=== PATIENT | male | born 1945 | race Caucasian/White ===

== ENCOUNTER 2017-08-27 01:12 | Inpatient (IN) | payer OTHER ==
[~2017-08-27] VITALS: Ht 175.3 cm; Wt 99.6 kg
[2017-08-27] VITALS (20 sets, daily range): BP systolic 115–151; BP diastolic 77–100; PULSE 64–81; TEMP 36.4–36.6; O2SAT 92–98; Ht 175.3 cm; Wt 99.6 kg
[~2017-08-27 01:12] MED LIST: ASPI325T45 PO; AZIT-57 PO; CALC500T72 PO; CHOL1CAP57 PO; COEN1CAP17 PO; DOCU-94 PO; FAMOCHW27 PO; MULTTAB58 PO; PHN/100 PO; PROB1TAB16 PO
[2017-08-27] MEDS ORDERED: NITROGLYCERIN 0.4 MG SL PER TAB CHARGE SL STA (01:27)
[2017-08-27] MEDS ORDERED: NITROGLYCERIN 0.4 MG SL PER TAB CHARGE ONE (01:27)
[2017-08-27 01:38] LABS: BASO % 0.3 %; BASO ABS # 0.02 K/uL (0-0.2); COMPLETE YES; EOS % 2.2 %; HEMATOCRIT 44.8 % (42-52); IG% 0.3 %; LYMPH % 17.4 %; LYMPH ABS # 1.03 K/uL (1.2-3.4); MEAN CELL VOLUME 96.6 fL (80-100); MEAN CORPUSCULAR HEMOGLOBIN 32.5 pg (25-34); MEAN CORPUSCULAR HGB CONC 33.7 g/dl (32-36); MEAN PLATELET VOLUME 8.9 fL (7.4-10.4); MONO % 11.3 %; NEUT % 68.5 %; PLATELET COUNT 234 K/uL (130-400); RED BLOOD COUNT 4.64 M/uL (4.7-6.1); WHITE BLOOD COUNT 5.92 K/uL (4.8-10.8)
[2017-08-27 01:48] LABS: PARTIAL THROMBOPLASTIN RATIO 0.9; PROTHROMBIN TIME (PATIENT) 10.4 SECONDS (9.0-12.0)
[2017-08-27] MEDS ORDERED: NITROGLYCERIN/D5W 100MCG/ML 20ML SYR ONE (01:54)
[2017-08-27] MEDS ORDERED: MIDAZOLAM HCL 1 MG/ML 2ML VIAL ONE (01:54)
[2017-08-27] MEDS ORDERED: HEPARIN SOD (PORCINE) 1000 UNIT/ML 10 ML VIAL ONE ×2 (01:54→02:42)
[2017-08-27] MEDS ORDERED: NiCARDipine HCL INJ 2.5 MG/ML 10 ML AMP ONE (01:54)
[2017-08-27] MEDS ORDERED: FENTANYL CITRATE INJ 50 MCG/1 ML 2 ML VIAL ONE (01:54)
[2017-08-27 01:56] LABS: ALT/SGPT 26 U/L (12-78); AST/SGOT 41 U/L (15-37); BLOOD UREA NITROGEN 21 mg/dl (7-18); BUN/CREATININE RATIO 22.9 (10-20); CALCIUM 8.1 mg/dl (8.5-10.1); CARBON DIOXIDE 25 mmol/L (21-32); CHLORIDE 105 mmol/L (98-107); CREATININE 0.92 mg/dl (0.60-1.40); GLUCOSE 181 mg/dl (70-99); POTASSIUM 3.5 mmol/L (3.5-5.1); SODIUM 135 mmol/L (136-145)
--- NOTE | 2017-08-27 02:04 | Procedure Note ---
Pre-Mod Sedation Assessment General Date of Moderate Sedation: Aug 27, 2017. Vital Signs: Vital Signs Past 12 Hours Date Time Temp Pulse Resp B/P (MAP) Pulse Ox O2 Delivery O2 Flow Rate FiO2 08/27/17 01:59 59 18 137/99 96 08/27/17 01:36 83 19 155/102 93 Room Air 08/27/17 01:31 81 19 170/108 94 Room Air 08/27/17 01:26 82 18 210/135 92 Room Air 08/27/17 01:23 73 08/27/17 01:22 36.4 78 20 197/129 97 Room Air Review Cardiovascular: regular rate, rhythm, no edema Abdomen: normal bowel sounds, non tender Lungs: chest non-tender, lungs clear Pre-Sedation Airway Assessment Oral Cavity: WNL Able to Visualize Vocal Cords: No Short Thick Neck: No Hx of Sleep Apnea: No Smoking Status: Never Smoker Mallampati Classification: Class III ASA Classification: Class IV Procedure Planning Contraindications-for Mod Sed: None Yes Notes The planned sedation has been discussed with the patient and consent obtained. I have identified the patient, determined the appropriateness of sedation and have assessed the patient immediately prior to the procedure. All medicine(s) and interventions are by my order.
[2017-08-27 02:07] LABS: ALKALINE PHOSPHATASE 179 U/L (45-117); CKMB/CK RATIO 6.1 (0-3.0)
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
[2017-08-27] MEDS ORDERED: TICAGRELOR 90 MG TAB PO ONE (03:09)
--- NOTE | 2017-08-27 03:16 | CARDIOLOGY CONSULTATION ---
DATE OF CONSULTATION: 08/27/2017 CONSULTATION REQUESTED: Emergency department/heart alert. REASON FOR CONSULTATION: Inferior ST segment elevation myocardial infarction. HISTORY OF PRESENT ILLNESS: Mr. Bach is a pleasant 71-year-old man with a history of prior CVA in the 80s, thoracic aortic aneurysm at 4.5 cm, GERD who presented this evening with acute onset of chest pain and was found to have inferior ST elevations. The patient states he has been in usual state of health up until about 10:00 p.m. on 08/26/2017, at that time developed acute onset chest pain max 5/10. Symptoms persisted until approximately 1:00 a.m. today when he presented to the [facility] Emergency Department. At that time, was hypertensive with systolic blood pressures in the 190s. He was given sublingual nitroglycerin with improvement in chest pain and at time of interview chest pain was 1/10 and blood pressure down to systolics in the 140s. His initial EKG showed inferior ST elevations and a point of care troponin was positive at 2.6. PAST MEDICAL HISTORY: 1. Prior CVA in the 1980s with minimal residual left-sided upper extremity numbness. 2. 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 3. Thoracic aortic aneurysm, last reported measurement 4.5 cm in 2014 followed by [facility], [place] thoracic surgery. 4. GERD/chronic cough. FAMILY HISTORY: No family history of premature coronary disease or sudden cardiac . SOCIAL HISTORY: Denies tobacco use or heavy alcohol use. Lives with his who he has been to for over 50 years. 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 MEDICATIONS: Aspirin 325, vitamin C, vitamin D3, Coenzyme Q10, docusate, Pepcid, multivitamins, Dilantin, and probiotic. ALLERGIES: ALLERGIC TO CARBAMAZEPINE, CEPHALEXIN, CEPHALOSPORINS AND PENICILLINS. REVIEW OF SYSTEMS: Not completed in an emergent setting. PHYSICAL EXAMINATION: VITAL SIGNS: Temperature 36.2, pulse was in the 80s, blood pressure in the 130s/80s. He was satting 92% on room air. GENERAL: The patient appeared comfortable in no acute distress. HEENT: His sclerae are anicteric. His oropharynx is clear. NECK: Supple, no lymphadenopathy. LUNGS: Clear to auscultation bilaterally. HEART: Irregular rate and rhythm with no appreciable murmurs, rubs or gallops. ABDOMEN: Soft, nontender, nondistended with positive bowel sounds. EXTREMITIES: Warm. He has trace lower extremity edema. SKIN: Shows no rashes or lesions, 2+ distal pulses including 2+ radial pulses bilaterally. NEUROLOGIC: Nonfocal. PSYCHIATRIC: Alert and appropriate. LABORATORY DATA: Point of care troponin was 2.66, hemoglobin was 15.1, platelets of 234. INR 1.0. His initial chest x-ray showed no acute cardiopulmonary process. IMPRESSION AND PLAN: 1. Inferior ST segment elevation myocardial infarction. 2. History of prior cerebrovascular accident. 3. Stable thoracic aortic aneurysm. Mr. Bach is here with approximately 3 hours of acute onset of chest pain and found to have inferior ST elevations on EKG with elevated cardiac biomarkers. We will plan to treat as a STEMI and proceed with emergent cardiac catheterization. Discussed risks, benefits, alternatives to procedure with the patient and his and he is willing to proceed. We will plan on procedure via right radial artery. Further recommendations pending findings of cardiac catheterization. Thank you for allowing us to participate in the care of this patient. Please contact with questions.
[2017-08-27] MEDS ORDERED: NITROGLYCERIN 0.4 MG SL PER TAB CHARGE SL PRN ×2 (03:30→04:00)
[2017-08-27] MEDS ORDERED: ACETAMINOPHEN 325 MG TAB PO PRN ×2 (03:30→04:00)
[2017-08-27] MEDS ORDERED: ONDANSETRON INJ 2 MG/ML 2 ML VIAL IV PRN (03:30)
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
--- NOTE | 2017-08-27 03:43 | Cardiac Catheterization ---
Procedure Note Procedure Date Aug 27, 2017. Pre-Procedure Diagnosis STEMI AUC Score 9 Post-Procedure Diagnosis Severe CAD Procedure(s) Performed Coronary Angiography, Drug Eluting Stent [employer] Service Helper Bryson Global Technical Writer(s) Jairo Estimated Blood Loss Medication(s) Fentanyl, Heparin, Nicardipine, Nitroglycerin, Versed, Lidocaine 1% Summary of Findings Indication: STEMI/Heart Alert Access: 6Fr slender right radial artery Catheters: [place], JL3.5; JR4 guide, AR1 guide Findings: LM - Luminal irregularities LAD - Moderate caliber vessel, diffuse mild proximal disease; diffuse 50-60% mid segment disease; distal luminal irregularities as wraps around apex - Small to moderate 1st diagonal with 60% mid segment stenosis Circumflex - Diffuse 40% angulated mid segment stenosis followed by ectatic disease prior to take off of OM2. distal circumflex 60-70% focal stenosis at bifurcation of OM2; OM2 with 60% ostial stenosis. RCA - Dominant, 30% proximal stenosis; Acute 100% occlusion at beginning of mid segment. -- post intervention diffuse 50% distal RCA stenosis prior to R-PDA; diffuse distal PDA disease; 50% proximal distal PLB. -- PCI -- Antithrombotic therapy: Heparin, Ticagrelor Procedure: RCA cannulated with JR4 guide Prowater wire passed across lesion into distal vessel Early-mid RCA lesion predilated with 2.5 compliant balloon Dilated lesion stented with 3.5 x 26 [place] MERCEDES Stent post-dilated with stent balloon IC vasodilators administered for spasm Post procedure INA 3 flow, stent well expanded with minimal residual stenosis and no apparent cardiac complications. Arterial Closure: TR Ban Summary: 1. Inferior STEMI/Occluded early-mid RCA 2. Moderate to severe multi vessel coronary artery disease - 50-60% mid LAD - OM2/distal circumflex bifurcation with 60-70% ostial lesions - 50% distal RCA 3. Successful PCI of early-mid RCA with 3.5 x 26 Ezequiel MERCEDES Recommendations: Admit to ICU for continued monitoring Loaded with Ticagrelor 180mg in label press operator Continue dual-antiplatelet therapy with ASA/Ticagrelor for 1 year Trend troponins until peak, Check Echo Uptitrate beta-prabhu/MALATHI as BP allows High-dose statin Consult cardiac Rehab Likely medical management of residual CAD with possible outpatient stress test Hemodynamics Rest Ao: 152/93/120 Final Ao: 118/75/95 LV: -- Recommendations PCI without planned CABG Specimens None Radiation Exposure (mGy) 2830 Contrast (mls) 185 Visi Fluids (cc crystalloids) 110 Drains None Anesthesia Moderate Procedural Complication(s) None Disposition ICU ACC Data Cardiac Status Clinical evaluation leading to the procedure CAD Presntation: STEMI STEMI or Non-STEMI: Symptom Onset Date/Time: 08/26 22:00 Anginal Classification: CCS IV Heart Failure: No, NYHA Class: CCS I Cardiogenic Shock w/in 24Hrs: No Cardiac Arrest w/in 24Hrs: No Imaging studies past 6 months: No Stress studies past 6 months: No Closure Device Percutaneous Entry Location: Radial Closure Device: Radial Band Recommendations: PCI without planned CABG PCI Indication: Immediate PCI for STEMI First Noted: First EKG Reason For Delay in PCI: Subclavian tortuosity; difficulty engaging RCA Lesion Segment Name: Mid RCA Culprit Artery: Yes Stenosis Prior to Rx (%): 100 Chronic Total Occlusion: No IVUS: No FFR: No Pre-Procedure INA Flow: 0 Previously Treated Lesion: No Lesion Complexity: Non-High/Non-C Lesion Length (mm): 24 Thrombus Present: Yes Bifurcation Lesion: No Guidewire Across Lesion: Yes Guidewire: Stenosis Post-Procedure (%): 0 Post-Procedure INA Flow: 3 Device(s) Deployed: Yes Intraprocedure Events Significant Dissection: No Perforation: No
[2017-08-27] MEDS ORDERED: DOCUSATE SODIUM 100 MG CAP PO PRN (04:00)
[2017-08-27] MEDS ORDERED: MoRPHine SULFATE 2 MG/ML CARP IV PRN (04:00)
[2017-08-27] MEDS ORDERED: LORAZEPAM 0.5 MG TAB PO PRN (04:00)
--- NOTE | 2017-08-27 04:08 | History and Physical ---
History & Physical Date & Time of Service: Aug 27, 2017 at 03:58 Chief Complaint: STEMI Primary Care Physician: Jay Mayo M.D. History of Present Illness Source: patient, family Mr Bach is a 71 yo M with hx of stroke, GERD, and aortic aneurysm who presented to the ED with chest pain that had begun about 3 hours prior to arrival. He was found to have a STEMI in the inferior leads and a heart alert was called. He underwent cardiac catheterization and had a stent placed to the mid-RCA via a R radial approach. He was found to also have disease in the LAD and circumflex but these were not stented. He was started on Brillinta in the golf course laborer. Currently, he is awake, alert and chest pain free. He denies any shortness of breath, abdominal pain, leg swelling, or other new symptoms. Past Medical/Surgical History PMHx Hx of stroke - a scar developed around this area so he was put on phenytoin for seizure precautions. he has never had a seizure, however. Aortic aneurysm - followed by [facility] Jeana ROONEY PSHx Tonsillectomy Family History Patient reports no known family medical history. No pertinent FHx Social History Is a [employer] and also used to be a high school assistant football coach. Lives in [facility]/his family. Never smoker. Occasional alcohol use. Smoking Status: Never Smoker Drug Use: none Marital Status: Occupational Status: employed Multi-Drug Resistant Organisms History of MDRO: No Allergies Coded Allergies: Cephalexin (Verified Allergy, Intermediate, Rash, 07/11/17) Cephalosporins (Verified Allergy, Intermediate, Rash, 07/11/17) Carbamazepine (Verified Allergy, Unknown, Elevated liver enzymes, 07/11/17 ) Penicillins (Verified Allergy, Unknown, 05/28/14) Home Medications Scheduled Aspirin (Aspirin), 325 MG PO DAILY Azithromycin (Azithromycin), 1 TAB PO DAILY Calcium Ascorbate (Vitamin C), 500 MG PO DAILY Cholecalciferol (Vitamin D3), 1,000 INTER.UNIT PO DAILY Coenzyme Q10 (Ubidecarenone) (Co Q 10), 100 MG PO DAILY Multiple Vitamin (Multivitamin), 1 TAB PO DAILY Phenytoin Sodium (Dilantin), 200 MG PO BID Probiotic Product (Probiotic), 1 TAB PO DAILY Scheduled PRN Docusate Sodium (Colace), 100 MG PO DAILY PRN for Constipation Famotidine-Calcium Carbonate-M (Pepcid Complete), 1 TAB PO UD PRN for Indigestion Review of Systems See HPI for pertinent positives & negatives. A total of 10 systems reviewed and were otherwise negative. Physical Exam Vital Signs Date Time Temp Pulse Resp B/P (MAP) Pulse Ox O2 Delivery O2 Flow Rate FiO2 08/27/17 03:30 36.4 66 20 135/90 (105) 95 Room Air 08/27/17 03:15 73 16 128/73 (91) 95 Room Air 08/27/17 03:05 73 16 130/73 (92) 95 Room Air 08/27/17 02:11 95 Room Air 08/27/17 01:59 59 18 137/99 96 08/27/17 01:36 83 19 155/102 93 Room Air 08/27/17 01:31 81 19 170/108 94 Room Air 08/27/17 01:26 82 18 210/135 92 Room Air 08/27/17 01:23 73 08/27/17 01:22 36.4 78 20 197/129 97 Room Air General Appearance: WD/WN, no apparent distress Head: normocephalic, atraumatic ENT: hearing grossly normal Neck: supple, no JVD Respiratory/Chest: lungs clear, normal breath sounds, no respiratory distress, no accessory muscle use Cardiovascular: regular rate, rhythm, no murmur, normal peripheral pulses Abdomen/GI: normal bowel sounds, non tender, soft Back: no CVA tenderness, no muscle spasm Extremities/Musculoskelatal: normal inspection, no pedal edema Neurologic/Psych: no motor/sensory deficits, alert, normal mood/affect, oriented x 3 Skin: no rash Diagnostics Laboratory Results Results Past 24 Hours Test 08/27/17 01:29 08/27/17 01:30 08/27/17 02:40 08/27/17 02:56 Range/Units Bedside Troponin I 2.660 0-0.045 ng/ml White Blood Count 5.92 4.8-10.8 K/uL Red Blood Count 4.64 4.7-6.1 M/uL Hemoglobin 15.1 14.0-18.0 g/dL Hematocrit 44.8 42-52 % Mean Corpuscular Volume 96.6 80-100 fL Mean Corpuscular Hemoglobin 32.5 25-34 pg Mean Corpuscular Hemoglobin Concent 33.7 32-36 g/dl Platelet Count 234 130-400 K/uL Mean Platelet Volume 8.9 7.4-10.4 fL Neutrophils (%) (Auto) 68.5 % Lymphocytes (%) (Auto) 17.4 % Monocytes (%) (Auto) 11.3 % Eosinophils (%) (Auto) 2.2 % Basophils (%) (Auto) 0.3 % Neutrophils # (Auto) 4.05 1.4-6.5 K/uL Lymphocytes # (Auto) 1.03 1.2-3.4 K/uL Monocytes # (Auto) 0.67 0.11-0.59 K/uL Eosinophils # (Auto) 0.13 0-0.5 K/uL Basophils # (Auto) 0.02 0-0.2 K/uL RDW Standard Deviation 49.6 36.4-46.3 fL RDW Coefficient of Variation 14.0 11.5-14.5 % Immature Granulocyte % (Auto) 0.3 % Immature Granulocyte # (Auto) 0.02 0.00-0.02 K/uL Prothrombin Time 10.4 9.0-12.0 SECONDS Prothromb Time International Ratio 1.0 0.9-1.1 Activated Partial Thromboplast Time 24.3 21.0-31.0 SECONDS Partial Thromboplastin Ratio 0.9 Sodium Level 135 136-145 mmol/L Potassium Level 3.5 3.5-5.1 mmol/L Chloride Level 105 98-107 mmol/L Carbon Dioxide Level 25 21-32 mmol/L Anion Gap 5.0 3-11 mmol/L Blood Urea Nitrogen 21 7-18 mg/dl Creatinine 0.92 0.60-1.40 mg/dl Est Creatinine Clear Calc Drug Dose 83.7 ml/min Estimated GFR () 95.3 Estimated GFR (Non- 82.2 BUN/Creatinine Ratio 22.9 10-20 Random Glucose 181 70-99 mg/dl Calcium Level 8.1 8.5-10.1 mg/dl Total Bilirubin 0.2 0.2-1 mg/dl Direct Bilirubin < 0.1 0-0.2 mg/dl Aspartate Amino Transf (AST/SGOT) 41 15-37 U/L Alanine Aminotransferase (ALT/SGPT) 26 12-78 U/L Alkaline Phosphatase 179 45-117 U/L Total Creatine Kinase 360 39-308 U/L Creatine Kinase MB 21.8 0.5-3.6 ng/ml Creatine Kinase MB Ratio 6.1 0-3.0 Troponin I 3.000 0-0.045 ng/ml Total Protein 8.0 6.4-8.2 gm/dl Albumin 3.5 3.4-5.0 gm/dl Kaolin Activated Coagulation Time 197 235 94-140 SECONDS CXR normal EKG Pre-cath EKG: ST elevation in inferior leads 3:30 AM EKG: Normal sinus rhythm Left axis deviation Minimal voltage criteria for LVH, may be normal variant Possible Lateral infarct , age undetermined Cannot rule out Inferior infarct , age undetermined Abnormal ECG When compared with ECG of 27-AUG-2017 01:18, (unconfirmed) Significant changes have occurred Impression Assessment and Plan 71 yo M, day 0 s/p cardiac catheterization with stent placement in the mid-RCA for inferior wall STEMI Coronary artery disease, s/p cardiac cath - Cardiology consult, Dr Massey - Per his recommendations: continue aspirin/Ticagrelor x 1 year - Continue trending troponins until peaked - Echo in AM - Started on beta prabhu, MALATHI-I, high dose statin - Cardiac rehab GERD - Continue Fomotidine PO Seizure prophylaxis - Continue phenytoin (home dosing) Dispo: Admitted to ICU Code status: Full Resident Physician Supervision Note: Pt evaluated independently upon exiting the golf course laborer. I discussed the case with the resident and agree with the findings and plan as documented in the note. Any exceptions or clarifications are listed here: 71 y/o M Hx CVA - poresented to the ER with CP and diagnosed with an an inferior ST-elevation TN. He is currently post cath - received a single MERCEDES to his RCA. AAO x 3 S1,2 R CTAB NT, ND No CCE P: Pt is post cath - cont Heparin, Bblocker - placed on Brilinta, Lipitor per cardio Above discussed with pt, resident, interactive project manager Documented By: Reji Frankel Level of Care Critical Care Advanced Directives Existing Living Will: Yes Existing Power of Cell Maker: Yes VTE Prophylaxis VTE Risk Assessment Done? Y/N: Yes Risk Level: Moderate Given or contraindicated: Other Anticoagulation Additional Copies To Jay Mayo M.D. Resident Tracking Resident Involvement: Resident Care Provided Care Provided: Adult [facility] Medicine
[2017-08-27] MEDS ORDERED: SODIUM CHLORIDE 0.9% 1000ML 1,000 ML IV SCH (06:30)
--- NOTE | 2017-08-27 06:33 | DIAGNOSTIC IMAGING REPORT ---
CHEST ONE VIEW PORTABLE CLINICAL HISTORY: eval mediastinum dyspnea COMPARISON STUDY: 07/11/2017 FINDINGS: Mild stable cardiomegaly. Lungs are clear. Superior mediastinum is unremarkable. Minimal tortuosity thoracic aorta. IMPRESSION: No acute process. The above report was generated using voice recognition software. It may contain grammatical, syntax or spelling errors. Electronically signed by: Maninder Ni M.D. 08/27/2017 6:31 AM Dictated Date/Time: 08/27/2017 6:30 AM
[2017-08-27 06:55] LABS: ESTIMATED AVERAGE GLUCOSE 154 mg/dl; HA1C FLAG Normal (Normal)
[2017-08-27 07:03] LABS: CHOLESTEROL/HDL RATIO 2.9
[2017-08-27 08:26] LABS: BASO % 0.4 %; BASO ABS # 0.03 K/uL (0-0.2); COMPLETE YES; EOS % 1.1 %; HEMATOCRIT 40.6 % (42-52); IG% 0.3 %; LYMPH % 13.4 %; LYMPH ABS # 0.96 K/uL (1.2-3.4); MEAN CELL VOLUME 95.1 fL (80-100); MEAN CORPUSCULAR HEMOGLOBIN 32.3 pg (25-34); MONO % 10.8 %; PLATELET COUNT 217 K/uL (130-400); RED BLOOD COUNT 4.27 M/uL (4.7-6.1); WHITE BLOOD COUNT 7.15 K/uL (4.8-10.8)
[2017-08-27] MEDS: LISINOPRIL 5 MG TAB PO SCH (08:40)
[2017-08-27] MEDS: ASPIRIN 81 MG ECTAB PO SCH (08:40)
[2017-08-27] MEDS: PHENYTOIN SODIUM ER 100 MG CAP PO SCH ×2 (08:40→19:28)
[2017-08-27] MEDS: METOPROLOL TARTRATE 25 MG TAB PO SCH ×2 (08:40→19:33)
[2017-08-27] MEDS: MULTIVITAMIN TAB PO SCH (08:40)
[2017-08-27] MEDS: ATORVASTATIN 40 MG TAB PO SCH (08:40)
[2017-08-27 08:43] LABS: BUN/CREATININE RATIO 23.5 (10-20); CALCIUM 8.1 mg/dl (8.5-10.1); CREATININE 0.71 mg/dl (0.60-1.40); MAGNESIUM 2.2 mg/dl (1.8-2.4); POTASSIUM 3.9 mmol/L (3.5-5.1)
[2017-08-27 08:44] LABS: PHOSPHORUS 2.3 mg/dl (2.5-4.9)
[2017-08-27] MEDS ORDERED: POTASSIUM PHOS 3 MMOL/1 ML INFUSION IV STA (08:55)
[2017-08-27] MEDS ORDERED: TICAGRELOR 90 MG TAB PO SCH (09:00)
[2017-08-27] MEDS ORDERED: POTASSIUM PHOSPHATE INJ 15 MMOL in SODIUM CHLORIDE 0.9% 250ML 250 ML IV ONE (09:00)
--- NOTE | 2017-08-27 09:32 | ECHOCARDIOGRAM REPORT ---
*NOTICE TO RECEIVING LIBERTARIAN AGENCY This information is strictly Confidential and protected under [place] law. [place] law prohibits you from making any further disclosure of this information unless further disclosure is expressly permitted by the written consent of the person to whom it pertains or is authorized by law. A general authorization for the release of medical or other information is not sufficient for this purpose. Hospital accepts no responsibility if the information is made available to any other person, INCLUDING THE PATIENT. Interpretation Summary * Name: BEBE FLORES Study Date: 08/27/2017 07:14 AM BP: 151/93 mmHg * Patient Location: .MSICU\S\E106\S\1 HR: 68 * : 1945 (M/d/yyyy) Gender: Male Height: 69 in * Age: 71 yrs Ethnicity: [place] Weight: 219 lb * Ordering Physician: Josr Massey * Referring Physician: Self, Referred * Performed By: Trace Don RCS * * Reason For Study: AMI * BSA: 2.1 m2 * -- Conclusions -- * 1. Normal LV size, mild concentric LVH. * 2. LVEF 55-60%. Inferior/inferolateral wall motion abnormality (see below for details). Grade I diastolic dysfunction. * 3. Normal RV size with borderline RV function. * 4. Aortic sclerosis. Mild aortic regurgitation. * 5. Mildly dilated ascending aorta (4.3 cm). * 6. Normal estimated PA and RA pressures. * 7. No prior studies for comparison. Procedure Details * A complete two-dimensional transthoracic echocardiogram was performed (2D, M-mode, Doppler and color flow Doppler). Left Ventricle * The left ventricle is grossly normal size. * There is mild concentric left ventricular hypertrophy. * Ejection Fraction = 55-60%. * Severe hypokinesis involving the inferolateral and inferior warner at the base. Mild mid segment inferior/inferolateral hypokinesis. Right Ventricle * The right ventricle is grossly normal size. * The right ventricular systolic function is borderline reduced. Atria * The left atrial size is normal. * The right atrium is mildly dilated. * No ASD detected; PFO is not assessed. Mitral Valve * The mitral valve is grossly normal. * There is no mitral valve stenosis. * There is trace mitral regurgitation. Tricuspid Valve * The tricuspid valve is not well visualized, but is grossly normal. * Tricuspid stenosis is absent. * There is trace tricuspid regurgitation. Aortic Valve * Aortic valve sclerosis mild, without significant aortic valvular stenosis. * No hemodynamically significant valvular aortic stenosis. * Mild aortic regurgitation. Pulmonic Valve * The pulmonary valve is inadequately visualized, but the Doppler data is adequate for interpretation. * There is no pulmonic valvular stenosis. * Trace pulmonic valvular regurgitation. Great Vessels * The aortic root is normal size. * Mildly dilated ascending aorta. Pericardium/Pleural * There is no pericardial effusion. Great Vessels * Normal inferior vena cava size and collapsability with sniff indicates a normal right atrial pressure of 3 mmHg Left Ventricular Diastolic Function * Grade I diastolic dysfunction, (abnormal relaxation pattern). MMode 2D Measurements and Calculations IVSd 1.1 cm IVSs 1.4 cm LVIDd 5.2 cm LVIDs 3.3 cm LVPWd 1.1 cm LVPWs 1.4 cm IVS/LVPW 0.99 FS 36.1 % EDV(Teich) 130.2 ml ESV(Teich) 45.1 ml EF(Teich) 65.3 % EDV(cubed) 141.6 ml ESV(cubed) 36.9 ml EF(cubed) 73.9 % % IVS thick 25.5 % % LVPW thick 25.7 % LV mass(C)d 216.5 grams LV mass(C)dI 100.9 grams/m\S\2 LV mass(C)s 153.9 grams LV mass(C)sI 71.7 grams/m\S\2 SV(Teich) 85.1 ml SI(Teich) 39.6 ml/m\S\2 SV(cubed) 104.6 ml SI(cubed) 48.7 ml/m\S\2 asc Aorta Diam 3.6 cm EDV(MOD-sp4) 128.0 ml ESV(MOD-sp4) 49.7 ml EF(MOD-sp4) 61.2 % EDV(MOD-sp2) 87.4 ml ESV(MOD-sp2) 36.9 ml EF(MOD-sp2) 57.8 % SV(MOD-sp4) 78.3 ml SI(MOD-sp4) 36.5 ml/m\S\2 SV(MOD-sp2) 50.5 ml SI(MOD-sp2) 23.5 ml/m\S\2 Doppler Measurements and Calculations MV E max oksana 50.5 cm/sec MV A max oksana 106.6 cm/sec MV E/A 0.47 MV P1/2t max oksana 55.1 cm/sec MV P1/2t 103.4 msec MVA(P1/2t) 2.1 cm\S\2 MV dec slope 156.2 cm/sec\S\2 MV dec time 0.37 sec Ao V2 max 174.6 cm/sec Ao max PG 12.2 mmHg Ao max PG (full) 9.3 mmHg AI max oksana 427.1 cm/sec AI max PG 73.0 mmHg AI dec slope 90.8 cm/sec\S\2 AI P1/2t 1378.3 msec LV V1 max PG 2.9 mmHg LV V1 max 84.6 cm/sec PA V2 max 88.7 cm/sec PA max PG 3.1 mmHg PI max oksana 123.0 cm/sec PI max PG 6.0 mmHg PI dec slope 105.8 cm/sec\S\2 PI P1/2t 340.5 msec TR max oksana 212.1 cm/sec
[2017-08-27] MEDS ORDERED: PEPCID COMPLETE PO PRN (13:45)
[2017-08-27] MEDS ORDERED: CLOPIDOGREL BISULFATE 300 MG TAB PO STA (16:12)
--- NOTE | 2017-08-27 16:13 | Cardiology Follow-Up ---
Subjective Subjective Date of Service: Aug 27, 2017. Pt evaluation today including: conversation w/ patient, physical exam, review of studies, review of inpatient medication list Additional Details: Feeling well. No chest pain. No other new complaints. tele reviewed -- no events. Problem List Medical Problems: (1) Acute bronchitis Status: Acute (2) STEMI (ST elevation myocardial infarction) Status: Acute Review of Systems Constitutional: No fever, No chills Cardiac: No chest pain Abdomen: No pain, No nausea Psychiatric: No depression symptoms Heme: No abnormal bleeding/bruising Endo: No fatigue Skin: No rash Objective Vital Signs Last Vital Signs Documentation Date Time Temp Pulse Resp B/P (MAP) Pulse Ox O2 Delivery O2 Flow Rate FiO2 08/27/17 12:00 Room Air 08/27/17 12:00 36.5 64 20 115/86 (96 92 Physical Exam: General Appearance: no apparent distress ENT: hearing grossly normal Neck: no JVD Respiratory/Chest: lungs clear, normal breath sounds Cardiovascular: regular rate, rhythm, no edema, no murmur Abdomen: non tender, soft Extremities: no pedal edema, no calf tenderness, + pertinent finding (right radial artery - no hematoma/ecchymosis. intact distal pulse) Neurologic/Psychiatric: alert, normal mood/affect Skin: warm/dry Assessment and Plan 1. Inferior STEMI s/p PPCI with MERCEDES to early-mid RCA 2. Dilated ascending aorta with mild aortic regurgitation. 3. Prior CVA/? prior seizure disorder Chest pain free. Hemodynamically and electrically stable. Troponin peaked this AM. LV function preserved on Echo. No access site complications -- will plan to transition ticagrelor to clopidogrel --> load 300mg this afternoon, start 75mg clopidogrel tomorrow AM. Continue ASA -- Continue MALATHI/beta-prabhu -- continue high-intensity statin. -- Ok from cardiac standpoint to transfer to telemetry. Medications: Current Inpatient Medications Medications (Trade) Dose Ordered Sig/Néstor Route Start Time Stop Time Status Last Admin Dose Admin Nitroglycerin (Nitrostat Tab) 0.4 mg UD PRN SL 08/27/17 03:30 09/26/17 03:29 Ondansetron HCl (Zofran Inj) 4 mg Q6H PRN IV 08/27/17 03:30 09/26/17 03:29 Aspirin (Ecotrin Tab) 81 mg QAM PO 08/27/17 09:00 09/26/17 08:59 08/27/17 08:40 81 MG Atorvastatin Calcium (Lipitor Tab) 80 mg QAM PO 08/27/17 09:00 09/26/17 08:59 08/27/17 08:40 80 MG Metoprolol Tartrate (Lopressor Tab) 25 mg Q12 PO 08/27/17 09:00 09/26/17 08:59 08/27/17 08:40 25 MG Lisinopril (Zestril Tab) 5 mg QAM PO 08/27/17 09:00 09/26/17 08:59 08/27/17 08:40 5 MG Ticagrelor (Brilinta Tab) 90 mg BID PO 08/27/17 09:00 09/26/17 08:59 08/27/17 08:44 90 MG Acetaminophen (Tylenol Tab) 650 mg Q4H PRN PO 08/27/17 04:00 09/26/17 03:59 Lorazepam (Ativan Tab) 0.5 mg Q4H PRN PO 08/27/17 04:00 09/26/17 03:59 Morphine Sulfate (MoRPHine SULFATE INJ) 2 mg Q2H PRN IV 08/27/17 04:00 09/10/17 03:59 Docusate Sodium (coLACE CAP) 100 mg DAILY PRN PO 08/27/17 04:00 09/26/17 03:59 Multivitamins (Multivitamin Tab) 1 tab DAILY PO 08/27/17 09:00 09/26/17 08:59 08/27/17 08:40 1 TAB Phenytoin Sodium (Dilantin Er Cap) 200 mg BID PO 08/27/17 09:00 09/26/17 08:59 08/27/17 08:40 200 MG Non-Formulary Medication (Non-Formulary Patient'S Own Med) 1 ea DAILY PRN PO 08/27/17 13:45 09/26/17 13:44 Lab Results: 08/27/17 08:12 Red Blood Count 4.27, Mean Corpuscular Volume 95.1, Mean Corpuscular Hemoglobin 32.3, Mean Corpuscular Hemoglobin Concent 34.0, Mean Platelet Volume 9.0, Neutrophils (%) (Auto) 74.0, Lymphocytes (%) (Auto) 13.4, Monocytes (%) (Auto) 10.8, Eosinophils (%) (Auto) 1.1, Basophils (%) (Auto) 0.4, Neutrophils # (Auto ) 5.29, Lymphocytes # (Auto) 0.96, Monocytes # (Auto) 0.77, Eosinophils # (Auto ) 0.08, Basophils # (Auto) 0.03 08/27/17 08:12 Test 08/27/17 01:29 08/27/17 01:30 08/27/17 02:56 08/27/17 05:59 Bedside Troponin I 2.660 ng/ml (0-0.045) Prothrombin Time 10.4 SECONDS (9.0-12.0) Prothromb Time International Ratio 1.0 (0.9-1.1) Activated Partial Thromboplast Time 24.3 SECONDS (21.0-31.0) Partial Thromboplastin Ratio 0.9 Total Bilirubin 0.2 mg/dl (0.2-1) Direct Bilirubin < 0.1 mg/dl (0-0.2) Aspartate Amino Transf (AST/SGOT) 41 U/L (15-37) Alanine Aminotransferase (ALT/SGPT) 26 U/L (12-78) Alkaline Phosphatase 179 U/L (45-117) Total Creatine Kinase 360 U/L (39-308) Creatine Kinase MB 21.8 ng/ml (0.5-3.6) Creatine Kinase MB Ratio 6.1 (0-3.0) Total Protein 8.0 gm/dl (6.4-8.2) Albumin 3.5 gm/dl (3.4-5.0) Kaolin Activated Coagulation Time 235 SECONDS (94-140) Estimated Average Glucose 154 mg/dl Hemoglobin A1c 7.0 % (4.5-5.6) Triglycerides Level 55 mg/dl (0-150) Cholesterol Level 211 mg/dl (0-200) HDL Cholesterol 73 mg/dl LDL Cholesterol, Calculated 127 mg/dl VLDL Cholesterol, Calculated 11 mg/dl Cholesterol/HDL Ratio 2.9 Test 08/27/17 08:12 08/27/17 11:21 08/27/17 13:55 White Blood Count 7.15 K/uL (4.8-10.8) Red Blood Count 4.27 M/uL (4.7-6.1) Hemoglobin 13.8 g/dL (14.0-18.0) Hematocrit 40.6 % (42-52) Mean Corpuscular Volume 95.1 fL (80-100) Mean Corpuscular Hemoglobin 32.3 pg (25-34) Mean Corpuscular Hemoglobin Concent 34.0 g/dl (32-36) Platelet Count 217 K/uL (130-400) Mean Platelet Volume 9.0 fL (7.4-10.4) Neutrophils (%) (Auto) 74.0 % Lymphocytes (%) (Auto) 13.4 % Monocytes (%) (Auto) 10.8 % Eosinophils (%) (Auto) 1.1 % Basophils (%) (Auto) 0.4 % Neutrophils # (Auto) 5.29 K/uL (1.4-6.5) Lymphocytes # (Auto) 0.96 K/uL (1.2-3.4) Monocytes # (Auto) 0.77 K/uL (0.11-0.59) Eosinophils # (Auto) 0.08 K/uL (0-0.5) Basophils # (Auto) 0.03 K/uL (0-0.2) RDW Standard Deviation 48.2 fL (36.4-46.3) RDW Coefficient of Variation 14.1 % (11.5-14.5) Immature Granulocyte % (Auto) 0.3 % Immature Granulocyte # (Auto) 0.02 K/uL (0.00-0.02) Anion Gap 7.0 mmol/L (3-11) Est Creatinine Clear Calc Drug Dose 107.7 ml/min Estimated GFR () 107.9 Estimated GFR (Non- 93.1 BUN/Creatinine Ratio 23.5 (10-20) Calcium Level 8.1 mg/dl (8.5-10.1) Phosphorus Level 2.3 mg/dl (2.5-4.9) Magnesium Level 2.2 mg/dl (1.8-2.4) Bedside Glucose 106 mg/dl (70-99) Troponin I 63.000 ng/ml (0-0.045) Date/Time Source Procedure Growth Status 08/27/17 00:00 Nasal MRSA DNA Surveillance Screen - Final Specimen Negative for MRSA by DNA Probe Complete
[2017-08-27] MEDS ORDERED: CLOPIDOGREL BISULFATE 300 MG TAB PO ONE (19:18)
[2017-08-28] VITALS (10 sets, daily range): BP systolic 101–119; BP diastolic 69–79; PULSE 73–92; TEMP 36.4–37.2; O2SAT 90–94
[2017-08-28 06:46] LABS: BASO % 0.3 %; BASO ABS # 0.02 K/uL (0-0.2); COMPLETE YES; EOS % 1.9 %; IG% 0.3 %; LYMPH ABS # 0.83 K/uL (1.2-3.4); MEAN CELL VOLUME 97.6 fL (80-100); MEAN CORPUSCULAR HEMOGLOBIN 31.7 pg (25-34); MEAN CORPUSCULAR HGB CONC 32.4 g/dl (32-36); MEAN PLATELET VOLUME 9.3 fL (7.4-10.4); MONO % 15.7 %; NEUT % 67.8 %; PLATELET COUNT 198 K/uL (130-400); RED BLOOD COUNT 3.79 M/uL (4.7-6.1); WHITE BLOOD COUNT 5.93 K/uL (4.8-10.8)
[2017-08-28 07:16] LABS: BUN/CREATININE RATIO 20.7 (10-20); CALCIUM 7.5 mg/dl (8.5-10.1); CREATININE 0.61 mg/dl (0.60-1.40); MAGNESIUM 2.1 mg/dl (1.8-2.4); POTASSIUM 3.6 mmol/L (3.5-5.1)
[2017-08-28 07:17] LABS: PHOSPHORUS 2.4 mg/dl (2.5-4.9)
[2017-08-28] MEDS: CLOPIDOGREL BISULFATE 75 MG TAB PO SCH (08:00)
[2017-08-28] MEDS: METOPROLOL TARTRATE 25 MG TAB PO SCH ×2 (08:01→21:05)
[2017-08-28] MEDS: ATORVASTATIN 40 MG TAB PO SCH (08:01)
[2017-08-28] MEDS: MULTIVITAMIN TAB PO SCH (08:01)
[2017-08-28] MEDS: ASPIRIN 81 MG ECTAB PO SCH (08:01)
[2017-08-28] MEDS: LISINOPRIL 5 MG TAB PO SCH (08:01)
[2017-08-28] MEDS: PHENYTOIN SODIUM ER 100 MG CAP PO SCH ×2 (08:02→21:04)
--- NOTE | 2017-08-28 08:44 | Family Medicine Progress Note ---
Progress Note Date of Service Aug 28, 2017. Subjective Pt evaluation today including: conversation w/ patient, physical exam, chart review, lab review, review of studies, conversation w/ reimbursement consultant (cardiology) Found patient sitting up in the bed, appears very comfortable, conversing easily. Says he remains chest pain-free. Denies any SOB, wrist pain, or any other acute concerns. Asks when he will be discharged home. Constitutional: No fever, No chills Respiratory: No cough, No shortness of breath Cardiovascular: No chest pain, No edema Abdomen: No pain, No nausea, No vomiting Medications Current Inpatient Medications Medications (Trade) Dose Ordered Sig/Néstor Route Start Time Stop Time Status Last Admin Dose Admin Nitroglycerin (Nitrostat Tab) 0.4 mg UD PRN SL 08/27/17 03:30 09/26/17 03:29 Ondansetron HCl (Zofran Inj) 4 mg Q6H PRN IV 08/27/17 03:30 09/26/17 03:29 Aspirin (Ecotrin Tab) 81 mg QAM PO 08/27/17 09:00 09/26/17 08:59 08/28/17 08:01 81 MG Atorvastatin Calcium (Lipitor Tab) 80 mg QAM PO 08/27/17 09:00 09/26/17 08:59 08/28/17 08:01 80 MG Metoprolol Tartrate (Lopressor Tab) 25 mg Q12 PO 08/27/17 09:00 09/26/17 08:59 08/28/17 08:01 25 MG Lisinopril (Zestril Tab) 5 mg QAM PO 08/27/17 09:00 09/26/17 08:59 08/28/17 08:01 5 MG Acetaminophen (Tylenol Tab) 650 mg Q4H PRN PO 08/27/17 04:00 09/26/17 03:59 Lorazepam (Ativan Tab) 0.5 mg Q4H PRN PO 08/27/17 04:00 09/26/17 03:59 08/27/17 22:21 0.5 MG Morphine Sulfate (MoRPHine SULFATE INJ) 2 mg Q2H PRN IV 08/27/17 04:00 09/10/17 03:59 Docusate Sodium (coLACE CAP) 100 mg DAILY PRN PO 08/27/17 04:00 09/26/17 03:59 Multivitamins (Multivitamin Tab) 1 tab DAILY PO 08/27/17 09:00 09/26/17 08:59 08/28/17 08:01 1 TAB Phenytoin Sodium (Dilantin Er Cap) 200 mg BID PO 08/27/17 09:00 09/26/17 08:59 08/28/17 08:02 200 MG Non-Formulary Medication (Non-Formulary Patient'S Own Med) 1 ea DAILY PRN PO 08/27/17 13:45 09/26/17 13:44 Clopidogrel Bisulfate (plAVix TAB) 75 mg QAM PO 08/28/17 09:00 09/27/17 08:59 08/28/17 08:00 75 MG Objective Vital Signs Date Time Temp Pulse Resp B/P (MAP) Pulse Ox O2 Delivery O2 Flow Rate FiO2 08/28/17 07:30 37.2 79 20 116/79 (91) 92 Room Air 08/28/17 07:30 Room Air 08/28/17 04:23 36.4 73 24 118/79 (92) 91 Room Air 08/28/17 04:10 94 Room Air 08/28/17 00:23 94 Room Air 08/28/17 00:22 36.4 73 17 119/74 (89) 92 Room Air 08/27/17 20:12 94 Room Air 08/27/17 20:00 36.6 69 16 127/77 (94) 94 Room Air 08/27/17 16:00 Room Air 08/27/17 16:00 36.6 70 19 125/84 (98) 96 Room Air 08/27/17 12:00 Room Air 08/27/17 12:00 36.5 64 20 115/86 (96) 92 Room Air 08/27/17 11:00 64 20 115/86 (96) 92 08/27/17 10:00 68 25 131/86 (101) 96 08/27/17 09:00 81 24 138/89 (105) 93 Room Air Physical Exam General Appearance: WD/WN, no apparent distress Respiratory/Chest: lungs clear, normal breath sounds, no respiratory distress Cardiovascular: regular rate, rhythm, no murmur, + pertinent finding (right 2+ radial pulse) Abdomen: normal bowel sounds, non tender, soft Extremities: non-tender, no pedal edema, + pertinent finding (no difficulty ambulating about the room) Skin: + pertinent finding (noted right wrist ecchymosis at site of cath entry) Laboratory Results 08/28/17 05:53 Red Blood Count 3.79, Mean Corpuscular Volume 97.6, Mean Corpuscular Hemoglobin 31.7, Mean Corpuscular Hemoglobin Concent 32.4, Mean Platelet Volume 9.3, Neutrophils (%) (Auto) 67.8, Lymphocytes (%) (Auto) 14.0, Monocytes (%) (Auto) 15.7, Eosinophils (%) (Auto) 1.9, Basophils (%) (Auto) 0.3, Neutrophils # (Auto ) 4.02, Lymphocytes # (Auto) 0.83, Monocytes # (Auto) 0.93, Eosinophils # (Auto ) 0.11, Basophils # (Auto) 0.02 08/28/17 05:53 Test 08/27/17 21:08 08/27/17 22:06 08/28/17 05:53 Bedside Glucose 117 mg/dl (70-99) Troponin I 33.500 ng/ml (0-0.045) White Blood Count 5.93 K/uL (4.8-10.8) Red Blood Count 3.79 M/uL (4.7-6.1) Hemoglobin 12.0 g/dL (14.0-18.0) Hematocrit 37.0 % (42-52) Mean Corpuscular Volume 97.6 fL (80-100) Mean Corpuscular Hemoglobin 31.7 pg (25-34) Mean Corpuscular Hemoglobin Concent 32.4 g/dl (32-36) Platelet Count 198 K/uL (130-400) Mean Platelet Volume 9.3 fL (7.4-10.4) Neutrophils (%) (Auto) 67.8 % Lymphocytes (%) (Auto) 14.0 % Monocytes (%) (Auto) 15.7 % Eosinophils (%) (Auto) 1.9 % Basophils (%) (Auto) 0.3 % Neutrophils # (Auto) 4.02 K/uL (1.4-6.5) Lymphocytes # (Auto) 0.83 K/uL (1.2-3.4) Monocytes # (Auto) 0.93 K/uL (0.11-0.59) Eosinophils # (Auto) 0.11 K/uL (0-0.5) Basophils # (Auto) 0.02 K/uL (0-0.2) RDW Standard Deviation 51.7 fL (36.4-46.3) RDW Coefficient of Variation 14.5 % (11.5-14.5) Immature Granulocyte % (Auto) 0.3 % Immature Granulocyte # (Auto) 0.02 K/uL (0.00-0.02) Anion Gap 6.0 mmol/L (3-11) Est Creatinine Clear Calc Drug Dose 125.6 ml/min Estimated GFR () 114.8 Estimated GFR (Non- 99.1 BUN/Creatinine Ratio 20.7 (10-20) Calcium Level 7.5 mg/dl (8.5-10.1) Phosphorus Level 2.4 mg/dl (2.5-4.9) Magnesium Level 2.1 mg/dl (1.8-2.4) Phenytoin (Dilantin) Level 17.4 mcg/mL (10-20) Assessment and Plan Mr. Bach is a 71 yo male who was admitted on 27Aug2017 for an inferior wall STEMI. STEMI - Now s/p cardiac cath (08Dec early AM, PPD #1) with MERCEDES to RCA. - TnI trending downwards. - 08Dec pCXR (pre-cath): No acute findings. - [id number] TTE (see full report): LVEF 55-60%. Inferior/inferolateral wall motion abnormality. Mildly dilated ascending aorta (4.3 cm). - Current inpatient medication regimen: Metoprolol 25 q12h, Lipitor 80 q day, Lisinopril 5 q day, Plavix 75 mg q day, ASA 81 q day. - See related cardiology notes / recommendations. 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 - On home phenytoin (200 BID) for seizure prophy (though no PMH of any seizures) . DM - *NEW* diagnosis - 08[facility] HbA1C was 7.0. Discussed same with patient. Will start on metformin ER 500 q PM. PMH issues: - GERD: Was on home pepcid prn. Holding for now unless becomes symptomatic. - Aortic aneurysm: Followed by [facility] - Anxiety: Ativan prn Code status: Full DVT prophy: Plavix, ASA, and ambulation Disposition: Discussed with cardiology, rec'd continued observation for today. Ultimately planned for home and outpt cardiac rehab. Resident Physician Supervision Note: I interviewed and examined the patient. Discussed with Dr. Nieto and agree with findings and plan as documented in the note. 71-year-old male with ST elevation myocardial infarction status post coronary catheterization with drug- eluting stent to the right coronary artery. He is out of bed today, denies recurrence of chest pain or shortness of breath. He continues on beta prabhu, high-dose statin, Plavix, and low-dose aspirin. In light of elevated hemoglobin A1c, recommended addition of metformin extended release 500 mg qPM, and we'll have him titrate to 2 tabs after 1 week. The patient is already on low dose MALATHI inhibitor. Likely related for discharge tomorrow; will need follow -up with both cardiology and his primary care physician Dr. Mayo. Documented By: Huy Carr Resident Tracking Resident Involvement: Resident Care Provided Care Provided: Adult Hospital Medicine (inpt rounds)
--- NOTE | 2017-08-28 13:37 | CARDIOLOGY PROGRESS NOTE ---
DATE: 08/28/2017 SUBJECTIVE: Mr. Bach is resting comfortably in bedside chair without complaints of chest pain or dyspnea. He has been ambulatory this morning without exertional angina. OBJECTIVE: VITAL SIGNS: Blood pressure is 101/69 with a regular pulse of 85. Respiratory rate is 20. The patient is afebrile at 36.2 degree Celsius. Saturations 93% on room air. NECK: Supple with full carotid upstrokes. There are no carotid bruits. Jugular venous pressure is flat at 90 degrees. There is no thyromegaly. CARDIOVASCULAR: Reveals a regular rhythm with normal S1 and S2. No S3, S4, or murmurs are noted. LUNGS: Clear without rales, rhonchi, or wheezes. ABDOMEN: Soft, nontender without bruits. EXTREMITIES: Reveal intact radial artery pulses bilaterally. Trace pretibial edema is noted. DATA: CBC notes hemoglobin of 12.0, hematocrit 37.0, white count 5.9, and a platelet count of 198,000. Electrolytes note a sodium of 139, potassium 3.6, chloride 111, bicarbonate 22, BUN 13, creatinine 0.61, glucose 115. Troponin I level down to 33.5. photographer portrait is benign. EKG notes sinus rhythm with a left axis deviation and an evolving inferior wall infarction. IMPRESSION AND PLAN: 1. Status post inferior ST elevation myocardial infarction -- patient now stable following drug-eluting stent to the early to mid right coronary artery. We will continue optimal medical management. 2. Dilated ascending thoracic aorta. 3. Mild aortic insufficiency. 4. History of cerebrovascular accident. 5. History of seizure disorder. 6. Disposition -- he would continue on telemetry for an additional 24 hours for hospital discharge.
[2017-08-28] MEDS ORDERED: METFORMIN HCL 500 MG TABCR PO SCH (16:30)
--- NOTE | 2017-08-28 20:01 | Progress Note ---
Post ICU Progress Note Date & Time Aug 28, 2017 at 19:42 Vital Signs Vital Signs Past 12 Hours Date Time Temp Pulse Resp B/P (MAP) Pulse Ox O2 Delivery O2 Flow Rate FiO2 08/28/17 19:19 36.9 82 20 111/73 (86) 92 Room Air 08/28/17 16:00 90 Room Air 08/28/17 15:30 36.7 85 16 118/70 (86) 90 Room Air 08/28/17 11:20 Room Air 08/28/17 11:10 37.2 92 20 101/69 (80) 93 Room Air Notes Mental Status: alert / awake, participated in evaluation Nausea / Vomiting: adequately controlled Pain: adequately controlled Airway Patency, RR, SpO2: stable & adequate BP & HR: stable & adequate Nicola Bach is 71yo male who presented to [facility] on 08/26/17 for chest pain and was found to be suffering from a STEMI. He underwent cardiac catheterization without complication by Dr. Massey. 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 Pt transferred from the ICU on 08/27/17. He did not undergo intubation or invasive monitoring this admission. Upon examination today, pt is pleasant and very happy with his care at [facility]. He is without chest pain, unilateral stroke like symptoms, shortness of breath, abd pain/nausea, change in bowel or bladder habits. He is still suffering from his URI but states it is improving. He continues with a mild cough and phlegm production. Pt has significant ecchymosis of the right forearm without tenderness, hematoma, inflammation or rubor. Other parnell patient is hemodynamically stable. Pt believes that he is to be discharged tomorrow per a conversation with the hospital team today. Consider outpatient follow up in 1 to 2 weeks with: Dr.Jeff Mayo Repeat imaging needed: NA Follow up cultures: NA Reviewed progress notes, labs, and inpatient medication list Continue current management Additional recommendations: Begin to ambulate in hallway at discretion of nursing staff. Please replace Right Radial dressing as it is beginning to peel. Pt is stable and CCM will sign off at this time. Thank you for including us in the care of this pt; please feel free to reconsult as needed. Consults & Procedures Consultants: Cardiology: Dr. Massey/Dr. Castelan Procedures: R. Radial Approach to 1 MERCEDES RCA
[2017-08-29] VITALS (8 sets, daily range): BP systolic 114–131; BP diastolic 70–77; PULSE 69–85; TEMP 36.6–37.1; O2SAT 90–94
[2017-08-29 05:51] LABS: BASO % 0.5 %; BASO ABS # 0.03 K/uL (0-0.2); COMPLETE YES; EOS % 3.1 %; HEMATOCRIT 38.3 % (42-52); IG% 0.2 %; LYMPH ABS # 1.08 K/uL (1.2-3.4); MEAN CELL VOLUME 97.2 fL (80-100); MEAN CORPUSCULAR HEMOGLOBIN 32.2 pg (25-34); MEAN CORPUSCULAR HGB CONC 33.2 g/dl (32-36); MEAN PLATELET VOLUME 8.7 fL (7.4-10.4); MONO % 15.9 %; NEUT % 63.3 %; PLATELET COUNT 196 K/uL (130-400); RED BLOOD COUNT 3.94 M/uL (4.7-6.1); WHITE BLOOD COUNT 6.37 K/uL (4.8-10.8)
[2017-08-29 06:18] LABS: BUN/CREATININE RATIO 22.2 (10-20); CALCIUM 8.1 mg/dl (8.5-10.1); CREATININE 0.74 mg/dl (0.60-1.40); MAGNESIUM 2.1 mg/dl (1.8-2.4); PHOSPHORUS 2.9 mg/dl (2.5-4.9); POTASSIUM 3.8 mmol/L (3.5-5.1)
--- NOTE | 2017-08-29 06:45 | Discharge Instructions ---
Discharge Instructions Date of Service Aug 29, 2017. Admission Reason for Admission: STEMI Discharge Discharge Diagnosis / Problem: Heart attack (aka ST elevation myocardial infarction, STEMI), Diabetes Discharge Goals Goal(s): Learn about illness Activity Recommendations Activity Limitations: per Instructions/Follow-up section . Instructions / Follow-Up Instructions / Follow-Up You were diagnosed with a type of heart attack called a STEMI, or ST elevation myocardial infarction. The cardiologists evaluated you and performed a cardiac catheterization (aka cath), placing a single stent for treatment. They recommend you begin multiple medications for further treatment of your heart attack as well, medications that were started in the hospital. You were also diagnosed with diabetes mellitus, based on your elevated blood sugars from a test called a Hemoglobin A1c (aka HbA1c). The initial treatment for this is a medication called metformin, which was also started in the hospital. Please follow up with the following two services: 1) Cardiology: Please follow up in their clinic per their instructions, approximately in the next 1-2 weeks. You have received a heart packet containing information for patients that have had a heart attack such as yourself. Please reference this packet, as well as instructions from your senior mobile developer, for activity limitations. In general, you should avoid walking longer than 10 minutes at a time or more than two times per day, in this initial period. Do not lift anything more than 25 pounds (or if it causes you any discomfort). 2) Family medicine: Please follow up with Dr. Gael wallace, preferably within the next week, for continuity of care purposes as well as further management of your new diabetes diagnosis. Please call 911 if you develop any new chest pain, difficulty breathing, dizziness, unexpected sweating, or with any other emergency worrisome symptoms. Home Care: * Take your medications exactly as directed. Don't skip doses. * Remember that recovery after a heart attack takes time. Plan to rest for at lease 4-8 weeks while you recover. Then return to normal activity when your doctor says it's okay. * Ask your doctor about joining a heart rehabilitation program. * Tell your doctor if you are feeling depressed. Feelings of sadness are common after a heart attack, but it is important that you speak to someone if you are feeling overwhelmed by these feelings. * If you are having chest pain, call 911 for an ambulance. Do NOT drive yourself to the hospital. * Ask your family members to learn CPR. * Learn to take your own blood pressure and pulse. Keep a record of your results. Ask your doctor when you should seek emergency medical attention. He or she will tell you which blood pressure reading is dangerous. Lifestyle Changes: * Maintain a healthy weight. Get help to lose any extra pounds. * Cut back on salt. * Limit canned, dried, packaged, and fast foods. * Don't add salt to your food. * Season foods with herbs instead of salt when you cook. * Break the smoking habit. Enroll in a stop-smoking program to improve your chances of success. * Limit fatty foods. * Ask your doctor about having your lipid levels checked regularly. * Build up your activity according to your doctor's recommendation. * Ask your doctor when it's okay to resume sexual activity. * Tell your doctor about any erectile dysfunction (ED) medication you are taking. Some ED medications are not safe if you take certain heart medications. * Try to manage stress. Follow Up: It is important for you to keep your follow up appointments with your medical provider. Current Hospital Diet Patient's current hospital diet: AHA Diet (Heart Healthy) Discharge Diet Recommended Diet: AHA Diet (Heart Healthy) Procedures Procedures Performed: Cardiac cath Pending Studies Studies pending at discharge: no Laboratory Results Hemoglobin A1c Test 08/27/17 05:59 Range/Units Estimated Average Glucose 154 mg/dl Hemoglobin A1c 7.0 H 4.5-5.6 % Lipid Panel Test 08/27/17 05:59 Range/Units Triglycerides Level 55 0-150 mg/dl Cholesterol Level 211 H 0-200 mg/dl HDL Cholesterol 73 mg/dl Cholesterol/HDL Ratio 2.9 LDL Cholesterol, Calculated 127 mg/dl Medical Emergencies . Who to Call and When: Medical Emergencies: If at any time you feel your situation is an emergency, please call 911 immediately. . Non-Emergent Contact Non-Emergency issues call your: Primary Care Provider, [employer] Post Weigher . . "Provider Documentation" section prepared by Lior Flowers. . VTE Core Measure Inpt VTE Proph given/why not?: Other Anticoagulation
--- NOTE | 2017-08-29 06:54 | Discharge Summary ---
Discharge Summary Date of Service Aug 29, 2017. 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 distal circumflex 60-70% focal stenosis at bifurcation of OM2; OM2 with 60% ostial stenosis. RCA - Dominant, 30% proximal stenosis; Acute 100% occlusion at beginning of mid segment. -- post intervention diffuse 50% distal RCA stenosis prior to R-PDA; diffuse distal PDA disease; 50% proximal distal PLB. -- PCI -- Antithrombotic therapy: Heparin, Ticagrelor Procedure: RCA cannulated with JR4 guide Prowater wire passed across lesion into distal vessel Early-mid RCA lesion predilated with 2.5 compliant balloon Dilated lesion stented with 3.5 x 26 [place] MERCEDES Stent post-dilated with stent balloon IC vasodilators administered for spasm Post procedure INA 3 flow, stent well expanded with minimal residual stenosis and no apparent cardiac complications. Arterial Closure: TR Ban Summary: 1. Inferior STEMI/Occluded early-mid RCA 2. Moderate to severe multi vessel coronary artery disease - 50-60% mid LAD - OM2/distal circumflex bifurcation with 60-70% ostial lesions - 50% distal RCA 3. Successful PCI of early-mid RCA with 3.5 x 26 [place] MERCEDES Consultations: Cardiology, Critical Care Medication Reconciliation New Medications: Aspirin (Aspirin EC Low Dose) 81 Mg Ectab 81 MG PO QAM for 30 Days, #30 TAB 0 Refills Atorvastatin (Lipitor) 80 Mg Tab 1 TAB PO DAILY for 30 Days, #30 TAB 0 Refills Clopidogrel Bisulfate (Clopidogrel) 75 Mg Tab 75 MG PO QAM for 30 Days, #30 TAB 0 Refills Lisinopril (Lisinopril) 5 Mg Tab 5 MG PO QAM for 30 Days, #30 TAB 0 Refills Metformin HCl (Metformin HCl ER) 500 Mg Tabcr 500 MG PO QDD for 30 Days, #60 TAB 1 Refill One tablet daily with dinner for first week, then two tablets daily with dinner. Metoprolol Tartrate (Lopressor) 25 Mg Tab 25 MG PO Q12 for 30 Days, #60 TAB Nitroglycerin (Nitrostat) 0.4 Mg/1 Tab Subl 0.4 MG SL UD PRN for Chest Pain for 30 Days, #25 TAB 0 Refills For chest pain x1. If any use, call 911. Continued Medications: Calcium Ascorbate (Vitamin C) 500 Mg Tab 500 MG PO DAILY Cholecalciferol (Vitamin D3) 1,000 Unit Cap 1000 INTER.UNIT PO DAILY Coenzyme Q10 (Ubidecarenone) (Co Q 10) 100 Mg Cap 100 MG PO DAILY Docusate Sodium (Colace) 100 Mg Cap 100 MG PO DAILY PRN for Constipation, CAP Famotidine-Calcium Carbonate-M (Pepcid Complete) 1 Chw Chw 1 TAB PO UD PRN for Indigestion Multiple Vitamin (Multivitamin) 1 Tab Tab 1 TAB PO DAILY, TAB Phenytoin Sodium (Dilantin) 100 Mg Cap 200 MG PO BID, CAP Probiotic Product (Probiotic) 1 Tab Tab 1 TAB PO DAILY Discontinued Medications: Aspirin (Aspirin) 325 Mg Tab 325 MG PO DAILY Azithromycin (Azithromycin) 250 Mg Tab 1 TAB PO DAILY for 4 Days, #4 TABS Discharge Exam Review of Systems: Constitutional: No fever, No chills Respiratory: + cough (occasional dry cough), No shortness of breath Cardiovascular: No chest pain (denies this am), No edema Abdomen: No nausea, No vomiting, No diarrhea Neurologic: No weakness Physical Exam: General Appearance: WD/WN, no apparent distress (found patient sitting for breakfast, pleasantly conversational, denies any discomfort or acute concerns.) Respiratory/Chest: lungs clear, normal breath sounds, no respiratory distress Cardiovascular: regular rate, rhythm, no murmur, + pertinent finding (2+ right radial pulse) Abdomen / GI: normal bowel sounds, non tender, soft Extremities: normal range of motion (no difficulty with ambulation) Skin: + pertinent finding (noted right wrist ecchymosis at site of cath entry, non-ttp) Hospital Course HPI from H&P on admission on [id number] Date & Time of Service: Aug 27, 2017 at 03:58 Chief Complaint: STEMI Primary Care Physician: Jay Mayo M.D. History of Present Illness Source: patient, family Mr Bach is a 71 yo M with hx of stroke, GERD, and aortic aneurysm who presented to the ED with chest pain that had begun about 3 hours prior to arrival. He was found to have a STEMI in the inferior leads and a heart alert was called. He underwent cardiac catheterization and had a stent placed to the mid-RCA via a R radial approach. He was found to also have disease in the LAD and circumflex but these were not stented. 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 Currently, he is awake, alert and chest pain free. He denies any shortness of breath, abdominal pain, leg swelling, or other new symptoms. Discharge summary on [id number] Mr. Bach is a 71 yo male who was admitted on [id number] for an inferior wall STEMI. STEMI - Now s/p cardiac cath (Dec early AM, PPD #2) with MERCEDES to RCA. - TnI trended downwards. - pCXR (pre-cath): No acute findings. - TTE (see full report): LVEF 55-60%. Inferior/inferolateral wall motion abnormality. Mildly dilated ascending aorta (4.3 cm). - Current inpatient medication regimen: Metoprolol 25 q12h, Lipitor 80 q day, Lisinopril 5 q day, Plavix 75 mg q day, ASA 81 q day. - See related cardiology notes / recommendations. Last set of recommendations in note on : --- will plan to transition ticagrelor to clopidogrel --> load 300mg this afternoon, start 75mg clopidogrel tomorrow AM. Continue ASA --- Continue MALATHI/beta-prabhu --- continue high-intensity statin. 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 - On home phenytoin (200 BID) for seizure prophy (though no PMH of any seizures) . DM - *NEW* diagnosis - HbA1C was 7.0. Discussed same with patient. Started on metformin ER 500 q PM. Consider increasing to two tabs daily after one week. PMH issues: - GERD: Was on home pepcid prn. Holding for now unless becomes symptomatic. - Aortic aneurysm: Followed by [facility] - Anxiety: Ativan prn Resident Physician Supervision Note: I interviewed and examined the patient. Discussed with Dr. Flowers and agree with findings and plan as documented in the note. Documented By: Huy Carr Total Time Spent: Less than 30 minutes This includes examination of the patient, discharge planning, medication reconciliation, and communication with other providers. Discharge Instructions Please refer to the electronic Patient Visit Report (Discharge Instructions) for additional information. Follow-Up - Cardiology - Family Medicine Additional Copies To Jay Mayo M.D.
[2017-08-29] MEDS: MULTIVITAMIN TAB PO SCH (08:55)
[2017-08-29] MEDS: METOPROLOL TARTRATE 25 MG TAB PO SCH (08:56)
[2017-08-29] MEDS: CLOPIDOGREL BISULFATE 75 MG TAB PO SCH (08:56)
[2017-08-29] MEDS: LISINOPRIL 5 MG TAB PO SCH (08:56)
[2017-08-29] MEDS: ATORVASTATIN 40 MG TAB PO SCH (08:56)
[2017-08-29] MEDS: PHENYTOIN SODIUM ER 100 MG CAP PO SCH (08:56)
[2017-08-29] MEDS: ASPIRIN 81 MG ECTAB PO SCH (08:56)
[2017-08-29] MEDS ORDERED: ATOR-26 PO (09:53)
[2017-08-29] MEDS ORDERED: NTRSLP4 SL (09:53)
[2017-08-29] MEDS ORDERED: GLCSR500 PO (09:53)
[2017-08-29] MEDS ORDERED: ASPEC81 PO (09:53)
[2017-08-29] MEDS ORDERED: LPR25 PO (09:53)
[2017-08-29] MEDS ORDERED: PLV75 PO (09:53)
[2017-08-29] MEDS ORDERED: LSN5 PO (09:53)
--- NOTE | 2017-08-29 13:07 | CARDIOLOGY PROGRESS NOTE ---
DATE: 08/29/2017 SUBJECTIVE: Mr. Bach is resting comfortably in bedside chair without complaints of chest pain, dyspnea, or palpitations. He is anxious for hospital discharge. OBJECTIVE: VITAL SIGNS: Blood pressure 114/75 with a regular pulse of 70. Respiratory rate is 16. The patient is afebrile at 36.6 degrees Celsius. Saturations 92% on room air. NECK: Supple with full carotid upstrokes. No carotid bruits. Jugular venous pressure is flat at 90 degrees. There is no thyromegaly. CARDIOVASCULAR: Reveals a regular rhythm with normal S1 and S2. No S3, S4, or murmurs are noted. LUNGS: Clear without rales, rhonchi, or wheezes. ABDOMEN: Soft, nontender without bruits. EXTREMITIES: Reveal intact radial artery pulses bilaterally. Trace pretibial edema is noted. Right upper extremity notes an ecchymosis. Dressing on the right radial artery is dry. DATA: CBC notes hemoglobin of 12.7, hematocrit 38.3, white count 6.3, and platelet count 196,000. Electrolytes note a sodium of 142, potassium 3.8, chloride 111, bicarbonate 22, BUN 16, creatinine 0.7, glucose 111. Troponin I peaked at 127. radiation monitor is benign. EKG this morning notes sinus rhythm with a left axis deviation and an age indeterminate, but likely subacute inferior wall myocardial infarction. An incomplete right bundle branch block is noted. IMPRESSION AND PLAN: 1. Status post inferior ST-elevation myocardial infarction - patient is stable since drug-eluting stent placed to the early to mid right coronary artery. Will continue optimal medical management. We will make arrangements for outpatient cardiac rehabilitation. 2. Dilated ascending thoracic aorta - patient will likely transfers care from [place] to Dr. Massey. 3. Mild aortic insufficiency. 4. History of cerebrovascular accident. 5. History of seizure disorder. 6. Disposition - stable for hospital discharge.
== END 2017-08-29 14:01 | disposition home or self-care (01) | DRG 247 ==
LOC: C.EDB 01:13 → C.MSICU 03:30 → C.2E 08-28 14:02
PROVIDERS: ADMIT Internal Medicine Interventional Cardiology; ATTEND Family Medicine
PROC: B211YZZ Fluoroscopy of Multiple Coronary Arteries using Other Contrast (ICD-10-PCS; principal; 2017-08-27 01:58)
PROC: 027034Z Dilation of Coronary Artery, One Artery with Drug-eluting Intraluminal Device, Percutaneous Approach (ICD-10-PCS; principal; 2017-08-27 01:58)
DX: I21.19 ST elevation (STEMI) myocardial infarction involving other coronary artery of inferior wall (principal); I25.10 Atherosclerotic heart disease of native coronary artery without angina pectoris; I71.2 Thoracic aortic aneurysm, without rupture; E11.65 Type 2 diabetes mellitus with hyperglycemia; I69.398 Other sequelae of cerebral infarction; R20.9 Unspecified disturbances of skin sensation; J06.9 Acute upper respiratory infection, unspecified; K21.9 Gastro-esophageal reflux disease without esophagitis; F41.9 Anxiety disorder, unspecified; R91.1 Solitary pulmonary nodule; Z86.711 Personal history of pulmonary embolism; Z79.82 Long term (current) use of aspirin; Z79.899 Other long term (current) drug therapy

== ENCOUNTER 2020-08-21 18:37 | Inpatient (IN) ==
[2020-08-21] MEDS ORDERED: levoFLOXacin/D5W 750 MG/150 ML BAG IV STA (19:20)
[2020-08-21] MEDS ORDERED: DEXAMETHASONE SOD INJ 10 MG/ML VIAL IV ONE (19:22)
--- NOTE | 2020-08-21 19:22 | Emergency Department Note ---
Impression & Plan COVID-19, Pneumonia due to 2019 novel coronavirus, Hypoxia ED Provider Note NAME: BEBE FLORES AGE: 74 SEX: M : 1945 ARRIVES VIA: Walk-In INFORMANT: Patient ED PROVIDER(S): Wellington Morse DO CHIEF COMPLAINT: Cough shortness of breath HPI: Patient is a 74-year-old male who presents to the ER for cough and congestion as well as a runny nose. Symptoms started on Thanksgi. They got better and they worsened yesterday. He admits to some mild shortness of breath. No chest pain. No belly pain, nausea, vomiting or diarrhea. No dysuria, urgency or frequency. He was Covid positive on the . ROS: See above HPI for pertinent positives & negatives. A total of 10 systems reviewed and were otherwise negative. PAST MEDICAL HISTORY:See Below PAST SURGICAL HISTORY:See Below FAMILY HISTORY:See Below SOCIAL HISTORY:See Below HOME MEDICATIONS:See Below ALLERGIES:See Below VITALS:See Below PHYSICAL EXAMINATION: GENERAL: Sitting up in bed, alert, talking in full sentences, nontoxic, on nasal cannula EYE EXAM: normal conjunctiva. OROPHARYNX: no exudate, no erythema, lips, buccal mucosa, and tongue normal and mucous membranes are moist NECK: supple, no nuchal rigidity, no adenopathy, non-tender LUNGS: Clear to auscultation. Normal chest wall mechanics HEART: Mild rhonchi bilaterally, S1 normal and S2 normal ABDOMEN: abdomen soft, non-tender, normo-active bowel sounds, no masses, no rebound or guarding. BACK: Back is symmetrical on inspection and there is no deformity, no midline tenderness, no CVA tenderness. SKIN: no rashes and no bruising UPPER EXTREMITIES: upper extremities are grossly normal. LOWER EXTREMITIES: No pitting edema. Calves are equal bilateral NEURO EXAM: Normal sensorium, cranial nerves II-XII grossly intact, normal speech, no gross weakness of arms, no gross weakness of legs. MEDICAL DECISION MAKING: Patient is a 74-year-old male who presents the ER for shortness of breath ass ociated with cough and congestion. IV was established blood work was obtained. He had a leukopenia 2.9 thousand. No significant anemia. INR unremarkable. D- dimer was elevated at 530. BMP with an elevated chloride. LFTs bilirubin was unremarkable. Troponin was negative. Lipase unremarkable. Covid was positive. Patient was typed and screened for possible plasma as an inpatient. CT abdomen pelvis showed multifocal pneumonia. He was given IV fluids, and IV Levaquin secondary to allergies. He remained on 2 to 3 L nasal cannula throughout his stay in the ER and was admitted for Covid pneumonia with hypoxia. Triage Nursing notes reviewed. Prior medical records reviewed Vital Signs: reviewed and remarkable for toxic and febrile Differential diagnosis: Differential diagnoses includes but is not limited to pneumonia, bronchitis, CO PD/Asthma exacerbation, pneumothorax, pulmonary embolism, congestive heart failure, acute coronary syndrome ER treatment provided: See below Diagnostics interpreted by me: ECG: Sinus rhythm rate 75 Left axis Poor baseline Nonspecific ST wave changes in the inferior leads T wave inversions in the inferior leads Incomplete right bundle Cardiac Monitoring: An order was placed for continuous cardiac monitoring. The monitor shows a rate of 79 with sinus rhythm. Laboratory studies: As stated above and show below. Imaging studies: Chest x-ray shows multifocal pneumonia CT angio of the chest shows multifocal pneumonia Consultation(s): Discussed with the hospitalist for further evaluation ED COURSE: Procedures: none PDMP:reviewed and no issues Critical Care: I have personally spent 45 minutes of critical care time in the direct manage ment of this patient. This includes bedside care, interpretation of diagnostic studies, and testing, discussion with consultants, patient, and family members, and other required patient management activities. This 45 minutes is in excess of all separately billable procedures. Past Med/Surg History Medical History (Updated 08/21/20 @ 23:57 by Wellington Morse DO) GERD (gastroesophageal reflux disease) ST elevation [place] (STEMI) Thoracic aortic aneurysm Surgical History (Updated 07/29/20 @ 13:33 by Carey May MA) History of tonsillectomy and adenoidectomy As a child Family History (Updated 07/29/20 @ 13:34 by Carey May MA) Mother Hearing loss Hypertension Heart disease Father Heart disease Other No family history of adverse response to anesthesia No family history of bleeding disorder Social History (Updated 07/29/20 @ 13:34 by Carey May MA) Smoking Status: Never smoker Hx Alcohol Use: No Hx Substance Use: No Preferred Language: Cymro Feels Safe at Home: Yes Allergies Allergies Allergy/AdvReac Type Severity Reaction Status Date / Time cephalexin Allergy Intermediate Rash Verified 07/29/20 13:29 Cephalosporins Allergy Intermediate Rash Verified 07/29/20 13:29 carbamazepine Allergy Unknown Elevated Verified 07/29/20 13:29 liver enzymes Penicillins Allergy Unknown Unknown Verified 08/21/20 20:25 Home Meds Home Medications Medication Instructions Recorded Confirmed atorvastatin 80 mg tablet 80 mg PO DAILY #30 tab 06/21/19 08/21/20 cholecalciferol (vitamin D3) 25 1,000 units PO DAILY tab 06/21/19 08/21/20 mcg (1,000 unit) tablet clopidogrel 75 mg tablet 75 mg PO DAILY tab 06/21/19 08/21/20 coenzyme Q10 100 mg capsule 100 mg PO DAILY cap 06/21/19 08/21/20 lactobacillus combination no.8 3 3,000 mmu cells PO DAILY 06/21/19 08/21/20 billion cell capsule metoprolol tartrate 25 mg tablet 25 mg PO BID #180 tab 06/21/19 08/21/20 nitroglycerin 0.4 mg sublingual 0.4 mg SL Q5M PRN tab 06/21/19 08/21/20 tablet ascorbate calcium (vitamin C) 500 500 mg PO DAILY 08/22/19 08/21/20 mg tablet flaxseed oil 1,000 mg capsule 1,000 mg PO DAILY 08/22/19 08/21/20 mecobalamin (vitamin B12) 1,000 1,000 mcg SL DAILY 08/22/19 08/21/20 mcg disintegrating tablet,sublingual phenytoin sodium extended 100 mg 200 mg PO BID cap 08/22/19 08/21/20 capsule aspirin [Aspirin Low Dose] 81 mg PO DAILY 09/06/19 08/21/20 betamethasone dipropionate 1 applic TOPICAL DAILY PRN 09/06/19 08/21/20 diphenhydramine HCl 25 mg PO HS PRN 09/06/19 08/21/20 meloxicam 15 mg PO DAILY PRN 08/21/20 08/21/20 Previous Rx's Medication Instructions Recorded alfuzosin 10 mg tablet,extended 10 mg PO DAILY #90 tab 08/21/19 release 24 hr Results & Data (ED) Vital Signs Vital Signs - 24 hr 08/21/20 18:43 08/21/20 19:07 08/21/20 19:08 Temperature 37.8 C H Temperature Source Oral Pulse Rate 82 Pulse Rate [Left Finger] 77 Pulse Rate from SpO2 Sensor Respiratory Rate 16 24 Blood Pressure 157/92 H Blood Pressure [Right Arm] 144/87 H Blood Pressure Mean 113 Blood Pressure Mean [Right Arm] 106 Blood Pressure Position [Right Arm] Sitting Pulse Oximetry 89 L 86 L 93 Oxygen Delivery Method Room Air Room Air Nasal Cannula Oxygen Flow Rate 2 Sepsis New/Unexplained Change in Mental Status N/A Sepsis Action Taken by Nursing No Action Required Oxygen Flow Rate - Titration 08/21/20 20:05 08/21/20 21:00 08/21/20 21:24 Temperature Temperature Source Pulse Rate 71 71 70 Pulse Rate [Left Finger] Pulse Rate from SpO2 Sensor 71 71 69 Respiratory Rate 24 24 28 H Blood Pressure 126/91 134/76 128/88 Blood Pressure [Right Arm] Blood Pressure Mean 103 95 100 Blood Pressure Mean [Right Arm] Blood Pressure Position [Right Arm] Pulse Oximetry 90 90 92 Oxygen Delivery Method Oxygen Flow Rate Sepsis New/Unexplained Change in Mental Status Sepsis Action Taken by Nursing Oxygen Flow Rate - Titration 08/21/20 21:30 08/21/20 22:22 08/21/20 22:30 Temperature Temperature Source Pulse Rate 67 69 67 Pulse Rate [Left Finger] Pulse Rate from SpO2 Sensor 68 69 67 Respiratory Rate 32 H 21 25 H Blood Pressure 120/79 142/92 H 134/86 Blood Pressure [Right Arm] Blood Pressure Mean 92 105 108 Blood Pressure Mean [Right Arm] Blood Pressure Position [Right Arm] Pulse Oximetry 91 93 95 Oxygen Delivery Method Nasal Cannula Nasal Cannula Oxygen Flow Rate 3 3 Sepsis New/Unexplained Change in Mental Status Sepsis Action Taken by Nursing Oxygen Flow Rate - Titration 08/21/20 22:50 08/21/20 23:18 Temperature Temperature Source Pulse Rate Pulse Rate [Left Finger] 72 Pulse Rate from SpO2 Sensor Respiratory Rate 18 Blood Pressure Blood Pressure [Right Arm] 143/97 H Blood Pressure Mean Blood Pressure Mean [Right Arm] 112 Blood Pressure Position [Right Arm] Pulse Oximetry 94 93 Oxygen Delivery Method Nasal Cannula Nasal Cannula Oxygen Flow Rate 3 4 Sepsis New/Unexplained Change in Mental Status Sepsis Action Taken by Nursing Oxygen Flow Rate - Titration 3 Laboratory Data Result diagrams: 08/21/20 19:30 08/21/20 19:30 Lab Results 08/21/20 08/21/20 08/21/20 Range/Units 19:30 19:30 19:30 WBC 2.97 L (4.8-10.8) K/uL RBC 3.80 L (4.7-6.1) M/uL Hgb 12.3 L (14.0-18.0) g/dL Hct 38.0 L (42-52) % MCV 100.0 (80-100) fL MCH 32.4 (25-34) pg MCHC 32.4 (32-36) g/dL RDW Std Deviation 51.0 H (36.4-46.3) fL RDW Coeff of Luis 14.1 (11.5-14.5) % Plt Count 127 L (130-400) K/uL MPV 9.3 (7.4-10.4) fL Immature Gran % (Auto) 0.0 % Neut % (Auto) 69.4 % Lymph % (Auto) 14.1 % [place] % (Auto) 15.5 % Eos % (Auto) 0.7 % Baso % (Auto) 0.3 % Neut # (Auto) 2.06 (1.4-6.5) K/uL Lymph # (Auto) 0.42 L (1.2-3.4) K/uL [place] # (Auto) 0.46 (0.11-0.59) K/uL Eos # (Auto) 0.02 (0-0.5) K/uL Baso # (Auto) 0.01 (0-0.2) K/uL Immature Gran # (Auto) 0.00 (0.00-0.02) K/uL Echinocytes 1+ PT 10.7 (9.0-12.0) Seconds INR 1.0 (0.9-1.1) APTT 32.2 H (21.0-31.0) Seconds PTT Ratio 1.2 D-Dimer (0-500) ug/L FEU Sodium 141 (136-145) mmol/L Potassium 3.8 (3.5-5.1) mmol/L Chloride 109 H (98-107) mmol/L Carbon Dioxide 21 (21-32) mmol/L Anion Gap 12.0 H (3-11) BUN 27 H (7-18) mg/dl Creatinine 0.96 (0.6-1.4) mg/dl Est Cr Clr Drug Dosing 79.1 ml/min Est GFR ( Amer) 88.6 Est GFR (Non-Af Amer) 76.5 BUN/Creatinine Ratio 28.0 H (10-20) Glucose 267 H (70-99) mg/dl Calcium 7.9 L (8.5-10.1) mg/dl Total Bilirubin 0.3 (0.2-1) mg/dl AST 47 H (15-37) U/L ALT 38 (12-78) U/L Alkaline Phosphatase 148 H (45-117) U/L Troponin I < 0.015 (0-0.045) ng/ml Total Protein 6.8 (6.4-8.2) gm/dl Albumin 2.7 L (3.4-5.0) gm/dl Globulin 4.1 H (2.5-4.0) gm/dl Albumin/Globulin Ratio 0.7 L (0.9-2) Lipase 111 (73-393) U/L COVID-19 Eval Order SARS-CoV-2, RNA, NAAT (NEGATIVE) Blood Type Antibody Screen 08/21/20 08/21/20 08/21/20 Range/Units 19:30 20:58 21:20 WBC (4.8-10.8) K/uL RBC (4.7-6.1) M/uL Hgb (14.0-18.0) g/dL Hct (42-52) % MCV (80-100) fL MCH (25-34) pg MCHC (32-36) g/dL RDW Std Deviation (36.4-46.3) fL RDW Coeff of Luis (11.5-14.5) % Plt Count (130-400) K/uL MPV (7.4-10.4) fL Immature Gran % (Auto) % Neut % (Auto) % Lymph % (Auto) % [place] % (Auto) % Eos % (Auto) % Baso % (Auto) % Neut # (Auto) (1.4-6.5) K/uL Lymph # (Auto) (1.2-3.4) K/uL [place] # (Auto) (0.11-0.59) K/uL Eos # (Auto) (0-0.5) K/uL Baso # (Auto) (0-0.2) K/uL Immature Gran # (Auto) (0.00-0.02) K/uL Echinocytes PT (9.0-12.0) Seconds INR (0.9-1.1) APTT (21.0-31.0) Seconds PTT Ratio D-Dimer 530 H* (0-500) ug/L FEU Sodium (136-145) mmol/L Potassium (3.5-5.1) mmol/L Chloride (98-107) mmol/L Carbon Dioxide (21-32) mmol/L Anion Gap (3-11) BUN (7-18) mg/dl Creatinine (0.6-1.4) mg/dl Est Cr Clr Drug Dosing ml/min Est GFR ( Amer) Est GFR (Non-Af Amer) BUN/Creatinine Ratio (10-20) Glucose (70-99) mg/dl Calcium (8.5-10.1) mg/dl Total Bilirubin (0.2-1) mg/dl AST (15-37) U/L ALT (12-78) U/L Alkaline Phosphatase (45-117) U/L Troponin I (0-0.045) ng/ml Total Protein (6.4-8.2) gm/dl Albumin (3.4-5.0) gm/dl Globulin (2.5-4.0) gm/dl Albumin/Globulin Ratio (0.9-2) Lipase (73-393) U/L COVID-19 Eval Order Covid19 [facility] SARS-CoV-2, RNA, NAAT (NEGATIVE) Blood Type AB Positive Antibody Screen NEGATIVE 08/21/20 Range/Units 21:20 WBC (4.8-10.8) K/uL RBC (4.7-6.1) M/uL Hgb (14.0-18.0) g/dL Hct (42-52) % MCV (80-100) fL MCH (25-34) pg MCHC (32-36) g/dL RDW Std Deviation (36.4-46.3) fL RDW Coeff of Luis (11.5-14.5) % Plt Count (130-400) K/uL MPV (7.4-10.4) fL Immature Gran % (Auto) % Neut % (Auto) % Lymph % (Auto) % [place] % (Auto) % Eos % (Auto) % Baso % (Auto) % Neut # (Auto) (1.4-6.5) K/uL Lymph # (Auto) (1.2-3.4) K/uL [place] # (Auto) (0.11-0.59) K/uL Eos # (Auto) (0-0.5) K/uL Baso # (Auto) (0-0.2) K/uL Immature Gran # (Auto) (0.00-0.02) K/uL Echinocytes PT (9.0-12.0) Seconds INR (0.9-1.1) APTT (21.0-31.0) Seconds PTT Ratio D-Dimer (0-500) ug/L FEU Sodium (136-145) mmol/L Potassium (3.5-5.1) mmol/L Chloride (98-107) mmol/L Carbon Dioxide (21-32) mmol/L Anion Gap (3-11) BUN (7-18) mg/dl Creatinine (0.6-1.4) mg/dl Est Cr Clr Drug Dosing ml/min Est GFR ( Amer) Est GFR (Non-Af Amer) BUN/Creatinine Ratio (10-20) Glucose (70-99) mg/dl Calcium (8.5-10.1) mg/dl Total Bilirubin (0.2-1) mg/dl AST (15-37) U/L ALT (12-78) U/L Alkaline Phosphatase (45-117) U/L Troponin I (0-0.045) ng/ml Total Protein (6.4-8.2) gm/dl Albumin (3.4-5.0) gm/dl Globulin (2.5-4.0) gm/dl Albumin/Globulin Ratio (0.9-2) Lipase (73-393) U/L COVID-19 Eval Order SARS-CoV-2, RNA, NAAT POSITIVE A* (NEGATIVE) Blood Type Antibody Screen Administered Medications Discontinued Medications Dexamethasone (Dexamethasone Sod Inj 10 Mg/Ml Vial) 6 mg IV NOW ONE Stop: 08/21/20 19:23 Last Admin: 08/21/20 19:36 Dose: 6 mg Documented by: [id number] Sodium Chloride (Nss) 500 mls @ 999 mls/hr IV .Q31M KALE Stop: 08/21/20 20:00 Last Infusion: 08/21/20 20:32 Dose: 0 mls/hr Documented by: [id number] Admin: 08/21/20 19:36 Dose: 999 mls/hr Documented by: [id number] Levofloxacin/Dextrose (Levaquin/D5w) 750 mg in 150 mls @ 100 mls/hr IV NOW STA; Protocol Stop: 08/21/20 20:49 Last Infusion: 08/21/20 21:01 Dose: 0 mls/hr Documented by: [id number] Admin: 08/21/20 19:36 Dose: 100 mls/hr Documented by: [id number] Ioversol (Optiray 320 125ml) 118 ml IV ONCE ONE Stop: 08/21/20 21:15 Last Admin: 08/21/20 21:14 Dose: 1 ml Documented by: [id number] Discharge Plan Visit Data Chief Complaint: Flu Like Symptoms Stated Complaint: COV + 08/16, SOB, COUGH ED Provider: Wellington Morse Discharge Problem: COVID-19, Pneumonia due to 2019 novel coronavirus, Hypoxia Forms Stand Alone Forms: My [facility] [employer] Prescriptions Prescriptions: No Action coenzyme Q10 100 mg capsule 100 mg PO DAILY RF: 0 Adult Probiotic 3 billion cell capsule 3,000 mmu cells PO DAILY RF: 0 cholecalciferol (vitamin D3) 1,000 unit (25 mcg) tablet 1,000 units PO DAILY RF: 0 clopidogrel 75 mg tablet 75 mg PO DAILY RF: 0 atorvastatin 80 mg tablet 80 mg PO DAILY Qty: 30 RF: 0 metoprolol tartrate 25 mg tablet 25 mg PO BID Qty: 180 RF: 0 nitroglycerin 0.4 mg tablet, sublingual 0.4 mg SL Q5M PRN (Reason: chest pain) RF: 0 phenytoin sodium extended 100 mg capsule 200 mg PO BID RF: 0 flaxseed oil 1,000 mg capsule 1,000 mg PO DAILY RF: 0 mecobalamin (vitamin B12) 1,000 mcg tablet,disintegrating 1,000 mcg SL DAILY RF: 0 ascorbate calcium (vitamin C) 500 mg tablet 500 mg PO DAILY RF: 0 alfuzosin [Uroxatral] 10 mg tablet extended release 24 hr 10 mg PO DAILY Qty: 90 RF: 3 aspirin [Aspirin Low Dose] 81 mg Tablet,Delayed Release (Dr/Ec) 81 mg PO DAILY RF: 0 diphenhydramine HCl 25 mg Capsule 25 mg PO HS PRN (Reason: Itching) RF: 0 betamethasone dipropionate 0.05 % cream 1 applic TOPICAL DAILY PRN (Reason: Itching) RF: 0 meloxicam 15 mg tablet 15 mg PO DAILY PRN (Reason: Pain) RF: 0
[2020-08-21] MEDS ORDERED: SODIUM CHLORIDE 0.9% 500 ML IV SCH (19:30)
[2020-08-21 19:53] LABS: Basophils # (auto) 0.01 K/uL (0-0.2); Basophils % (auto) 0.3 %; Eosinophils # (auto) 0.02 K/uL (0-0.5); Eosinophils % (auto) 0.7 %; Hemoglobin 12.3 g/dL (14.0-18.0); Lymphocytes # (auto) 0.42 K/uL (1.2-3.4); Lymphocytes % (auto) 14.1 %; Mean Corpuscular Hemoglobin 32.4 pg (25-34); Mean Corpuscular Hgb Conc 32.4 g/dL (32-36); Mean Platelet Volume 9.3 fL (7.4-10.4); Monocytes # (auto) 0.46 K/uL (0.11-0.59); Monocytes % (auto) 15.5 %; Neutrophils # (auto) 2.06 K/uL (1.4-6.5); Neutrophils % (auto) 69.4 %; Platelet Count 127 K/uL (130-400); RDW Coefficient of Variation 14.1 % (11.5-14.5); White Blood Count 2.97 K/uL (4.8-10.8)
--- NOTE | 2020-08-21 20:02 | XRay Report ---
SINGLE VIEW CHEST CLINICAL HISTORY: Atypical chest pain. FINDINGS: An AP, portable, upright chest radiograph is compared to study dated 04/13/2019 and correlat ed with chest CT dated 08/17/2018. The examination is degraded by portable technique and patient rota tion. There is a large hiatal hernia. The heart is enlarged noting atherosclerotic calcification of t he thoracic aorta. There is pulmonary vascular congestion. Hazy airspace opacities are seen throughou t both lungs. Small pleural effusions are suspected. No pneumothorax is seen. The skeletal structures are osteopenic. The bony thorax is grossly intact. Advanced arthritic change is seen in the shoulder s. IMPRESSION: 1. Cardiomegaly with evidence of congestive failure. 2. Hazy bilateral airspace opacities could represent pulmonary edema and/or an infectious/inflammator y pneumonitis. Clinical correlation will be required. 3. Small pleural effusions. 4. Hiatal hernia. ACT 112: Negative or not required by law. Electronically signed by: Remy Gongora M.D. 08/21/2020 8:00 PM
[2020-08-21 20:06] LABS: Partial Thromboplastin Ratio 1.2; Partial Thromboplastin Time 32.2 Seconds (21.0-31.0); Prothrombin Time 10.7 Seconds (9.0-12.0)
[2020-08-21 20:27] LABS: Alanine Aminotransferase 38 U/L (12-78); Albumin Globulin Ratio 0.7 (0.9-2); Albumin Level 2.7 gm/dl (3.4-5.0); Alkaline Phosphatase 148 U/L (45-117); Aspartate Aminotransferase 47 U/L (15-37); Bilirubin,Total 0.3 mg/dl (0.2-1); Blood Urea Nitrogen 27 mg/dl (7-18); Calcium 7.9 mg/dl (8.5-10.1); Carbon Dioxide 21 mmol/L (21-32); Chloride 109 mmol/L (98-107); Creatinine Clr Calc Pharmacy 79.1 ml/min; Est GFR (African American) 88.6; Est GFR (Non-African American) 76.5; Globulin 4.1 gm/dl (2.5-4.0); Glucose 267 mg/dl (70-99); Lipase 111 U/L (73-393); Potassium 3.8 mmol/L (3.5-5.1); Sodium 141 mmol/L (136-145); Total Protein 6.8 gm/dl (6.4-8.2); Troponin I < 0.015 ng/ml (0-0.045)
[2020-08-21 20:37] LABS: D Dimer 530 ug/L FEU (0-500)
[2020-08-21 20:45] LABS: Echinocytes 1+
[2020-08-21] MEDS ORDERED: OPTIRAY 320 125ml IV ONE (21:14)
--- NOTE | 2020-08-22 | History & Physical Report ---
Date of Service August 22, 2020 Assessment & Plan (1) Pneumonia due to 2019 novel coronavirus: Pneumonia due to COVID-19 virus with hypoxia- There is concern regarding development possible secondary bacterial superinfection, as patient had been getting better and then suddenly became worse. Decadron 6 mg IV daily Convalescent plasma, consent obtained Remdesivir IV per protocol Ventolin HFA 2 puffs 4 times daily, every 2 hours as needed ceftriaxone 1 g IV daily Patient is allergic to cephalosporins and penicillins. Continue levofloxacin begun in the ED, at 500 mg IV daily. Present on Admission?: Yes (2) Hypoxia: (3) Seizure disorder: Continue phenytoin Present on Admission?: Yes (4) CAD (coronary artery disease): CAD/hypertension- Continue aspirin 81 mg daily, clopidogrel 75 mg daily and metoprolol tartrate 25 mg p.o. twice daily Present on Admission?: Yes History of Present Illness Chief Complaint: Patient presents to the emergency department with cough, shortness of breath and runny nose that initially began on Thanksgiving, had been getting better, and then became worse yesterday Primary Care Provider: Jay Mayo MD The patient is a 74-year-old male with a past medical history including seizure, GERD, thoracic aortic aneurysm, STEMI, arthritis, CAD, stroke and DJD. He reports that he began having symptoms on Thanksgiving, 6 days ago as a runny nose, but then progressed to chest congestion, cough and shortness of breath. He came into the emergency department at the insistence of his ammon. Work-up in the emergency department included a chest x-ray with bilateral opacities suggestive of pulmonary edema and or infectious/inflammatory pneumonitis. Laboratory testing included a positive COVID-[address] angiography PE protocol was negative for PE, but did show patchy groundglass opacities in the lungs which could be seen with pneumonia or pulmonary edema. The patient did receive Decadron 6 mg IV and levofloxacin 750 mg IV from the ED Allergies Allergy/AdvReac Type Severity Reaction Status Date / Time cephalexin Allergy Intermediate Rash Verified 07/29/20 13:29 Cephalosporins Allergy Intermediate Rash Verified 07/29/20 13:29 carbamazepine Allergy Unknown Elevated Verified 07/29/20 13:29 liver enzymes Penicillins Allergy Unknown Unknown Verified 08/21/20 20:25 Home Medications Medication Instructions Recorded Confirmed Type atorvastatin 80 mg tablet 80 mg PO DAILY #30 tab 06/21/19 08/21/20 History cholecalciferol (vitamin D3) 25 1,000 units PO DAILY tab 06/21/19 08/21/20 History mcg (1,000 unit) tablet clopidogrel 75 mg tablet 75 mg PO DAILY tab 06/21/19 08/21/20 History coenzyme Q10 100 mg capsule 100 mg PO DAILY cap 06/21/19 08/21/20 History lactobacillus combination no.8 3 3,000 mmu cells PO DAILY 06/21/19 08/21/20 History billion cell capsule metoprolol tartrate 25 mg tablet 25 mg PO BID #180 tab 06/21/19 08/21/20 History nitroglycerin 0.4 mg sublingual 0.4 mg SL Q5M PRN tab 06/21/19 08/21/20 History tablet alfuzosin 10 mg tablet,extended 10 mg PO DAILY #90 tab 08/21/19 08/21/20 Rx release 24 hr ascorbate calcium (vitamin C) 500 500 mg PO DAILY 08/22/19 08/21/20 History mg tablet flaxseed oil 1,000 mg capsule 1,000 mg PO DAILY 08/22/19 08/21/20 History mecobalamin (vitamin B12) 1,000 1,000 mcg SL DAILY 08/22/19 08/21/20 History mcg disintegrating tablet,sublingual phenytoin sodium extended 100 mg 200 mg PO BID cap 08/22/19 08/21/20 History capsule aspirin [Aspirin Low Dose] 81 mg PO DAILY 09/06/19 08/21/20 History betamethasone dipropionate 1 applic TOPICAL DAILY PRN 09/06/19 08/21/20 History diphenhydramine HCl 25 mg PO HS PRN 09/06/19 08/21/20 History meloxicam 15 mg PO DAILY PRN 08/21/20 08/21/20 History Past Med/Surg History Medical History (Updated 08/22/20 @ 01:41 by Ángel Florian MD) GERD (gastroesophageal reflux disease) Seizure disorder ST elevation [place] (STEMI) Thoracic aortic aneurysm Surgical History (Updated 07/29/20 @ 13:33 by Carey May MA) History of tonsillectomy and adenoidectomy As a child Family History (Updated 07/29/20 @ 13:34 by Carey May MA) Mother Hearing loss Hypertension Heart disease Father Heart disease Other No family history of adverse response to anesthesia No family history of bleeding disorder Social History (Updated 07/29/20 @ 13:34 by Carey May MA) Smoking Status: Never smoker Hx Alcohol Use: No Hx Substance Use: No Preferred Language: Canadian Feels Safe at Home: Yes Review of Systems Review of Systems: The patient denies chest pain, palpitations, lower extremity swelling, sore throat, fevers, chills, sweats, nausea, vomiting, diarrhea , constipation, abdominal pain, pelvic pain, blood in urine or stool, dysuria, urinary frequency or urgency, lightheadedness, dizziness, headache, memory loss, loss of consciousness, rash, abnormal bruising or bleeding, imbalance, focal or generalized weakness, numbness or tingling in arms or legs, generalized arthralgias or myalgias, back or neck pain, or night sweats. The review of systems is otherwise negative other than for that already noted above, and at least 10 systems have been reviewed. Physical Exam Physical Exam: The patient is awake, alert and oriented 3, well developed and well nourished, normocephalic and atraumatic, lying in bed and in no acute distress. HEENT--PERRL, EOMI, mucous membranes and oropharynx normal. Neck--supple. No JVD. No bruits. Thyroid normal, trachea midline, no adenopathy. Heart--normal S1 and S2. No murmurs, rubs or gallops. Lungs--coarse breath sounds bilaterally. no respiratory distress, no accessory muscle use. Abdomen--normal bowel sounds and soft. Nontender. Nondistended. Extremities--no cyanosis or clubbing. No edema. Dermatologic--normal skin turgor, normal color, no abnormal lymph nodes, no rash. Neurologic--cranial nerves II through XII grossly intact. Rheumatologic--normal range of motion. Psychiatric--normal affect. Results & Data Results & Data ([facility]) Vital Signs (Past 12 Hours) Vital Signs Temp Pulse Pulse Resp BP BP Pulse Ox 08/21/20 23:18 72 18 143/97 H 93 08/21/20 22:50 94 08/21/20 22:30 67 25 H 134/86 95 08/21/20 22:22 69 21 142/92 H 93 08/21/20 21:30 67 32 H 120/79 91 08/21/20 21:24 70 28 H 128/88 92 08/21/20 21:00 71 24 134/76 90 08/21/20 20:05 71 24 126/91 90 08/21/20 19:08 93 08/21/20 19:07 77 24 144/87 H 86 L 08/21/20 18:43 100.0 F H 82 16 157/92 H 89 L Laboratory Results Laboratory Results WBC 2.97 K/uL (4.8-10.8) L 08/21/20 19:30 RBC 3.80 M/uL (4.7-6.1) L 08/21/20 19:30 Hgb 12.3 g/dL (14.0-18.0) L 08/21/20 19:30 Hct 38.0 % (42-52) L 08/21/20 19:30 MCV 100.0 fL (80-100) 08/21/20 19:30 MCH 32.4 pg (25-34) 08/21/20 19:30 MCHC 32.4 g/dL (32-36) 08/21/20 19:30 RDW Std Deviation 51.0 fL (36.4-46.3) H 08/21/20 19:30 RDW Coeff of Luis 14.1 % (11.5-14.5) 08/21/20 19:30 Plt Count 127 K/uL (130-400) L 08/21/20 19:30 MPV 9.3 fL (7.4-10.4) 08/21/20 19:30 Immature Gran % (Auto) 0.0 % 08/21/20 19:30 Neut % (Auto) 69.4 % 08/21/20 19:30 Lymph % (Auto) 14.1 % 08/21/20 19:30 [place] % (Auto) 15.5 % 08/21/20 19:30 Eos % (Auto) 0.7 % 08/21/20 19:30 Baso % (Auto) 0.3 % 08/21/20 19:30 Neut # (Auto) 2.06 K/uL (1.4-6.5) 08/21/20 19:30 Lymph # (Auto) 0.42 K/uL (1.2-3.4) L 08/21/20 19:30 [place] # (Auto) 0.46 K/uL (0.11-0.59) 08/21/20 19:30 Eos # (Auto) 0.02 K/uL (0-0.5) 08/21/20 19:30 Baso # (Auto) 0.01 K/uL (0-0.2) 08/21/20 19:30 Immature Gran # (Auto) 0.00 K/uL (0.00-0.02) 08/21/20 19:30 Echinocytes 1+ 08/21/20 19:30 PT 10.7 Seconds (9.0-12.0) 08/21/20 19:30 INR 1.0 (0.9-1.1) 08/21/20 19:30 APTT 32.2 Seconds (21.0-31.0) H 08/21/20 19:30 PTT Ratio 1.2 08/21/20 19:30 D-Dimer 530 ug/L FEU (0-500) H* 08/21/20 19:30 Sodium 141 mmol/L (136-145) 08/21/20 19:30 Potassium 3.8 mmol/L (3.5-5.1) 08/21/20 19:30 Chloride 109 mmol/L (98-107) H 08/21/20 19:30 Carbon Dioxide 21 mmol/L (21-32) 08/21/20 19:30 Anion Gap 12.0 (3-11) H 08/21/20 19:30 BUN 27 mg/dl (7-18) H 08/21/20 19:30 Creatinine 0.96 mg/dl (0.6-1.4) 08/21/20 19:30 Est Cr Clr Drug Dosing 79.1 ml/min 08/21/20 19:30 Est GFR ( Amer) 88.6 08/21/20 19:30 Est GFR (Non-Af Amer) 76.5 08/21/20 19:30 BUN/Creatinine Ratio 28.0 (10-20) H 08/21/20 19:30 Glucose 267 mg/dl (70-99) H 08/21/20 19:30 Calcium 7.9 mg/dl (8.5-10.1) L 08/21/20 19:30 Total Bilirubin 0.3 mg/dl (0.2-1) 08/21/20 19:30 AST 47 U/L (15-37) H 08/21/20 19:30 ALT 38 U/L (12-78) 08/21/20 19:30 Alkaline Phosphatase 148 U/L (45-117) H 08/21/20 19:30 Troponin I < 0.015 ng/ml (0-0.045) 08/21/20 19:30 Total Protein 6.8 gm/dl (6.4-8.2) 08/21/20 19:30 Albumin 2.7 gm/dl (3.4-5.0) L 08/21/20 19:30 Globulin 4.1 gm/dl (2.5-4.0) H 08/21/20 19:30 Albumin/Globulin Ratio 0.7 (0.9-2) L 08/21/20 19:30 Lipase 111 U/L (73-393) 08/21/20 19:30 COVID-19 Eval Order Covid19 IDNow Replaced by [facility] 08/21/20 21:20 SARS-CoV-2, RNA, NAAT POSITIVE (NEGATIVE) A* 08/21/20 21:20 Blood Type AB Positive 08/21/20 20:58 Antibody Screen NEGATIVE 08/21/20 20:58 Diagnostic Findings [facility] Patient: BEBE FLORES (Male) : 41 Status: ER Date: 08/21/20 22:01 Room #: History: pos covid sob Slices: 621 Priors: Tech: Geremias Patel @ [phone] Exams: CTA CHEST Contrast: IV Amt: 118 ml optiray Accession Numbers: [id number] Preliminary Findings Only See Final Report For Complete Findings CTA CHEST: Impression: No pulmonary embolism. Patchy groundglass opacities in the lungs which could be seen with pneumonia in the appropriate clinical scenario. Pulmonary edema could potentially have a similar appearance. Cardiomegaly. Coronary artery atherosclerotic calcifications. Dilated main pulmonary arteries which could be seen with pulmonary artery hyp ertension. Moderate hiatal hernia. Incompletely visualized right renal cyst. Colonic diverticulosis. Radiologist: Evaristo Chi MD Study ready at 22:10 and initial results transmitted at 22:20 *This report constitutes a preliminary interpretation only. Non-acute findings felt to be unrelated to the clinical presentation may not be discussed in this report. The study will be interpreted and a final report will be generated by the local Radiologist the following shift. To reach the hospital radiology department call [phone]. If a discrepancy is found between the preliminary and final interpretations of this study, please notify us via our Client Portal at [email or web address] under QA Exams.You can also fax this report with a description of the discrepancy, or include the final report, to our daytime fax number [phone].If faxing, please indicate the severity of discrepancy using one of the following categories: [ ] 1 - Agree/Informational [ ] 2 - Unlikely to Affect Management [ ] 3 - Possible Eventual Change of Management [ ] 4 - Probable Immediate Change of Management For all other patient related information, please fax us at [phone]. [id number] Code Status & VTE Plan Code Status Full code VTE Prophylaxis Plan VTE Prophylaxis will be ordered: Yes PG Care Time/CCT Total # of Minutes Spent Total Time Spent with Patient: Total time spent is greater than 50% in coordination of care (as documented) at patient's floor/unit and/or counseling patient: Coding Level of Care Code 99789 Initial Inpt Care Lvl 3 Diagnoses Pneumonia due to 2019 novel coronavirus U07.1; J12.89 Hypoxia R09.02 Seizure disorder G40.909 CAD (coronary artery disease) I25.10
[2020-08-22] MEDS ORDERED: DEXTROSE 50% 50 ML SYRINGE IV PRN (02:02)
[2020-08-22] MEDS ORDERED: NITROGLYCERIN SL 0.4 MG/TAB TAB SL PRN (02:02)
[2020-08-22] MEDS ORDERED: GLUCAGON FOR INJ 1 MG VIAL SQ PRN (02:02)
[2020-08-22] MEDS ORDERED: ONDANSETRON INJ 2 MG/ML 2 ML VIAL IV PRN (02:02)
[2020-08-22] MEDS ORDERED: GLUCOSE 40% GEL 15 GM TUBE PO PRN (02:02)
[2020-08-22] MEDS ORDERED: GLUCOSE 10 TABS/TUBE PO PRN (02:02)
[2020-08-22] MEDS ORDERED: ALUMINUM/MAGNESIUM SUSP 30 ML UDC PO PRN (02:02)
[2020-08-22] MEDS ORDERED: MAGNESIUM HYDROXIDE SUSP 30 ML UDC PO PRN (02:02)
[2020-08-22] MEDS ORDERED: REMDESIVIR 200 MG in SODIUM CHLORIDE 0.9% 210 ML IV STA (02:02)
[2020-08-22] MEDS ORDERED: CARBOHYDRATES FOR HYPOGLYCEMIA PO PRN (02:02)
[2020-08-22] MEDS ORDERED: diphenhydrAMINE Capsule 25 MG CAP PO PRN (02:02)
[2020-08-22] MEDS: METOPROLOL TARTRATE 25 MG TAB PO SCH ×3 (02:49→20:14)
[2020-08-22] MEDS: PHENYTOIN SODIUM ER 100 MG CAP PO SCH ×3 (02:49→20:14)
[2020-08-22] MEDS: INSULIN ASPART 100 UNITS/ML 3 ML PEN SC SCH ×5 (03:04→21:24)
[2020-08-22] MEDS: SODIUM CHLORIDE 0.9% 10ML FLUSH IV SCH ×2 (04:15→20:14)
[2020-08-22] MEDS ORDERED: BETAMETHASONE DIP AUG (DIPROLENE) 0.05% CR 15 GM TUBE EXT PRN (04:34)
[2020-08-22 07:18] LABS: Estimated Average Glucose 177 mg/dl; Hemoglobin A1C 7.8 % (4.5-5.6)
--- NOTE | 2020-08-22 07:25 | CT Scan Report ---
CHEST CTA for PULMONARY ARTERIES CT DOSE: 549.20 mGycm HISTORY: Positive d-dimer. Covid. Shortness of breath. TECHNIQUE: Multiaxial CT images of the chest were performed following the intravenous administration of contrast to evaluate the pulmonary arteries. Maximal intensity projection images were also obtaine d. A dose lowering technique was utilized adhering to the principles of ALARA. COMPARISON STUDY: Chest CTA 08/17/2018. FINDINGS: The visualized liver, spleen, and adrenal glands are within normal limits. Partially visual ized 4.4 cm cyst within the right kidney. There is a moderate hiatus hernia, unchanged. The heart is mildly enlarged. No pleural or pericardial effusions. A few mildly enlarged mediastinal lymph nodes w hich have increased in size. These may be reactive. No filling defects within the pulmonary arteries to suggest pulmonary embolus. No evidence for an aortic dissection. There is a tortuous thoracic aort a. No suspicious lytic or blastic osseous lesions. No pneumothorax. The central airways are patent. S cattered patchy groundglass densities seen within the periphery of the lungs consistent with the robinson ent's known diagnosis of a viral pneumonia. IMPRESSION: 1. No evidence for pulmonary embolus. 2. Scattered patchy groundglass densities within the lungs consistent with the patient's history of a viral pneumonia. 3. Mild cardiomegaly. 4. Moderate hiatus hernia. ACT 112: Negative or not required by law. Electronically signed by: Rommel White M.D. 08/22/2020 7:24 AM
[2020-08-22] MEDS: ADVANCED PROBIOTIC 1250 MG CAPSULE PO SCH (08:23)
[2020-08-22] MEDS: ATORVASTATIN 40 MG TAB PO SCH (08:23)
[2020-08-22] MEDS: dexAMETHasone 6 MG in SYRINGE 0 ML IV SCH (08:23)
[2020-08-22] MEDS: ALFUZOSIN HCL 10 MG TAB PO SCH (08:23)
[2020-08-22] MEDS: CLOPIDOGREL BISULFATE 75 MG TAB PO SCH (08:24)
[2020-08-22] MEDS: CYANOCOBALAMIN (VITAMIN B-12) 2,500 MCG TAB.SUBL SL SCH (08:24)
[2020-08-22] MEDS: ASCORBIC ACID 500 MG TAB PO SCH (08:24)
[2020-08-22] MEDS: ASPIRIN 81 MG ECTAB PO SCH (08:24)
[2020-08-22] MEDS: CHOLECALCIFEROL 1,000 UNITS 25 MCG TAB PO SCH (08:24)
[2020-08-22] MEDS: OMEGA-3 (PURIFIED FISH OIL) 1 GM CAP PO SCH (08:24)
[2020-08-22] MEDS ORDERED: NON-FORMULARY MEDICATION (Coenzyme Q10 100 mg capsule) PO SCH (09:00)
--- NOTE | 2020-08-22 12:55 | History & Physical Bridge Note ---
Date of Service August 22, 2020 History & Physical Bridge Note I have examined the patient, reviewed the History & Physical and in the interval since the performance of the History & Physical I have noted the following changes of clinical significance: Feels better, not OSB, mild cough. No chest pain, no nausea but has low appetite. No abd pain or diarrhea Vitals reviewed, on 2LNC NAD, pleasant, AAOx3 RRR no mgr mild basilar crackles ABd +BS soft NT ND Ext mild edema RLE chronic Skin no rashes 74 yo male with COVID PNA< possible superimposed bacterial PNA continue current treatment
--- NOTE | 2020-08-22 12:58 | Electrocardiogram Report ---
Test Reason : Blood Pressure : / mmHG Vent. Rate : 075 BPM Atrial Rate : 075 BPM P-R Int : 196 ms QRS Dur : 106 ms QT Int : 372 ms P-R-T Axes : 027 -33 -17 degrees QTc Int : 415 ms Normal sinus rhythm Left axis deviation Incomplete right bundle branch block Minimal voltage criteria for LVH, may be normal variant Nonspecific T wave abnormality Abnormal ECG When compared with ECG of 29-AUG-2017 07:18, Incomplete right bundle branch block is now Present Nonspecific T wave abnormality now evident in Anterior leads Confirmed by Josr Colindres ([id number]) on 08/22/2020 12:58:01 PM Referred By: REFERRED SELF Confirmed By:Ko Colindres
[2020-08-22] MEDS ORDERED: levoFLOXacin/D5W 500 MG/100 ML BAG IV SCH (18:00)
[2020-08-22] MEDS: REMDESIVIR 100 MG in SODIUM CHLORIDE 0.9% 230 ML IV SCH (20:13)
[2020-08-23 08:00] LABS: Eosinophils # (auto) 0.01 K/uL (0-0.5); Eosinophils % (auto) 0.3 %; Hematocrit (blood only) 36.7 % (42-52); Lymphocytes # (auto) 0.64 K/uL (1.2-3.4); Lymphocytes % (auto) 20.4 %; Mean Corpuscular Hemoglobin 32.3 pg (25-34); Mean Corpuscular Hgb Conc 32.7 g/dL (32-36); Mean Corpuscular Volume 98.7 fL (80-100); Mean Platelet Volume 8.9 fL (7.4-10.4); Monocytes # (auto) 0.53 K/uL (0.11-0.59); Monocytes % (auto) 16.9 %; Neutrophils # (auto) 1.95 K/uL (1.4-6.5); Neutrophils % (auto) 62.4 %; Platelet Count 137 K/uL (130-400); RDW Standard Deviation 50.4 fL (36.4-46.3); Red Blood Count 3.72 M/uL (4.7-6.1); White Blood Count 3.13 K/uL (4.8-10.8)
[2020-08-23] MEDS: INSULIN ASPART 100 UNITS/ML 3 ML PEN SC SCH ×5 (08:05→21:05)
[2020-08-23] MEDS: METOPROLOL TARTRATE 25 MG TAB PO SCH ×2 (08:20→20:46)
[2020-08-23] MEDS: dexAMETHasone 6 MG in SYRINGE 0 ML IV SCH (08:20)
[2020-08-23] MEDS: ATORVASTATIN 40 MG TAB PO SCH (08:21)
[2020-08-23] MEDS: CYANOCOBALAMIN (VITAMIN B-12) 2,500 MCG TAB.SUBL SL SCH (08:21)
[2020-08-23] MEDS: PHENYTOIN SODIUM ER 100 MG CAP PO SCH ×2 (08:21→20:46)
[2020-08-23] MEDS: ADVANCED PROBIOTIC 1250 MG CAPSULE PO SCH (08:21)
[2020-08-23] MEDS: ASPIRIN 81 MG ECTAB PO SCH (08:22)
[2020-08-23] MEDS: OMEGA-3 (PURIFIED FISH OIL) 1 GM CAP PO SCH (08:22)
[2020-08-23] MEDS: CLOPIDOGREL BISULFATE 75 MG TAB PO SCH (08:22)
[2020-08-23] MEDS: CHOLECALCIFEROL 1,000 UNITS 25 MCG TAB PO SCH (08:22)
[2020-08-23] MEDS: ALFUZOSIN HCL 10 MG TAB PO SCH (08:22)
[2020-08-23] MEDS: ASCORBIC ACID 500 MG TAB PO SCH (08:22)
[2020-08-23 08:23] LABS: D Dimer 750 ug/L FEU (0-500)
[2020-08-23 08:27] LABS: Albumin Level 2.6 gm/dl (3.4-5.0); BUN Creatinine Ratio 28.4 (10-20); C Reactive Protein 3.73 mg/dl (0-0.29); Calcium 7.9 mg/dl (8.5-10.1); Creatinine Clr Calc Pharmacy 111.1 ml/min; Est GFR (African American) 107.5; Est GFR (Non-African American) 92.8; Magnesium 1.9 mg/dl (1.8-2.4); Potassium 3.8 mmol/L (3.5-5.1)
[2020-08-23 08:32] LABS: Albumin Globulin Ratio 0.6 (0.9-2); Bilirubin,Total 0.4 mg/dl (0.2-1); Ferritin 449.3 ng/ml (8-388); Total Protein 6.6 gm/dl (6.4-8.2)
--- NOTE | 2020-08-23 10:40 | XRay Report ---
XR chest 1V portable HISTORY: 74 years-old Male f/u COVID PNA<hypoxia acute shortness of breath with pneumonia. COVID Pos itive. COMPARISON: Chest radiograph and CTA chest 08/22/2020 TECHNIQUE: Portable AP view of the chest FINDINGS: Cardiac silhouette is enlarged, unchanged. Pulmonary vascular congestion. No pneumothorax, or large p leural effusion. Mildly progressed patchy left lung base and lateral left midlung opacities. There ar e persistent ill-defined right lung opacities which appears stable. Degenerative changes of the shoul ders and spine with numerous right shoulder loose bodies. Hiatal hernia. IMPRESSION: 1. Bilateral pulmonary opacities suggestive of viral pneumonia redemonstrated, slightly progressed on the left. 2. Cardiomegaly with pulmonary vascular congestion. 3. Hiatal hernia. ACT 112: Negative or not required by law. The above report was generated using voice recognition software. It may contain grammatical, syntax o r spelling errors. Electronically signed by: Lior Preciado M.D. 08/23/2020 10:39 AM
--- NOTE | 2020-08-23 13:45 | Hospitalist Progress Note ---
Date of Service August 23, 2020 Assessment & Plan (1) Pneumonia due to 2019 novel coronavirus: Pneumonia due to COVID-19 virus with hypoxia- There is concern regarding development possible secondary bacterial superinfection, as patient had been getting better and then suddenly became worse. Continue Decadron 6 mg IV daily-last dose will be 08/31 Convalescent plasma, consent obtained-still awaiting its arrival -continue Remdesivir IV x 5 day course-last dose will be on 08/26 -continue Ventolin HFA 2 puffs 4 times daily, every 2 hours as needed -Continue levofloxacin 750 mg daily x 7 day course-convert to po (2) Hypoxia: Now requiring 5LNC, 2/2 COVID PNA -continue supplemental O2 to keep POx>92% Pt is doing well with prone positioning (3) Seizure disorder: Continue phenytoin no seizures (4) CAD (coronary artery disease): CAD/hypertension-with a h/o STEMI 2016 No acute issues. Trop neg on admission Continue aspirin 81 mg daily, clopidogrel 75 mg daily and metoprolol tartrate 25 mg p.o. twice daily, statin (5) Thoracic aortic aneurysm: followed as outpt (6) History of CVA (cerebrovascular accident): continue ASA, Plavix (7) DJD (degenerative joint disease): takes meloxicam prn as outpt-hold NSAIDs with COVID (8) Diabetes mellitus: HgbA1C here 7.8%, not on meds at home CDE talked to him and plans for glucometer and testing supplies on discharge: - needs a Rx for the following at time of discharge: 1. OneTouch Verio test strips to check 1x/day. 2. OneTouch Delica lancets to check 1x/day. COuld possibly start on metformin upon discharge (9) BPH w urinary obs/LUTS: continue alfuzosin no acute issues but has h/o elevated PVR, follows with Urology (10) DVT prophylaxis: add on Lovenox SQ Dispo-continued stay on tele Admission and Anticipated Discharge Date Admission Date: August 22, 2020 Subjective Pt feeling fine today. O2 levels dropped and he is now requiring some O2. He is lying prone when I came to see him and POx 95% on O2, but then dropped to 89% when he sat up and started talking to me. He denies cough or SOB, no CP. Appetite is improving. Denies N/V/D. Tele with NSR rates in 70s Review of Systems Review of Systems: All systems reviewed & are unremarkable except as noted in HPI & below Physical Exam 2 Constitutional: WD/WN, vitals as above Eyes: + anicteric sclerae ENMT: external ear and nose normal, oropharynx normal (scant blood lower right lip) Neck: trachea midline, no thyromegaly Respiratory: normal respiratory effort Auscultation: + crackles (lower and middle lung lopez bilat) Cardiovascular: RRR, no murmur, no edema Chest (Breasts): Chest: normal inspection of chest Gastrointestinal (Abdomen): normal bowel sounds, soft, nontender, no hepatosplenomegaly Musculoskeletal: Extremities: extremities normal to inspection; no cyanosis and no clubbing Skin: no rashes, warm and dry Neurologic: moves all extremities and awake; no focal motor deficits Psychiatric: A+Ox3, euthymic affect Lymphatic: no lymphedema Results & Data Results & Data ([facility]) Vital Signs (Past 12 Hours) Vital Signs Temp Pulse Pulse Resp BP Pulse Ox Pulse Ox 08/23/20 11:52 36.7 C 67 19 121/76 91 08/23/20 09:38 72 08/23/20 07:43 36.8 C 75 22 135/82 90 08/23/20 03:00 37.0 C 77 30 H 132/79 89 L 08/23/20 02:02 89 L Laboratory Results 08/23/20 08/23/20 08/23/20 Range/Units 11:50 07:41 07:25 WBC (4.8-10.8) K/uL RBC (4.7-6.1) M/uL Hgb (14.0-18.0) g/dL Hct (42-52) % MCV (80-100) fL MCH (25-34) pg MCHC (32-36) g/dL RDW Std Deviation (36.4-46.3) fL RDW Coeff of Luis (11.5-14.5) % Plt Count (130-400) K/uL MPV (7.4-10.4) fL Immature Gran % (Auto) % Neut % (Auto) % Lymph % (Auto) % [place] % (Auto) % Eos % (Auto) % Baso % (Auto) % Neut # (Auto) (1.4-6.5) K/uL Lymph # (Auto) (1.2-3.4) K/uL [place] # (Auto) (0.11-0.59) K/uL Eos # (Auto) (0-0.5) K/uL Baso # (Auto) (0-0.2) K/uL Immature Gran # (Auto) (0.00-0.02) K/uL ESR (0-14) mm/hr D-Dimer (0-500) ug/L FEU Sodium (136-145) mmol/L Potassium (3.5-5.1) mmol/L Chloride (98-107) mmol/L Carbon Dioxide (21-32) mmol/L Anion Gap (3-11) BUN (7-18) mg/dl Creatinine (0.6-1.4) mg/dl Est Cr Clr Drug Dosing ml/min Est GFR ( Amer) Est GFR (Non-Af Amer) BUN/Creatinine Ratio (10-20) Glucose (70-99) mg/dl POC Glucose 168 H 124 H (70-99) mg/dl Calcium (8.5-10.1) mg/dl Magnesium (1.8-2.4) mg/dl Ferritin (8-388) ng/ml Total Bilirubin (0.2-1) mg/dl AST (15-37) U/L ALT (12-78) U/L Alkaline Phosphatase (45-117) U/L C-Reactive Protein (0-0.29) mg/dl Total Protein (6.4-8.2) gm/dl Albumin (3.4-5.0) gm/dl Globulin (2.5-4.0) gm/dl Albumin/Globulin Ratio (0.9-2) Procalcitonin < 0.05 (0-0.5) ng/ml 08/23/20 08/23/20 08/23/20 Range/Units 07:25 07:25 07:25 WBC (4.8-10.8) K/uL RBC (4.7-6.1) M/uL Hgb (14.0-18.0) g/dL Hct (42-52) % MCV (80-100) fL MCH (25-34) pg MCHC (32-36) g/dL RDW Std Deviation (36.4-46.3) fL RDW Coeff of Luis (11.5-14.5) % Plt Count (130-400) K/uL MPV (7.4-10.4) fL Immature Gran % (Auto) % Neut % (Auto) % Lymph % (Auto) % [place] % (Auto) % Eos % (Auto) % Baso % (Auto) % Neut # (Auto) (1.4-6.5) K/uL Lymph # (Auto) (1.2-3.4) K/uL [place] # (Auto) (0.11-0.59) K/uL Eos # (Auto) (0-0.5) K/uL Baso # (Auto) (0-0.2) K/uL Immature Gran # (Auto) (0.00-0.02) K/uL ESR 38 H (0-14) mm/hr D-Dimer 750 H* (0-500) ug/L FEU Sodium 138 (136-145) mmol/L Potassium 3.8 (3.5-5.1) mmol/L Chloride 107 (98-107) mmol/L Carbon Dioxide 21 (21-32) mmol/L Anion Gap 10.0 (3-11) BUN 19 H (7-18) mg/dl Creatinine 0.68 (0.6-1.4) mg/dl Est Cr Clr Drug Dosing 111.1 ml/min Est GFR ( Amer) 107.5 Est GFR (Non-Af Amer) 92.8 BUN/Creatinine Ratio 28.4 H (10-20) Glucose 118 H (70-99) mg/dl POC Glucose (70-99) mg/dl Calcium 7.9 L (8.5-10.1) mg/dl Magnesium 1.9 (1.8-2.4) mg/dl Ferritin 449.3 H (8-388) ng/ml Total Bilirubin 0.4 (0.2-1) mg/dl AST 51 H (15-37) U/L ALT 33 (12-78) U/L Alkaline Phosphatase 145 H (45-117) U/L C-Reactive Protein 3.73 H (0-0.29) mg/dl Total Protein 6.6 (6.4-8.2) gm/dl Albumin 2.6 L (3.4-5.0) gm/dl Globulin 4.0 (2.5-4.0) gm/dl Albumin/Globulin Ratio 0.6 L (0.9-2) Procalcitonin (0-0.5) ng/ml 08/23/20 08/22/20 08/22/20 Range/Units 07:25 20:04 16:53 WBC 3.13 L (4.8-10.8) K/uL RBC 3.72 L (4.7-6.1) M/uL Hgb 12.0 L (14.0-18.0) g/dL Hct 36.7 L (42-52) % MCV 98.7 (80-100) fL MCH 32.3 (25-34) pg MCHC 32.7 (32-36) g/dL RDW Std Deviation 50.4 H (36.4-46.3) fL RDW Coeff of Luis 14.0 (11.5-14.5) % Plt Count 137 (130-400) K/uL MPV 8.9 (7.4-10.4) fL Immature Gran % (Auto) 0.0 % Neut % (Auto) 62.4 % Lymph % (Auto) 20.4 % [place] % (Auto) 16.9 % Eos % (Auto) 0.3 % Baso % (Auto) 0.0 % Neut # (Auto) 1.95 (1.4-6.5) K/uL Lymph # (Auto) 0.64 L (1.2-3.4) K/uL [place] # (Auto) 0.53 (0.11-0.59) K/uL Eos # (Auto) 0.01 (0-0.5) K/uL Baso # (Auto) 0.00 (0-0.2) K/uL Immature Gran # (Auto) 0.00 (0.00-0.02) K/uL ESR (0-14) mm/hr D-Dimer (0-500) ug/L FEU Sodium (136-145) mmol/L Potassium (3.5-5.1) mmol/L Chloride (98-107) mmol/L Carbon Dioxide (21-32) mmol/L Anion Gap (3-11) BUN (7-18) mg/dl Creatinine (0.6-1.4) mg/dl Est Cr Clr Drug Dosing ml/min Est GFR ( Amer) Est GFR (Non-Af Amer) BUN/Creatinine Ratio (10-20) Glucose (70-99) mg/dl POC Glucose 115 H 118 H (70-99) mg/dl Calcium (8.5-10.1) mg/dl Magnesium (1.8-2.4) mg/dl Ferritin (8-388) ng/ml Total Bilirubin (0.2-1) mg/dl AST (15-37) U/L ALT (12-78) U/L Alkaline Phosphatase (45-117) U/L C-Reactive Protein (0-0.29) mg/dl Total Protein (6.4-8.2) gm/dl Albumin (3.4-5.0) gm/dl Globulin (2.5-4.0) gm/dl Albumin/Globulin Ratio (0.9-2) Procalcitonin (0-0.5) ng/ml Diagnostic Findings CXR reviewed personally by me and agree with the following report: XR chest 1V portable HISTORY: 74 years-old Male f/u COVID PNA<hypoxia acute shortness of breath with pneumonia. COVID Positive. COMPARISON: Chest radiograph and CTA chest 08/22/2020 TECHNIQUE: Portable AP view of the chest FINDINGS: Cardiac silhouette is enlarged, unchanged. Pulmonary vascular congestion. No pneumothorax, or large pleural effusion. Mildly progressed patchy left lung base and lateral left midlung opacities. There are persistent ill-defined right lung opacities which appears stable. Degenerative changes of the shoulders and spine with numerous right shoulder loose bodies. Hiatal hernia. IMPRESSION: 1. Bilateral pulmonary opacities suggestive of viral pneumonia redemonstrated, slightly progressed on the left. 2. Cardiomegaly with pulmonary vascular congestion. 3. Hiatal hernia. PG Care Time/CCT Total # of Minutes Spent Total Time Spent with Patient: Total time spent is greater than 50% in coordination of care (as documented) at patient's floor/unit and/or counseling patient: Coding Level of Care Code 51117 Subseq Hosp Care Lvl 3 Diagnoses Pneumonia due to 2019 novel coronavirus U07.1; J12.89 Hypoxia R09.02 Seizure disorder G40.909 CAD (coronary artery disease) I25.10 Thoracic aortic aneurysm I71.2 History of CVA (cerebrovascular accident) Z86.73 DJD (degenerative joint disease) M19.90 Diabetes mellitus E11.9 BPH w urinary obs/LUTS N40.1; N13.8 DVT prophylaxis Z29.9
[2020-08-23] MEDS: levoFLOXacin 750 MG TAB PO SCH (16:56)
[2020-08-23] MEDS: REMDESIVIR 100 MG in SODIUM CHLORIDE 0.9% 230 ML IV SCH (20:29)
[2020-08-23] MEDS: HEPARIN SOD 5,000 UNIT/0.5 ML VIAL SQ SCH (21:06)
[2020-08-23] MEDS: SODIUM CHLORIDE 0.9% 10ML FLUSH IV SCH (21:35)
[2020-08-24] MEDS: HEPARIN SOD 5,000 UNIT/0.5 ML VIAL SQ SCH ×3 (04:49→20:27)
[2020-08-24] MEDS: INSULIN ASPART 100 UNITS/ML 3 ML PEN SC SCH ×4 (08:00→20:34)
[2020-08-24] MEDS: ASPIRIN 81 MG ECTAB PO SCH (09:00)
[2020-08-24] MEDS: OMEGA-3 (PURIFIED FISH OIL) 1 GM CAP PO SCH (09:00)
[2020-08-24] MEDS: ASCORBIC ACID 500 MG TAB PO SCH (09:00)
[2020-08-24] MEDS: dexAMETHasone 6 MG in SYRINGE 0 ML IV SCH (09:00)
[2020-08-24] MEDS: ATORVASTATIN 40 MG TAB PO SCH (09:00)
[2020-08-24] MEDS: ADVANCED PROBIOTIC 1250 MG CAPSULE PO SCH (09:00)
[2020-08-24] MEDS: CHOLECALCIFEROL 1,000 UNITS 25 MCG TAB PO SCH (09:00)
[2020-08-24] MEDS: METOPROLOL TARTRATE 25 MG TAB PO SCH ×2 (09:00→19:16)
[2020-08-24] MEDS: CLOPIDOGREL BISULFATE 75 MG TAB PO SCH (09:00)
[2020-08-24] MEDS: ALFUZOSIN HCL 10 MG TAB PO SCH (09:00)
[2020-08-24] MEDS: CYANOCOBALAMIN (VITAMIN B-12) 2,500 MCG TAB.SUBL SL SCH (09:00)
[2020-08-24] MEDS: PHENYTOIN SODIUM ER 100 MG CAP PO SCH ×2 (09:00→19:15)
[2020-08-24] MEDS ORDERED: SODIUM CHLORIDE 0.65% NA SOLN 45 ML (OCEAN) ONE (14:01)
[2020-08-24] MEDS ORDERED: FUROSEMIDE 40 MG/4 ML VIAL IV ONE (16:53)
[2020-08-24] MEDS ORDERED: FUROSEMIDE 20 MG in SYRINGE 0 ML IV ONE (17:15)
[2020-08-24 17:27] LABS: Albumin Globulin Ratio 0.6 (0.9-2); Albumin Level 2.5 gm/dl (3.4-5.0); BUN Creatinine Ratio 22.6 (10-20); Bilirubin,Total 0.3 mg/dl (0.2-1); Calcium 7.6 mg/dl (8.5-10.1); Creatinine Clr Calc Pharmacy 121.8 ml/min; Est GFR (African American) 111.7; Est GFR (Non-African American) 96.4; Potassium 3.5 mmol/L (3.5-5.1); Total Protein 6.5 gm/dl (6.4-8.2)
--- NOTE | 2020-08-24 17:52 | Hospitalist Progress Note ---
Date of Service August 24, 2020 Assessment & Plan (1) Pneumonia due to 2019 novel coronavirus: Pneumonia due to COVID-19 virus with hypoxia- There is concern regarding development possible secondary bacterial superinfection, as patient had been getting better and then suddenly became worse. Continue Decadron 6 mg IV daily-last dose will be 08/31 Convalescent plasma, consent obtained-still awaiting its arrival-there was a delay due to his AB blood type as it is in short supply -continue Remdesivir IV x 5 day course-last dose will be on 08/26 -Add on Ventolin HFA 1 puffs 4 times daily as well as ipratropium 1 puff 4 times daily -Continue levofloxacin 750 mg p.o. daily x 7 day course-last dose 08/28 Repeat chest x-ray on 08/23 with continued bilateral pneumonia slightly progressed on the left (2) Hypoxia: Significantly worse today, placed on high flow nasal cannula at 40 L 100% FiO2 with pulse ox 84-87% on the evening of 08/24 2/2 COVID PNA Pt is doing well with prone positioning-we will continue this is much as possible as it keeps his pulse ox higher -BiPAP 03/03 ordered as needed in case he worsens overnight Discussed the case with the overnight staffing specialist in case of need for intubation We will give Lasix 20 mg IV x1 now (3) Seizure disorder: Continue phenytoin no seizures here (4) CAD (coronary artery disease): CAD/hypertension-with a h/o STEMI 2016 No acute issues. Trop neg on admission Continue aspirin 81 mg daily, clopidogrel 75 mg daily and metoprolol tartrate 25 mg p.o. twice daily, statin (5) Thoracic aortic aneurysm: followed as outpt (6) History of CVA (cerebrovascular accident): continue ASA, Plavix (7) DJD (degenerative joint disease): takes meloxicam prn as outpt-hold NSAIDs with COVID (8) Diabetes mellitus: HgbA1C here 7.8%, not on meds at home CDE talked to him and plans for glucometer and testing supplies on discharge: - needs a Rx for the following at time of discharge: 1. OneTouch Verio test strips to check 1x/day. 2. OneTouch Delica lancets to check 1x/day. COuld possibly start on metformin upon discharge Continue NovoLog sliding scale here-blood sugars are very well controlled (9) BPH w urinary obs/LUTS: continue alfuzosin no acute issues but has h/o elevated PVR, follows with Urology (10) DVT prophylaxis: High-dose heparin SQ Dispo-continued stay on tele, condition is guarded Full code Condition discussed with patient's on the evening of 08/24 Admission and Anticipated Discharge Date Admission Date: August 22, 2020 Subjective Patient was seen twice today. First early in the morning he was on 5 L nasal cannula and when talking me sats are dropped to 88 to 89% from come back up to 90% with deep breaths. He continues to have nasal congestion. Feels a little short of breath, occasional cough. No nausea or vomiting, no abdominal pain. No chest pain. Telemetry with normal sinus rhythm with rates in the 50s to 70s. I was contacted by the nurse again around 1744 stating that patient was 81% on 14 L oxygen mask and was having respiratory distress. He was placed on high flow nasal cannula and bronchodilators were ordered. Oxygenation did then did improve. He was given Lasix 20 mg IV x1 I discussed his care with the nighttime staffing specialist YAIR in case of worsening respiratory status. I also contacted the patient's and updated her on his status. Review of Systems Review of Systems: All systems reviewed & are unremarkable except as noted in HPI & below Physical Exam Constitutional: WD/WN, vitals as above Eyes: + anicteric sclerae Neck: trachea midline, no thyromegaly Respiratory: + tachypneic Auscultation: + crackles (lower and middle lung lopez bilat); no wheezes Cardiovascular: Rate/Rhythm: regular rate and regular rhythm Extremities: + edema (1+ pitting edema in the right leg and trace pitting edema left leg worse) Chest (Breasts): Chest: normal inspection of chest Gastrointestinal (Abdomen): normal bowel sounds, soft, nontender, no hepatosplenomegaly Musculoskeletal: Extremities: extremities normal to inspection; no cyanosis and no clubbing Skin: no rashes, warm and dry Neurologic: moves all extremities and awake; no focal motor deficits Psychiatric: A+Ox3, euthymic affect Lymphatic: no lymphedema Results & Data Results & Data ([facility]) Laboratory Results 08/24/20 08/24/20 08/24/20 Range/Units 16:26 05:00 05:00 WBC Pending RBC Pending Hgb Pending Hct Pending MCV Pending MCH Pending MCHC Pending Plt Count Pending Sodium 140 (136-145) mmol/L Potassium 3.5 (3.5-5.1) mmol/L Chloride 107 (98-107) mmol/L Carbon Dioxide 24 (21-32) mmol/L Anion Gap 9.0 (3-11) BUN 14 (7-18) mg/dl Creatinine 0.62 (0.6-1.4) mg/dl Est Cr Clr Drug Dosing 121.8 ml/min Est GFR ( Amer) 111.7 Est GFR (Non-Af Amer) 96.4 BUN/Creatinine Ratio 22.6 H (10-20) Glucose 142 H (70-99) mg/dl POC Glucose 125 H (70-99) mg/dl Calcium 7.6 L (8.5-10.1) mg/dl Magnesium 2.0 (1.8-2.4) mg/dl Total Bilirubin 0.3 (0.2-1) mg/dl AST 55 H (15-37) U/L ALT 37 (12-78) U/L Alkaline Phosphatase 171 H (45-117) U/L Total Protein 6.5 (6.4-8.2) gm/dl Albumin 2.5 L (3.4-5.0) gm/dl Globulin 4.0 (2.5-4.0) gm/dl Albumin/Globulin Ratio 0.6 L (0.9-2) 08/23/20 Range/Units 20:40 WBC RBC Hgb Hct MCV MCH MCHC Plt Count Sodium (136-145) mmol/L Potassium (3.5-5.1) mmol/L Chloride (98-107) mmol/L Carbon Dioxide (21-32) mmol/L Anion Gap (3-11) BUN (7-18) mg/dl Creatinine (0.6-1.4) mg/dl Est Cr Clr Drug Dosing ml/min Est GFR ( Amer) Est GFR (Non-Af Amer) BUN/Creatinine Ratio (10-20) Glucose (70-99) mg/dl POC Glucose 104 H (70-99) mg/dl Calcium (8.5-10.1) mg/dl Magnesium (1.8-2.4) mg/dl Total Bilirubin (0.2-1) mg/dl AST (15-37) U/L ALT (12-78) U/L Alkaline Phosphatase (45-117) U/L Total Protein (6.4-8.2) gm/dl Albumin (3.4-5.0) gm/dl Globulin (2.5-4.0) gm/dl Albumin/Globulin Ratio (0.9-2) CBC with WBC 3, hemoglobin 12.5, platelets 148 PG Care Time/CCT Total # of Minutes Spent Total Time Spent with Patient: Total time spent is greater than 50% in co ordination of care (as documented) at patient's floor/unit and/or counseling patient: Coding Level of Care Code 05206 Subseq Hosp Care Lvl 3 Diagnoses Pneumonia due to 2019 novel coronavirus U07.1; J12.89 Hypoxia R09.02 Seizure disorder G40.909 CAD (coronary artery disease) I25.10 Thoracic aortic aneurysm I71.2 History of CVA (cerebrovascular accident) Z86.73 DJD (degenerative joint disease) M19.90 Diabetes mellitus E11.9 BPH w urinary obs/LUTS N40.1; N13.8 DVT prophylaxis Z29.9
[2020-08-24] MEDS: levoFLOXacin 750 MG TAB PO SCH (17:54)
[2020-08-24 18:09] LABS: Eosinophils # (auto) 0.03 K/uL (0-0.5); Eosinophils % (auto) 0.8 %; Hematocrit (blood only) 37.5 % (42-52); Hemoglobin 12.5 g/dL (14.0-18.0); Immature Granulocytes # (auto) 0.01 K/uL (0.00-0.02); Immature Granulocytes % (auto) 0.3 %; Lymphocytes # (auto) 0.54 K/uL (1.2-3.4); Lymphocytes % (auto) 13.6 %; Mean Corpuscular Hemoglobin 32.4 pg (25-34); Mean Corpuscular Hgb Conc 33.3 g/dL (32-36); Mean Corpuscular Volume 97.2 fL (80-100); Monocytes # (auto) 0.62 K/uL (0.11-0.59); Monocytes % (auto) 15.7 %; Neutrophils # (auto) 2.76 K/uL (1.4-6.5); Neutrophils % (auto) 69.6 %; Platelet Count 148 K/uL (130-400); RDW Coefficient of Variation 13.7 % (11.5-14.5); Red Blood Count 3.86 M/uL (4.7-6.1); White Blood Count 3.96 K/uL (4.8-10.8)
[2020-08-24] MEDS: REMDESIVIR 100 MG in SODIUM CHLORIDE 0.9% 230 ML IV SCH (19:14)
[2020-08-24] MEDS: OXYMETAZOLINE 0.05% 30 ML BTL NAE SCH (19:15)
[2020-08-24] MEDS: SODIUM CHLORIDE 0.9% 10ML FLUSH IV SCH (19:16)
[2020-08-24] MEDS: ALBUTEROL HFA 8 GM INHALER INH SCH (19:37)
[2020-08-24] MEDS: IPRATROPIUM BROMIDE HFA INHALER INH SCH (19:37)
[2020-08-24] MEDS ORDERED: IPRATROPIUM BROMIDE/ALBUTEROL respimat INH INH SCH (21:00)
[2020-08-25 06:27] LABS: Eosinophils # (auto) 0.05 K/uL (0-0.5); Hemoglobin 12.4 g/dL (14.0-18.0); Immature Granulocytes # (auto) 0.02 K/uL (0.00-0.02); Immature Granulocytes % (auto) 0.4 %; Lymphocytes # (auto) 0.74 K/uL (1.2-3.4); Lymphocytes % (auto) 14.9 %; Mean Corpuscular Hemoglobin 33.2 pg (25-34); Mean Corpuscular Hgb Conc 34.4 g/dL (32-36); Mean Corpuscular Volume 96.5 fL (80-100); Mean Platelet Volume 9.2 fL (7.4-10.4); Monocytes # (auto) 0.75 K/uL (0.11-0.59); Monocytes % (auto) 15.1 %; Neutrophils % (auto) 68.6 %; Platelet Count 168 K/uL (130-400); RDW Coefficient of Variation 13.6 % (11.5-14.5); RDW Standard Deviation 48.6 fL (36.4-46.3); Red Blood Count 3.73 M/uL (4.7-6.1); White Blood Count 4.96 K/uL (4.8-10.8)
[2020-08-25] MEDS: HEPARIN SOD 5,000 UNIT/0.5 ML VIAL SQ SCH ×3 (06:40→20:50)
[2020-08-25 06:59] LABS: Albumin Level 2.5 gm/dl (3.4-5.0); BUN Creatinine Ratio 22.8 (10-20); Calcium 7.6 mg/dl (8.5-10.1); Creatinine Clr Calc Pharmacy 109.5 ml/min; Est GFR (African American) 106.9; Est GFR (Non-African American) 92.2; Potassium 3.4 mmol/L (3.5-5.1)
[2020-08-25 07:02] LABS: Albumin Globulin Ratio 0.7 (0.9-2); Bilirubin,Total 0.3 mg/dl (0.2-1); C Reactive Protein 5.06 mg/dl (0-0.29); Globulin 3.8 gm/dl (2.5-4.0); Phosphorus 3.8 mg/dl (2.5-4.9); Total Protein 6.3 gm/dl (6.4-8.2)
[2020-08-25] MEDS: ALBUTEROL HFA 8 GM INHALER INH SCH ×4 (07:37→19:15)
[2020-08-25] MEDS: IPRATROPIUM BROMIDE HFA INHALER INH SCH ×4 (07:38→19:14)
[2020-08-25] MEDS: OXYMETAZOLINE 0.05% 30 ML BTL NAE SCH ×2 (08:07→20:49)
[2020-08-25] MEDS: ATORVASTATIN 40 MG TAB PO SCH (08:07)
[2020-08-25] MEDS: METOPROLOL TARTRATE 25 MG TAB PO SCH ×2 (08:08→20:50)
[2020-08-25] MEDS: ADVANCED PROBIOTIC 1250 MG CAPSULE PO SCH (08:08)
[2020-08-25] MEDS: CHOLECALCIFEROL 1,000 UNITS 25 MCG TAB PO SCH (08:08)
[2020-08-25] MEDS: ASPIRIN 81 MG ECTAB PO SCH (08:08)
[2020-08-25] MEDS: ASCORBIC ACID 500 MG TAB PO SCH (08:08)
[2020-08-25] MEDS: CLOPIDOGREL BISULFATE 75 MG TAB PO SCH (08:08)
[2020-08-25] MEDS: OMEGA-3 (PURIFIED FISH OIL) 1 GM CAP PO SCH (08:08)
[2020-08-25] MEDS: PHENYTOIN SODIUM ER 100 MG CAP PO SCH ×2 (08:08→20:50)
[2020-08-25] MEDS: CYANOCOBALAMIN (VITAMIN B-12) 2,500 MCG TAB.SUBL SL SCH (08:09)
[2020-08-25] MEDS: ALFUZOSIN HCL 10 MG TAB PO SCH (08:09)
[2020-08-25] MEDS: INSULIN ASPART 100 UNITS/ML 3 ML PEN SC SCH ×4 (08:18→21:47)
[2020-08-25] MEDS ORDERED: POTASSIUM CHLORIDE CRTAB 20 MEQ TABCR PO ONE (09:00)
[2020-08-25] MEDS ORDERED: FUROSEMIDE 20 MG in SYRINGE 0 ML IV ONE (09:00)
[2020-08-25] MEDS: dexAMETHasone 6 MG in SYRINGE 0 ML IV SCH (09:46)
[2020-08-25] MEDS: levoFLOXacin 750 MG TAB PO SCH (17:00)
--- NOTE | 2020-08-25 21:24 | Hospitalist Progress Note ---
Date of Service August 25, 2020 Assessment & Plan (1) Pneumonia due to 2019 novel coronavirus: Pneumonia due to COVID-19 virus with hypoxia- There is concern regarding development possible secondary bacterial superinfection, as patient had been getting better and then suddenly became worse. Remains afebrile, but biggest issue is hypoxia as below Markers of inflammation have stayed about the same Continue Decadron 6 mg IV daily-last dose will be 08/31 Convalescent plasma, consent obtained-still awaiting its arrival-there was a delay due to his AB blood type as it is in short supply -continue Remdesivir IV x 5 day course-last dose will be on 08/26 -Continue Ventolin HFA 1 puffs 4 times daily as well as ipratropium 1 puff 4 times daily -Continue levofloxacin 750 mg p.o. daily x 7 day course-last dose 08/28 Repeat chest x-ray on 08/23 with continued bilateral pneumonia slightly progre ssed on the left -Continue high flow nasal cannula and wean off as tolerated (2) Hypoxia: Significantly worsened on 08/24, placed on high flow nasal cannula at 40 L 100% FiO2 with pulse ox 84-87% on the evening of 08/24 Was able to be weaned to FiO2 of 90% on 08/25 but remains tachypneic 2/2 COVID PNA -BiPAP 03/03 ordered as needed in case he worsens overnight Will give another dose of IV Lasix today (3) Seizure disorder: Continue phenytoin no seizures here (4) CAD (coronary artery disease): CAD/hypertension-with a h/o STEMI 2016 No acute issues. Trop neg on admission Continue aspirin 81 mg daily, clopidogrel 75 mg daily and metoprolol tartrate 25 mg p.o. twice daily, statin (5) Thoracic aortic aneurysm: followed as outpt Not even mentioned on CT chest performed here (6) History of CVA (cerebrovascular accident): continue ASA, Plavix (7) DJD (degenerative joint disease): takes meloxicam prn as outpt-hold NSAIDs with COVID (8) Diabetes mellitus: HgbA1C here 7.8%, not on meds at home CDE talked to him and plans for glucometer and testing supplies on discharge: - needs a Rx for the following at time of discharge: 1. [employer] Verio test strips to check 1x/day. 2. OneTouch Delica lancets to check 1x/day. COuld possibly start on metformin upon discharge Continue NovoLog sliding scale here-blood sugars are very well controlled (9) BPH w urinary obs/LUTS: continue alfuzosin no acute issues but has h/o elevated PVR, follows with Urology (10) Hypokalemia: Replace with oral potassium chloride Follow BMP in the morning (11) DVT prophylaxis: High-dose heparin SQ Dispo-continued stay on tele, condition is guarded Full code Admission and Anticipated Discharge Date Admission Date: August 22, 2020 Subjective Patient reports some shortness of breath. He remains on high flow nasal cannula but his FiO2 was able to be titrated down to 90% this morning. He denies chest pain. No nausea or vomiting but does report his appetite is low. Telemetry with normal sinus rhythm with rates in the 60s to 70s Review of Systems Review of Systems: All systems reviewed & are unremarkable except as noted in HPI & below Physical Exam Constitutional: WD/WN, vitals as above Eyes: + anicteric sclerae ENMT: external ear and nose normal, oropharynx normal (scant blood lower right lip) Neck: trachea midline, no thyromegaly Respiratory: + tachypneic Auscultation: + crackles (lower and middle lung lopez bilat); no wheezes Cardiovascular: Rate/Rhythm: regular rate and regular rhythm Extremities: + edema (1+ pitting edema in the right leg and trace pitting edema left leg worse) Chest (Breasts): Chest: normal inspection of chest Gastrointestinal (Abdomen): normal bowel sounds, soft, nontender, no hepatosplenomegaly Musculoskeletal: Extremities: extremities normal to inspection; no cyanosis and no clubbing Skin: no rashes, warm and dry Neurologic: moves all extremities and awake; no focal motor deficits Psychiatric: A+Ox3, euthymic affect Lymphatic: no lymphedema Results & Data Results & Data ([facility]) Vital Signs (Past 12 Hours) Vital Signs Temp Pulse Pulse Resp BP Pulse Ox 08/25/20 20:11 37.0 C 79 26 H 152/93 H 88 L 08/25/20 19:15 81 20 90 08/25/20 15:57 84 22 90 08/25/20 15:50 84 22 90 08/25/20 15:27 77 08/25/20 14:57 37 C 83 24 137/98 94 08/25/20 11:55 36.5 C 72 22 120/83 100 08/25/20 11:42 71 20 92 Laboratory Results 08/25/20 08/25/20 08/25/20 Range/Units 20:14 16:24 11:27 WBC (4.8-10.8) K/uL RBC (4.7-6.1) M/uL Hgb (14.0-18.0) g/dL Hct (42-52) % MCV (80-100) fL MCH (25-34) pg MCHC (32-36) g/dL RDW Std Deviation (36.4-46.3) fL RDW Coeff of Luis (11.5-14.5) % Plt Count (130-400) K/uL MPV (7.4-10.4) fL Immature Gran % (Auto) % Neut % (Auto) % Lymph % (Auto) % [place] % (Auto) % Eos % (Auto) % Baso % (Auto) % Neut # (Auto) (1.4-6.5) K/uL Lymph # (Auto) (1.2-3.4) K/uL [place] # (Auto) (0.11-0.59) K/uL Eos # (Auto) (0-0.5) K/uL Baso # (Auto) (0-0.2) K/uL Immature Gran # (Auto) (0.00-0.02) K/uL ESR (0-14) mm/hr Sodium (136-145) mmol/L Potassium (3.5-5.1) mmol/L Chloride (98-107) mmol/L Carbon Dioxide (21-32) mmol/L Anion Gap (3-11) BUN (7-18) mg/dl Creatinine (0.6-1.4) mg/dl Est Cr Clr Drug Dosing ml/min Est GFR ( Amer) Est GFR (Non-Af Amer) BUN/Creatinine Ratio (10-20) Glucose (70-99) mg/dl POC Glucose 111 H 161 H 158 H (70-99) mg/dl Calcium (8.5-10.1) mg/dl Phosphorus (2.5-4.9) mg/dl Magnesium (1.8-2.4) mg/dl Total Bilirubin (0.2-1) mg/dl AST (15-37) U/L ALT (12-78) U/L Alkaline Phosphatase (45-117) U/L C-Reactive Protein (0-0.29) mg/dl Total Protein (6.4-8.2) gm/dl Albumin (3.4-5.0) gm/dl Globulin (2.5-4.0) gm/dl Albumin/Globulin Ratio (0.9-2) 08/25/20 08/25/20 08/25/20 Range/Units 07:38 05:54 05:54 WBC (4.8-10.8) K/uL RBC (4.7-6.1) M/uL Hgb (14.0-18.0) g/dL Hct (42-52) % MCV (80-100) fL MCH (25-34) pg MCHC (32-36) g/dL RDW Std Deviation (36.4-46.3) fL RDW Coeff of Luis (11.5-14.5) % Plt Count (130-400) K/uL MPV (7.4-10.4) fL Immature Gran % (Auto) % Neut % (Auto) % Lymph % (Auto) % [place] % (Auto) % Eos % (Auto) % Baso % (Auto) % Neut # (Auto) (1.4-6.5) K/uL Lymph # (Auto) (1.2-3.4) K/uL [place] # (Auto) (0.11-0.59) K/uL Eos # (Auto) (0-0.5) K/uL Baso # (Auto) (0-0.2) K/uL Immature Gran # (Auto) (0.00-0.02) K/uL ESR 31 H (0-14) mm/hr Sodium 140 (136-145) mmol/L Potassium 3.4 L (3.5-5.1) mmol/L Chloride 107 (98-107) mmol/L Carbon Dioxide 27 (21-32) mmol/L Anion Gap 6.0 (3-11) BUN 16 (7-18) mg/dl Creatinine 0.69 (0.6-1.4) mg/dl Est Cr Clr Drug Dosing 109.5 ml/min Est GFR ( Amer) 106.9 Est GFR (Non-Af Amer) 92.2 BUN/Creatinine Ratio 22.8 H (10-20) Glucose 129 H (70-99) mg/dl POC Glucose 150 H (70-99) mg/dl Calcium 7.6 L (8.5-10.1) mg/dl Phosphorus 3.8 (2.5-4.9) mg/dl Magnesium 2.0 (1.8-2.4) mg/dl Total Bilirubin 0.3 (0.2-1) mg/dl AST 59 H (15-37) U/L ALT 37 (12-78) U/L Alkaline Phosphatase 170 H (45-117) U/L C-Reactive Protein 5.06 H (0-0.29) mg/dl Total Protein 6.3 L (6.4-8.2) gm/dl Albumin 2.5 L (3.4-5.0) gm/dl Globulin 3.8 (2.5-4.0) gm/dl Albumin/Globulin Ratio 0.7 L (0.9-2) 08/25/20 Range/Units 05:54 WBC 4.96 (4.8-10.8) K/uL RBC 3.73 L (4.7-6.1) M/uL Hgb 12.4 L (14.0-18.0) g/dL Hct 36.0 L (42-52) % MCV 96.5 (80-100) fL MCH 33.2 (25-34) pg MCHC 34.4 (32-36) g/dL RDW Std Deviation 48.6 H (36.4-46.3) fL RDW Coeff of Luis 13.6 (11.5-14.5) % Plt Count 168 (130-400) K/uL MPV 9.2 (7.4-10.4) fL Immature Gran % (Auto) 0.4 % Neut % (Auto) 68.6 % Lymph % (Auto) 14.9 % [place] % (Auto) 15.1 % Eos % (Auto) 1.0 % Baso % (Auto) 0.0 % Neut # (Auto) 3.40 (1.4-6.5) K/uL Lymph # (Auto) 0.74 L (1.2-3.4) K/uL [place] # (Auto) 0.75 H (0.11-0.59) K/uL Eos # (Auto) 0.05 (0-0.5) K/uL Baso # (Auto) 0.00 (0-0.2) K/uL Immature Gran # (Auto) 0.02 (0.00-0.02) K/uL ESR (0-14) mm/hr Sodium (136-145) mmol/L Potassium (3.5-5.1) mmol/L Chloride (98-107) mmol/L Carbon Dioxide (21-32) mmol/L Anion Gap (3-11) BUN (7-18) mg/dl Creatinine (0.6-1.4) mg/dl Est Cr Clr Drug Dosing ml/min Est GFR ( Amer) Est GFR (Non-Af Amer) BUN/Creatinine Ratio (10-20) Glucose (70-99) mg/dl POC Glucose (70-99) mg/dl Calcium (8.5-10.1) mg/dl Phosphorus (2.5-4.9) mg/dl Magnesium (1.8-2.4) mg/dl Total Bilirubin (0.2-1) mg/dl AST (15-37) U/L ALT (12-78) U/L Alkaline Phosphatase (45-117) U/L C-Reactive Protein (0-0.29) mg/dl Total Protein (6.4-8.2) gm/dl Albumin (3.4-5.0) gm/dl Globulin (2.5-4.0) gm/dl Albumin/Globulin Ratio (0.9-2) PG Care Time/CCT Total # of Minutes Spent Total Time Spent with Patient: Total time spent is greater than 50% in coordination of care (as documented) at patient's floor/unit and/or counseling patient: Coding Level of Care Code 78818 Subseq Hosp Care Lvl 3 Diagnoses Pneumonia due to 2019 novel coronavirus U07.1; J12.89 Hypoxia R09.02 Seizure disorder G40.909 CAD (coronary artery disease) I25.10 Thoracic aortic aneurysm I71.2 History of CVA (cerebrovascular accident) Z86.73 DJD (degenerative joint disease) M19.90 Diabetes mellitus E11.9 BPH w urinary obs/LUTS N40.1; N13.8 Hypokalemia E87.6 DVT prophylaxis Z29.9
[2020-08-25] MEDS: REMDESIVIR 100 MG in SODIUM CHLORIDE 0.9% 230 ML IV SCH (21:54)
[2020-08-25] MEDS: SODIUM CHLORIDE 0.9% 10ML FLUSH IV SCH (23:43)
[2020-08-26] MEDS: HEPARIN SOD 5,000 UNIT/0.5 ML VIAL SQ SCH ×3 (06:29→21:40)
[2020-08-26] MEDS: IPRATROPIUM BROMIDE HFA INHALER INH SCH (07:32)
[2020-08-26] MEDS: ALBUTEROL HFA 8 GM INHALER INH SCH (07:33)
[2020-08-26 07:38] LABS: Albumin Level 2.6 gm/dl (3.4-5.0); BUN Creatinine Ratio 32.1 (10-20); Calcium 7.7 mg/dl (8.5-10.1); Creatinine Clr Calc Pharmacy 109.3 ml/min; Est GFR (African American) 108.2; Est GFR (Non-African American) 93.3; Magnesium 2.2 mg/dl (1.8-2.4); Potassium 3.6 mmol/L (3.5-5.1)
[2020-08-26 07:41] LABS: Albumin Globulin Ratio 0.6 (0.9-2); Bilirubin,Total 0.4 mg/dl (0.2-1); Globulin 4.2 gm/dl (2.5-4.0); Total Protein 6.8 gm/dl (6.4-8.2)
[2020-08-26] MEDS ORDERED: ALBUTEROL HFA 8 GM INHALER INH PRN (08:59)
[2020-08-26] MEDS ORDERED: IPRATROPIUM BROMIDE HFA INHALER INH PRN (08:59)
[2020-08-26] MEDS: dexAMETHasone 6 MG in SYRINGE 0 ML IV SCH (09:16)
[2020-08-26] MEDS: PHENYTOIN SODIUM ER 100 MG CAP PO SCH ×2 (09:17→21:40)
[2020-08-26] MEDS: ADVANCED PROBIOTIC 1250 MG CAPSULE PO SCH (09:17)
[2020-08-26] MEDS: ATORVASTATIN 40 MG TAB PO SCH (09:17)
[2020-08-26] MEDS: ALFUZOSIN HCL 10 MG TAB PO SCH (09:17)
[2020-08-26] MEDS: CHOLECALCIFEROL 1,000 UNITS 25 MCG TAB PO SCH (09:17)
[2020-08-26] MEDS: CLOPIDOGREL BISULFATE 75 MG TAB PO SCH (09:19)
[2020-08-26] MEDS: OMEGA-3 (PURIFIED FISH OIL) 1 GM CAP PO SCH (09:19)
[2020-08-26] MEDS: ASCORBIC ACID 500 MG TAB PO SCH (09:19)
[2020-08-26] MEDS: ASPIRIN 81 MG ECTAB PO SCH (09:19)
[2020-08-26] MEDS: CYANOCOBALAMIN (VITAMIN B-12) 2,500 MCG TAB.SUBL SL SCH (09:19)
[2020-08-26] MEDS: OXYMETAZOLINE 0.05% 30 ML BTL NAE SCH ×2 (09:19→21:41)
[2020-08-26] MEDS: METOPROLOL TARTRATE 25 MG TAB PO SCH ×2 (09:20→21:40)
[2020-08-26] MEDS: INSULIN ASPART 100 UNITS/ML 3 ML PEN SC SCH ×4 (09:44→22:11)
--- NOTE | 2020-08-26 15:48 | Hospitalist Progress Note ---
Date of Service August 26, 2020 Assessment & Plan (1) Pneumonia due to 2019 novel coronavirus: Pneumonia due to COVID-19 virus with hypoxia- There is concern regarding development possible secondary bacterial superinfection, as patient had been getting better and then suddenly became worse. Remains afebrile, but biggest issue is hypoxia as below Markers of inflammation have stayed about the same Continue Decadron 6 mg IV daily-last dose will be 08/31 might continue longer taper if still on HFNC Convalescent plasma, consent obtained-still awaiting its arrival-there was a delay due to his AB blood type as it is in short supply still not here today, unlikely to help at this point -continue Remdesivir IV x 5 day course-last dose is today -Continue Ventolin HFA 1 puffs 4 times daily as well as ipratropium 1 puff 4 times daily -Continue levofloxacin 750 mg p.o. daily x 7 day course-last dose 08/28 Repeat chest x-ray on 08/23 with continued bilateral pneumonia slightly progressed on the left -Continue high flow nasal cannula and wean off as tolerated down to 35L and 80% today which is an improvement making small steps in the right direction, offered encouragement today (2) Hypoxia: Significantly worsened on 08/24, placed on high flow nasal cannula at 40 L 100% FiO2 with pulse ox 84-87% on the evening of 08/24 Was able to wean down to 35L and 80% today 2/2 COVID PNA no role for Lasix today, will monitor closely (3) Seizure disorder: Continue phenytoin no seizures here (4) CAD (coronary artery disease): CAD/hypertension-with a h/o STEMI 2016 No acute issues. Trop neg on admission Continue aspirin 81 mg daily, clopidogrel 75 mg daily and metoprolol tartrate 25 mg p.o. twice daily, statin (5) Thoracic aortic aneurysm: followed as outpt Not even mentioned on CT chest performed here (6) History of CVA (cerebrovascular accident): continue ASA, Plavix (7) DJD (degenerative joint disease): takes meloxicam prn as outpt-hold NSAIDs with COVID (8) Diabetes mellitus: HgbA1C here 7.8%, not on meds at home CDE talked to him and plans for glucometer and testing supplies on discharge: - needs a Rx for the following at time of discharge: 1. OneTouch Verio test strips to check 1x/day. 2. OneTouch Delica lancets to check 1x/day. COuld possibly start on metformin upon discharge Continue NovoLog sliding scale here-blood sugars are very well controlled (9) BPH w urinary obs/LUTS: continue alfuzosin no acute issues but has h/o elevated PVR, follows with Urology (10) Hypokalemia: Replace with oral potassium chloride K is 3.[address] on bid regimen (11) DVT prophylaxis: High-dose heparin SQ Dispo-continued stay on tele, condition is guarded Full code Admission and Anticipated Discharge Date Admission Date: August 22, 2020 Subjective patient is stable on HFNC, titrating him down slowly from 100% to 80% encouraged him to lay in his side or on his abdomen, he will try he is still not eating great, no appetite, no taste no fever/chills today discussed that it will take days for him to recover, expect to be here another week at least he was a little discouraged by this news Review of Systems Review of Systems: All systems reviewed & are unremarkable except as noted in Subjective Constitutional: + fatigue and + weakness; no fever, no chills and no sweats Respiratory: + cough, + dyspnea and + dyspnea on exertion; no sputum produ ction Cardiovascular: no chest pain and no edema Gastrointestinal: + early satiety; no abdominal pain, no nausea, no vomiting, no constipation and no diarrhea/loose stools Physical Exam Constitutional: WD/WN, vitals as above + ill appearing; no acute distress Neck: trachea midline, no thyromegaly Respiratory: normal respiratory effort, lungs clear to auscultation Cardiovascular: RRR, no murmur, no edema Gastrointestinal (Abdomen): normal bowel sounds, soft, nontender, no hepatosplenomegaly Musculoskeletal: no cyanosis or clubbing, extremities motor strength 5/5 Skin: no rashes, warm and dry Neurologic: patellar DTR's 2+ bilat, sensation intact and PERRL, EOMI, accommodation nl, no face palsy, no dysarthria Psychiatric: A+Ox3, euthymic affect Lymphatic: no cervical or axillary lymphadenopathy Results & Data Results & Data ([facility]) Vital Signs (Past 12 Hours) Vital Signs Temp Pulse Pulse Resp BP Pulse Ox 08/26/20 15:38 70 08/26/20 15:25 73 20 94 12/07/20 11:19 65 20 93 08/26/20 10:41 36.4 C L 68 24 139/88 93 08/26/20 08:34 36.4 C L 78 24 159/96 H 89 L 08/26/20 08:00 77 08/26/20 07:34 77 21 90 08/26/20 04:15 71 20 92 Laboratory Results Laboratory Results - last 24 hr 08/24/20 08/25/20 08/25/20 07:28 16:24 20:14 Sodium Potassium Chloride Carbon Dioxide Anion Gap BUN Creatinine Est Cr Clr Drug Dosing Est GFR ( Amer) Est GFR (Non-Af Amer) BUN/Creatinine Ratio Glucose POC Glucose 133 H 161 H 111 H Calcium Magnesium Total Bilirubin AST ALT Alkaline Phosphatase Total Protein Albumin Globulin Albumin/Globulin Ratio 08/26/20 08/26/20 08/26/20 06:19 07:30 11:12 Sodium 138 Potassium 3.6 Chloride 106 Carbon Dioxide 26 Anion Gap 6.0 BUN 22 H Creatinine 0.67 Est Cr Clr Drug Dosing 109.3 Est GFR ( Amer) 108.2 Est GFR (Non-Af Amer) 93.3 BUN/Creatinine Ratio 32.1 H Glucose 130 H POC Glucose 129 H 155 H Calcium 7.7 L Magnesium 2.2 Total Bilirubin 0.4 AST 70 H ALT 44 Alkaline Phosphatase 198 H Total Protein 6.8 Albumin 2.6 L Globulin 4.2 H Albumin/Globulin Ratio 0.6 L Medications Administered Current Inpatient Medications Acetaminophen (Acetaminophen 325 Mg Tab) 650 mg PO Q4H PRN PRN Reason: Pain or Fever Stop: 09/21/20 02:01 Al Hydrox/Mg Hydrox/Simethicone (Aluminum/Magnesium Susp 30 Ml Udc) 15 ml PO Q4H PRN PRN Reason: Dyspepsia Stop: 09/21/20 02:01 Albuterol (Albuterol Hfa 8 Gm Inhaler) 1 puffs INH Q4 PRN PRN Reason: Shortness Of Breath Or Wheezin Stop: 09/25/20 08:57 Alfuzosin HCl (Alfuzosin Hcl 10 Mg Tab) 10 mg PO DAILY [facility] Stop: 09/21/20 08:59 Last Admin: 08/26/20 09:17 Dose: 10 mg Documented by: Ascorbic Acid (Ascorbic Acid 500 Mg Tab) 500 mg PO DAILY [facility] Stop: 09/21/20 08:59 Last Admin: 08/26/20 09:19 Dose: 500 mg Documented by: Aspirin (Aspirin 81 Mg Ectab) 81 mg PO DAILY [facility] Stop: 09/21/20 08:59 Last Admin: 08/26/20 09:19 Dose: 81 mg Documented by: Atorvastatin Calcium (Atorvastatin 40 Mg Tab) 80 mg PO DAILY [facility] Stop: 09/21/20 08:59 Last Admin: 08/26/20 09:17 Dose: 80 mg Documented by: Betamethasone Dipropion Augmented (Betamethasone Dip Aug (Diprolene) 0.05% Cr 15 Gm Tube) 1 appln EXT DAILY PRN PRN Reason: Itching Stop: 09/21/20 04:33 Clopidogrel Bisulfate (Clopidogrel Bisulfate 75 Mg Tab) 75 mg PO DAILY [facility] Stop: 09/21/20 08:59 Last Admin: 08/26/20 09:19 Dose: 75 mg Documented by: Cyanocobalamin (Cyanocobalamin (Vitamin B-12) 2,500 Mcg Tab.Subl) 1,250 mcg SL DAILY [facility] Stop: 09/21/20 08:59 Last Admin: 08/26/20 09:19 Dose: 1,250 mcg Documented by: Dextrose (Dextrose 50% 50 Ml Syringe) 25 - 50 ml IV UD PRN; Protocol PRN Reason: Hypoglycemia Protocol Stop: 09/21/20 02:01 Diphenhydramine HCl (Diphenhydramine Capsule 25 Mg Cap) 25 mg PO HS PRN PRN Reason: Itching Stop: 09/21/20 02:01 Fish Oil ([place]asm[place]-3 (Purified Fish Oil) 1 Gm Cap) 1 gm PO DAILY [facility] Stop: 09/21/20 08:59 Last Admin: 08/26/20 09:19 Dose: 1 gm Documented by: Glucagon (Glucagon For Inj 1 Mg Vial) 1 mg SQ UD PRN; Protocol PRN Reason: Hypoglycemia Protocol Stop: 09/21/20 02:01 Glucose (Glucose 10 Tabs/Tube) 4 - 8 tabs PO UD PRN; Protocol PRN Reason: Hypoglycemia Protocol Stop: 09/21/20 02:01 Glucose (Glucose 40% Gel 15 Gm Tube) 15 - 30 gm PO UD PRN; Protocol PRN Reason: Hypoglycemia Protocol Stop: 09/21/20 02:01 Heparin Sodium (Porcine) (Heparin Sod 5,000 Unit/0.5 Ml Vial) 7,500 units SQ Q8 [facility] Stop: 09/22/20 21:59 Last Admin: 08/26/20 14:30 Dose: 7,500 units Documented by: Dexamethasone 6 mg/ Syringe 1.5 mls @ 1 mls/min IV QAM [facility] Stop: 09/21/20 08:59 Last Admin: 08/26/20 09:16 Dose: 1 mls/min Documented by: Insulin Aspart (Insulin Aspart 100 Units/Ml 3 Ml Pen) 0 units SC ACHS [facility] Stop: 09/21/20 02:29 Last Admin: 08/26/20 11:55 Dose: 1 units Documented by: Ipratropium [place] (Ipratropium [place] Hfa Inhaler) 1 puffs INH Q4 PRN PRN Reason: Shortness Of Breath Or Wheezin Stop: 09/25/20 08:58 Lactobacillus Acidoph/Casei/Rhamnos (Advanced Probiotic 1250 Mg Capsule) 2 cap PO DAILY [facility] Stop: 09/21/20 08:59 Last Admin: 08/26/20 09:17 Dose: 2 cap Documented by: Levofloxacin (Levofloxacin 750 Mg Tab) 750 mg PO DAILY@1700 [facility] Stop: 08/28/20 17:01 Last Admin: 08/25/20 17:00 Dose: 750 mg Documented by: Magnesium Hydroxide (Magnesium Hydroxide Susp 30 Ml Udc) 30 ml PO Q12H PRN PRN Reason: Constipation Stop: 09/21/20 02:01 Metoprolol Tartrate (Metoprolol Tartrate 25 Mg Tab) 25 mg PO BID [facility] Stop: 09/21/20 02:01 Last Admin: 08/26/20 09:20 Dose: 25 mg Documented by: Miscellaneous (Carbohydrates For Hypoglycemia ) 15 - 30 gm PO UD PRN PRN Reason: Hypoglycemia Protocol Stop: 09/21/20 02:01 Nitroglycerin (Nitroglycerin Sl 0.4 Mg/Tab Tab) 0.4 mg SL Q5M PRN PRN Reason: chest pain Stop: 09/21/20 02:01 Ondansetron HCl (Ondansetron Inj 2 Mg/Ml 2 Ml Vial) 4 mg IV Q6H PRN PRN Reason: Nausea Stop: 09/21/20 02:01 Oxymetazoline HCl (Oxymetazoline 0.05% 30 Ml Btl) 1 sprays OTIS BID [facility] Stop: 09/23/20 17:59 Last Admin: 08/26/20 09:19 Dose: 1 sprays Documented by: Phenytoin Sodium (Phenytoin Sodium Er 100 Mg Cap) 200 mg PO BID [facility] Stop: 09/21/20 02:01 Last Admin: 08/26/20 09:17 Dose: 200 mg Documented by: Vitamin D (Cholecalciferol 1,000 Units 25 Mcg Tab) 1,000 units PO DAILY [facility] Stop: 09/21/20 08:59 Last Admin: 08/26/20 09:17 Dose: 1,000 units Documented by: PG Care Time/CCT Total # of Minutes Spent Total Time Spent with Patient: Total time spent is greater than 50% in coordination of care (as documented) at patient's floor/unit and/or counseling patient: Coding Level of Care Code 76652 Subseq Hosp Care Lvl 3 Diagnoses Pneumonia due to 2019 novel coronavirus U07.1; J12.89 Hypoxia R09.02 Seizure disorder G40.909 CAD (coronary artery disease) I25.10 Thoracic aortic aneurysm I71.2 History of CVA (cerebrovascular accident) Z86.73 DJD (degenerative joint disease) M19.90 Diabetes mellitus E11.9 BPH w urinary obs/LUTS N40.1; N13.8 Hypokalemia E87.6 DVT prophylaxis Z29.9
[2020-08-26] MEDS: levoFLOXacin 750 MG TAB PO SCH (17:19)
[2020-08-26] MEDS: POTASSIUM CHLORIDE CRTAB 20 MEQ TABCR PO SCH (21:41)
[2020-08-27] MEDS: HEPARIN SOD 5,000 UNIT/0.5 ML VIAL SQ SCH ×3 (03:44→21:44)
[2020-08-27] MEDS: ATORVASTATIN 40 MG TAB PO SCH (07:20)
[2020-08-27] MEDS: dexAMETHasone 6 MG in SYRINGE 0 ML IV SCH (07:21)
[2020-08-27] MEDS: CYANOCOBALAMIN (VITAMIN B-12) 2,500 MCG TAB.SUBL SL SCH (07:21)
[2020-08-27] MEDS: ASPIRIN 81 MG ECTAB PO SCH (07:21)
[2020-08-27] MEDS: ASCORBIC ACID 500 MG TAB PO SCH (07:22)
[2020-08-27] MEDS: OMEGA-3 (PURIFIED FISH OIL) 1 GM CAP PO SCH (07:22)
[2020-08-27] MEDS: ADVANCED PROBIOTIC 1250 MG CAPSULE PO SCH (07:22)
[2020-08-27] MEDS: ALFUZOSIN HCL 10 MG TAB PO SCH (07:22)
[2020-08-27] MEDS: PHENYTOIN SODIUM ER 100 MG CAP PO SCH ×2 (07:22→21:44)
[2020-08-27] MEDS: METOPROLOL TARTRATE 25 MG TAB PO SCH ×2 (07:22→21:44)
[2020-08-27] MEDS: CLOPIDOGREL BISULFATE 75 MG TAB PO SCH (07:22)
[2020-08-27] MEDS: CHOLECALCIFEROL 1,000 UNITS 25 MCG TAB PO SCH (07:23)
[2020-08-27] MEDS: OXYMETAZOLINE 0.05% 30 ML BTL NAE SCH ×2 (07:23→21:45)
[2020-08-27] MEDS: POTASSIUM CHLORIDE CRTAB 20 MEQ TABCR PO SCH ×3 (07:23→21:43)
[2020-08-27 07:58] LABS: BUN Creatinine Ratio 31.7 (10-20); Calcium 8.3 mg/dl (8.5-10.1); Creatinine Clr Calc Pharmacy 114.4 ml/min; Est GFR (African American) 110.2; Est GFR (Non-African American) 95.1; Potassium 3.7 mmol/L (3.5-5.1)
[2020-08-27] MEDS: INSULIN ASPART 100 UNITS/ML 3 ML PEN SC SCH ×4 (08:58→22:14)
--- NOTE | 2020-08-27 11:43 | XRay Report ---
XR chest 1V portable HISTORY: 74 years-old Male hypoxia, covid acute hypoxia. COMPARISON: Chest radiograph 08/23/2020 TECHNIQUE: Portable AP view of the chest FINDINGS: Cardiac silhouette is enlarged. Pulmonary vascular congestion. Trace pleural effusions. No pneumothor ax. Bilateral reticular opacities with ill-defined left basilar predominant pulmonary opacities are r edemonstrated and appear generally stable from comparison. Degenerative changes of the shoulders and spine. Hiatal hernia. IMPRESSION: 1. Unchanged bilateral pulmonary opacities compatible with ongoing pneumonia. 2. Trace pleural effusions. ACT 112: Negative or not required by law. The above report was generated using voice recognition software. It may contain grammatical, syntax o r spelling errors. Electronically signed by: Lior Preciado M.D. 08/27/2020 11:42 AM
--- NOTE | 2020-08-27 11:54 | Hospitalist Progress Note ---
Date of Service August 27, 2020 Assessment & Plan (1) Pneumonia due to 2019 novel coronavirus: Pneumonia due to COVID-19 virus with hypoxia- There is concern regarding development possible secondary bacterial superinfection, as patient had been getting better and then suddenly became worse on 08/24 Remains afebrile, but biggest issue is hypoxia as below Markers of inflammation have stayed about the same Continue Decadron 6 mg IV daily-last dose will be 08/31 will continue longer taper if still on HFNC Convalescent plasma, consent obtained-still awaiting its arrival-there was a delay due to his AB blood type as it is in short supply unlikely to help at this point -completed 5 days of Remdesivir on 08/26 -Continue Ventolin HFA 1 puffs 4 times daily as well as ipratropium 1 puff 4 times daily -Continue levofloxacin 750 mg p.o. daily x 7 day course-last dose 08/28 Repeat chest x-ray on 08/27 with continued bilateral pneumonia slightly progressed on the left Lasix 20mg IV x 1 today to keep a negative fluid balance, keep lungs dry on HFNC today, 80% and 40L (2) Hypoxia: Significantly worsened on 08/24, placed on high flow nasal cannula at 40 L 100% FiO2 with pulse ox 84-87% on the evening of 08/24 Was able to wean down to 40L and 80% today 2/2 COVID PNA saturations stable when sitting up he is compliant with laying prone give Lasix 20mg IV today, keep negative fluid balance, keep lungs dry (3) Seizure disorder: Continue phenytoin no seizures while here (4) CAD (coronary artery disease): CAD/hypertension-with a h/o STEMI 2016 No acute issues. Trop neg on admission Continue aspirin 81 mg daily, clopidogrel 75 mg daily and metoprolol tartrate 25 mg p.o. twice daily, statin (5) Thoracic aortic aneurysm: followed as outpt Not even mentioned on CT chest performed here (6) History of CVA (cerebrovascular accident): continue ASA, Plavix (7) DJD (degenerative joint disease): takes meloxicam prn as outpt-hold NSAIDs with COVID (8) Diabetes mellitus: HgbA1C here 7.8%, not on meds at home CDE talked to him and plans for glucometer and testing supplies on discharge: - needs a Rx for the following at time of discharge: 1. OneTouch Verio test strips to check 1x/day. 2. OneTouch Delica lancets to check 1x/day. COuld possibly start on metformin upon discharge Continue NovoLog sliding scale here-blood sugars are very well controlled (9) BPH w urinary obs/LUTS: continue alfuzosin no acute issues but has h/o elevated PVR, follows with Urology (10) Hypokalemia: Replace with oral potassium chloride K is 3.7 today continue BID regimen especially with getting Lasix today repeat tomorrow (11) DVT prophylaxis: High-dose heparin SQ Dispo-continued stay on tele, condition is guarded Full code Admission and Anticipated Discharge Date Admission Date: August 22, 2020 Subjective patient sitting up today in a chair, breathing is the same over night they had to increase to 100% FiO2, respiratory got him back down to 80%, will try to lower rate he is eating okay at lunch time CXR with persistent infiltrates, had a good response to Lasix two days ago, will try 20mg IV today updated his over the phone offered patient encouragement, he will be here a while, needs to stay strong Review of Systems Review of Systems: All systems reviewed & are unremarkable except as noted in Subjective Physical Exam Constitutional: WD/WN, vitals as above + ill appearing; no acute distress Neck: trachea midline, no thyromegaly Respiratory: normal respiratory effort, lungs clear to auscultation Cardiovascular: RRR, no murmur, no edema Gastrointestinal (Abdomen): normal bowel sounds, soft, nontender, no hepa tosplenomegaly Musculoskeletal: no cyanosis or clubbing, extremities motor strength 5/5 Skin: no rashes, warm and dry Neurologic: patellar DTR's 2+ bilat, sensation intact and PERRL, EOMI, accommodation nl, no face palsy, no dysarthria Psychiatric: A+Ox3, euthymic affect Lymphatic: no cervical or axillary lymphadenopathy Results & Data Results & Data ([facility]) Vital Signs (Past 12 Hours) Vital Signs Temp Pulse Pulse Pulse Resp BP Pulse Ox 08/27/20 11:50 36.7 C 80 22 113/75 90 08/27/20 11:21 80 19 90 08/27/20 08:49 79 22 87 L 08/27/20 08:00 75 08/27/20 03:03 77 24 92 12/08/20 02:58 37.1 C 75 22 138/87 91 08/27/20 01:33 77 Laboratory Results Laboratory Results - last 24 hr 08/26/20 08/26/20 08/26/20 11:12 16:32 21:07 Sodium Potassium Chloride Carbon Dioxide Anion Gap BUN Creatinine Est Cr Clr Drug Dosing Est GFR ( Amer) Est GFR (Non-Af Amer) BUN/Creatinine Ratio Glucose POC Glucose 155 H 154 H 115 H Calcium 08/27/20 08/27/20 08/27/20 06:53 07:30 11:47 Sodium 139 Potassium 3.7 Chloride 107 Carbon Dioxide 23 Anion Gap 9.0 BUN 20 H Creatinine 0.64 Est Cr Clr Drug Dosing 114.4 Est GFR ( Amer) 110.2 Est GFR (Non-Af Amer) 95.1 BUN/Creatinine Ratio 31.7 H Glucose 133 H POC Glucose 144 H 166 H Calcium 8.3 L Diagnostic Findings XR chest 1V portable HISTORY: 74 years-old Male hypoxia, covid acute hypoxia. COMPARISON: Chest radiograph 08/23/2020 TECHNIQUE: Portable AP view of the chest FINDINGS: Cardiac silhouette is enlarged. Pulmonary vascular congestion. Trace pleural effusions. No pneumothorax. Bilateral reticular opacities with ill-defined left basilar predominant pulmonary opacities are redemonstrated and appear generally stable from comparison. Degenerative changes of the shoulders and spine. Hiatal hernia. IMPRESSION: 1. Unchanged bilateral pulmonary opacities compatible with ongoing pneumonia. 2. Trace pleural effusions. Medications Administered Current Inpatient Medications Acetaminophen (Acetaminophen 325 Mg Tab) 650 mg PO Q4H PRN PRN Reason: Pain or Fever Stop: 09/21/20 02:01 Al Hydrox/Mg Hydrox/Simethicone (Aluminum/Magnesium Susp 30 Ml Udc) 15 ml PO Q4H PRN PRN Reason: Dyspepsia Stop: 09/21/20 02:01 Albuterol (Albuterol Hfa 8 Gm Inhaler) 1 puffs INH Q4 PRN PRN Reason: Shortness Of Breath Or Wheezin Stop: 09/25/20 08:57 Alfuzosin HCl (Alfuzosin Hcl 10 Mg Tab) 10 mg PO DAILY [facility] Stop: 09/21/20 08:59 Last Admin: 08/27/20 07:22 Dose: 10 mg Documented by: Ascorbic Acid (Ascorbic Acid 500 Mg Tab) 500 mg PO DAILY [facility] Stop: 09/21/20 08:59 Last Admin: 08/27/20 07:22 Dose: 500 mg Documented by: Aspirin (Aspirin 81 Mg Ectab) 81 mg PO DAILY [facility] Stop: 09/21/20 08:59 Last Admin: 08/27/20 07:21 Dose: 81 mg Documented by: Atorvastatin Calcium (Atorvastatin 40 Mg Tab) 80 mg PO DAILY [facility] Stop: 09/21/20 08:59 Last Admin: 08/27/20 07:20 Dose: 80 mg Documented by: Betamethasone Dipropion Augmented (Betamethasone Dip Aug (Diprolene) 0.05% Cr 15 Gm Tube) 1 appln EXT DAILY PRN PRN Reason: Itching Stop: 09/21/20 04:33 Clopidogrel Bisulfate (Clopidogrel Bisulfate 75 Mg Tab) 75 mg PO DAILY [facility] Stop: 09/21/20 08:59 Last Admin: 08/27/20 07:22 Dose: 75 mg Documented by: Cyanocobalamin (Cyanocobalamin (Vitamin B-12) 2,500 Mcg Tab.Subl) 1,250 mcg SL DAILY [facility] Stop: 09/21/20 08:59 Last Admin: 08/27/20 07:21 Dose: 1,250 mcg Documented by: Dextrose (Dextrose 50% 50 Ml Syringe) 25 - 50 ml IV UD PRN; Protocol PRN Reason: Hypoglycemia Protocol Stop: 09/21/20 02:01 Diphenhydramine HCl (Diphenhydramine Capsule 25 Mg Cap) 25 mg PO HS PRN PRN Reason: Itching Stop: 09/21/20 02:01 Fish Oil ([place]-3 (Purified Fish Oil) 1 Gm Cap) 1 gm PO DAILY [facility] Stop: 09/21/20 08:59 Last Admin: 08/27/20 07:22 Dose: 1 gm Documented by: Glucagon (Glucagon For Inj 1 Mg Vial) 1 mg SQ UD PRN; Protocol PRN Reason: Hypoglycemia Protocol Stop: 09/21/20 02:01 Glucose (Glucose 10 Tabs/Tube) 4 - 8 tabs PO UD PRN; Protocol PRN Reason: Hypoglycemia Protocol Stop: 09/21/20 02:01 Glucose (Glucose 40% Gel 15 Gm Tube) 15 - 30 gm PO UD PRN; Protocol PRN Reason: Hypoglycemia Protocol Stop: 09/21/20 02:01 Heparin Sodium (Porcine) (Heparin Sod 5,000 Unit/0.5 Ml Vial) 7,500 units SQ Q8 [facility] Stop: 09/22/20 21:59 Last Admin: 08/27/20 03:44 Dose: 7,500 units Documented by: Dexamethasone 6 mg/ Syringe 1.5 mls @ 1 mls/min IV QAM KALE Stop: 09/21/20 08:59 Last Admin: 08/27/20 07:21 Dose: 1 mls/min Documented by: Furosemide 20 mg/ Syringe 2 mls @ 4 mls/min IV ONE ONE Stop: 08/27/20 11:52 Insulin Aspart (Insulin Aspart 100 Units/Ml 3 Ml Pen) 0 units SC ACHS [facility] Stop: 09/21/20 02:29 Last Admin: 08/27/20 08:58 Dose: Not Given Documented by: Ipratropium [place] (Ipratropium [place] Hfa Inhaler) 1 puffs INH Q4 PRN PRN Reason: Shortness Of Breath Or [place]ezin Stop: 09/25/20 08:58 Lactobacillus Acidoph/Casei/Rhamnos (Advanced Probiotic 1250 Mg Capsule) 2 cap PO DAILY [facility] Stop: 09/21/20 08:59 Last Admin: 08/27/20 07:22 Dose: 2 cap Documented by: Levofloxacin (Levofloxacin 750 Mg Tab) 750 mg PO DAILY@1700 [facility] Stop: 08/28/20 17:01 Last Admin: 08/26/20 17:19 Dose: 750 mg Documented by: Magnesium Hydroxide (Magnesium Hydroxide Susp 30 Ml Udc) 30 ml PO Q12H PRN PRN Reason: Constipation Stop: 09/21/20 02:01 Metoprolol Tartrate (Metoprolol Tartrate 25 Mg Tab) 25 mg PO BID [facility] Stop: 09/21/20 02:01 Last Admin: 08/27/20 07:22 Dose: 25 mg Documented by: Miscellaneous (Carbohydrates For Hypoglycemia ) 15 - 30 gm PO UD PRN PRN Reason: Hypoglycemia Protocol Stop: 09/21/20 02:01 Nitroglycerin (Nitroglycerin Sl 0.4 Mg/Tab Tab) 0.4 mg SL Q5M PRN PRN Reason: chest pain Stop: 09/21/20 02:01 Ondansetron HCl (Ondansetron Inj 2 Mg/Ml 2 Ml Vial) 4 mg IV Q6H PRN PRN Reason: Nausea Stop: 09/21/20 02:01 Oxymetazoline HCl (Oxymetazoline 0.05% 30 Ml Btl) 1 sprays OTIS BID [facility] Stop: 09/23/20 17:59 Last Admin: 08/27/20 07:23 Dose: 1 sprays Documented by: Phenytoin Sodium (Phenytoin Sodium Er 100 Mg Cap) 200 mg PO BID [facility] Stop: 09/21/20 02:01 Last Admin: 08/27/20 07:22 Dose: 200 mg Documented by: Potassium Chloride (Potassium Chloride Crtab 20 Meq Tabcr) 20 meq PO TID [facility] Stop: 09/26/20 13:59 Vitamin D (Cholecalciferol 1,000 Units 25 Mcg Tab) 1,000 units PO DAILY [facility] Stop: 09/21/20 08:59 Last Admin: 08/27/20 07:23 Dose: 1,000 units Documented by: PG Care Time/CCT Total # of Minutes Spent Total Time Spent with Patient: Total time spent is greater than 50% in coordination of care (as documented) at patient's floor/unit and/or counseling patient: Coding Level of Care Code 51253 Subseq Hosp Care Lvl 3 Diagnoses Pneumonia due to 2019 novel coronavirus U07.1; J12.89 Hypoxia R09.02 Seizure disorder G40.909 CAD (coronary artery disease) I25.10 Thoracic aortic aneurysm I71.2 History of CVA (cerebrovascular accident) Z86.73 DJD (degenerative joint disease) M19.90 Diabetes mellitus E11.9 BPH w urinary obs/LUTS N40.1; N13.8 Hypokalemia E87.6 DVT prophylaxis Z29.9
[2020-08-27] MEDS ORDERED: FUROSEMIDE 20 MG in SYRINGE 0 ML IV ONE (12:15)
[2020-08-27] MEDS: levoFLOXacin 750 MG TAB PO SCH (17:24)
[2020-08-28] MEDS: HEPARIN SOD 5,000 UNIT/0.5 ML VIAL SQ SCH ×3 (05:26→20:58)
[2020-08-28 07:48] LABS: BUN Creatinine Ratio 29.1 (10-20); Calcium 8.2 mg/dl (8.5-10.1); Creatinine Clr Calc Pharmacy 102.8 ml/min; Est GFR (African American) 105.6; Est GFR (Non-African American) 91.1; Potassium 3.9 mmol/L (3.5-5.1)
[2020-08-28] MEDS: OXYMETAZOLINE 0.05% 30 ML BTL NAE SCH ×2 (09:03→21:02)
[2020-08-28] MEDS: PHENYTOIN SODIUM ER 100 MG CAP PO SCH ×2 (09:03→21:01)
[2020-08-28] MEDS: dexAMETHasone 6 MG in SYRINGE 0 ML IV SCH (09:03)
[2020-08-28] MEDS: METOPROLOL TARTRATE 25 MG TAB PO SCH ×2 (09:04→21:01)
[2020-08-28] MEDS: CYANOCOBALAMIN (VITAMIN B-12) 2,500 MCG TAB.SUBL SL SCH (09:04)
[2020-08-28] MEDS: ASPIRIN 81 MG ECTAB PO SCH (09:04)
[2020-08-28] MEDS: CHOLECALCIFEROL 1,000 UNITS 25 MCG TAB PO SCH (09:04)
[2020-08-28] MEDS: ATORVASTATIN 40 MG TAB PO SCH (09:04)
[2020-08-28] MEDS: CLOPIDOGREL BISULFATE 75 MG TAB PO SCH (09:04)
[2020-08-28] MEDS: POTASSIUM CHLORIDE CRTAB 20 MEQ TABCR PO SCH ×3 (09:04→21:01)
[2020-08-28] MEDS: ALFUZOSIN HCL 10 MG TAB PO SCH (09:04)
[2020-08-28] MEDS: OMEGA-3 (PURIFIED FISH OIL) 1 GM CAP PO SCH (09:04)
[2020-08-28] MEDS: ADVANCED PROBIOTIC 1250 MG CAPSULE PO SCH (09:05)
[2020-08-28] MEDS: INSULIN ASPART 100 UNITS/ML 3 ML PEN SC SCH ×4 (09:22→23:11)
[2020-08-28] MEDS: ASCORBIC ACID 500 MG TAB PO SCH (09:23)
--- NOTE | 2020-08-28 15:49 | Hospitalist Progress Note ---
Date of Service August 28, 2020 Assessment & Plan (1) Pneumonia due to 2019 novel coronavirus: Pneumonia due to COVID-19 virus with hypoxia- There is concern regarding development possible secondary bacterial superinfection, as patient had been getting better and then suddenly became worse on 08/24 Remains afebrile, but biggest issue is hypoxia as below Markers of inflammation have stayed about the same Continue Decadron 6 mg IV daily-last dose will be 08/31 will continue longer taper if still on HFNC which is likely at this point -completed 5 days of Remdesivir on 08/26 -Continue Ventolin HFA 1 puffs 4 times daily as well as ipratropium 1 puff 4 times daily -Continue levofloxacin 750 mg p.o. daily x 7 day course-last dose 08/28, today Repeat chest x-ray on 08/27 with continued bilateral pneumonia slightly progressed on the left Lasix 20mg IV x 1 on 08/27 to keep a negative fluid balance, keep lungs dry no need for Lasix today on HFNC today, 100% and 30L (2) Hypoxia: Significantly worsened on 08/24, placed on high flow nasal cannula at 40 L 100% FiO2 with pulse ox 84-87% on the evening of 08/24 today he is on 100% and 30L due to COVID PNA saturations stable when sitting up he is compliant with laying prone might be appropriate candidate for LTACH (3) Seizure disorder: Continue phenytoin no seizures while here (4) CAD (coronary artery disease): CAD/hypertension-with a h/o STEMI 2016 No acute issues. Trop neg on admission Continue aspirin 81 mg daily, clopidogrel 75 mg daily and metoprolol tartrate 25 mg p.o. twice daily, statin (5) Thoracic aortic aneurysm: followed as outpt Not even mentioned on CT chest performed here (6) History of CVA (cerebrovascular accident): continue ASA, Plavix (7) DJD (degenerative joint disease): takes meloxicam prn as outpt-hold NSAIDs with COVID (8) Diabetes mellitus: HgbA1C here 7.8%, not on meds at home CDE talked to him and plans for glucometer and testing supplies on discharge: - needs a Rx for the following at time of discharge: 1. OneTouch Verio test strips to check 1x/day. 2. OneTouch Delica lancets to check 1x/day. COuld possibly start on metformin upon discharge Continue NovoLog sliding scale here-blood sugars are very well controlled, no hypoglycemia (9) BPH w urinary obs/LUTS: continue alfuzosin no acute issues but has h/o elevated PVR, follows with Urology (10) Hypokalemia: Replace with oral potassium chloride K is 3.9 today continue BID regimen especially with getting Lasix today repeat tomorrow (11) DVT prophylaxis: High-dose heparin SQ Dispo-continued stay on tele, condition is guarded Full code Admission and Anticipated Discharge Date Admission Date: August 22, 2020 Subjective patient remains on HFNC OOB in a chair most of the day, did well encouraged him to lay on his stomach intermittently, it is difficult for him no fever, no cough, no chest pain appetite is decent BMP is stable today, normal electrolytes Review of Systems Review of Systems: All systems reviewed & are unremarkable except as noted in Subjective Physical Exam Constitutional: WD/WN, vitals as above + ill appearing; no acute distress Neck: trachea midline, no thyromegaly Respiratory: normal respiratory effort, lungs clear to auscultation Cardiovascular: RRR, no murmur, no edema Gastrointestinal (Abdomen): normal bowel sounds, soft, nontender, no hepatosplenomegaly Musculoskeletal: no cyanosis or clubbing, extremities motor strength 5/5 Skin: no rashes, warm and dry Neurologic: patellar DTR's 2+ bilat, sensation intact and PERRL, EOMI, accommodation nl, no face palsy, no dysarthria Psychiatric: A+Ox3, euthymic affect Lymphatic: no cervical or axillary lymphadenopathy Results & Data Results & Data ([facility]) Vital Signs (Past 12 Hours) Vital Signs Temp Pulse Pulse Resp BP BP Pulse Ox 08/28/20 15:35 37.0 C 85 24 121/80 91 08/28/20 11:18 78 18 90 08/28/20 10:28 36.8 C 86 21 141/90 H 89 L 08/28/20 08:03 37.1 C 89 20 134/78 90 08/28/20 07:30 88 08/28/20 06:10 95 H 20 91 08/28/20 05:23 36.5 C 88 22 126/84 87 L Laboratory Results Laboratory Results - last 24 hr 08/27/20 08/27/20 08/28/20 16:04 21:42 06:48 Sodium 137 Potassium 3.9 Chloride 106 Carbon Dioxide 23 Anion Gap 8.0 BUN 21 H Creatinine 0.71 Est Cr Clr Drug Dosing 102.8 Est GFR ( Amer) 105.6 Est GFR (Non-Af Amer) 91.1 BUN/Creatinine Ratio 29.1 H Glucose 129 H POC Glucose 122 H 148 H Calcium 8.2 L 08/28/20 08/28/20 08:01 11:12 Sodium Potassium Chloride Carbon Dioxide Anion Gap BUN Creatinine Est Cr Clr Drug Dosing Est GFR ( Amer) Est GFR (Non-Af Amer) BUN/Creatinine Ratio Glucose POC Glucose 138 H 163 H Calcium Medications Administered Current Inpatient Medications Acetaminophen (Acetaminophen 325 Mg Tab) 650 mg PO Q4H PRN PRN Reason: Pain or Fever Stop: 09/21/20 02:01 Al Hydrox/Mg Hydrox/Simethicone (Aluminum/Magnesium Susp 30 Ml Udc) 15 ml PO Q4H PRN PRN Reason: Dyspepsia Stop: 09/21/20 02:01 Albuterol (Albuterol Hfa 8 Gm Inhaler) 1 puffs INH Q4 PRN PRN Reason: Shortness Of Breath Or Wheezin Stop: 09/25/20 08:57 Alfuzosin HCl (Alfuzosin Hcl 10 Mg Tab) 10 mg PO DAILY [facility] Stop: 09/21/20 08:59 Last Admin: 08/28/20 09:04 Dose: 10 mg Documented by: Ascorbic Acid (Ascorbic Acid 500 Mg Tab) 500 mg PO DAILY [facility] Stop: 09/21/20 08:59 Last Admin: 08/28/20 09:23 Dose: 500 mg Documented by: Aspirin (Aspirin 81 Mg Ectab) 81 mg PO DAILY [facility] Stop: 09/21/20 08:59 Last Admin: 08/28/20 09:04 Dose: 81 mg Documented by: Atorvastatin Calcium (Atorvastatin 40 Mg Tab) 80 mg PO DAILY [facility] Stop: 09/21/20 08:59 Last Admin: 08/28/20 09:04 Dose: 80 mg Documented by: Betamethasone Dipropion Augmented (Betamethasone Dip Aug (Diprolene) 0.05% Cr 15 Gm Tube) 1 appln EXT DAILY PRN PRN Reason: Itching Stop: 09/21/20 04:33 Clopidogrel Bisulfate (Clopidogrel Bisulfate 75 Mg Tab) 75 mg PO DAILY [facility] Stop: 09/21/20 08:59 Last Admin: 08/28/20 09:04 Dose: 75 mg Documented by: Cyanocobalamin (Cyanocobalamin (Vitamin B-12) 2,500 Mcg Tab.Subl) 1,250 mcg SL DAILY [facility] Stop: 09/21/20 08:59 Last Admin: 08/28/20 09:04 Dose: 1,250 mcg Documented by: Dextrose (Dextrose 50% 50 Ml Syringe) 25 - 50 ml IV UD PRN; Protocol PRN Reason: Hypoglycemia Protocol Stop: 09/21/20 02:01 Diphenhydramine HCl (Diphenhydramine Capsule 25 Mg Cap) 25 mg PO HS PRN PRN Reason: Itching Stop: 09/21/20 02:01 Fish Oil ([place]-3 (Purified Fish Oil) 1 Gm Cap) 1 gm PO DAILY [facility] Stop: 09/21/20 08:59 Last Admin: 08/28/20 09:04 Dose: 1 gm Documented by: Glucagon (Glucagon For Inj 1 Mg Vial) 1 mg SQ UD PRN; Protocol PRN Reason: Hypoglycemia Protocol Stop: 09/21/20 02:01 Glucose (Glucose 10 Tabs/Tube) 4 - 8 tabs PO UD PRN; Protocol PRN Reason: Hypoglycemia Protocol Stop: 09/21/20 02:01 Glucose (Glucose 40% Gel 15 Gm Tube) 15 - 30 gm PO UD PRN; Protocol PRN Reason: Hypoglycemia Protocol Stop: 09/21/20 02:01 Heparin Sodium (Porcine) (Heparin Sod 5,000 Unit/0.5 Ml Vial) 7,500 units SQ Q8 [facility] Stop: 09/22/20 21:59 Last Admin: 08/28/20 13:49 Dose: 7,500 units Documented by: Dexamethasone 6 mg/ Syringe 1.5 mls @ 1 mls/min IV QAM [facility] Stop: 09/21/20 08:59 Last Admin: 08/28/20 09:03 Dose: 1 mls/min Documented by: Insulin Aspart (Insulin Aspart 100 Units/Ml 3 Ml Pen) 0 units SC ACHS [facility] Stop: 09/21/20 02:29 Last Admin: 08/28/20 12:21 Dose: 1 units Documented by: Ipratropium [place] (Ipratropium [place] Hfa Inhaler) 1 puffs INH Q4 PRN PRN Reason: Shortness Of Breath Or Wheezin Stop: 09/25/20 08:58 Lactobacillus Acidoph/Casei/Rhamnos (Advanced Probiotic 1250 Mg Capsule) 2 cap PO DAILY [facility] Stop: 09/21/20 08:59 Last Admin: 08/28/20 09:05 Dose: 2 cap Documented by: Levofloxacin (Levofloxacin 750 Mg Tab) 750 mg PO DAILY@1700 [facility] Stop: 08/28/20 17:01 Last Admin: 08/27/20 17:24 Dose: 750 mg Documented by: Magnesium Hydroxide (Magnesium Hydroxide Susp 30 Ml Udc) 30 ml PO Q12H PRN PRN Reason: Constipation Stop: 09/21/20 02:01 Metoprolol Tartrate (Metoprolol Tartrate 25 Mg Tab) 25 mg PO BID [facility] Stop: 09/21/20 02:01 Last Admin: 08/28/20 09:04 Dose: 25 mg Documented by: Miscellaneous (Carbohydrates For Hypoglycemia ) 15 - 30 gm PO UD PRN PRN Reason: Hypoglycemia Protocol Stop: 09/21/20 02:01 Nitroglycerin (Nitroglycerin Sl 0.4 Mg/Tab Tab) 0.4 mg SL Q5M PRN PRN Reason: chest pain Stop: 09/21/20 02:01 Ondansetron HCl (Ondansetron Inj 2 Mg/Ml 2 Ml Vial) 4 mg IV Q6H PRN PRN Reason: Nausea Stop: 09/21/20 02:01 Oxymetazoline HCl (Oxymetazoline 0.05% 30 Ml Btl) 1 sprays OTIS BID [facility] Stop: 09/23/20 17:59 Last Admin: 08/28/20 09:03 Dose: 1 sprays Documented by: Phenytoin Sodium (Phenytoin Sodium Er 100 Mg Cap) 200 mg PO BID [facility] Stop: 09/21/20 02:01 Last Admin: 08/28/20 09:03 Dose: 200 mg Documented by: Potassium Chloride (Potassium Chloride Crtab 20 Meq Tabcr) 20 meq PO TID [facility] Stop: 09/26/20 13:59 Last Admin: 08/28/20 14:15 Dose: 20 meq Documented by: Vitamin D (Cholecalciferol 1,000 Units 25 Mcg Tab) 1,000 units PO DAILY [facility] Stop: 09/21/20 08:59 Last Admin: 08/28/20 09:04 Dose: 1,000 units Documented by: PG Care Time/CCT Total # of Minutes Spent Total Time Spent with Patient: Total time spent is greater than 50% in coordination of care (as documented) at patient's floor/unit and/or counseling patient: Coding Level of Care Code 60486 Subseq Hosp Care Lvl 3 Diagnoses Pneumonia due to 2019 novel coronavirus U07.1; J12.89 Hypoxia R09.02 Seizure disorder G40.909 CAD (coronary artery disease) I25.10 Thoracic aortic aneurysm I71.2 History of CVA (cerebrovascular accident) Z86.73 DJD (degenerative joint disease) M19.90 Diabetes mellitus E11.9 BPH w urinary obs/LUTS N40.1; N13.8 Hypokalemia E87.6 DVT prophylaxis Z29.9
[2020-08-28] MEDS: levoFLOXacin 750 MG TAB PO SCH (17:43)
[2020-08-29] MEDS: HEPARIN SOD 5,000 UNIT/0.5 ML VIAL SQ SCH ×3 (07:19→20:45)
[2020-08-29 07:52] LABS: BUN Creatinine Ratio 26.2 (10-20); Calcium 9.2 mg/dl (8.5-10.1); Creatinine Clr Calc Pharmacy 105.3 ml/min; Est GFR (African American) 106.9; Est GFR (Non-African American) 92.2
[2020-08-29] MEDS: ASPIRIN 81 MG ECTAB PO SCH (08:41)
[2020-08-29] MEDS: dexAMETHasone 6 MG in SYRINGE 0 ML IV SCH (08:41)
[2020-08-29] MEDS: METOPROLOL TARTRATE 25 MG TAB PO SCH ×2 (08:41→20:45)
[2020-08-29] MEDS: ADVANCED PROBIOTIC 1250 MG CAPSULE PO SCH (08:42)
[2020-08-29] MEDS: CLOPIDOGREL BISULFATE 75 MG TAB PO SCH (08:42)
[2020-08-29] MEDS: ASCORBIC ACID 500 MG TAB PO SCH (08:42)
[2020-08-29] MEDS: ATORVASTATIN 40 MG TAB PO SCH (08:42)
[2020-08-29] MEDS: CHOLECALCIFEROL 1,000 UNITS 25 MCG TAB PO SCH (08:42)
[2020-08-29] MEDS: PHENYTOIN SODIUM ER 100 MG CAP PO SCH ×2 (08:42→20:45)
[2020-08-29] MEDS: OMEGA-3 (PURIFIED FISH OIL) 1 GM CAP PO SCH (08:42)
[2020-08-29] MEDS: CYANOCOBALAMIN (VITAMIN B-12) 2,500 MCG TAB.SUBL SL SCH (08:42)
[2020-08-29] MEDS: ALFUZOSIN HCL 10 MG TAB PO SCH (08:42)
[2020-08-29] MEDS: OXYMETAZOLINE 0.05% 30 ML BTL NAE SCH ×2 (08:43→20:46)
[2020-08-29] MEDS: INSULIN ASPART 100 UNITS/ML 3 ML PEN SC SCH ×4 (08:53→20:57)
--- NOTE | 2020-08-29 12:20 | Hospitalist Progress Note ---
Date of Service August 29, 2020 Assessment & Plan (1) Pneumonia due to 2019 novel coronavirus: Pneumonia due to COVID-19 virus with hypoxia- There is concern regarding development possible secondary bacterial superinfection, as patient had been getting better and then suddenly became worse on 08/24 Remains afebrile, but biggest issue is hypoxia as below Markers of inflammation have stayed about the same Continue Decadron 6 mg IV daily-last dose will be 08/31 will continue longer taper if still on HFNC which is likely at this point -completed 5 days of Remdesivir on 08/26 -Continue Ventolin HFA 1 puffs 4 times daily as well as ipratropium 1 puff 4 times daily -Continue levofloxacin 750 mg p.o. daily x 7 day course-last dose 08/28 Repeat chest x-ray on 08/27 with continued bilateral pneumonia slightly progressed on the left Lasix 20mg IV x 1 on 08/27 to keep a negative fluid balance, keep lungs dry no need for Lasix today on HFNC today down to 75% and 30L which is an improvement he is laying prone at night (2) Hypoxia: Significantly worsened on 08/24, placed on high flow nasal cannula at 40 L 100% FiO2 with pulse ox 84-87% on the evening of 08/24 today he is on 75% and 30L due to COVID PNA saturations stable when sitting up he is compliant with laying prone at night, told him to lay prone during the day as well might be appropriate candidate for LTACH if still on HFNC next week (3) Seizure disorder: Continue phenytoin no seizures while here (4) CAD (coronary artery disease): CAD/hypertension-with a h/o STEMI 2016 No acute issues. Trop neg on admission Continue aspirin 81 mg daily, clopidogrel 75 mg daily and metoprolol tartrate 25 mg p.o. twice daily, statin (5) Thoracic aortic aneurysm: followed as outpt Not even mentioned on CT chest performed here (6) History of CVA (cerebrovascular accident): continue ASA, Plavix (7) DJD (degenerative joint disease): takes meloxicam prn as outpt-hold NSAIDs with COVID (8) Diabetes mellitus: HgbA1C here 7.8%, not on meds at home CDE talked to him and plans for glucometer and testing supplies on discharge: - needs a Rx for the following at time of discharge: 1. OneTouch Verio test strips to check 1x/day. 2. OneTouch Delica lancets to check 1x/day. COuld possibly start on metformin upon discharge Continue NovoLog sliding scale here-blood sugars are very well controlled, no hypoglycemia (9) BPH w urinary obs/LUTS: continue alfuzosin no acute issues but has h/o elevated PVR, follows with Urology (10) Hypokalemia: Replace with oral potassium chloride K is 4.0 today continue BID check BMP tomorrow (11) DVT prophylaxis: High-dose heparin SQ Dispo-continued stay on tele, condition is guarded Full code Admission and Anticipated Discharge Date Admission Date: August 22, 2020 Subjective patient is doing okay, he slept prone or on his side all night, said his saturations were 92% he is 92% today laying on his back he is not eating well, he agrees to drinking Boost QID if I get it for him reviewed labs, Cr and electrolytes stable, sugars stable he is getting mentally fatigued, has been here a while, just wants to know when he can go home and see his explained that he will be here until next week, try to stay strong will call his for update Review of Systems Review of Systems: All systems reviewed & are unremarkable except as noted in Subjective Physical Exam Constitutional: WD/WN, vitals as above + ill appearing; no acute distress Neck: trachea midline, no thyromegaly Respiratory: + labored breathing and + tachypneic; no cough Auscultation: lungs clear to auscultation bilaterally Cardiovascular: RRR, no murmur, no edema Gastrointestinal (Abdomen): normal bowel sounds, soft, nontender, no hepatosplenomegaly Musculoskeletal: no cyanosis or clubbing, extremities motor strength 5/5 Skin: no rashes, warm and dry Neurologic: patellar DTR's 2+ bilat, sensation intact and PERRL, EOMI, accommodation nl, no face palsy, no dysarthria Psychiatric: A+Ox3, euthymic affect Lymphatic: no cervical or axillary lymphadenopathy Results & Data Results & Data ([facility]) Vital Signs (Past 12 Hours) Vital Signs Temp Pulse Pulse Resp BP BP Pulse Ox 08/29/20 11:31 83 20 92 08/29/20 11:03 36.8 C 80 19 134/81 93 08/29/20 07:52 87 26 H 90 08/29/20 07:40 36.9 C 88 131/88 89 L 08/29/20 07:30 88 08/29/20 03:31 37.0 C 70 32 H 113/71 93 08/29/20 02:16 77 22 91 Laboratory Results Laboratory Results - last 24 hr 08/28/20 08/28/20 08/29/20 16:34 20:56 06:49 Sodium 139 Potassium 4.0 Chloride 107 Carbon Dioxide 20 L Anion Gap 11.0 BUN 18 Creatinine 0.69 Est Cr Clr Drug Dosing 105.3 Est GFR ( Amer) 106.9 Est GFR (Non-Af Amer) 92.2 BUN/Creatinine Ratio 26.2 H Glucose 123 H POC Glucose 124 H 119 H Calcium 9.2 08/29/20 08/29/20 06:59 07:38 Sodium Potassium Chloride Carbon Dioxide Anion Gap BUN Creatinine Est Cr Clr Drug Dosing Est GFR ( Amer) Est GFR (Non-Af Amer) BUN/Creatinine Ratio Glucose POC Glucose 123 H 117 H Calcium Medications Administered Current Inpatient Medications Acetaminophen (Acetaminophen 325 Mg Tab) 650 mg PO Q4H PRN PRN Reason: Pain or Fever Stop: 09/21/20 02:01 Al Hydrox/Mg Hydrox/Simethicone (Aluminum/Magnesium Susp 30 Ml Udc) 15 ml PO Q4H PRN PRN Reason: Dyspepsia Stop: 09/21/20 02:01 Albuterol (Albuterol Hfa 8 Gm Inhaler) 1 puffs INH Q4 PRN PRN Reason: Shortness Of Breath Or Wheezin Stop: 09/25/20 08:57 Alfuzosin HCl (Alfuzosin Hcl 10 Mg Tab) 10 mg PO DAILY [facility] Stop: 09/21/20 08:59 Last Admin: 08/29/20 08:42 Dose: 10 mg Documented by: Ascorbic Acid (Ascorbic Acid 500 Mg Tab) 500 mg PO DAILY [facility] Stop: 09/21/20 08:59 Last Admin: 08/29/20 08:42 Dose: 500 mg Documented by: Aspirin (Aspirin 81 Mg Ectab) 81 mg PO DAILY [facility] Stop: 09/21/20 08:59 Last Admin: 08/29/20 08:41 Dose: 81 mg Documented by: Atorvastatin Calcium (Atorvastatin 40 Mg Tab) 80 mg PO DAILY [facility] Stop: 09/21/20 08:59 Last Admin: 08/29/20 08:42 Dose: 80 mg Documented by: Betamethasone Dipropion Augmented (Betamethasone Dip Aug (Diprolene) 0.05% Cr 15 Gm Tube) 1 appln EXT DAILY PRN PRN Reason: Itching Stop: 09/21/20 04:33 Clopidogrel Bisulfate (Clopidogrel Bisulfate 75 Mg Tab) 75 mg PO DAILY [facility] Stop: 09/21/20 08:59 Last Admin: 08/29/20 08:42 Dose: 75 mg Documented by: Cyanocobalamin (Cyanocobalamin (Vitamin B-12) 2,500 Mcg Tab.Subl) 1,250 mcg SL DAILY [facility] Stop: 09/21/20 08:59 Last Admin: 08/29/20 08:42 Dose: 1,250 mcg Documented by: Dextrose (Dextrose 50% 50 Ml Syringe) 25 - 50 ml IV UD PRN; Protocol PRN Reason: Hypoglycemia Protocol Stop: 09/21/20 02:01 Diphenhydramine HCl (Diphenhydramine Capsule 25 Mg Cap) 25 mg PO HS PRN PRN Reason: Itching Stop: 09/21/20 02:01 Fish Oil ([place] [employer]-3 (Purified Fish Oil) 1 Gm Cap) 1 gm PO DAILY [facility] Stop: 09/21/20 08:59 Last Admin: 08/29/20 08:42 Dose: 1 gm Documented by: Glucagon (Glucagon For Inj 1 Mg Vial) 1 mg SQ UD PRN; Protocol PRN Reason: Hypoglycemia Protocol Stop: 09/21/20 02:01 Glucose (Glucose 10 Tabs/Tube) 4 - 8 tabs PO UD PRN; Protocol PRN Reason: Hypoglycemia Protocol Stop: 09/21/20 02:01 Glucose (Glucose 40% Gel 15 Gm Tube) 15 - 30 gm PO UD PRN; Protocol PRN Reason: Hypoglycemia Protocol Stop: 09/21/20 02:01 Heparin Sodium (Porcine) (Heparin Sod 5,000 Unit/0.5 Ml Vial) 7,500 units SQ Q8 [facility] Stop: 09/22/20 21:59 Last Admin: 08/29/20 07:19 Dose: Not Given Documented by: Dexamethasone 6 mg/ Syringe 1.5 mls @ 1 mls/min IV QAM [facility] Stop: 09/21/20 08:59 Last Admin: 08/29/20 08:41 Dose: 1 mls/min Documented by: Insulin Aspart (Insulin Aspart 100 Units/Ml 3 Ml Pen) 0 units SC ACHS [facility] Stop: 09/21/20 02:29 Last Admin: 08/29/20 08:53 Dose: Not Given Documented by: Ipratropium [place] (Ipratropium [place] Hfa Inhaler) 1 puffs INH Q4 PRN PRN Reason: Shortness Of Breath Or Wheezin Stop: 09/25/20 08:58 Lactobacillus Acidoph/Casei/Rhamnos (Advanced Probiotic 1250 Mg Capsule) 2 cap PO DAILY [facility] Stop: 09/21/20 08:59 Last Admin: 08/29/20 08:42 Dose: 2 cap Documented by: Magnesium Hydroxide (Magnesium Hydroxide Susp 30 Ml Udc) 30 ml PO Q12H PRN PRN Reason: Constipation Stop: 09/21/20 02:01 Metoprolol Tartrate (Metoprolol Tartrate 25 Mg Tab) 25 mg PO BID [facility] Stop: 09/21/20 02:01 Last Admin: 08/29/20 08:41 Dose: 25 mg Documented by: Miscellaneous (Carbohydrates For Hypoglycemia ) 15 - 30 gm PO UD PRN PRN Reason: Hypoglycemia Protocol Stop: 09/21/20 02:01 Nitroglycerin (Nitroglycerin Sl 0.4 Mg/Tab Tab) 0.4 mg SL Q5M PRN PRN Reason: chest pain Stop: 09/21/20 02:01 Ondansetron HCl (Ondansetron Inj 2 Mg/Ml 2 Ml Vial) 4 mg IV Q6H PRN PRN Reason: Nausea Stop: 09/21/20 02:01 Oxymetazoline HCl (Oxymetazoline 0.05% 30 Ml Btl) 1 sprays OTIS BID [facility] Stop: 09/23/20 17:59 Last Admin: 08/29/20 08:43 Dose: 1 sprays Documented by: Phenytoin Sodium (Phenytoin Sodium Er 100 Mg Cap) 200 mg PO BID [facility] Stop: 09/21/20 02:01 Last Admin: 08/29/20 08:42 Dose: 200 mg Documented by: Vitamin D (Cholecalciferol 1,000 Units 25 Mcg Tab) 1,000 units PO DAILY [facility] Stop: 09/21/20 08:59 Last Admin: 08/29/20 08:42 Dose: 1,000 units Documented by: PG Care Time/CCT Total # of Minutes Spent Total Time Spent with Patient: Total time spent is greater than 50% in coordination of care (as documented) at patient's floor/unit and/or counseling patient: Coding Level of Care Code 59353 Subseq Hosp Care Lvl 3 Diagnoses Pneumonia due to 2019 novel coronavirus U07.1; J12.89 Hypoxia R09.02 Seizure disorder G40.909 CAD (coronary artery disease) I25.10 Thoracic aortic aneurysm I71.2 History of CVA (cerebrovascular accident) Z86.73 DJD (degenerative joint disease) M19.90 Diabetes mellitus E11.9 BPH w urinary obs/LUTS N40.1; N13.8 Hypokalemia E87.6 DVT prophylaxis Z29.9
[2020-08-30 06:09] LABS: Hematocrit (blood only) 39.1 % (42-52); Hemoglobin 13.3 g/dL (14.0-18.0); Mean Corpuscular Hemoglobin 32.7 pg (25-34); Mean Corpuscular Volume 96.1 fL (80-100); Mean Platelet Volume 8.8 fL (7.4-10.4); Platelet Count 281 K/uL (130-400); RDW Coefficient of Variation 13.3 % (11.5-14.5); RDW Standard Deviation 46.7 fL (36.4-46.3); Red Blood Count 4.07 M/uL (4.7-6.1)
[2020-08-30] MEDS: HEPARIN SOD 5,000 UNIT/0.5 ML VIAL SQ SCH ×2 (06:09→15:18)
[2020-08-30 06:37] LABS: BUN Creatinine Ratio 24.6 (10-20); Calcium 8.2 mg/dl (8.5-10.1); Creatinine Clr Calc Pharmacy 104.6 ml/min; Est GFR (African American) 106.9; Est GFR (Non-African American) 92.2; Magnesium 2.2 mg/dl (1.8-2.4); Phosphorus 3.3 mg/dl (2.5-4.9); Potassium 3.6 mmol/L (3.5-5.1)
[2020-08-30] MEDS: dexAMETHasone 6 MG in SYRINGE 0 ML IV SCH (08:23)
[2020-08-30] MEDS: PHENYTOIN SODIUM ER 100 MG CAP PO SCH ×2 (08:23→20:19)
[2020-08-30] MEDS: ATORVASTATIN 40 MG TAB PO SCH (08:24)
[2020-08-30] MEDS: ASPIRIN 81 MG ECTAB PO SCH (08:24)
[2020-08-30] MEDS: METOPROLOL TARTRATE 25 MG TAB PO SCH ×2 (08:25→20:20)
[2020-08-30] MEDS: ADVANCED PROBIOTIC 1250 MG CAPSULE PO SCH (08:29)
[2020-08-30] MEDS: OMEGA-3 (PURIFIED FISH OIL) 1 GM CAP PO SCH (08:29)
[2020-08-30] MEDS: CLOPIDOGREL BISULFATE 75 MG TAB PO SCH (08:29)
[2020-08-30] MEDS: ALFUZOSIN HCL 10 MG TAB PO SCH (08:30)
[2020-08-30] MEDS: CYANOCOBALAMIN (VITAMIN B-12) 2,500 MCG TAB.SUBL SL SCH (08:31)
[2020-08-30] MEDS: ASCORBIC ACID 500 MG TAB PO SCH (08:31)
[2020-08-30] MEDS: CHOLECALCIFEROL 1,000 UNITS 25 MCG TAB PO SCH (08:32)
[2020-08-30] MEDS: OXYMETAZOLINE 0.05% 30 ML BTL NAE SCH ×2 (08:39→20:11)
[2020-08-30] MEDS: INSULIN ASPART 100 UNITS/ML 3 ML PEN SC SCH ×4 (09:22→20:16)
[2020-08-30] MEDS: PANTOprazole 40 MG TAB PO SCH (10:14)
--- NOTE | 2020-08-30 16:23 | Hospitalist Progress Note ---
Date of Service August 30, 2020 Assessment & Plan (1) Pneumonia due to 2019 novel coronavirus: Pneumonia due to COVID-19 virus with hypoxia- There is concern regarding development possible secondary bacterial superinfection, as patient had been getting better and then suddenly became worse on 08/24 Remains afebrile, but biggest issue is hypoxia as below Markers of inflammation have stayed about the same Continue Decadron 6 mg IV daily-last dose will be 08/31 will continue longer taper if still on HFNC -completed 5 days of Remdesivir on 08/26 -Continue Ventolin HFA 1 puffs 4 times daily as well as ipratropium 1 puff 4 times daily -Continue levofloxacin 750 mg p.o. daily x 7 day course-last dose 08/28 Repeat chest x-ray on 08/27 with continued bilateral pneumonia slightly progressed on the left Lasix 20mg IV x 1 on 08/27 to keep a negative fluid balance, keep lungs dry no need for Lasix past few days on HFNC today down to 60% and 30L which is a small improvement he is laying prone a lot to help with oxygenation (2) Hypoxia: Significantly worsened on 08/24, placed on high flow nasal cannula at 40 L 100% FiO2 with pulse ox 84-87% on the evening of 08/24 today he is on 60% and 30L due to COVID PNA saturations stable when sitting up he is compliant with laying prone at night, told him to lay prone during the day as well might be appropriate candidate for LTACH if still on HFNC next week (3) Seizure disorder: Continue phenytoin no seizures while here (4) CAD (coronary artery disease): CAD/hypertension-with a h/o STEMI 2016 No acute issues. Trop neg on admission Continue aspirin 81 mg daily, clopidogrel 75 mg daily and metoprolol tartrate 25 mg p.o. twice daily, statin (5) Thoracic aortic aneurysm: followed as outpt Not even mentioned on CT chest performed here (6) History of CVA (cerebrovascular accident): continue ASA, Plavix (7) DJD (degenerative joint disease): takes meloxicam prn as outpt-hold NSAIDs with COVID (8) Diabetes mellitus: HgbA1C here 7.8%, not on meds at home CDE talked to him and plans for glucometer and testing supplies on discharge: - needs a Rx for the following at time of discharge: 1. OneTouch Verio test strips to check 1x/day. 2. OneTouch Delica lancets to check 1x/day. COuld possibly start on metformin upon discharge Continue NovoLog sliding scale here-blood sugars are very well controlled, no hypoglycemia (9) BPH w urinary obs/LUTS: continue alfuzosin no acute issues but has h/o elevated PVR, follows with Urology (10) Hypokalemia: Replace with oral potassium chloride K is 3.6 continue BID check BMP tomorrow (11) Epistaxis: right nostril encourage saline spray q1H Mupirocin q12 (12) DVT prophylaxis: High-dose heparin SQ Dispo-continued stay on [facility], condition is guarded Full code Admission and Anticipated Discharge Date Admission Date: August 22, 2020 Subjective patient fatiged today, laying in bed a lot making an effort to lay on his side and lay prone, he has witnessed his saturations go up by doing this having epistaxis from right nostril encouraged him to use saline spray every hour, will order Mupirocin q12 no appetite today, says he cannot look at food discussed with his that he will be here a while, may even need LTACH hopeful that we can get him off high flow this weekend Review of Systems Review of Systems: All systems reviewed & are unremarkable except as noted in Subjective Physical Exam Constitutional: WD/WN, vitals as above + ill appearing; no acute distress Neck: trachea midline, no thyromegaly Respiratory: normal respiratory effort, lungs clear to auscultation + labored breathing and + tachypneic; no cough Auscultation: lungs clear to auscultation bilaterally Cardiovascular: RRR, no murmur, no edema Gastrointestinal (Abdomen): normal bowel sounds, soft, nontender, no hepatosplenomegaly Musculoskeletal: no cyanosis or clubbing, extremities motor strength 5/5 Skin: no rashes, warm and dry Neurologic: patellar DTR's 2+ bilat, sensation intact and PERRL, EOMI, accommodation nl, no face palsy, no dysarthria Psychiatric: A+Ox3, euthymic affect Lymphatic: no cervical or axillary lymphadenopathy Results & Data Results & Data ([facility]) Vital Signs (Past 12 Hours) Vital Signs Temp Pulse Pulse Resp BP BP Pulse Ox 08/30/20 16:15 86 18 91 08/30/20 12:13 78 24 89 L 08/30/20 10:25 36.8 C 83 24 123/80 90 08/30/20 07:57 78 24 90 08/30/20 07:42 36.9 C 91 H 24 131/93 91 08/30/20 07:32 90 08/30/20 04:54 36.7 C 83 21 126/80 93 Laboratory Results Laboratory Results - last 24 hr 08/29/20 08/29/20 08/30/20 16:57 20:48 05:38 WBC 7.30 RBC 4.07 L Hgb 13.3 L Hct 39.1 L MCV 96.1 MCH 32.7 MCHC 34.0 RDW Std Deviation 46.7 H RDW Coeff of Luis 13.3 Plt Count 281 MPV 8.8 Sodium Potassium Chloride Carbon Dioxide Anion Gap BUN Creatinine Est Cr Clr Drug Dosing Est GFR ( Amer) Est GFR (Non-Af Amer) BUN/Creatinine Ratio Glucose POC Glucose 138 H 150 H Calcium Phosphorus Magnesium 08/30/20 08/30/20 08/30/20 05:38 07:40 11:55 WBC RBC Hgb Hct MCV MCH MCHC RDW Std Deviation RDW Coeff of Luis Plt Count MPV Sodium 137 Potassium 3.6 Chloride 106 Carbon Dioxide 22 Anion Gap 9.0 BUN 17 Creatinine 0.69 Est Cr Clr Drug Dosing 104.6 Est GFR ( Amer) 106.9 Est GFR (Non-Af Amer) 92.2 BUN/Creatinine Ratio 24.6 H Glucose 127 H POC Glucose 127 H 150 H Calcium 8.2 L Phosphorus 3.3 Magnesium 2.2 08/30/20 16:21 WBC RBC Hgb Hct MCV MCH MCHC RDW Std Deviation RDW Coeff of Luis Plt Count MPV Sodium Potassium Chloride Carbon Dioxide Anion Gap BUN Creatinine Est Cr Clr Drug Dosing Est GFR ( Amer) Est GFR (Non-Af Amer) BUN/Creatinine Ratio Glucose POC Glucose Pending Calcium Phosphorus Magnesium Medications Administered Current Inpatient Medications Acetaminophen (Acetaminophen 325 Mg Tab) 650 mg PO Q4H PRN PRN Reason: Pain or Fever Stop: 09/21/20 02:01 Al Hydrox/Mg Hydrox/Simethicone (Aluminum/Magnesium Susp 30 Ml Udc) 15 ml PO Q4H PRN PRN Reason: Dyspepsia Stop: 09/21/20 02:01 Albuterol (Albuterol Hfa 8 Gm Inhaler) 1 puffs INH Q4 PRN PRN Reason: Shortness Of Breath Or Wheezin Stop: 09/25/20 08:57 Alfuzosin HCl (Alfuzosin Hcl 10 Mg Tab) 10 mg PO DAILY COUNTS INCLUDE 234 BEDS AT THE [facility] Stop: 09/21/20 08:59 Last Admin: 08/30/20 08:30 Dose: 10 mg Documented by: Ascorbic Acid (Ascorbic Acid 500 Mg Tab) 500 mg PO DAILY [facility] Stop: 09/21/20 08:59 Last Admin: 08/30/20 08:31 Dose: 500 mg Documented by: Aspirin (Aspirin 81 Mg Ectab) 81 mg PO DAILY [facility] Stop: 09/21/20 08:59 Last Admin: 08/30/20 08:24 Dose: 81 mg Documented by: Atorvastatin Calcium (Atorvastatin 40 Mg Tab) 80 mg PO DAILY [facility] Stop: 09/21/20 08:59 Last Admin: 08/30/20 08:24 Dose: 80 mg Documented by: Betamethasone Dipropion Augmented (Betamethasone Dip Aug (Diprolene) 0.05% Cr 15 Gm Tube) 1 appln EXT DAILY PRN PRN Reason: Itching Stop: 09/21/20 04:33 Clopidogrel Bisulfate (Clopidogrel Bisulfate 75 Mg Tab) 75 mg PO DAILY COUNTS INCLUDE 234 BEDS AT THE [facility] Stop: 09/21/20 08:59 Last Admin: 08/30/20 08:29 Dose: 75 mg Documented by: Cyanocobalamin (Cyanocobalamin (Vitamin B-12) 2,500 Mcg Tab.Subl) 1,250 mcg SL DAILY [facility] Stop: 09/21/20 08:59 Last Admin: 08/30/20 08:31 Dose: 1,250 mcg Documented by: Dextrose (Dextrose 50% 50 Ml Syringe) 25 - 50 ml IV UD PRN; Protocol PRN Reason: Hypoglycemia Protocol Stop: 09/21/20 02:01 Diphenhydramine HCl (Diphenhydramine Capsule 25 Mg Cap) 25 mg PO HS PRN PRN Reason: Itching Stop: 09/21/20 02:01 Fish Oil (Energy-3 (Purified Fish Oil) 1 Gm Cap) 1 gm PO DAILY [facility] Stop: 09/21/20 08:59 Last Admin: 08/30/20 08:29 Dose: 1 gm Documented by: Glucagon (Glucagon For Inj 1 Mg Vial) 1 mg SQ UD PRN; Protocol PRN Reason: Hypoglycemia Protocol Stop: 09/21/20 02:01 Glucose (Glucose 10 Tabs/Tube) 4 - 8 tabs PO UD PRN; Protocol PRN Reason: Hypoglycemia Protocol Stop: 09/21/20 02:01 Glucose (Glucose 40% Gel 15 Gm Tube) 15 - 30 gm PO UD PRN; Protocol PRN Reason: Hypoglycemia Protocol Stop: 09/21/20 02:01 Dexamethasone 6 mg/ Syringe 1.5 mls @ 1 mls/min IV QAM COUNTS INCLUDE 234 BEDS AT [facility] Stop: 09/21/20 08:59 Last Admin: 08/30/20 08:23 Dose: 1 mls/min Documented by: Insulin Aspart (Insulin Aspart 100 Units/Ml 3 Ml Pen) 0 units SC ACHS COUNTS INCLUDE 234 BEDS AT THE [facility] Stop: 09/21/20 02:29 Last Admin: 08/30/20 12:00 Dose: 1 units Documented by: Ipratropium [place] (Ipratropium [place] Hfa Inhaler) 1 puffs INH Q4 PRN PRN Reason: Shortness Of Breath Or Wheezin Stop: 09/25/20 08:58 Lactobacillus Acidoph/Casei/Rhamnos (Advanced Probiotic 1250 Mg Capsule) 2 cap PO DAILY COUNTS INCLUDE 234 BEDS AT [facility] Stop: 09/21/20 08:59 Last Admin: 08/30/20 08:29 Dose: 2 cap Documented by: Magnesium Hydroxide (Magnesium Hydroxide Susp 30 Ml Udc) 30 ml PO Q12H PRN PRN Reason: Constipation Stop: 09/21/20 02:01 Metoprolol Tartrate (Metoprolol Tartrate 25 Mg Tab) 25 mg PO BID COUNTS INCLUDE 234 BEDS AT THE [facility] Stop: 09/21/20 02:01 Last Admin: 08/30/20 08:25 Dose: 25 mg Documented by: Miscellaneous (Carbohydrates For Hypoglycemia ) 15 - 30 gm PO UD PRN PRN Reason: Hypoglycemia Protocol Stop: 09/21/20 02:01 Mupirocin (Mupirocin 2% Oint 22 Gm Tube) 1 appln EXT Q12 COUNTS INCLUDE 234 BEDS AT THE [facility] Stop: 09/29/20 20:59 Nitroglycerin (Nitroglycerin Sl 0.4 Mg/Tab Tab) 0.4 mg SL Q5M PRN PRN Reason: chest pain Stop: 09/21/20 02:01 Ondansetron HCl (Ondansetron Inj 2 Mg/Ml 2 Ml Vial) 4 mg IV Q6H PRN PRN Reason: Nausea Stop: 09/21/20 02:01 Oxymetazoline HCl (Oxymetazoline 0.05% 30 Ml Btl) 1 sprays OTIS BID COUNTS INCLUDE 234 BEDS AT THE [facility] Stop: 09/23/20 17:59 Last Admin: 08/30/20 08:39 Dose: 1 sprays Documented by: Pantoprazole Sodium (Pantoprazole 40 Mg Tab) 40 mg PO QAM COUNTS INCLUDE 234 BEDS AT THE [facility] Stop: 09/29/20 08:59 Last Admin: 08/30/20 10:14 Dose: 40 mg Documented by: Phenytoin Sodium (Phenytoin Sodium Er 100 Mg Cap) 200 mg PO BID COUNTS INCLUDE 234 BEDS AT THE [facility] Stop: 09/21/20 02:01 Last Admin: 08/30/20 08:23 Dose: 200 mg Documented by: Vitamin D (Cholecalciferol 1,000 Units 25 Mcg Tab) 1,000 units PO DAILY COUNTS INCLUDE 234 BEDS AT THE [facility] Stop: 09/21/20 08:59 Last Admin: 08/30/20 08:32 Dose: 1,000 units Documented by: PG Care Time/CCT Total # of Minutes Spent Total Time Spent with Patient: Total time spent is greater than 50% in coordination of care (as documented) at patient's floor/unit and/or counseling patient: Coding Level of Care Code 97734 Subseq Hosp Care Lvl 3 Diagnoses Pneumonia due to 2019 novel coronavirus U07.1; J12.89 Hypoxia R09.02 Seizure disorder G40.909 CAD (coronary artery disease) I25.10 Thoracic aortic aneurysm I71.2 History of CVA (cerebrovascular accident) Z86.73 DJD (degenerative joint disease) M19.90 Diabetes mellitus E11.9 BPH w urinary obs/LUTS N40.1; N13.8 Hypokalemia E87.6 Epistaxis R04.0 DVT prophylaxis Z29.9
[2020-08-30] MEDS: MUPIROCIN 2% OINT 22 GM TUBE EXT SCH (20:10)
[2020-08-30] MEDS: ACETAMINOPHEN 325 MG TAB PO PRN (20:13)
[2020-08-31] MEDS: ACETAMINOPHEN 325 MG TAB PO PRN (06:35)
[2020-08-31] MEDS: OXYMETAZOLINE 0.05% 30 ML BTL NAE SCH ×2 (08:52→20:37)
[2020-08-31] MEDS: dexAMETHasone 6 MG in SYRINGE 0 ML IV SCH (08:52)
[2020-08-31] MEDS: CYANOCOBALAMIN (VITAMIN B-12) 2,500 MCG TAB.SUBL SL SCH (08:53)
[2020-08-31] MEDS: ASCORBIC ACID 500 MG TAB PO SCH (08:53)
[2020-08-31] MEDS: PHENYTOIN SODIUM ER 100 MG CAP PO SCH ×2 (08:53→20:39)
[2020-08-31] MEDS: CHOLECALCIFEROL 1,000 UNITS 25 MCG TAB PO SCH (08:54)
[2020-08-31] MEDS: ATORVASTATIN 40 MG TAB PO SCH (08:55)
[2020-08-31] MEDS: ALFUZOSIN HCL 10 MG TAB PO SCH (08:55)
[2020-08-31] MEDS: ADVANCED PROBIOTIC 1250 MG CAPSULE PO SCH (08:55)
[2020-08-31] MEDS: METOPROLOL TARTRATE 25 MG TAB PO SCH ×2 (08:55→20:39)
[2020-08-31] MEDS: PANTOprazole 40 MG TAB PO SCH (08:55)
[2020-08-31] MEDS: OMEGA-3 (PURIFIED FISH OIL) 1 GM CAP PO SCH (08:56)
[2020-08-31] MEDS: MUPIROCIN 2% OINT 22 GM TUBE EXT SCH ×2 (08:56→20:38)
[2020-08-31] MEDS: CLOPIDOGREL BISULFATE 75 MG TAB PO SCH (08:56)
[2020-08-31] MEDS: ASPIRIN 81 MG ECTAB PO SCH (08:56)
[2020-08-31] MEDS: INSULIN ASPART 100 UNITS/ML 3 ML PEN SC SCH ×4 (09:00→20:40)
--- NOTE | 2020-08-31 16:43 | Hospitalist Progress Note ---
Date of Service August 31, 2020 Assessment & Plan (1) Pneumonia due to 2019 novel coronavirus: Pneumonia due to COVID-19 virus with hypoxia- There is concern regarding development possible secondary bacterial superinfection, as patient had been getting better and then suddenly became worse on 08/24 Remains afebrile, but biggest issue is hypoxia as below Markers of inflammation have stayed about the same Continue Decadron 6 mg IV daily since he is on HFNC -completed 5 days of Remdesivir on 08/26 -Continue Ventolin HFA 1 puffs 4 times daily as well as ipratropium 1 puff 4 times daily -Continue levofloxacin 750 mg p.o. daily x 7 day course-last dose 08/28 Repeat chest x-ray on 08/27 with continued bilateral pneumonia slightly progressed on the left Lasix 20mg IV x 1 on 08/27 to keep a negative fluid balance, keep lungs dry no need for Lasix past few days on HFNC today he is laying prone a lot to help with oxygenation (2) Hypoxia: Significantly worsened on 08/24, placed on high flow nasal cannula at 40 L 100% FiO2 with pulse ox 84-87% on the evening of 08/24 today he is on 80% and 30L due to COVID PNA saturations stable when sitting up he is compliant with laying prone at night, told him to lay prone during the day as well might be appropriate candidate for LTACH if still on HFNC next week (3) Seizure disorder: Continue phenytoin no seizures while here (4) CAD (coronary artery disease): CAD/hypertension-with a h/o STEMI 2016 No acute issues. Trop neg on admission Continue aspirin 81 mg daily, clopidogrel 75 mg daily and metoprolol tartrate 25 mg p.o. twice daily, statin (5) Thoracic aortic aneurysm: followed as outpt Not even mentioned on CT chest performed here (6) History of CVA (cerebrovascular accident): continue ASA, Plavix (7) DJD (degenerative joint disease): takes meloxicam prn as outpt-hold NSAIDs with COVID (8) Diabetes mellitus: HgbA1C here 7.8%, not on meds at home CDE talked to him and plans for glucometer and testing supplies on discharge: - needs a Rx for the following at time of discharge: 1. OneTouch Verio test strips to check 1x/day. 2. OneTouch Delica lancets to check 1x/day. COuld possibly start on metformin upon discharge Continue NovoLog sliding scale here-blood sugars are very well controlled, no hypoglycemia (9) BPH w urinary obs/LUTS: continue alfuzosin no acute issues but has h/o elevated PVR, follows with Urology (10) Hypokalemia: continue BID replacement K 3.6 yesterday (11) Epistaxis: right nostril encourage saline spray q1H Mupirocin q12 much better today (12) DVT prophylaxis: High-dose heparin SQ Dispo-continued stay on tele, condition is guarded Full code Admission and Anticipated Discharge Date Admission Date: August 22, 2020 Subjective patient in better spirits today, mouth is dry, seems to enjoy drinking most of his calories no epistaxis today, using saline spray and ointment we tried switching to 15L oxymask, saturations remained at 90% but had slight more work of breathing he requested to move back to HFNC, felt better no fever/chills, no nausea, no diarrhea, no chest pain asked again how much longer he will be here, told him at least a week since he is on HFNC he is having a hard time mentally now, been here for two weeks Review of Systems Review of Systems: All systems reviewed & are unremarkable except as noted in Subjective Physical Exam Constitutional: WD/WN, vitals as above no acute distress Neck: trachea midline, no thyromegaly Respiratory: normal respiratory effort, lungs clear to auscultation + labored breathing and + tachypneic; no cough Auscultation: lungs clear to auscultation bilaterally Cardiovascular: RRR, no murmur, no edema Gastrointestinal (Abdomen): normal bowel sounds, soft, nontender, no hepatosplenomegaly Musculoskeletal: no cyanosis or clubbing, extremities motor strength 5/5 Skin: no rashes, warm and dry Neurologic: patellar DTR's 2+ bilat, sensation intact and PERRL, EOMI, accommodation nl, no face palsy, no dysarthria Psychiatric: A+Ox3, euthymic affect Lymphatic: no cervical or axillary lymphadenopathy Results & Data Results & Data ([facility]) Vital Signs (Past 12 Hours) Vital Signs Temp Pulse Resp BP BP Pulse Ox 08/31/20 16:19 36.9 C 79 20 129/81 92 08/31/20 16:01 86 85 H 92 08/31/20 11:22 36.3 C L 85 22 117/79 90 08/31/20 11:06 88 18 90 08/31/20 07:27 92 H 19 91 08/31/20 07:23 36.6 C 92 H 23 114/76 91 Laboratory Results Laboratory Results - last 24 hr 08/21/20 08/30/20 08/31/20 20:58 20:07 07:23 POC Glucose 119 H 150 H Blood Type AB Positive Antibody Screen NEGATIVE 08/31/20 08/31/20 11:20 16:23 POC Glucose 164 H 132 H Blood Type Antibody Screen Medications Administered Current Inpatient Medications Acetaminophen (Acetaminophen 325 Mg Tab) 650 mg PO Q4H PRN PRN Reason: Pain or Fever Stop: 09/21/20 02:01 Last Admin: 08/31/20 06:35 Dose: 650 mg Documented by: Al Hydrox/Mg Hydrox/Simethicone (Aluminum/Magnesium Susp 30 Ml Udc) 15 ml PO Q4H PRN PRN Reason: Dyspepsia Stop: 09/21/20 02:01 Albuterol (Albuterol Hfa 8 Gm Inhaler) 1 puffs INH Q4 PRN PRN Reason: Shortness Of Breath Or Wheezin Stop: 09/25/20 08:57 Alfuzosin HCl (Alfuzosin Hcl 10 Mg Tab) 10 mg PO DAILY [facility] Stop: 09/21/20 08:59 Last Admin: 08/31/20 08:55 Dose: 10 mg Documented by: Ascorbic Acid (Ascorbic Acid 500 Mg Tab) 500 mg PO DAILY [facility] Stop: 09/21/20 08:59 Last Admin: 08/31/20 08:53 Dose: 500 mg Documented by: Aspirin (Aspirin 81 Mg Ectab) 81 mg PO DAILY [facility] Stop: 09/21/20 08:59 Last Admin: 08/31/20 08:56 Dose: 81 mg Documented by: Atorvastatin Calcium (Atorvastatin 40 Mg Tab) 80 mg PO DAILY [facility] Stop: 09/21/20 08:59 Last Admin: 08/31/20 08:55 Dose: 80 mg Documented by: Betamethasone Dipropion Augmented (Betamethasone Dip Aug (Diprolene) 0.05% Cr 15 Gm Tube) 1 appln EXT DAILY PRN PRN Reason: Itching Stop: 09/21/20 04:33 Clopidogrel Bisulfate (Clopidogrel Bisulfate 75 Mg Tab) 75 mg PO DAILY [facility] Stop: 09/21/20 08:59 Last Admin: 08/31/20 08:56 Dose: 75 mg Documented by: Cyanocobalamin (Cyanocobalamin (Vitamin B-12) 2,500 Mcg Tab.Subl) 1,250 mcg SL DAILY [facility] Stop: 09/21/20 08:59 Last Admin: 08/31/20 08:53 Dose: 2,500 mcg Documented by: Dextrose (Dextrose 50% 50 Ml Syringe) 25 - 50 ml IV UD PRN; Protocol PRN Reason: Hypoglycemia Protocol Stop: 09/21/20 02:01 Diphenhydramine HCl (Diphenhydramine Capsule 25 Mg Cap) 25 mg PO HS PRN PRN Reason: Itching Stop: 09/21/20 02:01 Fish Oil ([place]-3 (Purified Fish Oil) 1 Gm Cap) 1 gm PO DAILY [facility] Stop: 09/21/20 08:59 Last Admin: 08/31/20 08:56 Dose: 1 gm Documented by: Glucagon (Glucagon For Inj 1 Mg Vial) 1 mg SQ UD PRN; Protocol PRN Reason: Hypoglycemia Protocol Stop: 09/21/20 02:01 Glucose (Glucose 10 Tabs/Tube) 4 - 8 tabs PO UD PRN; Protocol PRN Reason: Hypoglycemia Protocol Stop: 09/21/20 02:01 Glucose (Glucose 40% Gel 15 Gm Tube) 15 - 30 gm PO UD PRN; Protocol PRN Reason: Hypoglycemia Protocol Stop: 09/21/20 02:01 Dexamethasone 6 mg/ Syringe 1.5 mls @ 1 mls/min IV QAM [facility] Stop: 09/21/20 08:59 Last Admin: 08/31/20 08:52 Dose: 1 mls/min Documented by: Insulin Aspart (Insulin Aspart 100 Units/Ml 3 Ml Pen) 0 units SC ACHS [facility] Stop: 09/21/20 02:29 Last Admin: 08/31/20 12:33 Dose: 6 units Documented by: Ipratropium [place] (Ipratropium [place] Hfa Inhaler) 1 puffs INH Q4 PRN PRN Reason: Shortness Of Breath Or Wheezin Stop: 09/25/20 08:58 Lactobacillus Acidoph/Casei/Rhamnos (Advanced Probiotic 1250 Mg Capsule) 2 cap PO DAILY [facility] Stop: 09/21/20 08:59 Last Admin: 08/31/20 08:55 Dose: 2 cap Documented by: Magnesium Hydroxide (Magnesium Hydroxide Susp 30 Ml Udc) 30 ml PO Q12H PRN PRN Reason: Constipation Stop: 09/21/20 02:01 Metoprolol Tartrate (Metoprolol Tartrate 25 Mg Tab) 25 mg PO BID [facility] Stop: 09/21/20 02:01 Last Admin: 08/31/20 08:55 Dose: 25 mg Documented by: Miscellaneous (Carbohydrates For Hypoglycemia ) 15 - 30 gm PO UD PRN PRN Reason: Hypoglycemia Protocol Stop: 09/21/20 02:01 Mupirocin (Mupirocin 2% Oint 22 Gm Tube) 1 appln EXT Q12 [facility] Stop: 09/29/20 20:59 Last Admin: 08/31/20 08:56 Dose: 1 appln Documented by: Nitroglycerin (Nitroglycerin Sl 0.4 Mg/Tab Tab) 0.4 mg SL Q5M PRN PRN Reason: chest pain Stop: 09/21/20 02:01 Ondansetron HCl (Ondansetron Inj 2 Mg/Ml 2 Ml Vial) 4 mg IV Q6H PRN PRN Reason: Nausea Stop: 09/21/20 02:01 Oxymetazoline HCl (Oxymetazoline 0.05% 30 Ml Btl) 1 sprays OTIS BID [facility] Stop: 09/23/20 17:59 Last Admin: 08/31/20 08:52 Dose: 1 sprays Documented by: Pantoprazole Sodium (Pantoprazole 40 Mg Tab) 40 mg PO QAM [facility] Stop: 09/29/20 08:59 Last Admin: 08/31/20 08:55 Dose: 40 mg Documented by: Phenytoin Sodium (Phenytoin Sodium Er 100 Mg Cap) 200 mg PO BID [facility] Stop: 09/21/20 02:01 Last Admin: 08/31/20 08:53 Dose: 200 mg Documented by: Vitamin D (Cholecalciferol 1,000 Units 25 Mcg Tab) 1,000 units PO DAILY [facility] Stop: 09/21/20 08:59 Last Admin: 08/31/20 08:54 Dose: 1,000 units Documented by: PG Care Time/CCT Total # of Minutes Spent Total Time Spent with Patient: Total time spent is greater than 50% in coordination of care (as documented) at patient's floor/unit and/or counseling patient: Coding Level of Care Code 32710 Subseq Hosp Care Lvl 2 Diagnoses Pneumonia due to 2019 novel coronavirus U07.1; J12.89 Hypoxia R09.02 Seizure disorder G40.909 CAD (coronary artery disease) I25.10 Thoracic aortic aneurysm I71.2 History of CVA (cerebrovascular accident) Z86.73 DJD (degenerative joint disease) M19.90 Diabetes mellitus E11.9 BPH w urinary obs/LUTS N40.1; N13.8 Hypokalemia E87.6 Epistaxis R04.0 DVT prophylaxis Z29.9
[2020-09-01] MEDS: ACETAMINOPHEN 325 MG TAB PO PRN (03:35)
[2020-09-01] MEDS: dexAMETHasone 6 MG in SYRINGE 0 ML IV SCH (08:27)
[2020-09-01] MEDS: OXYMETAZOLINE 0.05% 30 ML BTL NAE SCH ×2 (08:27→22:06)
[2020-09-01] MEDS: MUPIROCIN 2% OINT 22 GM TUBE EXT SCH ×2 (08:28→22:04)
[2020-09-01] MEDS: METOPROLOL TARTRATE 25 MG TAB PO SCH ×2 (08:29→22:03)
[2020-09-01] MEDS: ATORVASTATIN 40 MG TAB PO SCH (08:29)
[2020-09-01] MEDS: PHENYTOIN SODIUM ER 100 MG CAP PO SCH ×2 (08:29→22:02)
[2020-09-01] MEDS: CLOPIDOGREL BISULFATE 75 MG TAB PO SCH (08:29)
[2020-09-01] MEDS: ASPIRIN 81 MG ECTAB PO SCH (08:30)
[2020-09-01] MEDS: ALFUZOSIN HCL 10 MG TAB PO SCH (08:30)
[2020-09-01] MEDS: ASCORBIC ACID 500 MG TAB PO SCH (08:30)
[2020-09-01] MEDS: CHOLECALCIFEROL 1,000 UNITS 25 MCG TAB PO SCH (08:30)
[2020-09-01] MEDS: OMEGA-3 (PURIFIED FISH OIL) 1 GM CAP PO SCH (08:30)
[2020-09-01] MEDS: ADVANCED PROBIOTIC 1250 MG CAPSULE PO SCH (08:30)
[2020-09-01] MEDS: INSULIN ASPART 100 UNITS/ML 3 ML PEN SC SCH ×3 (08:30→18:06)
[2020-09-01] MEDS: PANTOprazole 40 MG TAB PO SCH (08:31)
[2020-09-01] MEDS: CYANOCOBALAMIN (VITAMIN B-12) 2,500 MCG TAB.SUBL SL SCH (08:31)
--- NOTE | 2020-09-01 14:51 | Hospitalist Progress Note ---
Date of Service September 01, 2020 Assessment & Plan (1) Pneumonia due to 2019 novel coronavirus: Pneumonia due to COVID-19 virus with hypoxia- There is concern regarding development possible secondary bacterial superinfection, as patient had been getting better and then suddenly became worse on 08/24 Remains afebrile, but biggest issue is hypoxia as below Markers of inflammation have stayed about the same Continue Decadron 6 mg IV daily, will stop after tomorrow (09/02) as he is weaned off of High Flow -completed 5 days of Remdesivir on 08/26 -Continue Ventolin HFA 1 puffs 4 times daily as well as ipratropium 1 puff 4 times daily -Continue levofloxacin 750 mg p.o. daily x 7 day course-last dose 08/28 Repeat chest x-ray on 08/27 with continued bilateral pneumonia slightly progressed on the left Lasix 20mg IV x 1 on 08/27 to keep a negative fluid balance, keep lungs dry no need for Lasix the rest of the week down to 10L oxymask today, huge jenifer for him to get off high flow he is laying prone a lot to help with oxygenation hopeful that we can continue to wean oxygen, discharge by end of the week (2) Hypoxia: Significantly worsened on 08/24, placed on high flow nasal cannula at 40 L 100% FiO2 with pulse ox 84-87% on the evening of 08/24 today he is off of high flow, weaned to 10L oxymask (he is a mouth breather) saturations stable when sitting up he is compliant with laying prone at night, told him to lay prone during the day as well continue to wean down oxygen as tolerated (3) Seizure disorder: Continue phenytoin no seizures while here (4) CAD (coronary artery disease): CAD/hypertension-with a h/o STEMI 2017 No acute issues. Trop neg on admission Continue aspirin 81 mg daily, clopidogrel 75 mg daily and metoprolol tartrate 25 mg p.o. twice daily, statin (5) Thoracic aortic aneurysm: followed as outpt Not even mentioned on CT chest performed here (6) History of CVA (cerebrovascular accident): continue ASA, Plavix (7) DJD (degenerative joint disease): takes meloxicam prn as outpt-hold NSAIDs with COVID (8) Diabetes mellitus: HgbA1C here 7.8%, not on meds at home CDE talked to him and plans for glucometer and testing supplies on discharge: - needs a Rx for the following at time of discharge: 1. OneTouch Verio test strips to check 1x/day. 2. OneTouch Delica lancets to check 1x/day. Could possibly start on metformin upon discharge Continue NovoLog sliding scale here-blood sugars are very well controlled, no hypoglycemia (9) BPH w urinary obs/LUTS: continue alfuzosin no acute issues but has h/o elevated PVR, follows with Urology (10) Hypokalemia: check BMP tomorrow (11) Epistaxis: right nostril encourage saline spray q1H Mupirocin q12 much better past two days, no bleeding (12) DVT prophylaxis: heparin on hold past 48 hours for epistaxis resume tomorrow as bleeding stopped, at high risk for DVT Dispo-continued stay on tele, condition is guarded Full code Admission and Anticipated Discharge Date Admission Date: August 22, 2020 Subjective patient doing great today, probably the best he has been all week respiratory therapy able to get him down to 10L oxymask this evening, huge jenifer since he has been on high flow all week he is smiling a lot, motivated to keep getting better and go home eating a lot better, no epistaxis, no fever, no cough, no chest pain no labs today updated his over the phone today discussed getting down to 10L oxymask, hoping he can get home by end of the week Review of Systems Review of Systems: All systems reviewed & are unremarkable except as noted in Subjective Physical Exam Constitutional: WD/WN, vitals as above no acute distress Neck: trachea midline, no thyromegaly Respiratory: + tachypneic; no cough Auscultation: lungs clear to auscultation bilaterally Cardiovascular: RRR, no murmur, no edema Gastrointestinal (Abdomen): normal bowel sounds, soft, nontender, no hepatosplenomegaly Musculoskeletal: no cyanosis or clubbing, extremities motor strength 5/5 Skin: no rashes, warm and dry Neurologic: patellar DTR's 2+ bilat, sensation intact and PERRL, EOMI, acc ommodation nl, no face palsy, no dysarthria Psychiatric: A+Ox3, euthymic affect Lymphatic: no cervical or axillary lymphadenopathy Results & Data Results & Data ([facility]) Vital Signs (Past 12 Hours) Vital Signs Temp Pulse Pulse Resp BP Pulse Ox 09/01/20 14:44 85 09/01/20 11:06 36.9 C 74 20 122/86 95 09/01/20 10:51 80 09/01/20 10:09 72 18 91 09/01/20 07:24 36.8 C 79 20 118/80 92 09/01/20 07:18 81 19 92 09/01/20 03:48 36.6 C 84 22 124/80 94 Laboratory Results Laboratory Results - last 24 hr 08/31/20 08/31/20 09/01/20 16:23 20:32 08:01 POC Glucose 132 H 100 H 123 H 09/01/20 11:04 POC Glucose 156 H Medications Administered Current Inpatient Medications Acetaminophen (Acetaminophen 325 Mg Tab) 650 mg PO Q4H PRN PRN Reason: Pain or Fever Stop: 09/21/20 02:01 Last Admin: 09/01/20 03:35 Dose: 650 mg Documented by: Al Hydrox/Mg Hydrox/Simethicone (Aluminum/Magnesium Susp 30 Ml Udc) 15 ml PO Q4H PRN PRN Reason: Dyspepsia Stop: 09/21/20 02:01 Albuterol (Albuterol Hfa 8 Gm Inhaler) 1 puffs INH Q4 PRN PRN Reason: Shortness Of Breath Or Wheezin Stop: 09/25/20 08:57 Alfuzosin HCl (Alfuzosin Hcl 10 Mg Tab) 10 mg PO DAILY [facility] Stop: 09/21/20 08:59 Last Admin: 09/01/20 08:30 Dose: 10 mg Documented by: Ascorbic Acid (Ascorbic Acid 500 Mg Tab) 500 mg PO DAILY [facility] Stop: 09/21/20 08:59 Last Admin: 09/01/20 08:30 Dose: 500 mg Documented by: Aspirin (Aspirin 81 Mg Ectab) 81 mg PO DAILY [facility] Stop: 09/21/20 08:59 Last Admin: 09/01/20 08:30 Dose: 81 mg Documented by: Atorvastatin Calcium (Atorvastatin 40 Mg Tab) 80 mg PO DAILY [facility] Stop: 09/21/20 08:59 Last Admin: 09/01/20 08:29 Dose: 80 mg Documented by: Betamethasone Dipropion Augmented (Betamethasone Dip Aug (Diprolene) 0.05% Cr 15 Gm Tube) 1 appln EXT DAILY PRN PRN Reason: Itching Stop: 09/21/20 04:33 Clopidogrel Bisulfate (Clopidogrel Bisulfate 75 Mg Tab) 75 mg PO DAILY [facility] Stop: 09/21/20 08:59 Last Admin: 09/01/20 08:29 Dose: 75 mg Documented by: Cyanocobalamin (Cyanocobalamin (Vitamin B-12) 2,500 Mcg Tab.Subl) 1,250 mcg SL DAILY [facility] Stop: 09/21/20 08:59 Last Admin: 09/01/20 08:31 Dose: 1,250 mcg Documented by: Dextrose (Dextrose 50% 50 Ml Syringe) 25 - 50 ml IV UD PRN; Protocol PRN Reason: Hypoglycemia Protocol Stop: 09/21/20 02:01 Diphenhydramine HCl (Diphenhydramine Capsule 25 Mg Cap) 25 mg PO HS PRN PRN Reason: Itching Stop: 09/21/20 02:01 Fish Oil ([place]-3 (Purified Fish Oil) 1 Gm Cap) 1 gm PO DAILY [facility] Stop: 09/21/20 08:59 Last Admin: 09/01/20 08:30 Dose: 1 gm Documented by: Glucagon (Glucagon For Inj 1 Mg Vial) 1 mg SQ UD PRN; Protocol PRN Reason: Hypoglycemia Protocol Stop: 09/21/20 02:01 Glucose (Glucose 10 Tabs/Tube) 4 - 8 tabs PO UD PRN; Protocol PRN Reason: Hypoglycemia Protocol Stop: 09/21/20 02:01 Glucose (Glucose 40% Gel 15 Gm Tube) 15 - 30 gm PO UD PRN; Protocol PRN Reason: Hypoglycemia Protocol Stop: 09/21/20 02:01 Dexamethasone 6 mg/ Syringe 1.5 mls @ 1 mls/min IV QAM [facility] Stop: 09/21/20 08:59 Last Admin: 09/01/20 08:27 Dose: 1 mls/min Documented by: Insulin Aspart (Insulin Aspart 100 Units/Ml 3 Ml Pen) 0 units SC ACHS [facility] Stop: 09/21/20 02:29 Last Admin: 09/01/20 12:15 Dose: 3 units Documented by: Ipratropium [place] (Ipratropium [place] Hfa Inhaler) 1 puffs INH Q4 PRN PRN Reason: Shortness Of Breath Or Wheezin Stop: 09/25/20 08:58 Lactobacillus Acidoph/Casei/Rhamnos (Advanced Probiotic 1250 Mg Capsule) 2 cap PO DAILY [facility] Stop: 09/21/20 08:59 Last Admin: 09/01/20 08:30 Dose: 2 cap Documented by: Magnesium Hydroxide (Magnesium Hydroxide Susp 30 Ml Udc) 30 ml PO Q12H PRN PRN Reason: Constipation Stop: 09/21/20 02:01 Metoprolol Tartrate (Metoprolol Tartrate 25 Mg Tab) 25 mg PO BID [facility] Stop: 09/21/20 02:01 Last Admin: 09/01/20 08:29 Dose: 25 mg Documented by: Miscellaneous (Carbohydrates For Hypoglycemia ) 15 - 30 gm PO UD PRN PRN Reason: Hypoglycemia Protocol Stop: 09/21/20 02:01 Mupirocin (Mupirocin 2% Oint 22 Gm Tube) 1 appln EXT Q12 [facility] Stop: 09/29/20 20:59 Last Admin: 09/01/20 08:28 Dose: 1 appln Documented by: Nitroglycerin (Nitroglycerin Sl 0.4 Mg/Tab Tab) 0.4 mg SL Q5M PRN PRN Reason: chest pain Stop: 09/21/20 02:01 Ondansetron HCl (Ondansetron Inj 2 Mg/Ml 2 Ml Vial) 4 mg IV Q6H PRN PRN Reason: Nausea Stop: 09/21/20 02:01 Oxymetazoline HCl (Oxymetazoline 0.05% 30 Ml Btl) 1 sprays OTIS BID [facility] Stop: 09/23/20 17:59 Last Admin: 09/01/20 08:27 Dose: 1 sprays Documented by: Pantoprazole Sodium (Pantoprazole 40 Mg Tab) 40 mg PO QAM [facility] Stop: 09/29/20 08:59 Last Admin: 09/01/20 08:31 Dose: 40 mg Documented by: Phenytoin Sodium (Phenytoin Sodium Er 100 Mg Cap) 200 mg PO BID [facility] Stop: 09/21/20 02:01 Last Admin: 09/01/20 08:29 Dose: 200 mg Documented by: Vitamin D (Cholecalciferol 1,000 Units 25 Mcg Tab) 1,000 units PO DAILY [facility] Stop: 09/21/20 08:59 Last Admin: 09/01/20 08:30 Dose: 1,000 units Documented by: PG Care Time/CCT Total # of Minutes Spent Total Time Spent with Patient: Total time spent is greater than 50% in coordination of care (as documented) at patient's floor/unit and/or counseling patient: Coding Level of Care Code 93083 Subseq Hosp Care Lvl 3 Diagnoses Pneumonia due to 2019 novel coronavirus U07.1; J12.89 Hypoxia R09.02 Seizure disorder G40.909 CAD (coronary artery disease) I25.10 Thoracic aortic aneurysm I71.2 History of CVA (cerebrovascular accident) Z86.73 DJD (degenerative joint disease) M19.90 Diabetes mellitus E11.9 BPH w urinary obs/LUTS N40.1; N13.8 Hypokalemia E87.6 Epistaxis R04.0 DVT prophylaxis Z29.9
[2020-09-02] MEDS: INSULIN ASPART 100 UNITS/ML 3 ML PEN SC SCH ×5 (02:30→20:54)
[2020-09-02] MEDS: HEPARIN SOD 5,000 UNIT/0.5 ML VIAL SQ SCH ×4 (02:31→22:07)
[2020-09-02 07:19] LABS: BUN Creatinine Ratio 25.3 (10-20); Calcium 8.4 mg/dl (8.5-10.1); Creatinine Clr Calc Pharmacy 106.1 ml/min; Est GFR (African American) 107.5; Est GFR (Non-African American) 92.8; Potassium 3.3 mmol/L (3.5-5.1)
[2020-09-02] MEDS: CYANOCOBALAMIN (VITAMIN B-12) 2,500 MCG TAB.SUBL SL SCH (08:05)
[2020-09-02] MEDS: dexAMETHasone 6 MG in SYRINGE 0 ML IV SCH (08:05)
[2020-09-02] MEDS: CLOPIDOGREL BISULFATE 75 MG TAB PO SCH (08:06)
[2020-09-02] MEDS: ADVANCED PROBIOTIC 1250 MG CAPSULE PO SCH (08:07)
[2020-09-02] MEDS: ASPIRIN 81 MG ECTAB PO SCH (08:07)
[2020-09-02] MEDS: ATORVASTATIN 40 MG TAB PO SCH (08:08)
[2020-09-02] MEDS: ALFUZOSIN HCL 10 MG TAB PO SCH (08:08)
[2020-09-02] MEDS: CHOLECALCIFEROL 1,000 UNITS 25 MCG TAB PO SCH (08:09)
[2020-09-02] MEDS: ASCORBIC ACID 500 MG TAB PO SCH (08:09)
[2020-09-02] MEDS: OMEGA-3 (PURIFIED FISH OIL) 1 GM CAP PO SCH (08:09)
[2020-09-02] MEDS: PHENYTOIN SODIUM ER 100 MG CAP PO SCH ×2 (08:10→19:48)
[2020-09-02] MEDS: PANTOprazole 40 MG TAB PO SCH (08:11)
[2020-09-02] MEDS: OXYMETAZOLINE 0.05% 30 ML BTL NAE SCH ×2 (08:12→19:47)
[2020-09-02] MEDS: MUPIROCIN 2% OINT 22 GM TUBE EXT SCH ×2 (08:12→19:47)
[2020-09-02] MEDS: METOPROLOL TARTRATE 25 MG TAB PO SCH ×2 (08:13→19:49)
--- NOTE | 2020-09-02 10:51 | Hospitalist Progress Note ---
Date of Service September 02, 2020 Assessment & Plan (1) Pneumonia due to 2019 novel coronavirus: Pneumonia due to COVID-19 virus with hypoxia- There is concern regarding development possible secondary bacterial superinfection, as patient had been getting better and then suddenly became worse on 08/24 Remains afebrile, but biggest issue is hypoxia Completed Decadron 6 mg IV, stop (09/02) -completed 5 days of Remdesivir on 08/26 -Continue Ventolin HFA 1 puffs 4 times daily as well as ipratropium 1 puff 4 times daily -Continue levofloxacin 750 mg p.o. daily x 7 day course-last dose 08/28 Repeat chest x-ray on 08/27 with bilateral pneumonia slightly progressed on the left down to 9L oxymask today, huge jenifer for him to get off high flow he is laying prone a lot to help with oxygenation (2) Hypoxia: , weaned to 10L oxymask/ NC (he is a mouth breather) saturations stable when sitting up he is compliant with laying prone at night, told him to lay prone during the day as well continue to wean down oxygen as tolerated (3) Seizure disorder: Continue phenytoin no seizures while here (4) CAD (coronary artery disease): CAD/hypertension-with a h/o STEMI 2016 No acute issues. Trop neg on admission Continue aspirin 81 mg daily, clopidogrel 75 mg daily and metoprolol tartrate 25 mg p.o. twice daily, statin (5) Thoracic aortic aneurysm: followed as outpt Not even mentioned on CT chest performed here (6) History of CVA (cerebrovascular accident): continue ASA, Plavix (7) DJD (degenerative joint disease): takes meloxicam prn as outpt-hold NSAIDs with COVID (8) Diabetes mellitus: HgbA1C here 7.8%, not on meds at home CDE talked to him and plans for glucometer and testing supplies on discharge: - needs a Rx for the following at time of discharge: 1. OneTouch Verio test strips to check 1x/day. 2. OneTouch Delica lancets to check 1x/day. Could possibly start on metformin upon discharge Continue NovoLog sliding scale here-blood sugars are very well controlled, no hypoglycemia (9) BPH w urinary obs/LUTS: continue alfuzosin no acute issues but has h/o elevated PVR, follows with Urology (10) Hypokalemia: still slightly low replete po (11) Epistaxis: right nostril encourage saline spray q1H Mupirocin q12 much better past two days, no bleeding (12) DVT prophylaxis: heparin resume, at high risk for DVT was held briefly for epistaxis Dispo-continued stay on tele, condition is guarded Full code Admission and Anticipated Discharge Date Admission Date: August 22, 2020 Subjective Pt is not feeling particularly poorly but he was hypoxic on my exam and I did bump up his oxygen, I updated his over the phone he has no complaints except for fatigue Review of Systems Review of Systems: moderate distress and fatigue no headache, blurry or double vision no speech or swallowing issues no chest pain, pressure or palpitations resting shortness of breath, non productive cough no abdominal pain, nausea or vomiting, diarrhea or constipation no dysuria, hematuria or frequency no focal joint pain or swelling no back pain, CVA tenderness or radicular pain no bruising, bleeding or rashes no focal signs of weakness or numbness or altered sensation, globally is weak no complaints of anxiety or depression.. Physical Exam Physical Exam: The patient appeared well nourished and normally developed. Vital signs as documented. Head exam is normocephalic atraumatic no scleral icterus Neck is without JVD, thyromegaly, or carotid bruits. Lungs are fairly clear to auscultation only with scant rales at the bases. Not consistent with the degree of hypoxia he is experiencing. Cardiac exam, Rhythm is regular.. No murmurs, rubs or gallops. Abdominal exam reveals normal bowel sounds, soft non tender, no masses Extremities are nonedematous and both pedal pulses are present Neurologic exam is alert and oriented, no focal loss of strength or sensation Skin is without bruises or rashes Psychologically is without concerns for anxiety or depression. Results & Data Results & Data ([facility]) Vital Signs (Past 12 Hours) Vital Signs Temp Pulse Pulse Resp BP BP Pulse Ox 09/02/20 07:49 97.7 F 80 22 118/77 89 L 09/02/20 03:36 97.9 F 74 22 117/80 91 09/02/20 02:27 67 18 92 09/02/20 02:00 78 09/02/20 00:04 97.7 F 74 20 123/79 93 Pulse Ox 09/02/20 07:49 09/02/20 03:36 09/02/20 02:27 09/02/20 02:00 94 09/02/20 00:04 PG Care Time/CCT Total # of Minutes Spent Total Time Spent with Patient: Total time spent is greater than 50% in coordination of care (as documented) at patient's floor/unit and/or counseling patient: Coding Level of Care Code 47104 Subseq Hosp Care Lvl 3 Diagnoses Pneumonia due to 2019 novel coronavirus U07.1; J12.89 Hypoxia R09.02 Seizure disorder G40.909 CAD (coronary artery disease) I25.10 Thoracic aortic aneurysm I71.2 History of CVA (cerebrovascular accident) Z86.73 DJD (degenerative joint disease) M19.90 Diabetes mellitus E11.9 BPH w urinary obs/LUTS N40.1; N13.8 Hypokalemia E87.6 Epistaxis R04.0 DVT prophylaxis Z29.9
[2020-09-02] MEDS: POTASSIUM CHLORIDE CRTAB 20 MEQ TABCR PO SCH (19:48)
[2020-09-03] MEDS: ACETAMINOPHEN 325 MG TAB PO PRN ×4 (00:18→20:20)
[2020-09-03] MEDS: HEPARIN SOD 5,000 UNIT/0.5 ML VIAL SQ SCH ×3 (05:15→22:14)
[2020-09-03] MEDS: ALFUZOSIN HCL 10 MG TAB PO SCH (08:11)
[2020-09-03] MEDS: ASCORBIC ACID 500 MG TAB PO SCH (08:11)
[2020-09-03] MEDS: PANTOprazole 40 MG TAB PO SCH (08:11)
[2020-09-03] MEDS: ATORVASTATIN 40 MG TAB PO SCH (08:11)
[2020-09-03] MEDS: ADVANCED PROBIOTIC 1250 MG CAPSULE PO SCH (08:11)
[2020-09-03] MEDS: OMEGA-3 (PURIFIED FISH OIL) 1 GM CAP PO SCH (08:12)
[2020-09-03] MEDS: CLOPIDOGREL BISULFATE 75 MG TAB PO SCH (08:12)
[2020-09-03] MEDS: METOPROLOL TARTRATE 25 MG TAB PO SCH ×2 (08:12→20:19)
[2020-09-03] MEDS: CYANOCOBALAMIN (VITAMIN B-12) 2,500 MCG TAB.SUBL SL SCH (08:12)
[2020-09-03] MEDS: PHENYTOIN SODIUM ER 100 MG CAP PO SCH ×2 (08:12→20:19)
[2020-09-03] MEDS: POTASSIUM CHLORIDE CRTAB 20 MEQ TABCR PO SCH ×2 (08:13→20:19)
[2020-09-03] MEDS: ASPIRIN 81 MG ECTAB PO SCH (08:13)
[2020-09-03] MEDS: CHOLECALCIFEROL 1,000 UNITS 25 MCG TAB PO SCH (08:13)
[2020-09-03] MEDS: MUPIROCIN 2% OINT 22 GM TUBE EXT SCH ×2 (08:16→20:17)
[2020-09-03] MEDS: OXYMETAZOLINE 0.05% 30 ML BTL NAE SCH ×2 (08:16→20:17)
[2020-09-03] MEDS: INSULIN ASPART 100 UNITS/ML 3 ML PEN SC SCH ×4 (09:03→20:48)
[2020-09-03] MEDS ORDERED: traMADol HCL 50 MG TABLET PO PRN (16:10)
[2020-09-03] MEDS ORDERED: DICLOFENAC SOD 1% GEL 100 GM TUBE EXT PRN (16:10)
--- NOTE | 2020-09-03 16:15 | Hospitalist Progress Note ---
Date of Service September 03, 2020 Assessment & Plan (1) Pneumonia due to 2019 novel coronavirus: Pneumonia due to COVID-19 virus with hypoxia- There is concern regarding development possible secondary bacterial superinfection, as patient had been getting better and then suddenly became worse on 08/24 Remains afebrile, but biggest issue is hypoxia Completed Decadron 6 mg IV, stop (09/02) -completed 5 days of Remdesivir on 08/26 -Continue Ventolin HFA 1 puffs 4 times daily as well as ipratropium 1 puff 4 times daily -Continue levofloxacin 750 mg p.o. daily x 7 day course-last dose 08/28 Repeat chest x-ray on 08/27 with bilateral pneumonia slightly progressed on the left pt still with significant oxygen demands, will continue to support, and hopefull that pt turns the corner will contine steroids but change to prednisone (2) Hypoxia: weaning oxygen as needed saturations stable when sitting up he is compliant with laying prone at night, told him to lay prone during the day as well continue to wean down oxygen as tolerated (3) Seizure disorder: Continue phenytoin no seizures while here (4) CAD (coronary artery disease): CAD/hypertension-with a h/o STEMI 2016 No acute issues. Trop neg on admission Continue aspirin 81 mg daily, clopidogrel 75 mg daily and metoprolol tartrate 25 mg p.o. twice daily, statin (5) Thoracic aortic aneurysm: followed as outpt Not even mentioned on CT chest performed here (6) History of CVA (cerebrovascular accident): continue ASA, Plavix (7) DJD (degenerative joint disease): takes meloxicam prn as outpt-hold NSAIDs with COVID (8) Diabetes mellitus: HgbA1C here 7.8%, not on meds at home CDE talked to him and plans for glucometer and testing supplies on discharge: - needs a Rx for the following at time of discharge: 1. OneTouch Verio test strips to check 1x/day. 2. OneTouch Delica lancets to check 1x/day. Could possibly start on metformin upon discharge Continue NovoLog sliding scale here-blood sugars are very well controlled, no hypoglycemia (9) BPH w urinary obs/LUTS: continue alfuzosin no acute issues but has h/o elevated PVR, follows with Urology (10) Hypokalemia: still slightly low replete po (11) Epistaxis: right nostril-> resolved encourage saline spray q1H Mupirocin q12 (12) DVT prophylaxis: heparin resume, at high risk for DVT was held briefly for epistaxis Dispo-continued stay on tele, condition is guarded Full code Admission and Anticipated Discharge Date Admission Date: August 22, 2020 Subjective Pt is now complining of his right shoulder hurting as he tried to lay prone, I updated his over the phone 09/03 he remains fatigued Review of Systems Review of Systems: moderate distress and fatigue no headache, blurry or double vision no speech or swallowing issues no chest pain, pressure or palpitations resting shortness of breath, non productive cough no abdominal pain, nausea or vomiting, diarrhea or constipation no dysuria, hematuria or frequency no focal joint pain or swelling no back pain, CVA tenderness or radicular pain no bruising, bleeding or rashes no focal signs of weakness or numbness or altered sensation, globally is weak no complaints of anxiety or depression.. Physical Exam Physical Exam: The patient appeared well nourished and normally developed. Vital signs as documented. Head exam is normocephalic atraumatic no scleral icterus Neck is without JVD, thyromegaly, or carotid bruits. Lungs are fairly clear to auscultation only with scant rales at the bases. Not consistent with the degree of hypoxia he is experiencing. Cardiac exam, Rhythm is regular.. No murmurs, rubs or gallops. Abdominal exam reveals normal bowel sounds, soft non tender, no masses Extremities are nonedematous and both pedal pulses are present Neurologic exam is alert and oriented, no focal loss of strength or sensation Skin is without bruises or rashes Psychologically is without concerns for anxiety or depression. Results & Data Results & Data ([facility]) Vital Signs (Past 12 Hours) Vital Signs Temp Pulse Pulse Resp BP Pulse Ox 09/03/20 16:06 98.6 F 85 21 130/80 97 09/03/20 12:06 97.9 F 79 18 111/82 95 09/03/20 08:30 84 09/03/20 08:08 97.9 F 78 20 122/84 94 PG Care Time/CCT Total # of Minutes Spent Total Time Spent with Patient: Total time spent is greater than 50% in coordination of care (as documented) at patient's floor/unit and/or counseling patient: Coding Level of Care Code 78165 Subseq Hosp Care Lvl 3 Diagnoses Pneumonia due to 2019 novel coronavirus U07.1; J12.89 Hypoxia R09.02 Seizure disorder G40.909 CAD (coronary artery disease) I25.10 Thoracic aortic aneurysm I71.2 History of CVA (cerebrovascular accident) Z86.73 DJD (degenerative joint disease) M19.90 Diabetes mellitus E11.9 BPH w urinary obs/LUTS N40.1; N13.8 Hypokalemia E87.6 Epistaxis R04.0 DVT prophylaxis Z29.9
[2020-09-03] MEDS ORDERED: predniSONE 20 MG TAB PO STA (16:16)
[2020-09-04] MEDS: HEPARIN SOD 5,000 UNIT/0.5 ML VIAL SQ SCH ×3 (05:43→20:58)
[2020-09-04] MEDS: INSULIN ASPART 100 UNITS/ML 3 ML PEN SC SCH ×4 (08:39→20:42)
[2020-09-04] MEDS: MUPIROCIN 2% OINT 22 GM TUBE EXT SCH ×2 (08:41→21:10)
[2020-09-04] MEDS: OXYMETAZOLINE 0.05% 30 ML BTL NAE SCH ×2 (08:42→21:10)
[2020-09-04] MEDS: ASPIRIN 81 MG ECTAB PO SCH (08:43)
[2020-09-04] MEDS: ALFUZOSIN HCL 10 MG TAB PO SCH (08:43)
[2020-09-04] MEDS: PANTOprazole 40 MG TAB PO SCH (08:44)
[2020-09-04] MEDS: OMEGA-3 (PURIFIED FISH OIL) 1 GM CAP PO SCH (08:44)
[2020-09-04] MEDS: ADVANCED PROBIOTIC 1250 MG CAPSULE PO SCH (08:44)
[2020-09-04] MEDS: predniSONE 20 MG TAB PO SCH (08:45)
[2020-09-04] MEDS: ATORVASTATIN 40 MG TAB PO SCH (08:45)
[2020-09-04] MEDS: CHOLECALCIFEROL 1,000 UNITS 25 MCG TAB PO SCH (08:46)
[2020-09-04] MEDS: CYANOCOBALAMIN (VITAMIN B-12) 2,500 MCG TAB.SUBL SL SCH (08:46)
[2020-09-04] MEDS: ASCORBIC ACID 500 MG TAB PO SCH (08:50)
[2020-09-04] MEDS: CLOPIDOGREL BISULFATE 75 MG TAB PO SCH (08:50)
[2020-09-04] MEDS: METOPROLOL TARTRATE 25 MG TAB PO SCH ×2 (09:57→21:12)
[2020-09-04] MEDS: PHENYTOIN SODIUM ER 100 MG CAP PO SCH ×2 (09:57→21:12)
--- NOTE | 2020-09-04 19:42 | Hospitalist Progress Note ---
Date of Service September 04, 2020 Assessment & Plan (1) Pneumonia due to 2019 novel coronavirus: Pneumonia due to COVID-19 virus with hypoxia- There is concern regarding development possible secondary bacterial superinfection, as patient had been getting better and then suddenly became worse on 08/24 Remains afebrile, but biggest issue is hypoxia Completed Decadron 6 mg IV, stop (09/02) -completed 5 days of Remdesivir on 08/26 -Continue Ventolin HFA 1 puffs 4 times daily as well as ipratropium 1 puff 4 times daily -Continue levofloxacin 750 mg p.o. daily x 7 day course-last dose 08/28 Repeat chest x-ray on 08/27 with bilateral pneumonia slightly progressed on the left pt still with significant oxygen demands, will continue to support, and hopefull that pt turns the corner will continue steroids but change to prednisone (2) Hypoxia: weaning oxygen as needed saturations stable when sitting up continue to wean down oxygen as tolerated, now on high flow nc (3) Seizure disorder: Continue phenytoin no seizures while here (4) CAD (coronary artery disease): CAD/hypertension-with a h/o STEMI 2017 No acute issues. Trop neg on admission Continue aspirin 81 mg daily, clopidogrel 75 mg daily and metoprolol tartrate 25 mg p.o. twice daily, statin (5) Thoracic aortic aneurysm: followed as outpt Not even mentioned on CT chest performed here (6) History of CVA (cerebrovascular accident): continue ASA, Plavix (7) DJD (degenerative joint disease): takes meloxicam prn as outpt-hold NSAIDs with COVID (8) Diabetes mellitus: HgbA1C here 7.8%, not on meds at home CDE talked to him and plans for glucometer and testing supplies on discharge: - needs a Rx for the following at time of discharge: 1. OneTouch Verio test strips to check 1x/day. 2. OneTouch Delica lancets to check 1x/day. Could possibly start on metformin upon discharge or before but with steroids will keep basal bolus Continue NovoLog sliding scale here-blood sugars are very well controlled, no hypoglycemia (9) BPH w urinary obs/LUTS: continue alfuzosin no acute issues but has h/o elevated PVR, follows with Urology (10) Hypokalemia: still slightly low replete po (11) Epistaxis: right nostril-> resolved encourage saline spray q1H Mupirocin q12 (12) DVT prophylaxis: heparin resume, at high risk for DVT was held briefly for epistaxis Dispo-continued stay on tele, condition is guarded Full code Admission and Anticipated Discharge Date Admission Date: August 22, 2020 Subjective Pt is right shoulder has improved , I updated his over the phone 09/04, slow steady progress he remains fatigued Review of Systems Review of Systems: moderate distress and fatigue no headache, blurry or double vision no speech or swallowing issues no chest pain, pressure or palpitations resting shortness of breath, non productive cough no abdominal pain, nausea or vomiting, diarrhea or constipation no dysuria, hematuria or frequency no focal joint pain or swelling no back pain, CVA tenderness or radicular pain no bruising, bleeding or rashes no focal signs of weakness or numbness or altered sensation, globally is weak no complaints of anxiety or depression.. Physical Exam Physical Exam: The patient appeared well nourished and normally developed. Vital signs as documented. Head exam is normocephalic atraumatic no scleral icterus Neck is without JVD, thyromegaly, or carotid bruits. Lungs are fairly clear to auscultation only with scant rales at the bases. Not consistent with the degree of hypoxia he is experiencing. Cardiac exam, Rhythm is regular.. No murmurs, rubs or gallops. Abdominal exam reveals normal bowel sounds, soft non tender, no masses Extremities are nonedematous and both pedal pulses are present Neurologic exam is alert and oriented, no focal loss of strength or sensation Skin is without bruises or rashes Psychologically is without concerns for anxiety or depression. Results & Data Results & Data ([facility]) Vital Signs (Past 12 Hours) Vital Signs Temp Pulse Pulse Resp BP BP Pulse Ox 09/04/20 15:44 84 09/04/20 15:04 98.4 F 81 18 128/83 91 09/04/20 11:15 98.4 F 91 H 18 105/76 94 09/04/20 10:39 73 09/04/20 10:00 97 H 22 90 09/04/20 09:59 97 H 24 82 L 09/04/20 07:54 98.1 F 80 20 125/89 90 PG Care Time/CCT Total # of Minutes Spent Total Time Spent with Patient: Total time spent is greater than 50% in coordination of care (as documented) at patient's floor/unit and/or counseling patient: Coding Level of Care Code 80996 Subseq Hosp Care Lvl 3 Diagnoses Pneumonia due to 2019 novel coronavirus U07.1; J12.89 Hypoxia R09.02 Seizure disorder G40.909 CAD (coronary artery disease) I25.10 Thoracic aortic aneurysm I71.2 History of CVA (cerebrovascular accident) Z86.73 DJD (degenerative joint disease) M19.90 Diabetes mellitus E11.9 BPH w urinary obs/LUTS N40.1; N13.8 Hypokalemia E87.6 Epistaxis R04.0 DVT prophylaxis Z29.9
[2020-09-05] MEDS: HEPARIN SOD 5,000 UNIT/0.5 ML VIAL SQ SCH ×3 (05:39→21:24)
[2020-09-05] MEDS: INSULIN ASPART 100 UNITS/ML 3 ML PEN SC SCH ×4 (08:09→21:49)
[2020-09-05] MEDS: ASPIRIN 81 MG ECTAB PO SCH (08:45)
[2020-09-05] MEDS: OXYMETAZOLINE 0.05% 30 ML BTL NAE SCH ×2 (08:45→21:23)
[2020-09-05] MEDS: MUPIROCIN 2% OINT 22 GM TUBE EXT SCH ×2 (08:45→21:23)
[2020-09-05] MEDS: CHOLECALCIFEROL 1,000 UNITS 25 MCG TAB PO SCH (08:45)
[2020-09-05] MEDS: OMEGA-3 (PURIFIED FISH OIL) 1 GM CAP PO SCH (08:46)
[2020-09-05] MEDS: ATORVASTATIN 40 MG TAB PO SCH (08:46)
[2020-09-05] MEDS: CYANOCOBALAMIN (VITAMIN B-12) 2,500 MCG TAB.SUBL SL SCH (08:47)
[2020-09-05] MEDS: ASCORBIC ACID 500 MG TAB PO SCH (08:47)
[2020-09-05] MEDS: ADVANCED PROBIOTIC 1250 MG CAPSULE PO SCH (08:47)
[2020-09-05] MEDS: PANTOprazole 40 MG TAB PO SCH (08:47)
[2020-09-05] MEDS: ALFUZOSIN HCL 10 MG TAB PO SCH (08:48)
[2020-09-05] MEDS: predniSONE 20 MG TAB PO SCH (08:48)
[2020-09-05] MEDS: PHENYTOIN SODIUM ER 100 MG CAP PO SCH ×2 (08:49→21:21)
[2020-09-05] MEDS: CLOPIDOGREL BISULFATE 75 MG TAB PO SCH (08:49)
[2020-09-05] MEDS: METOPROLOL TARTRATE 25 MG TAB PO SCH ×2 (08:49→21:21)
--- NOTE | 2020-09-05 09:01 | Hospitalist Progress Note ---
Date of Service September 05, 2020 Assessment & Plan (1) Pneumonia due to 2019 novel coronavirus: Pneumonia due to COVID-19 virus with hypoxia- There is concern regarding development possible secondary bacterial superinfection, as patient had been getting better and then suddenly became worse on 08/24 Remains afebrile, but biggest issue is hypoxia Completed Decadron 6 mg IV, stop (09/02) -completed 5 days of Remdesivir on 08/26 -Continue Ventolin HFA 1 puffs 4 times daily as well as ipratropium 1 puff 4 times daily -Continue levofloxacin 750 mg p.o. daily x 7 day course-last dose 08/28 Repeat chest x-ray on 08/27 with bilateral pneumonia slightly progressed on the left pt still with continued to support, and hopefull that pt turns the corner will continue steroids but changed to prednisone (2) Hypoxia: weaning oxygen as needed saturations stable when sitting up continue to wean down oxygen as tolerated, now on high flow nc (3) Seizure disorder: Continue phenytoin no seizures while here (4) CAD (coronary artery disease): CAD/hypertension-with a h/o STEMI 2016 No acute issues. Trop neg on admission Continue aspirin 81 mg daily, clopidogrel 75 mg daily and metoprolol tartrate 25 mg p.o. twice daily, statin (5) Thoracic aortic aneurysm: followed as outpt Not even mentioned on CT chest performed here (6) History of CVA (cerebrovascular accident): continue ASA, Plavix (7) DJD (degenerative joint disease): takes meloxicam prn as outpt-hold NSAIDs with COVID (8) Diabetes mellitus: HgbA1C here 7.8%, not on meds at home CDE talked to him and plans for glucometer and testing supplies on discharge: - needs a Rx for the following at time of discharge: 1. OneTouch Verio test strips to check 1x/day. 2. OneTouch Delica lancets to check 1x/day. Could possibly start on metformin upon discharge or before but with steroids will keep basal bolus Continue NovoLog sliding scale here-blood sugars are very well controlled, no hypoglycemia (9) BPH w urinary obs/LUTS: continue alfuzosin no acute issues but has h/o elevated PVR, follows with Urology (10) Hypokalemia: still slightly low replete po (11) Epistaxis: right nostril-> resolved encourage saline spray q1H Mupirocin q12 (12) DVT prophylaxis: heparin resume, at high risk for DVT was held briefly for epistaxis Dispo-continued stay on tele, condition is guarded Full code Admission and Anticipated Discharge Date Admission Date: August 22, 2020 Subjective Pt is right shoulder has improved , I updated his over the phone 09/05, slow steady progress he remains fatigued dry right eye, maybe from high flow, will try some naphcon Review of Systems Review of Systems: moderate distress and fatigue no headache, blurry or double vision no speech or swallowing issues no chest pain, pressure or palpitations resting shortness of breath, non productive cough no abdominal pain, nausea or vomiting, diarrhea or constipation no dysuria, hematuria or frequency no focal joint pain or swelling no back pain, CVA tenderness or radicular pain no bruising, bleeding or rashes no focal signs of weakness or numbness or altered sensation, globally is weak no complaints of anxiety or depression.. Physical Exam Physical Exam: The patient appeared well nourished and normally developed. Vital signs as documented. Head exam is normocephalic atraumatic no scleral icterus Neck is without JVD, thyromegaly, or carotid bruits. Lungs are fairly clear to auscultation only with scant rales at the bases. Not consistent with the degree of hypoxia he is experiencing. Cardiac exam, Rhythm is regular.. No murmurs, rubs or gallops. Abdominal exam reveals normal bowel sounds, soft non tender, no masses Extremities are nonedematous and both pedal pulses are present Neurologic exam is alert and oriented, no focal loss of strength or sensation Skin is without bruises or rashes Psychologically is without concerns for anxiety or depression. Results & Data Results & Data ([facility]) Vital Signs (Past 12 Hours) Vital Signs Temp Pulse Resp BP Pulse Ox 09/05/20 08:43 97.3 F L 96 H 18 119/77 93 PG Care Time/CCT Total # of Minutes Spent Total Time Spent with Patient: Total time spent is greater than 50% in coordination of care (as documented) at patient's floor/unit and/or counseling patient: Coding Level of Care Code 22761 Subseq Hosp Care Lvl 3 Diagnoses Pneumonia due to 2019 novel coronavirus U07.1; J12.89 Hypoxia R09.02 Seizure disorder G40.909 CAD (coronary artery disease) I25.10 Thoracic aortic aneurysm I71.2 History of CVA (cerebrovascular accident) Z86.73 DJD (degenerative joint disease) M19.90 Diabetes mellitus E11.9 BPH w urinary obs/LUTS N40.1; N13.8 Hypokalemia E87.6 Epistaxis R04.0 DVT prophylaxis Z29.9
[2020-09-05] MEDS: POLYETHYLENE (MIRALAX) 17 GM PACK PO SCH (09:57)
[2020-09-05] MEDS ORDERED: NAPHAZOLIN/PHENIRAMIN OPH SOLN 75 DROPS/5 ML BTL OP PRN (18:18)
[2020-09-06] MEDS: HEPARIN SOD 5,000 UNIT/0.5 ML VIAL SQ SCH ×3 (05:50→20:33)
[2020-09-06] MEDS: ASPIRIN 81 MG ECTAB PO SCH (08:27)
[2020-09-06] MEDS: CHOLECALCIFEROL 1,000 UNITS 25 MCG TAB PO SCH (08:27)
[2020-09-06] MEDS: ASCORBIC ACID 500 MG TAB PO SCH (08:27)
[2020-09-06] MEDS: CLOPIDOGREL BISULFATE 75 MG TAB PO SCH (08:27)
[2020-09-06] MEDS: ADVANCED PROBIOTIC 1250 MG CAPSULE PO SCH (08:28)
[2020-09-06] MEDS: ALFUZOSIN HCL 10 MG TAB PO SCH (08:28)
[2020-09-06] MEDS: PANTOprazole 40 MG TAB PO SCH (08:29)
[2020-09-06] MEDS: predniSONE 20 MG TAB PO SCH (08:29)
[2020-09-06] MEDS: CYANOCOBALAMIN (VITAMIN B-12) 2,500 MCG TAB.SUBL SL SCH (08:29)
[2020-09-06] MEDS: ATORVASTATIN 40 MG TAB PO SCH (08:29)
[2020-09-06] MEDS: OMEGA-3 (PURIFIED FISH OIL) 1 GM CAP PO SCH (08:30)
[2020-09-06] MEDS: PHENYTOIN SODIUM ER 100 MG CAP PO SCH ×2 (08:30→20:29)
[2020-09-06] MEDS: METOPROLOL TARTRATE 25 MG TAB PO SCH ×2 (08:31→20:29)
[2020-09-06] MEDS: POLYETHYLENE (MIRALAX) 17 GM PACK PO SCH (08:38)
[2020-09-06] MEDS: OXYMETAZOLINE 0.05% 30 ML BTL NAE SCH ×2 (08:39→20:26)
[2020-09-06] MEDS: MUPIROCIN 2% OINT 22 GM TUBE EXT SCH ×2 (08:39→20:29)
[2020-09-06] MEDS: INSULIN ASPART 100 UNITS/ML 3 ML PEN SC SCH ×4 (09:10→21:09)
--- NOTE | 2020-09-06 17:40 | Hospitalist Progress Note ---
Date of Service September 06, 2020 Assessment & Plan (1) Pneumonia due to 2019 novel coronavirus: Pneumonia due to COVID-19 virus with hypoxia- Completed Decadron 6 mg IV, stop (09/02) -completed 5 days of Remdesivir on 08/26 -Continue Ventolin HFA 1 puffs 4 times daily as well as ipratropium 1 puff 4 times daily - levofloxacin 750 mg p.o. daily x 7 day course-last dose 08/28 pt still with continued to support, and hopeful that pt turns the corner will continue steroids but changed to prednisone (2) Hypoxia: weaning oxygen as needed saturations stable when sitting up continue to wean down oxygen as tolerated, now on high flow nc (3) Seizure disorder: Continue phenytoin no seizures while here (4) CAD (coronary artery disease): CAD/hypertension-with a h/o STEMI 2017 No acute issues. Trop neg on admission Continue aspirin 81 mg daily, clopidogrel 75 mg daily and metoprolol tartrate 25 mg p.o. twice daily, statin (5) Thoracic aortic aneurysm: followed as outpt Not even mentioned on CT chest performed here (6) History of CVA (cerebrovascular accident): continue ASA, Plavix (7) DJD (degenerative joint disease): takes meloxicam prn as outpt-hold NSAIDs with COVID (8) Diabetes mellitus: HgbA1C here 7.8%, not on meds at home CDE talked to him and plans for glucometer and testing supplies on discharge: - needs a Rx for the following at time of discharge: 1. OneTouch Verio test strips to check 1x/day. 2. OneTouch Delica lancets to check 1x/day. Could possibly start on metformin upon discharge or before but with steroids will keep basal bolus Continue NovoLog sliding scale here-blood sugars are very well controlled, no hypoglycemia (9) BPH w urinary obs/LUTS: continue alfuzosin no acute issues but has h/o elevated PVR, follows with Urology (10) Hypokalemia: still slightly low replete po (11) Epistaxis: right nostril-> resolved encourage saline spray q1H Mupirocin q12 (12) DVT prophylaxis: heparin resume, at high risk for DVT was held briefly for epistaxis Dispo-continued stay on [facility], condition is guarded Full code Admission and Anticipated Discharge Date Admission Date: August 22, 2020 Subjective Pt is right shoulder has improved , I updated his over the phone 09/06, slow steady progress he remains fatigued dry right eye, improved with naphcon once oxygen is a bit lower may transfer to [facility] stepdown unit Review of Systems Review of Systems: moderate distress and fatigue no headache, blurry or double vision no speech or swallowing issues no chest pain, pressure or palpitations resting shortness of breath, non productive cough no abdominal pain, nausea or vomiting, diarrhea or constipation no dysuria, hematuria or frequency no focal joint pain or swelling no back pain, CVA tenderness or radicular pain no bruising, bleeding or rashes no focal signs of weakness or numbness or altered sensation, globally is weak no complaints of anxiety or depression.. Physical Exam Physical Exam: The patient appeared well nourished and normally developed. Vital signs as documented. Head exam is normocephalic atraumatic no scleral icterus Neck is without JVD, thyromegaly, or carotid bruits. Lungs are fairly clear to auscultation only with scant rales at the bases. Not consistent with the degree of hypoxia he is experiencing. Cardiac exam, Rhythm is regular.. No murmurs, rubs or gallops. Abdominal exam reveals normal bowel sounds, soft non tender, no masses Extremities are nonedematous and both pedal pulses are present Neurologic exam is alert and oriented, no focal loss of strength or sensation Skin is without bruises or rashes Psychologically is without concerns for anxiety or depression. Results & Data Results & Data ([facility]) Vital Signs (Past 12 Hours) Vital Signs Temp Pulse Pulse Resp BP BP Pulse Ox 09/06/20 16:47 98.2 F 80 20 123/84 91 09/06/20 11:27 98.2 F 73 20 107/72 90 09/06/20 08:00 72 09/06/20 07:32 97.5 F L 80 20 130/81 91 PG Care Time/CCT Total # of Minutes Spent Total Time Spent with Patient: Total time spent is greater than 50% in coordinat ion of care (as documented) at patient's floor/unit and/or counseling patient: Coding Level of Care Code 35513 Subseq Hosp Care Lvl 3 Diagnoses Pneumonia due to 2019 novel coronavirus U07.1; J12.89 Hypoxia R09.02 Seizure disorder G40.909 CAD (coronary artery disease) I25.10 Thoracic aortic aneurysm I71.2 History of CVA (cerebrovascular accident) Z86.73 DJD (degenerative joint disease) M19.90 Diabetes mellitus E11.9 BPH w urinary obs/LUTS N40.1; N13.8 Hypokalemia E87.6 Epistaxis R04.0 DVT prophylaxis Z29.9
[2020-09-07] MEDS: HEPARIN SOD 5,000 UNIT/0.5 ML VIAL SQ SCH ×3 (06:00→21:35)
[2020-09-07] MEDS: ASCORBIC ACID 500 MG TAB PO SCH (08:42)
[2020-09-07] MEDS: PANTOprazole 40 MG TAB PO SCH (08:42)
[2020-09-07] MEDS: OMEGA-3 (PURIFIED FISH OIL) 1 GM CAP PO SCH (08:42)
[2020-09-07] MEDS: PHENYTOIN SODIUM ER 100 MG CAP PO SCH ×2 (08:42→22:38)
[2020-09-07] MEDS: CHOLECALCIFEROL 1,000 UNITS 25 MCG TAB PO SCH (08:43)
[2020-09-07] MEDS: ATORVASTATIN 40 MG TAB PO SCH (08:43)
[2020-09-07] MEDS: ASPIRIN 81 MG ECTAB PO SCH (08:43)
[2020-09-07] MEDS: OXYMETAZOLINE 0.05% 30 ML BTL NAE SCH ×2 (08:43→21:34)
[2020-09-07] MEDS: MUPIROCIN 2% OINT 22 GM TUBE EXT SCH ×2 (08:44→21:34)
[2020-09-07] MEDS: CYANOCOBALAMIN (VITAMIN B-12) 2,500 MCG TAB.SUBL SL SCH (08:44)
[2020-09-07] MEDS: ALFUZOSIN HCL 10 MG TAB PO SCH (08:44)
[2020-09-07] MEDS: CLOPIDOGREL BISULFATE 75 MG TAB PO SCH (08:47)
[2020-09-07] MEDS: ADVANCED PROBIOTIC 1250 MG CAPSULE PO SCH (08:47)
[2020-09-07] MEDS: METOPROLOL TARTRATE 25 MG TAB PO SCH ×2 (08:48→22:15)
[2020-09-07] MEDS: predniSONE 20 MG TAB PO SCH (08:48)
[2020-09-07] MEDS: POLYETHYLENE (MIRALAX) 17 GM PACK PO SCH (08:49)
[2020-09-07] MEDS: INSULIN ASPART 100 UNITS/ML 3 ML PEN SC SCH ×4 (09:00→21:42)
--- NOTE | 2020-09-07 12:53 | Hospitalist Progress Note ---
Date of Service September 07, 2020 Assessment & Plan (1) Pneumonia due to 2019 novel coronavirus: Pneumonia due to COVID-19 virus with hypoxia- Completed Decadron 6 mg IV, stop (09/02) -completed 5 days of Remdesivir on 08/26 -Continue Ventolin HFA 1 puffs 4 times daily as well as ipratropium 1 puff 4 times daily - levofloxacin 750 mg p.o. daily x 7 day course-last dose 08/28 pt still with continued to support, and hopeful that pt turns the corner will continue steroids but changed to prednisone plan for long taper he is down to 5L NC today, will downgrade to medical floor, get him to the third floor try to walk in the hallway he continues to eat and drink quite well, no fever/chills, breathing is improved he is optimistic about going home later this week (2) Hypoxia: weaning oxygen as needed saturations stable when sitting up continue to wean down oxygen as tolerated, now on high flow nc at 5L he is stable to move to third floor COVID unit (3) Seizure disorder: Continue phenytoin no seizures while here (4) CAD (coronary artery disease): CAD/hypertension-with a h/o STEMI 2017 No acute issues. Trop neg on admission Continue aspirin 81 mg daily, clopidogrel 75 mg daily and metoprolol tartrate 25 mg p.o. twice daily, statin (5) Thoracic aortic aneurysm: followed as outpt Not even mentioned on CT chest performed here (6) History of CVA (cerebrovascular accident): continue ASA, Plavix (7) DJD (degenerative joint disease): takes meloxicam prn as outpt-hold NSAIDs with COVID (8) Diabetes mellitus: HgbA1C here 7.8%, not on meds at home CDE talked to him and plans for glucometer and testing supplies on discharge: - needs a Rx for the following at time of discharge: 1. OneTouch Verio test strips to check 1x/day. 2. OneTouch Delica lancets to check 1x/day. Could possibly start on metformin upon discharge or before but with steroids will keep basal bolus Continue NovoLog sliding scale here-blood sugars are very well controlled, no hypoglycemia (9) BPH w urinary obs/LUTS: continue alfuzosin having increased frequency and incomplete voiding the past few days add Flomax 0.4mg HS (10) Hypokalemia: no BMP today, check tomorrow (11) Epistaxis: right nostril-> resolved encourage saline spray q1H Mupirocin q12 (12) DVT prophylaxis: heparin resume, at high risk for DVT was held briefly for epistaxis Dispo- to medical floor, improving slowly each day get PT/OT evaluations since he is now on 3rd floor Full code Admission and Anticipated Discharge Date Admission Date: August 22, 2020 Subjective patient feels well, eating his breakfast and lunch, breathing stable on 5L, 88- 90%, no distress at all he says his strength is good no fever/chills, no cough, no nausea updated his at the bedside on his cell phone no labs today will move to 3rd floor if possible to do more therapy Review of Systems Review of Systems: All systems reviewed & are unremarkable except as noted in Subjective Constitutional: no fever, no chills, no sweats, no fatigue and no weakness Respiratory: + dyspnea on exertion; no cough and no dyspnea Cardiovascular: no chest pain and no edema Gastrointestinal: no abdominal pain, no nausea, no vomiting, no constipation and no diarrhea/loose stools Physical Exam Constitutional: WD/WN, vitals as above no acute distress Neck: trachea midline, no thyromegaly Respiratory: normal respiratory effort, lungs clear to auscultation no respiratory distress Cardiovascular: RRR, no murmur, no edema Gastrointestinal (Abdomen): normal bowel sounds, soft, nontender, no hepatosplenomegaly Musculoskeletal: no cyanosis or clubbing, extremities motor strength 5/5 Skin: no rashes, warm and dry Neurologic: patellar DTR's 2+ bilat, sensation intact and PERRL, EOMI, accommodation nl, no face palsy, no dysarthria Psychiatric: A+Ox3, euthymic affect Lymphatic: no cervical or axillary lymphadenopathy Results & Data Results & Data ([facility]) Vital Signs (Past 12 Hours) Vital Signs Temp Pulse Pulse Resp BP Pulse Ox 09/07/20 11:19 37 C 74 22 126/75 92 09/07/20 07:30 36.5 C 86 18 136/68 98 09/07/20 07:00 74 09/07/20 04:11 36.7 C 69 20 127/78 92 Laboratory Results Laboratory Results - last 24 hr 09/06/20 09/07/20 09/07/20 22:43 07:52 11:22 POC Glucose 132 H 141 H 159 H 09/07/20 09/07/20 16:19 20:55 POC Glucose 217 H 145 H Medications Administered Current Inpatient Medications Acetaminophen (Acetaminophen 325 Mg Tab) 650 mg PO Q4H PRN PRN Reason: Pain or Fever Stop: 09/21/20 02:01 Last Admin: 09/03/20 20:20 Dose: 650 mg Documented by: Al Hydrox/Mg Hydrox/Simethicone (Aluminum/Magnesium Susp 30 Ml Udc) 15 ml PO Q4H PRN PRN Reason: Dyspepsia Stop: 09/21/20 02:01 Albuterol (Albuterol Hfa 8 Gm Inhaler) 1 puffs INH Q4 PRN PRN Reason: Shortness Of Breath Or Wheezin Stop: 09/25/20 08:57 Alfuzosin HCl (Alfuzosin Hcl 10 Mg Tab) 10 mg PO DAILY [facility] Stop: 09/21/20 08:59 Last Admin: 09/07/20 08:44 Dose: 10 mg Documented by: Ascorbic Acid (Ascorbic Acid 500 Mg Tab) 500 mg PO DAILY [facility] Stop: 09/21/20 08:59 Last Admin: 09/07/20 08:42 Dose: 500 mg Documented by: Aspirin (Aspirin 81 Mg Ectab) 81 mg PO DAILY [facility] Stop: 09/21/20 08:59 Last Admin: 09/07/20 08:43 Dose: 81 mg Documented by: Atorvastatin Calcium (Atorvastatin 40 Mg Tab) 80 mg PO DAILY [facility] Stop: 09/21/20 08:59 Last Admin: 09/07/20 08:43 Dose: 80 mg Documented by: Betamethasone Dipropion Augmented (Betamethasone Dip Aug (Diprolene) 0.05% Cr 15 Gm Tube) 1 appln EXT DAILY PRN PRN Reason: Itching Stop: 09/21/20 04:33 Clopidogrel Bisulfate (Clopidogrel Bisulfate 75 Mg Tab) 75 mg PO DAILY [facility] Stop: 09/21/20 08:59 Last Admin: 09/07/20 08:47 Dose: 75 mg Documented by: Cyanocobalamin (Cyanocobalamin (Vitamin B-12) 2,500 Mcg Tab.Subl) 1,250 mcg SL DAILY [facility] Stop: 09/21/20 08:59 Last Admin: 09/07/20 08:44 Dose: 1,250 mcg Documented by: Dextrose (Dextrose 50% 50 Ml Syringe) 25 - 50 ml IV UD PRN; Protocol PRN Reason: Hypoglycemia Protocol Stop: 09/21/20 02:01 Diclofenac Sodium (Diclofenac Sod 1% Gel 100 Gm Tube) 2 gm EXT TID PRN PRN Reason: pain Stop: 10/03/20 20:59 Diphenhydramine HCl (Diphenhydramine Capsule 25 Mg Cap) 25 mg PO HS PRN PRN Reason: Itching Stop: 09/21/20 02:01 Fish Oil ([place]-3 (Purified Fish Oil) 1 Gm Cap) 1 gm PO DAILY [facility] Stop: 09/21/20 08:59 Last Admin: 09/07/20 08:42 Dose: 1 gm Documented by: Glucagon (Glucagon For Inj 1 Mg Vial) 1 mg SQ UD PRN; Protocol PRN Reason: Hypoglycemia Protocol Stop: 09/21/20 02:01 Glucose (Glucose 10 Tabs/Tube) 4 - 8 tabs PO UD PRN; Protocol PRN Reason: Hypoglycemia Protocol Stop: 09/21/20 02:01 Glucose (Glucose 40% Gel 15 Gm Tube) 15 - 30 gm PO UD PRN; Protocol PRN Reason: Hypoglycemia Protocol Stop: 09/21/20 02:01 Heparin Sodium (Porcine) (Heparin Sod 5,000 Unit/0.5 Ml Vial) 5,000 units SQ Q8 [facility] Stop: 10/01/20 21:59 Last Admin: 09/07/20 21:35 Dose: 5,000 units Documented by: Insulin Aspart (Insulin Aspart 100 Units/Ml 3 Ml Pen) 0 units SC ACHS [facility] Stop: 09/21/20 02:29 Last Admin: 09/07/20 21:42 Dose: Not Given Documented by: Ipratropium [place] (Ipratropium [place] Hfa Inhaler) 1 puffs INH Q4 PRN PRN Reason: Shortness Of Breath Or Wheezin Stop: 09/25/20 08:58 Lactobacillus Acidoph/Casei/Rhamnos (Advanced Probiotic 1250 Mg Capsule) 2 cap PO DAILY [facility] Stop: 09/21/20 08:59 Last Admin: 09/07/20 08:47 Dose: 2 cap Documented by: Magnesium Hydroxide (Magnesium Hydroxide Susp 30 Ml Udc) 30 ml PO Q12H PRN PRN Reason: Constipation Stop: 09/21/20 02:01 Metoprolol Tartrate (Metoprolol Tartrate 25 Mg Tab) 25 mg PO BID [facility] Stop: 09/21/20 02:01 Last Admin: 09/07/20 22:15 Dose: 25 mg Documented by: Miscellaneous (Carbohydrates For Hypoglycemia ) 15 - 30 gm PO UD PRN PRN Reason: Hypoglycemia Protocol Stop: 09/21/20 02:01 Mupirocin (Mupirocin 2% Oint 22 Gm Tube) 1 appln EXT Q12 [facility] Stop: 09/29/20 20:59 Last Admin: 09/07/20 21:34 Dose: Not Given Documented by: Naphazoline HCl/Pheniramine Maleate (Naphazolin/Pheniramin Oph Soln 75 Drops/5 Ml Btl) 2 drops OP Q4H PRN PRN Reason: eye discomfort Stop: 10/05/20 18:17 Last Admin: 09/05/20 21:21 Dose: 2 drops Documented by: Ondansetron HCl (Ondansetron Inj 2 Mg/Ml 2 Ml Vial) 4 mg IV Q6H PRN PRN Reason: Nausea Stop: 09/21/20 02:01 Oxymetazoline HCl (Oxymetazoline 0.05% 30 Ml Btl) 1 sprays OTIS BID [facility] Stop: 09/23/20 17:59 Last Admin: 09/07/20 21:34 Dose: Not Given Documented by: Pantoprazole Sodium (Pantoprazole 40 Mg Tab) 40 mg PO QAM [facility] Stop: 09/29/20 08:59 Last Admin: 09/07/20 08:42 Dose: 40 mg Documented by: Phenytoin Sodium (Phenytoin Sodium Er 100 Mg Cap) 200 mg PO BID [facility] Stop: 09/21/20 02:01 Last Admin: 09/07/20 08:42 Dose: 200 mg Documented by: Polyethylene Glycol (Polyethylene (Miralax) 17 Gm Pack) 17 gm PO DAILY [facility] Stop: 10/05/20 09:59 Last Admin: 09/07/20 08:49 Dose: Not Given Documented by: Prednisone (Prednisone 20 Mg Tab) 40 mg PO DAILY [facility] Stop: 10/04/20 08:59 Last Admin: 09/07/20 08:48 Dose: 40 mg Documented by: Tamsulosin HCl (Tamsulosin Hcl 0.4 Mg Cap) 0.4 mg PO HS [facility] Stop: 10/07/20 20:59 Last Admin: 09/07/20 22:15 Dose: 0.4 mg Documented by: Tramadol HCl (Tramadol Hcl 50 Mg Tablet) 50 mg PO Q4H PRN PRN Reason: Pain Stop: 10/03/20 16:09 Last Admin: 09/03/20 17:19 Dose: 50 mg Documented by: Vitamin D (Cholecalciferol 1,000 Units 25 Mcg Tab) 1,000 units PO DAILY [facility] Stop: 09/21/20 08:59 Last Admin: 09/07/20 08:43 Dose: 1,000 units Documented by: PG Care Time/CCT Total # of Minutes Spent Total Time Spent with Patient: Total time spent is greater than 50% in coordination of care (as documented) at patient's floor/unit and/or counseling patient: Coding Level of Care Code 93698 Subseq Hosp Care Lvl 3 Diagnoses Pneumonia due to 2019 novel coronavirus U07.1; J12.89 Hypoxia R09.02 Seizure disorder G40.909 CAD (coronary artery disease) I25.10 Thoracic aortic aneurysm I71.2 History of CVA (cerebrovascular accident) Z86.73 DJD (degenerative joint disease) M19.90 Diabetes mellitus E11.9 BPH w urinary obs/LUTS N40.1; N13.8 Hypokalemia E87.6 Epistaxis R04.0 DVT prophylaxis Z29.9
[2020-09-07] MEDS: TAMSULOSIN HCL 0.4 MG CAP PO SCH (22:15)
[2020-09-08] MEDS: HEPARIN SOD 5,000 UNIT/0.5 ML VIAL SQ SCH ×3 (05:00→21:18)
[2020-09-08 07:05] LABS: BUN Creatinine Ratio 22.2 (10-20); Calcium 8.6 mg/dl (8.5-10.1); Creatinine Clr Calc Pharmacy 96.3 ml/min; Est GFR (African American) 103.8; Est GFR (Non-African American) 89.6; Potassium 3.8 mmol/L (3.5-5.1)
[2020-09-08] MEDS: OXYMETAZOLINE 0.05% 30 ML BTL NAE SCH ×2 (08:23→21:18)
[2020-09-08] MEDS: ALFUZOSIN HCL 10 MG TAB PO SCH (08:24)
[2020-09-08] MEDS: MUPIROCIN 2% OINT 22 GM TUBE EXT SCH ×2 (08:24→21:18)
[2020-09-08] MEDS: METOPROLOL TARTRATE 25 MG TAB PO SCH ×2 (08:24→21:17)
[2020-09-08] MEDS: ASPIRIN 81 MG ECTAB PO SCH (08:25)
[2020-09-08] MEDS: ASCORBIC ACID 500 MG TAB PO SCH (08:25)
[2020-09-08] MEDS: ADVANCED PROBIOTIC 1250 MG CAPSULE PO SCH (08:25)
[2020-09-08] MEDS: CHOLECALCIFEROL 1,000 UNITS 25 MCG TAB PO SCH (08:25)
[2020-09-08] MEDS: ATORVASTATIN 40 MG TAB PO SCH (08:25)
[2020-09-08] MEDS: CYANOCOBALAMIN (VITAMIN B-12) 2,500 MCG TAB.SUBL SL SCH (08:26)
[2020-09-08] MEDS: predniSONE 20 MG TAB PO SCH (08:27)
[2020-09-08] MEDS: PANTOprazole 40 MG TAB PO SCH (08:27)
[2020-09-08] MEDS: CLOPIDOGREL BISULFATE 75 MG TAB PO SCH (08:27)
[2020-09-08] MEDS: OMEGA-3 (PURIFIED FISH OIL) 1 GM CAP PO SCH (08:27)
[2020-09-08] MEDS: PHENYTOIN SODIUM ER 100 MG CAP PO SCH ×2 (08:28→21:17)
[2020-09-08] MEDS: POLYETHYLENE (MIRALAX) 17 GM PACK PO SCH (08:30)
[2020-09-08] MEDS: INSULIN ASPART 100 UNITS/ML 3 ML PEN SC SCH ×4 (08:44→21:39)
--- NOTE | 2020-09-08 13:56 | Hospitalist Progress Note ---
Date of Service September 08, 2020 Assessment & Plan (1) Pneumonia due to 2019 novel coronavirus: Pneumonia due to COVID-19 virus with hypoxia- Completed Decadron 6 mg IV, stop (09/02) -completed 5 days of Remdesivir on 08/26 -Continue Ventolin HFA 1 puffs 4 times daily as well as ipratropium 1 puff 4 times daily - levofloxacin 750 mg p.o. daily x 7 day course-last dose 08/28 pt still with continued to support, and hopeful that pt turns the corner will continue steroids but changed to prednisone plan for long taper, cut to 30mg PO tomorrow he is down to 3-5L NC today try to walk in the hallway, he did really well he continues to eat and drink quite well, no fever/chills, breathing is improved he is optimistic about going home later this week and I think that is reasonable (2) Hypoxia: weaning oxygen as needed saturations stable when sitting up continue to wean down oxygen as tolerated, now on low flow, 3-5L plan for two step, likely on Wednesday (3) Seizure disorder: Continue phenytoin no seizures while here (4) CAD (coronary artery disease): CAD/hypertension-with a h/o STEMI 2017 No acute issues. Trop neg on admission Continue aspirin 81 mg daily, clopidogrel 75 mg daily and metoprolol tartrate 25 mg p.o. twice daily, statin (5) Thoracic aortic aneurysm: followed as outpt Not even mentioned on CT chest performed here (6) History of CVA (cerebrovascular accident): continue ASA, Plavix (7) DJD (degenerative joint disease): takes meloxicam prn as outpt-hold NSAIDs with COVID (8) Diabetes mellitus: HgbA1C here 7.8%, not on meds at home CDE talked to him and plans for glucometer and testing supplies on discharge: - needs a Rx for the following at time of discharge: 1. OneTouch Verio test strips to check 1x/day. 2. OneTouch Delica lancets to check 1x/day. Could possibly start on metformin upon discharge or before but with steroids will keep basal bolus Continue NovoLog sliding scale here-blood sugars are very well controlled, no hypoglycemia (9) BPH w urinary obs/LUTS: continue alfuzosin having increased frequency and incomplete voiding the past few days added Flomax 0.4mg HS on 09/07 urinately less today (10) Hypokalemia: resolved, 3.8 today (11) Epistaxis: right nostril-> resolved encourage saline spray q1H Mupirocin q12 (12) DVT prophylaxis: heparin resume, at high risk for DVT was held briefly for epistaxis Dispo- improving slowly each day get PT/OT evaluations since he is now on 3rd floor plan to go home, earliest would be Wednesday Full code Admission and Anticipated Discharge Date Admission Date: August 22, 2020 Subjective patient feeling great today, says he walked down the [place] and back with therapy, he said the therapist was impressed by how strong he was fluctuating between 3 and 5L today discussed with he and his that I would want him down a little further prior to discharge, like 2-3L will plan for two step at that time, hopeful to get home Wednesday/Wednesday, prior to [place] he continues to eat well BMP is normal today Review of Systems Review of Systems: All systems reviewed & are unremarkable except as noted in Subjective Physical Exam Constitutional: WD/WN, vitals as above no acute distress Neck: trachea midline, no thyromegaly Respiratory: normal respiratory effort, lungs clear to auscultation Cardiovascular: RRR, no murmur, no edema Gastrointestinal (Abdomen): normal bowel sounds, soft, nontender, no hepatosplenomegaly Musculoskeletal: no cyanosis or clubbing, extremities motor strength 5/5 Skin: no rashes, warm and dry Neurologic: patellar DTR's 2+ bilat, sensation intact and PERRL, EOMI, accommodation nl, no face palsy, no dysarthria Psychiatric: A+Ox3, euthymic affect Lymphatic: no cervical or axillary lymphadenopathy Results & Data Results & Data ([facility]) Vital Signs (Past 12 Hours) Vital Signs Temp Pulse Resp BP Pulse Ox 09/08/20 13:32 92 09/08/20 08:16 92 09/08/20 08:15 88 L 09/08/20 08:06 36.6 C 77 18 119/82 93 09/08/20 05:19 91 09/08/20 04:22 68 18 92 Laboratory Results Laboratory Results - last 24 hr 09/08/20 09/08/20 09/08/20 06:13 08:42 11:48 Sodium 139 Potassium 3.8 Chloride 104 Carbon Dioxide 29 Anion Gap 6.0 BUN 16 Creatinine 0.74 Est Cr Clr Drug Dosing 96.3 Est GFR ( Amer) 103.8 Est GFR (Non-Af Amer) 89.6 BUN/Creatinine Ratio 22.2 H Glucose 141 H POC Glucose 137 H 138 H Calcium 8.6 09/08/20 09/08/20 17:23 20:42 Sodium Potassium Chloride Carbon Dioxide Anion Gap BUN Creatinine Est Cr Clr Drug Dosing Est GFR ( Amer) Est GFR (Non-Af Amer) BUN/Creatinine Ratio Glucose POC Glucose 175 H 107 H Calcium Medications Administered Current Inpatient Medications Acetaminophen (Acetaminophen 325 Mg Tab) 650 mg PO Q4H PRN PRN Reason: Pain or Fever Stop: 09/21/20 02:01 Last Admin: 09/03/20 20:20 Dose: 650 mg Documented by: Al Hydrox/Mg Hydrox/Simethicone (Aluminum/Magnesium Susp 30 Ml Udc) 15 ml PO Q4H PRN PRN Reason: Dyspepsia Stop: 09/21/20 02:01 Albuterol (Albuterol Hfa 8 Gm Inhaler) 1 puffs INH Q4 PRN PRN Reason: Shortness Of Breath Or Wheezin Stop: 09/25/20 08:57 Alfuzosin HCl (Alfuzosin Hcl 10 Mg Tab) 10 mg PO DAILY [facility] Stop: 09/21/20 08:59 Last Admin: 09/08/20 08:24 Dose: 10 mg Documented by: Ascorbic Acid (Ascorbic Acid 500 Mg Tab) 500 mg PO DAILY [facility] Stop: 09/21/20 08:59 Last Admin: 09/08/20 08:25 Dose: 500 mg Documented by: Aspirin (Aspirin 81 Mg Ectab) 81 mg PO DAILY [facility] Stop: 09/21/20 08:59 Last Admin: 09/08/20 08:25 Dose: 81 mg Documented by: Atorvastatin Calcium (Atorvastatin 40 Mg Tab) 80 mg PO DAILY [facility] Stop: 09/21/20 08:59 Last Admin: 09/08/20 08:25 Dose: 80 mg Documented by: Betamethasone Dipropion Augmented (Betamethasone Dip Aug (Diprolene) 0.05% Cr 15 Gm Tube) 1 appln EXT DAILY PRN PRN Reason: Itching Stop: 01/02/21 04:33 Clopidogrel Bisulfate (Clopidogrel Bisulfate 75 Mg Tab) 75 mg PO DAILY [facility] Stop: 09/21/20 08:59 Last Admin: 09/08/20 08:27 Dose: 75 mg Documented by: Cyanocobalamin (Cyanocobalamin (Vitamin B-12) 2,500 Mcg Tab.Subl) 1,250 mcg SL DAILY [facility] Stop: 09/21/20 08:59 Last Admin: 09/08/20 08:26 Dose: 1,250 mcg Documented by: Dextrose (Dextrose 50% 50 Ml Syringe) 25 - 50 ml IV UD PRN; Protocol PRN Reason: Hypoglycemia Protocol Stop: 09/21/20 02:01 Diclofenac Sodium (Diclofenac Sod 1% Gel 100 Gm Tube) 2 gm EXT TID PRN PRN Reason: pain Stop: 10/03/20 20:59 Diphenhydramine HCl (Diphenhydramine Capsule 25 Mg Cap) 25 mg PO HS PRN PRN Reason: Itching Stop: 09/21/20 02:01 Fish Oil ([place]-3 (Purified Fish Oil) 1 Gm Cap) 1 gm PO DAILY [facility] Stop: 09/21/20 08:59 Last Admin: 09/08/20 08:27 Dose: 1 gm Documented by: Glucagon (Glucagon For Inj 1 Mg Vial) 1 mg SQ UD PRN; Protocol PRN Reason: Hypoglycemia Protocol Stop: 09/21/20 02:01 Glucose (Glucose 10 Tabs/Tube) 4 - 8 tabs PO UD PRN; Protocol PRN Reason: Hypoglycemia Protocol Stop: 09/21/20 02:01 Glucose (Glucose 40% Gel 15 Gm Tube) 15 - 30 gm PO UD PRN; Protocol PRN Reason: Hypoglycemia Protocol Stop: 09/21/20 02:01 Heparin Sodium (Porcine) (Heparin Sod 5,000 Unit/0.5 Ml Vial) 5,000 units SQ Q8 [facility] Stop: 10/01/20 21:59 Last Admin: 09/08/20 21:18 Dose: 5,000 units Documented by: Insulin Aspart (Insulin Aspart 100 Units/Ml 3 Ml Pen) 0 units SC ACHS [facility] Stop: 09/21/20 02:29 Last Admin: 09/08/20 21:39 Dose: Not Given Documented by: Ipratropium [place] (Ipratropium [place] Hfa Inhaler) 1 puffs INH Q4 PRN PRN Reason: Shortness Of Breath Or Wheezin Stop: 09/25/20 08:58 Lactobacillus Acidoph/Casei/Rhamnos (Advanced Probiotic 1250 Mg Capsule) 2 cap PO DAILY [facility] Stop: 09/21/20 08:59 Last Admin: 09/08/20 08:25 Dose: 2 cap Documented by: Magnesium Hydroxide (Magnesium Hydroxide Susp 30 Ml Udc) 30 ml PO Q12H PRN PRN Reason: Constipation Stop: 09/21/20 02:01 Metoprolol Tartrate (Metoprolol Tartrate 25 Mg Tab) 25 mg PO BID [facility] Stop: 09/21/20 02:01 Last Admin: 09/08/20 21:17 Dose: 25 mg Documented by: Miscellaneous (Carbohydrates For Hypoglycemia ) 15 - 30 gm PO UD PRN PRN Reason: Hypoglycemia Protocol Stop: 09/21/20 02:01 Mupirocin (Mupirocin 2% Oint 22 Gm Tube) 1 appln EXT Q12 [facility] Stop: 09/29/20 20:59 Last Admin: 09/08/20 21:18 Dose: Not Given Documented by: Naphazoline HCl/Pheniramine Maleate (Naphazolin/Pheniramin Oph Soln 75 Drops/5 Ml Btl) 2 drops OP Q4H PRN PRN Reason: eye discomfort Stop: 10/05/20 18:17 Last Admin: 09/05/20 21:21 Dose: 2 drops Documented by: Ondansetron HCl (Ondansetron Inj 2 Mg/Ml 2 Ml Vial) 4 mg IV Q6H PRN PRN Reason: Nausea Stop: 09/21/20 02:01 Oxymetazoline HCl (Oxymetazoline 0.05% 30 Ml Btl) 1 sprays OTIS BID [facility] Stop: 09/23/20 17:59 Last Admin: 09/08/20 21:18 Dose: Not Given Documented by: Pantoprazole Sodium (Pantoprazole 40 Mg Tab) 40 mg PO QAM [facility] Stop: 09/29/20 08:59 Last Admin: 09/08/20 08:27 Dose: 40 mg Documented by: Phenytoin Sodium (Phenytoin Sodium Er 100 Mg Cap) 200 mg PO BID [facility] Stop: 09/21/20 02:01 Last Admin: 09/08/20 21:17 Dose: 200 mg Documented by: Polyethylene Glycol (Polyethylene (Miralax) 17 Gm Pack) 17 gm PO DAILY [facility] Stop: 10/05/20 09:59 Last Admin: 09/08/20 08:30 Dose: Not Given Documented by: Prednisone (Prednisone 20 Mg Tab) 40 mg PO DAILY [facility] Stop: 10/04/20 08:59 Last Admin: 09/08/20 08:27 Dose: 40 mg Documented by: Tamsulosin HCl (Tamsulosin Hcl 0.4 Mg Cap) 0.4 mg PO HS [facility] Stop: 10/07/20 20:59 Last Admin: 09/08/20 21:17 Dose: 0.4 mg Documented by: Tramadol HCl (Tramadol Hcl 50 Mg Tablet) 50 mg PO Q4H PRN PRN Reason: Pain Stop: 10/03/20 16:09 Last Admin: 09/03/20 17:19 Dose: 50 mg Documented by: Vitamin D (Cholecalciferol 1,000 Units 25 Mcg Tab) 1,000 units PO DAILY [facility] Stop: 09/21/20 08:59 Last Admin: 09/08/20 08:25 Dose: 1,000 units Documented by: PG Care Time/CCT Total # of Minutes Spent Total Time Spent with Patient: Total time spent is greater than 50% in coordination of care (as documented) at patient's floor/unit and/or counseling patient: Coding Level of Care Code 38414 Subseq Hosp Care Lvl 3 Diagnoses Pneumonia due to 2019 novel coronavirus U07.1; J12.89 Hypoxia R09.02 Seizure disorder G40.909 CAD (coronary artery disease) I25.10 Thoracic aortic aneurysm I71.2 History of CVA (cerebrovascular accident) Z86.73 DJD (degenerative joint disease) M19.90 Diabetes mellitus E11.9 BPH w urinary obs/LUTS N40.1; N13.8 Hypokalemia E87.6 Epistaxis R04.0 DVT prophylaxis Z29.9
[2020-09-08] MEDS: TAMSULOSIN HCL 0.4 MG CAP PO SCH (21:17)
[2020-09-09] MEDS: HEPARIN SOD 5,000 UNIT/0.5 ML VIAL SQ SCH ×3 (06:09→21:18)
[2020-09-09] MEDS: OXYMETAZOLINE 0.05% 30 ML BTL NAE SCH ×2 (06:29→21:17)
[2020-09-09] MEDS: INSULIN ASPART 100 UNITS/ML 3 ML PEN SC SCH ×4 (08:52→22:06)
[2020-09-09] MEDS: POLYETHYLENE (MIRALAX) 17 GM PACK PO SCH (08:55)
[2020-09-09] MEDS: OMEGA-3 (PURIFIED FISH OIL) 1 GM CAP PO SCH (08:57)
[2020-09-09] MEDS: ASPIRIN 81 MG ECTAB PO SCH (08:57)
[2020-09-09] MEDS: ATORVASTATIN 40 MG TAB PO SCH (08:57)
[2020-09-09] MEDS: PANTOprazole 40 MG TAB PO SCH (08:57)
[2020-09-09] MEDS: METOPROLOL TARTRATE 25 MG TAB PO SCH ×2 (08:57→21:18)
[2020-09-09] MEDS: CLOPIDOGREL BISULFATE 75 MG TAB PO SCH (08:58)
[2020-09-09] MEDS: ASCORBIC ACID 500 MG TAB PO SCH (08:58)
[2020-09-09] MEDS: ADVANCED PROBIOTIC 1250 MG CAPSULE PO SCH (08:58)
[2020-09-09] MEDS: ALFUZOSIN HCL 10 MG TAB PO SCH (08:58)
[2020-09-09] MEDS: PHENYTOIN SODIUM ER 100 MG CAP PO SCH ×2 (08:58→21:18)
[2020-09-09] MEDS: CHOLECALCIFEROL 1,000 UNITS 25 MCG TAB PO SCH (08:58)
[2020-09-09] MEDS: CYANOCOBALAMIN (VITAMIN B-12) 2,500 MCG TAB.SUBL SL SCH (08:59)
[2020-09-09] MEDS: predniSONE 10 MG TABLET PO SCH (09:00)
[2020-09-09] MEDS: MUPIROCIN 2% OINT 22 GM TUBE EXT SCH ×2 (09:03→21:17)
--- NOTE | 2020-09-09 09:50 | XRay Report ---
XR chest 1V portable HISTORY: 74 years-old Male hypoxia acute hypoxia COMPARISON: Chest radiograph 08/27/2020, CTA chest 08/21/2020 TECHNIQUE: Portable AP view of the chest FINDINGS: Cardiac silhouette is mildly enlarged, unchanged. No pneumothorax. Probable trace pleural effusions. Mildly progressed reticular opacities with ill-defined left greater the right bibasilar opacities. De generative changes of the shoulders and spine. IMPRESSION: 1. Mildly progressed bilateral pulmonary opacities suggests multifocal pneumonia. 2. Cardiomegaly. ACT 112: Negative or not required by law. The above report was generated using voice recognition software. It may contain grammatical, syntax o r spelling errors. Electronically signed by: Lior Preciado M.D. 09/09/2020 9:48 AM
[2020-09-09 10:26] LABS: BUN Creatinine Ratio 17.7 (10-20); Calcium 8.8 mg/dl (8.5-10.1); Creatinine Clr Calc Pharmacy 84.8 ml/min; Est GFR (African American) 98.6; Est GFR (Non-African American) 85.1; Potassium 3.7 mmol/L (3.5-5.1)
[2020-09-09] MEDS ORDERED: OPTIRAY 320 125ml IV ONE (10:55)
--- NOTE | 2020-09-09 11:28 | CT Scan Report ---
CT angio chest PE protocol CT DOSE: 559.39 mGycm HISTORY: 74 years-old Male with PE. Acute cough with shortness of breath TECHNIQUE: Multiple CTA images of the chest were obtained after the intravenous administration of 119 ml Optiray 320. Coronal and sagittal MIPS were obtained from the axial data set and were submitted for review. All measurements were obtained according to NASCET criteria. A dose lowering technique w as utilized adhering to the principles of ALARA. COMPARISON: Chest radiograph of same day, CTA chest 08/21/2020 FINDINGS: CTA: Unchanged cardiomegaly. No pericardial effusion. Moderate mitral annular and coronary arterial calcif ications. Mild fusiform dilation of the ascending thoracic aorta, 4.4 x 4.4 cm. No dissection. Tortuo sity of the descending thoracic aorta. Respiratory motion artifact limits the study. This limits eval uation of the segmental and subsegmental branches of the pulmonary artery. No filling defects identif ied to suggest thromboembolic disease. CT CHEST: No large thyroid nodule. Mildly prominent mediastinal lymph nodes are likely reactive. No pneumothora x or pleural effusion. Left greater than right subpleural predominant groundglass and consolidative o pacities have progressively worsened from the 08/21/2020 exam, notably within the left lung base. The central airways appear patent. Moderate sized hiatal hernia. Colonic diverticulosis. Unremarkable soft tissues. Degenerative changes of the shoulders and spine. No acute fracture. IMPRESSION: 1. Cardiomegaly without evidence of pulmonary thromboembolic disease. 2. Progressively worsened subpleural predominant groundglass and consolidative opacities of the lungs , left greater than right is suggestive of viral pneumonia. 3. Moderate hiatal hernia. 4. Unchanged fusiform dilation of the ascending thoracic aorta, 4.4 x 4.4 cm. ACT 112: Negative or not required by law. The above report was generated using voice recognition software. It may contain grammatical, syntax o r spelling errors. Electronically signed by: Lior Preciado M.D. 09/09/2020 11:27 AM
[2020-09-09] MEDS: SODIUM CHLOR 7% 4 ML NEB NEB SCH ×2 (12:16→19:01)
--- NOTE | 2020-09-09 16:38 | Hospitalist Progress Note ---
Date of Service September 09, 2020 Assessment & Plan (1) Pneumonia due to 2019 novel coronavirus: Pneumonia due to COVID-19 virus with hypoxia- Completed Decadron 6 mg IV, stop (09/02) -completed 5 days of Remdesivir on 08/26 -Continue Ventolin HFA 1 puffs 4 times daily as well as ipratropium 1 puff 4 times daily - levofloxacin 750 mg p.o. daily x 7 day course-last dose 08/28 pt still with continued to support, and hopeful that pt turns the corner will continue steroids but changed to prednisone plan for long taper, cut to 30mg PO today, continue for 4 more days then down to 20mg x 5 and 10mg x 5 he is down to 4L NC today but was up to 7L this morning, unclear why CTA chest negative for PE, negative for pulmonary edema, BNP normal just shows persistent viral pneumonia he continues to eat and drink quite well, no fever/chills, breathing is improved he is optimistic about going home later this week and I think that is reasonable if we can continue to titrate his oxygen (2) Hypoxia: weaning oxygen as needed saturations stable when sitting up continue to wean down oxygen as tolerated, now on low flow, 4L this evening plan for two step, likely on Wednesday morning added hypertonic saline today, helping a lot (3) Seizure disorder: Continue phenytoin no seizures while here (4) CAD (coronary artery disease): CAD/hypertension-with a h/o STEMI 2016 No acute issues. Trop neg on admission Continue aspirin 81 mg daily, clopidogrel 75 mg daily and metoprolol tartrate 25 mg p.o. twice daily, statin (5) Thoracic aortic aneurysm: followed as outpt stable at 4cm today on CT (6) History of CVA (cerebrovascular accident): continue ASA, Plavix (7) DJD (degenerative joint disease): takes meloxicam prn as outpt-hold NSAIDs with COVID (8) Diabetes mellitus: HgbA1C here 7.8%, not on meds at home CDE talked to him and plans for glucometer and testing supplies on discharge: - needs a Rx for the following at time of discharge: 1. OneTouch Verio test strips to check 1x/day. 2. OneTouch Delica lancets to check 1x/day. Could possibly start on metformin upon discharge or before but with steroids will keep basal bolus Continue NovoLog sliding scale here-blood sugars are very well controlled, no hypoglycemia (9) BPH w urinary obs/LUTS: continue alfuzosin having increased frequency and incomplete voiding the past few days added Flomax 0.4mg HS on 09/07 urinating less (10) Hypokalemia: resolved, 3.7 today (11) Epistaxis: right nostril-> resolved encourage saline spray q1H Mupirocin q12 (12) DVT prophylaxis: heparin resume, at high risk for DVT was held briefly for epistaxis Dispo- improving slowly each day get PT/OT evaluations since he is now on 3rd floor plan to go home, earliest would be Wednesday but now more likely Wednesday Full code Admission and Anticipated Discharge Date Admission Date: August 22, 2020 Subjective patient feeling the same as yesterday, no increased dyspnea, no fever/chills his oxygen requirements were up to 7L this morning, unclear reason why BNP was normal, CT chest negative for PE or edema, just showed the pneumonia treated with flutter valve, hypertonic saline nebulizers, seemed to clear him up saturations stable on 4L by evening updated his over the phone checked BMP, normal values for electrolytes and Cr Review of Systems Review of Systems: All systems reviewed & are unremarkable except as noted in Subjective Ear, Nose, Mouth, Throat: + nasal congestion Respiratory: + dyspnea on exertion; no cough and no dyspnea Physical Exam Constitutional: WD/WN, vitals as above no acute distress ENMT: Nose: + nasal discharge; no sinus tenderness and no epistaxis Neck: trachea midline, no thyromegaly Respiratory: normal respiratory effort, lungs clear to auscultation no respiratory distress Cardiovascular: RRR, no murmur, no edema Gastrointestinal (Abdomen): normal bowel sounds, soft, nontender, no hepatosplenomegaly Musculoskeletal: no cyanosis or clubbing, extremities motor strength 5/5 Skin: no rashes, warm and dry Neurologic: patellar DTR's 2+ bilat, sensation intact and PERRL, EOMI, accommodation nl, no face palsy, no dysarthria Psychiatric: A+Ox3, euthymic affect Lymphatic: no cervical or axillary lymphadenopathy Results & Data Results & Data ([facility]) Vital Signs (Past 12 Hours) Vital Signs Temp Pulse Pulse Resp BP Pulse Ox 09/09/20 16:15 92 09/09/20 16:02 36.4 C L 73 16 111/74 87 L 09/09/20 14:39 91 09/09/20 13:23 93 09/09/20 13:22 108/68 09/09/20 12:18 68 16 92 09/09/20 08:35 91 09/09/20 08:10 36.4 C L 76 16 131/86 91 09/09/20 06:51 90 Laboratory Results Laboratory Results - last 24 hr 09/08/20 09/09/20 09/09/20 20:42 08:12 09:42 Sodium 138 Potassium 3.7 Chloride 105 Carbon Dioxide 26 Anion Gap 7.0 BUN 15 Creatinine 0.84 Est Cr Clr Drug Dosing 84.8 Est GFR ( Amer) 98.6 Est GFR (Non-Af Amer) 85.1 BUN/Creatinine Ratio 17.7 Glucose 233 H POC Glucose 107 H 158 H Calcium 8.8 NT-Pro-B Natriuret Pep 162 09/09/20 09/09/20 11:53 17:13 Sodium Potassium Chloride Carbon Dioxide Anion Gap BUN Creatinine Est Cr Clr Drug Dosing Est GFR ( Amer) Est GFR (Non-Af Amer) BUN/Creatinine Ratio Glucose POC Glucose 137 H 132 H Calcium NT-Pro-B Natriuret Pep Diagnostic Findings CTA chest, PE protocol IMPRESSION: 1. Cardiomegaly without evidence of pulmonary thromboembolic disease. 2. Progressively worsened subpleural predominant groundglass and consolidative opacities of the lungs, left greater than right is suggestive of viral pneumonia. 3. Moderate hiatal hernia. 4. Unchanged fusiform dilation of the ascending thoracic aorta, 4.4 x 4.4 cm. Medications Administered Current Inpatient Medications Acetaminophen (Acetaminophen 325 Mg Tab) 650 mg PO Q4H PRN PRN Reason: Pain or Fever Stop: 09/21/20 02:01 Last Admin: 09/03/20 20:20 Dose: 650 mg Documented by: Al Hydrox/Mg Hydrox/Simethicone (Aluminum/Magnesium Susp 30 Ml Udc) 15 ml PO Q4H PRN PRN Reason: Dyspepsia Stop: 09/21/20 02:01 Albuterol (Albuterol Hfa 8 Gm Inhaler) 1 puffs INH Q4 PRN PRN Reason: Shortness Of Breath Or Wheezin Stop: 09/25/20 08:57 Alfuzosin HCl (Alfuzosin Hcl 10 Mg Tab) 10 mg PO DAILY KALE Stop: 09/21/20 08:59 Last Admin: 09/09/20 08:58 Dose: 10 mg Documented by: Ascorbic Acid (Ascorbic Acid 500 Mg Tab) 500 mg PO DAILY KALE Stop: 09/21/20 08:59 Last Admin: 09/09/20 08:58 Dose: 500 mg Documented by: Aspirin (Aspirin 81 Mg Ectab) 81 mg PO DAILY KALE Stop: 09/21/20 08:59 Last Admin: 09/09/20 08:57 Dose: 81 mg Documented by: Atorvastatin Calcium (Atorvastatin 40 Mg Tab) 80 mg PO DAILY KALE Stop: 09/21/20 08:59 Last Admin: 09/09/20 08:57 Dose: 80 mg Documented by: Betamethasone Dipropion Augmented (Betamethasone Dip Aug (Diprolene) 0.05% Cr 15 Gm Tube) 1 appln EXT DAILY PRN PRN Reason: Itching Stop: 09/21/20 04:33 Clopidogrel Bisulfate (Clopidogrel Bisulfate 75 Mg Tab) 75 mg PO DAILY KALE Stop: 09/21/20 08:59 Last Admin: 09/09/20 08:58 Dose: 75 mg Documented by: Cyanocobalamin (Cyanocobalamin (Vitamin B-12) 2,500 Mcg Tab.Subl) 1,250 mcg SL DAILY KALE Stop: 09/21/20 08:59 Last Admin: 09/09/20 08:59 Dose: 1,250 mcg Documented by: Dextrose (Dextrose 50% 50 Ml Syringe) 25 - 50 ml IV UD PRN; Protocol PRN Reason: Hypoglycemia Protocol Stop: 09/21/20 02:01 Diclofenac Sodium (Diclofenac Sod 1% Gel 100 Gm Tube) 2 gm EXT TID PRN PRN Reason: pain Stop: 10/03/20 20:59 Diphenhydramine HCl (Diphenhydramine Capsule 25 Mg Cap) 25 mg PO HS PRN PRN Reason: Itching Stop: 09/21/20 02:01 Fish Oil (Owen-3 (Purified Fish Oil) 1 Gm Cap) 1 gm PO DAILY KALE Stop: 09/21/20 08:59 Last Admin: 09/09/20 08:57 Dose: 1 gm Documented by: Glucagon (Glucagon For Inj 1 Mg Vial) 1 mg SQ UD PRN; Protocol PRN Reason: Hypoglycemia Protocol Stop: 09/21/20 02:01 Glucose (Glucose 10 Tabs/Tube) 4 - 8 tabs PO UD PRN; Protocol PRN Reason: Hypoglycemia Protocol Stop: 09/21/20 02:01 Glucose (Glucose 40% Gel 15 Gm Tube) 15 - 30 gm PO UD PRN; Protocol PRN Reason: Hypoglycemia Protocol Stop: 09/21/20 02:01 Heparin Sodium (Porcine) (Heparin Sod 5,000 Unit/0.5 Ml Vial) 5,000 units SQ Q8 KALE Stop: 10/01/20 21:59 Last Admin: 09/09/20 13:02 Dose: 5,000 units Documented by: Insulin Aspart (Insulin Aspart 100 Units/Ml 3 Ml Pen) 0 units SC ACHS KALE Stop: 09/21/20 02:29 Last Admin: 09/09/20 18:44 Dose: 7 units Documented by: Ipratropium Brady (Ipratropium Brady Hfa Inhaler) 1 puffs INH Q4 PRN PRN Reason: Shortness Of Breath Or Wheezin Stop: 09/25/20 08:58 Lactobacillus Acidoph/Casei/Rhamnos (Advanced Probiotic 1250 Mg Capsule) 2 cap PO DAILY KALE Stop: 09/21/20 08:59 Last Admin: 09/09/20 08:58 Dose: 2 cap Documented by: Magnesium Hydroxide (Magnesium Hydroxide Susp 30 Ml Udc) 30 ml PO Q12H PRN PRN Reason: Constipation Stop: 09/21/20 02:01 Metoprolol Tartrate (Metoprolol Tartrate 25 Mg Tab) 25 mg PO BID [facility] Stop: 09/21/20 02:01 Last Admin: 09/09/20 08:57 Dose: 25 mg Documented by: Miscellaneous (Carbohydrates For Hypoglycemia ) 15 - 30 gm PO UD PRN PRN Reason: Hypoglycemia Protocol Stop: 09/21/20 02:01 Mupirocin (Mupirocin 2% Oint 22 Gm Tube) 1 appln EXT Q12 KALE Stop: 09/29/20 20:59 Last Admin: 09/09/20 09:03 Dose: 1 appln Documented by: Naphazoline HCl/Pheniramine Maleate (Naphazolin/Pheniramin Oph Soln 75 Drops/5 Ml Btl) 2 drops OP Q4H PRN PRN Reason: eye discomfort Stop: 10/05/20 18:17 Last Admin: 09/05/20 21:21 Dose: 2 drops Documented by: Ondansetron HCl (Ondansetron Inj 2 Mg/Ml 2 Ml Vial) 4 mg IV Q6H PRN PRN Reason: Nausea Stop: 09/21/20 02:01 Oxymetazoline HCl (Oxymetazoline 0.05% 30 Ml Btl) 1 sprays OTIS BID KALE Stop: 09/23/20 17:59 Last Admin: 09/09/20 06:29 Dose: 1 sprays Documented by: Pantoprazole Sodium (Pantoprazole 40 Mg Tab) 40 mg PO QAM [facility] Stop: 09/29/20 08:59 Last Admin: 09/09/20 08:57 Dose: 40 mg Documented by: Phenytoin Sodium (Phenytoin Sodium Er 100 Mg Cap) 200 mg PO BID [facility] Stop: 09/21/20 02:01 Last Admin: 09/09/20 08:58 Dose: 200 mg Documented by: Polyethylene Glycol (Polyethylene (Miralax) 17 Gm Pack) 17 gm PO DAILY [facility] Stop: 10/05/20 09:59 Last Admin: 09/09/20 08:55 Dose: Not Given Documented by: Prednisone (Prednisone 10 Mg Tablet) 30 mg PO DAILY [facility] Stop: 10/09/20 08:59 Last Admin: 09/09/20 09:00 Dose: 30 mg Documented by: Sodium Chloride (Sodium Chlor 7% 4 Ml Neb) 4 ml NEB BIDR [facility] Stop: 10/09/20 09:44 Last Admin: 09/09/20 19:01 Dose: 4 ml Documented by: Tamsulosin HCl (Tamsulosin Hcl 0.4 Mg Cap) 0.4 mg PO HS [facility] Stop: 10/07/20 20:59 Last Admin: 09/08/20 21:17 Dose: 0.4 mg Documented by: Tramadol HCl (Tramadol Hcl 50 Mg Tablet) 50 mg PO Q4H PRN PRN Reason: Pain Stop: 10/03/20 16:09 Last Admin: 09/03/20 17:19 Dose: 50 mg Documented by: Vitamin D (Cholecalciferol 1,000 Units 25 Mcg Tab) 1,000 units PO DAILY KALE Stop: 09/21/20 08:59 Last Admin: 09/09/20 08:58 Dose: 1,000 units Documented by: PG Care Time/CCT Total # of Minutes Spent Total Time Spent with Patient: Total time spent is greater than 50% in coordination of care (as documented) at patient's floor/unit and/or counseling patient: Coding Level of Care Code 99566 Subseq Hosp Care Lvl 3 Diagnoses Pneumonia due to 2019 novel coronavirus U07.1; J12.89 Hypoxia R09.02 Seizure disorder G40.909 CAD (coronary artery disease) I25.10 Thoracic aortic aneurysm I71.2 History of CVA (cerebrovascular accident) Z86.73 DJD (degenerative joint disease) M19.90 Diabetes mellitus E11.9 BPH w urinary obs/LUTS N40.1; N13.8 Hypokalemia E87.6 Epistaxis R04.0 DVT prophylaxis Z29.9
[2020-09-09] MEDS: TAMSULOSIN HCL 0.4 MG CAP PO SCH (21:18)
[2020-09-10] MEDS: HEPARIN SOD 5,000 UNIT/0.5 ML VIAL SQ SCH ×2 (06:03→12:56)
[2020-09-10] MEDS: SODIUM CHLOR 7% 4 ML NEB NEB SCH (07:08)
[2020-09-10] MEDS: INSULIN ASPART 100 UNITS/ML 3 ML PEN SC SCH ×2 (09:07→12:54)
[2020-09-10] MEDS: OMEGA-3 (PURIFIED FISH OIL) 1 GM CAP PO SCH (09:10)
[2020-09-10] MEDS: CHOLECALCIFEROL 1,000 UNITS 25 MCG TAB PO SCH (09:10)
[2020-09-10] MEDS: PHENYTOIN SODIUM ER 100 MG CAP PO SCH (09:10)
[2020-09-10] MEDS: PANTOprazole 40 MG TAB PO SCH (09:10)
[2020-09-10] MEDS: METOPROLOL TARTRATE 25 MG TAB PO SCH (09:11)
[2020-09-10] MEDS: CYANOCOBALAMIN (VITAMIN B-12) 2,500 MCG TAB.SUBL SL SCH (09:11)
[2020-09-10] MEDS: CLOPIDOGREL BISULFATE 75 MG TAB PO SCH (09:11)
[2020-09-10] MEDS: ASPIRIN 81 MG ECTAB PO SCH (09:11)
[2020-09-10] MEDS: ASCORBIC ACID 500 MG TAB PO SCH (09:11)
[2020-09-10] MEDS: ADVANCED PROBIOTIC 1250 MG CAPSULE PO SCH (09:11)
[2020-09-10] MEDS: POLYETHYLENE (MIRALAX) 17 GM PACK PO SCH (09:11)
[2020-09-10] MEDS: OXYMETAZOLINE 0.05% 30 ML BTL NAE SCH (09:12)
[2020-09-10] MEDS: MUPIROCIN 2% OINT 22 GM TUBE EXT SCH (09:12)
[2020-09-10] MEDS: ALFUZOSIN HCL 10 MG TAB PO SCH (09:12)
[2020-09-10] MEDS: predniSONE 10 MG TABLET PO SCH (09:12)
[2020-09-10] MEDS: ATORVASTATIN 40 MG TAB PO SCH (09:12)
--- NOTE | 2020-09-10 16:00 | Discharge Summary ---
Date of Service September 10, 2020 Admission HPI Per Admitting Provider The patient is a 74-year-old male with a past medical history including seizure, GERD, thoracic aortic aneurysm, STEMI, arthritis, CAD, stroke and DJD. He reports that he began having symptoms on gi, 6 days ago as a runny nose, but then progressed to chest congestion, cough and shortness of breath. He came into the emergency department at the insistence of his ammon. Work-up in the emergency department included a chest x-ray with bilateral opacities suggestive of pulmonary edema and or infectious/inflammatory pneumonitis. Laboratory testing included a positive COVID-[address] angiography PE protocol was negative for PE, but did show patchy groundglass opacities in the lungs which could be seen with pneumonia or pulmonary edema. The patient did receive Decadron 6 mg IV and levofloxacin 750 mg IV from the ED Principal Diagnosis COVID 19 pneumonia Discharge Exam Constitutional WD/WN, vitals as above no acute distress ENMT Nose: no sinus tenderness and no epistaxis Neck trachea midline, no thyromegaly Respiratory normal respiratory effort, lungs clear to auscultation no respiratory distress Auscultation: lungs clear to auscultation bilaterally Cardiovascular RRR, no murmur, no edema Gastrointestinal (Abdomen) normal bowel sounds, soft, nontender, no hepatosplenomegaly Musculoskeletal no cyanosis or clubbing, extremities motor strength 5/5 Skin no rashes, warm and dry Neurologic patellar DTR's 2+ bilat, sensation intact and PERRL, EOMI, accommodation nl, no face palsy, no dysarthria Psychiatric A+Ox3, euthymic affect Lymphatic no cervical or axillary lymphadenopathy Discharge Data Allergies Allergy/AdvReac Type Severity Reaction Status Date / Time cephalexin Allergy Intermediate Rash Verified 07/29/20 13:29 Cephalosporins Allergy Intermediate Rash Verified 07/29/20 13:29 carbamazepine Allergy Unknown Elevated Verified 07/29/20 13:29 liver enzymes Penicillins Allergy Unknown Unknown Verified 08/21/20 20:25 Consultations 08/21/20 22:15 ED Decision to Admit Stat 08/22/20 02:02 Consult Case Management - Discharge Planning Routine Ordered Studies 08/21/20 21:02 CT angio chest PE protocol Urgent 09/09/20 10:21 CT angio chest PE protocol Urgent Hospital Course (1) Pneumonia due to 2019 novel coronavirus: Pneumonia due to COVID-19 virus with hypoxia- Completed Decadron 6 mg IV, stop (09/02) -completed 5 days of Remdesivir on 08/26 -Continue Ventolin HFA 1 puffs 4 times daily as well as ipratropium 1 puff 4 times daily - levofloxacin 750 mg p.o. daily x 7 day course-last dose 08/28 pt still with continued to support, and hopeful that pt turns the corner will continue steroids but changed to prednisone plan for taper, Prednisone 20mg x 5 days and 10mg x 5 days and then stop 09/09: had some increased oxygen requirements but felt exactly the same CTA chest negative for PE, negative for pulmonary edema, BNP normal just shows persistent viral pneumonia he continues to eat and drink quite well, no fever/chills, breathing is improved 2 step performed on 09/10: 3L at rest and 3L on exertion, patient felt well at rest and walking, no dyspnea arranged for home oxygen (2) Hypoxia: required high flow nasal canula for several weeks weaned down to low flow nasal canula the past several days 2 step today showed he needed 3L at rest and 3L on exertion felt great, no dyspnea try to wean off oxygen over the next few weeks (3) Seizure disorder: Continue phenytoin no seizures while here (4) CAD (coronary artery disease): CAD/hypertension-with a h/o STEMI 2016 No acute issues. Trop neg on admission Continue aspirin 81 mg daily, clopidogrel 75 mg daily and metoprolol tartrate 25 mg p.o. twice daily, statin (5) Thoracic aortic aneurysm: followed as outpt stable at 4cm today on CT (6) History of CVA (cerebrovascular accident): continue ASA, Plavix (7) DJD (degenerative joint disease): takes meloxicam prn as outpt-hold NSAIDs with COVID (8) Diabetes mellitus: HgbA1C here 7.8%, not on meds at home CDE talked to him and plans for glucometer and testing supplies on discharge: - needs a Rx for the following at time of discharge: 1. OneTouch Verio test strips to check 1x/day. 2. OneTouch Delica lancets to check 1x/day. Could possibly start on metformin upon discharge, defer to PCP treated with Novolog SS while here (9) BPH w urinary obs/LUTS: continue alfuzosin having increased frequency and incomplete voiding the past few days added Flomax 0.4mg HS on 09/07 urinating less, continue Flomax on discharge (10) Hypokalemia: resolved, 3.7 today (11) Epistaxis: right nostril-> resolved for well over a week encourage saline spray q1H Mupirocin q12 (12) DVT prophylaxis: heparin q8 Dispo- improving slowly each day get PT/OT evaluations since he is now on 3rd floor plan to go home with oxygen Full code Total Time Total Time Spent Total Time Spent (In Minutes): 40 minutes Total Time Includes: Examination of the Patient, Discharge Planning, Medication Reconciliation and Other (communication with his ) Discharge Plan Discharge Items Patient Disposition: Home - Self-Care Reason For Visit: PNEUMONIA DUE TO COVID-19 VIRUS WITH HYPOXIA Discharge Diagnosis: COVID 19 pneumonia Acute hypoxic respiratory failure Condition on Discharge: Good Activity: Resume your previous activity Exercise/Sports: Gradually increase as tolerated Weightbearing: Full weightbearing Non-emergency contact: Primary Care Provider Call non-emergency contact if: you have any medication questions, your symptoms worsen and you have a fever Follow-up/Referrals: Jay Mayo MD [Primary Care Provider] - 09/18/20 10:30 am (one week) Diet: Heart Healthy Addtl Attending Provider Instructions: Medications: - PREDNISONE: 20mg daily x 5 days then 10mg x 5 days then stop - PROTONIX: 40mg daily for next week, this is for stomach lining protection while on steroids - FLOMAX: started on 0.4mg at bedtime to help with urinary symptoms, can continu e, it if is helping your PCP can continue after a month COVID 19 pneumonia, acute hypoxic respiratory failure treated for weeks with high flow nasal canula completed full course of Decadron, changed to prednisone for taper completed course of Remdesivir this can likely take weeks to completely resolve you will have oxygen 3L at rest and 3L on exertion, can slowly titrate down off oxygen stay well hydrated, well nourished, get rest but also increase activity as tolerated Pending Studies at Discharge: No Stand-Alone Forms: [employer], Smoking Cessation Medications and DC Order Prescriptions: New tamsulosin 0.4 mg Capsule 0.4 mg PO HS 30 Days Qty: 30 RF: 1 pantoprazole 40 mg Tablet,Delayed Release (Dr/Ec) 40 mg PO QAM 30 Days Qty: 30 RF: 0 prednisone 10 mg tablet 10 mg PO UD 10 Days Qty: 15 RF: 0 Continued coenzyme Q10 100 mg capsule 100 mg PO DAILY RF: 0 Adult Probiotic 3 billion cell capsule 3,000 mmu cells PO DAILY RF: 0 cholecalciferol (vitamin D3) 1,000 unit (25 mcg) tablet 1,000 units PO DAILY RF: 0 clopidogrel 75 mg tablet 75 mg PO DAILY RF: 0 atorvastatin 80 mg tablet 80 mg PO DAILY Qty: 30 RF: 0 metoprolol tartrate 25 mg tablet 25 mg PO BID Qty: 180 RF: 0 nitroglycerin 0.4 mg tablet, sublingual 0.4 mg SL Q5M PRN (Reason: chest pain) RF: 0 phenytoin sodium extended 100 mg capsule 200 mg PO BID RF: 0 flaxseed oil 1,000 mg capsule 1,000 mg PO DAILY RF: 0 mecobalamin (vitamin B12) 1,000 mcg tablet,disintegrating 1,000 mcg SL DAILY RF: 0 ascorbate calcium (vitamin C) 500 mg tablet 500 mg PO DAILY RF: 0 alfuzosin [Uroxatral] 10 mg tablet extended release 24 hr 10 mg PO DAILY Qty: 90 RF: 3 aspirin [Aspirin Low Dose] 81 mg Tablet,Delayed Release (Dr/Ec) 81 mg PO DAILY RF: 0 diphenhydramine HCl 25 mg Capsule 25 mg PO HS PRN (Reason: Itching) RF: 0 betamethasone dipropionate 0.05 % cream 1 applic TOPICAL DAILY PRN (Reason: Itching) RF: 0 meloxicam 15 mg tablet 15 mg PO DAILY PRN (Reason: Pain) RF: 0 Discharge Orders: Discharge Order (Routine); Ordered 09/10/20 Ordered By: Victor M Gomez/Other Patient Handouts: Using Oxygen Safely, 5 Steps for Eating Healthier, Traveling with Oxygen, Using an Oxygen Tank at Home, Diabetes: Meal Planning Admission Data Admit Date/Time: 08/22/20 00:12 Attending Provider: Victor M Le Admit Provider: Ángel Florian Primary Care Provider: Jay Mayo Other Providers: Ángel Florian Other Interventions: Discharge Summary Assessment (RN) Last Done: 09/10/20 13:45 Coding Level of Care Code D/C Day Management >30 mins Diagnoses Pneumonia due to 2019 novel coronavirus U07.1; J12.89 Hypoxia R09.02 Seizure disorder G40.909 CAD (coronary artery disease) I25.10 Thoracic aortic aneurysm I71.2 History of CVA (cerebrovascular accident) Z86.73 DJD (degenerative joint disease) M19.90 Diabetes mellitus E11.9 BPH w urinary obs/LUTS N40.1; N13.8 Hypokalemia E87.6 Epistaxis R04.0 DVT prophylaxis Z29.9
== END 2020-09-10 17:35 | disposition home or self-care (01) ==
LOC: ED 18:37 → SUATTDRO 08-22 00:12 → 2S 08-22 00:12 → 3E 09-07 12:53

== ENCOUNTER 2024-10-17 07:00 | Observation (INO) ==
--- NOTE | 2024-10-17 07:23 | Emergency Department Note ---
Impression & Plan Hypoxia, Acute hypokalemia, Neck pain, Elevated troponin ED Provider Note NAME: BEBE FLORES AGE: 79 SEX: M : 1945 ARRIVES VIA: Walk-In INFORMANT: Patient ED PROVIDER(S): Wellington Morse DO CHIEF COMPLAINT: right sided neck pain HPI: Patient is an 79-year-old male who presents to the ER with past medical history of STEMI, DJD, CVA, GERD, and seizures for neck pain. He notes that it initially started 2 days ago on the right side of his neck. Has gradually worsened. Initially just slightly bothered him with movement and now it is severe. Any flexion/extension or actually rotation makes it worse. He notes its most severe when he tries to rotate to the left. Denies any weakness or numbness in the arms or legs. No belly pain. No chest pain or shortness of breath. He does admit to loose stools which have been present for the past 4 weeks. He goes about 2-3 times a day. ADDITIONAL HISTORY OBTAINED: Per HPI Chronic Medical/Social Conditions Affecting Care: Per HPI PAST MEDICAL HISTORY:See Below PAST SURGICAL HISTORY:See Below FAMILY HISTORY:See Below SOCIAL HISTORY:See Below HOME MEDICATIONS:See Below ALLERGIES:See Below VITALS:See Below PHYSICAL EXAMINATION: GENERAL: Sitting up in bed, alert, well appearing, well nourished, no distress, non-toxic EYE EXAM: normal conjunctiva. PERRL and EOM's grossly intact. OROPHARYNX: no exudate, no erythema, lips, buccal mucosa, and tongue normal and mucous membranes are moist NECK: supple, tenderness over the right posterior paracervical/scalene region. Significant pain with axial rotation to the left more than 10 degrees from midline and to the right with more than 30 degrees from midline. Flexion extension of the neck with severe pain with any movement. LUNGS: Clear to auscultation. Normal chest wall mechanics HEART: no murmurs, S1 normal and S2 normal ABDOMEN: abdomen soft, non-tender, normo-active bowel sounds, no masses, no rebound or guarding. BACK: Back is symmetrical on inspection and there is no deformity, no midline tenderness, no CVA tenderness. SKIN: no rashes and no bruising UPPER EXTREMITIES: upper extremities are grossly normal. LOWER EXTREMITIES: No pitting edema. NEURO EXAM: Normal sensorium, cranial nerves II-XII intact, normal speech, no weakness of arms, no weakness of legs. MEDICAL DECISION MAKING: Patient is AN 79-year-old male who presents to the ER for the below stated complaint. IV was established and blood work was obtained. He is found to be hypoxic on multiple occasions and consequently was placed on 2 L nasal cannula. Pulse ox dropped down to the 85 range. Labs showed no significant leukocytosis or anemia. BMP with a significant hypokalemia 2.5. This was repleted with 40 mill equivalents orally and IV. Glucose was 316 and was not treated due to the hypokalemia. LFTs and bilirubin was unremarkable. Troponin was elevated at 30. Viral panel was negative. Chest x-ray was clean. Patient notes that when he checks his pulse ox at home it is normally in the upper 80s. Upon review of external records in 2019 he was admitted and found to be hypoxic and then had a two-step which showed he needed 3 L at rest and with exertion. With the above findings did discussed case with the hospitalist for further evaluation management treatment. Patient remained on 2 L nasal cannula throughout his stay in the ER. Consults/Care Managements Discussions: Per [facility] Triage Nursing notes reviewed. Limited review of prior medical records performed Vital Signs: reviewed and remarkable for HTN Differential diagnosis: Cervical strain, fracture, cervical disc disease, lymphadenitis, meningitis, tumor, arterial dissection, thyroiditis, parotitis, mastoiditis, neurologic, cardiovascular, as well as other pathologies. ER treatment provided: See below Diagnostics interpreted by me include EKG and cardiac monitoring as listed below: -Cardiac Monitoring: An order was placed for continuous cardiac monitoring. The monitor shows a rate of 80 with sinus rhythm. -ECG: Sinus rhythm rate 77 Left axis No PVCs Incomplete right bundle QTc 454 -Laboratory studies:Interpreted by me as stated above in MDM and shown below. Imaging studies: Xrays: As interpreted by me: Portable AP upright 1 view of the chest showed no focal infiltrate CTs show: CT of the cervical spine was unremarkable per radiology Procedures:none Critical Care: I have personally spent 31 minutes of critical care time in the direct management of this patient. This includes bedside care, interpretation of diagnostic studies, and testing, discussion with consultants, patient, and family members, and other required patient management activities. This 31 minutes is in excess of all separately billable procedures. 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 Diabetes mellitus Seizure disorder Hypoxia (Acute) Impacted cerumen of both ears Bleeding disorder On Plavix Seizure Prepatellar bursitis of left knee Cellulitis of left knee Left knee pain Arthritis (Acute) CAD (coronary artery disease) (Acute) Constipation (Acute) Cough (Acute) GERD (gastroesophageal reflux disease) (Acute) Indigestion (Acute) ST elevation HI (STEMI) (Acute) Thoracic aortic aneurysm (Acute) Weight disorder (Acute) DJD (degenerative joint disease) History of CVA (cerebrovascular accident) Finger fracture (Acute) Aortic aneurysm Finger laceration (Acute) Medical History Hx of flexible sigmoidoscopy Urinary retention Seizure 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 Hx of gastroesophageal reflux (GERD) Diabetes mellitus CVA (cerebral vascular accident) 1980, sensation loss left side 10/2023 (had one between the first and last stroke, unsure when), still has loss of sensation left side and some weakness Hx of myocardial infarction ~2016 Hx of coronary artery disease BPH w urinary obs/LUTS Arthritis Aortic aneurysm monitoring Pneumonia due to 2019 novel coronavirus hx, 08/2020; no residual effects COVID-19 hx, "a couple times," most recent 04/2024, no residual symptoms from any "bouts" of covid Surgical History History of esophagogastroduodenoscopy (EGD) Hx of bilateral cataract extraction Hx of heart artery stent ~2017, [facility], [place], x1 stent; f/u dr. soni, [place] cardio History of tonsillectomy and adenoidectomy As a child Family History Mother Hearing loss Hypertension Heart disease Father Heart disease Other No family history of adverse response to anesthesia No family history of bleeding disorder Social History Smoking Status: Never smoker Second Hand Exposure: No; Do You Dip or Chew Tobacco: No (quit years ago); Hx Alcohol Use: Yes (none for years) Hx Substance Use: No Preferred Language: [place]an Communication Ability: Effective General Clerk Required: No Beliefs That Will Affect Care: None Current Living Situation: Spouse Feels Safe at Home: Yes Assistive Devices: Glasses and Hearing Aid - Bilateral Allergies Allergies Allergy/AdvReac Type Severity Reaction Status Date / Time cephalexin Allergy Intermediate Rash Verified 10/17/24 09:02 Cephalosporins Allergy Intermediate Rash Verified 10/17/24 09:02 carbamazepine Allergy Unknown Elevated Verified 10/17/24 09:02 liver enzymes Penicillins Allergy Unknown Unknown Verified 10/17/24 09:02 Home Meds Home Medications Medication Instructions Recorded Confirmed atorvastatin 80 mg tablet 80 mg PO QAM #30 tabs 06/21/19 10/17/24 cholecalciferol (vitamin D3) 25 1,000 units PO QPM 06/21/19 10/17/24 mcg (1,000 unit) tablet coenzyme Q10 100 mg capsule 100 mg PO QAM 06/21/19 10/17/24 lactobacillus combination no.8 3 3,000 mmu cells PO QPM 06/21/19 10/17/24 billion cell capsule (Adult Probiotic) nitroglycerin 0.4 mg sublingual 0.4 mg sublingual Q5M PRN chest 06/21/19 10/17/24 tablet pain phenytoin sodium extended 100 mg 200 mg PO BID 08/22/19 10/17/24 capsule aspirin 81 mg tablet,delayed 81 mg PO QAM 09/06/19 10/17/24 release (Roxy Low Dose Aspirin) acetaminophen 650 mg 650 mg PO BID PRN Pain 10/14/21 10/17/24 tablet,extended release (Tylenol 8 Hour) magnesium 250 mg tablet 250 mg PO QAM 10/14/21 10/17/24 glimepiride 2 mg tablet 2 mg PO QPM 10/25/23 10/17/24 vitamins A,C,O-tnky-tbpkat 2,148 1 tab PO BID 08/01/24 10/17/24 mcg-113 mg-45 mg-17.4 mg tablet (PreserVision AREDS) dutasteride 0.5 mg capsule 0.5 mg PO QPM 10/09/24 10/17/24 (Avodart) ezetimibe 10 mg tablet (Zetia) 10 mg PO QAM 10/09/24 10/17/24 losartan 25 mg tablet 25 mg PO QAM 10/09/24 10/17/24 tamsulosin 0.4 mg capsule 0.8 mg PO QPM 10/09/24 10/17/24 Previous Rx's Medication Instructions Recorded apixaban 5 mg tablet 5 mg PO BID #180 tabs 08/01/24 Results & Data (ED) Vital Signs Vital Signs - 24 hr 10/17/24 07:04 10/17/24 07:15 10/17/24 07:42 Temperature 36.5 C Temperature Source Temporal Artery Scan Pulse Rate 98 H Pulse Rate [Right Finger] 72 Respiratory Rate 18 16 Respiratory Effort / Characteristics Non-Labored Spontaneous Non-Labored Spontaneous Respiratory Depth Normal Normal Respiratory Pattern Regular Blood Pressure 165/94 H Blood Pressure [Right Arm] 153/97 H Blood Pressure Mean 117 Blood Pressure Mean [Right Arm] 115 Pulse Oximetry 90 91 91 Oxygen Delivery Method Room Air Room Air Room Air Oxygen Flow Rate Sepsis Recent Fever Within 48 Hours No Sepsis New/Unexplained Change in Mental Status No Sepsis Action Taken by Nursing No Action Required 10/17/24 08:21 10/17/24 08:58 10/17/24 09:53 Temperature Temperature Source Pulse Rate Pulse Rate [Right Finger] 72 74 Respiratory Rate 16 20 Respiratory Effort / Characteristics Non-Labored Spontaneous Non-Labored Spontaneous Respiratory Depth Normal Normal Respiratory Pattern Regular Regular Blood Pressure Blood Pressure [Right Arm] 142/91 H 152/103 H Blood Pressure Mean Blood Pressure Mean [Right Arm] 108 119 Pulse Oximetry 92 93 93 Oxygen Delivery Method Room Air Nasal Cannula Nasal Cannula Oxygen Flow Rate 1 1 Sepsis Recent Fever Within 48 Hours Sepsis New/Unexplained Change in Mental Status Sepsis Action Taken by Nursing 10/17/24 09:53 Temperature Temperature Source Pulse Rate 78 Pulse Rate [Right Finger] Respiratory Rate 16 Respiratory Effort / Characteristics Respiratory Depth Respiratory Pattern Blood Pressure Blood Pressure [Right Arm] Blood Pressure Mean Blood Pressure Mean [Right Arm] Pulse Oximetry 96 Oxygen Delivery Method Nasal Cannula Oxygen Flow Rate 1 Sepsis Recent Fever Within 48 Hours Sepsis New/Unexplained Change in Mental Status Sepsis Action Taken by Nursing Laboratory Data 10/17/24 07:44 10/17/24 07:44 Lab Results 10/17/24 10/17/24 Range/Units 07:44 09:53 WBC 6.05 (4.8-10.8) K/ul RBC 4.14 L (4.70-6.10) M/uL Hgb 13.3 L (14.0-18.0) g/dl Hct 38.8 L (42.0-52.0) % MCV 93.7 (80.0-100.0) fL MCH 32.1 (25.0-34.0) pg MCHC 34.3 (32.0-36.0) g/dL RDW Std Deviation 46.4 H (36.4-46.3) fL RDW Coeff of Luis 13.6 (11.5-14.5) % Plt Count 188 (130-400) K/uL MPV 9.0 L (9.4-12.4) fL Immature Gran % (Auto) 0.3 % Neut % (Auto) 77.8 % Lymph % (Auto) 8.3 % Kemper % (Auto) 13.4 % Eos % (Auto) 0.0 % Baso % (Auto) 0.2 % Neut # (Auto) 4.71 (1.40-6.50) K/uL Lymph # (Auto) 0.50 L (1.20-3.40) K/uL Kemper # (Auto) 0.81 H (0.11-0.59) K/uL Eos # (Auto) 0.00 (0.00-0.50) K/uL Baso # (Auto) 0.01 (0.00-0.20) K/uL Immature Gran # (Auto) 0.02 (0.01-0.20) K/uL Sodium 139 (136-145) mmol/L Potassium 2.5 L* (3.5-5.1) mmol/L Chloride 103 (98-107) mmol/L Carbon Dioxide 24 (21-32) mmol/L Anion Gap 12 H (3-11) BUN 10 (6-23) mg/dl Creatinine 0.65 (0.6-1.4) mg/dl Est Cr Clr Drug Dosing 98.2 ml/min eGFR 94.66 BUN/Creatinine Ratio 15.4 (10-20) Glucose 316 H* (70-99(Fasting)) mg/dl Calcium 8.5 L (8.6-10.3) mg/dl Total Bilirubin 0.4 (0.2-1.0) mg/dl AST 22 (13-39) U/L ALT 21 (7-52) U/L Alkaline Phosphatase 155 H (34-104) U/L Troponin I High Sens 30.7 H (0-20) pg/ml Total Protein 6.7 (6.0-8.3) gm/dl Albumin 3.7 (3.4-5.0) gm/dl Globulin 3.0 (2.5-4.0) gm/dl Albumin/Globulin Ratio 1.2 (0.9-2) Adenovirus (PCR) Not Detected (NotDetected) B. pertussis DNA (PCR) Not Detected (NotDetected) B.parapertussis DNA PCR Not Detected (NotDetected) C. pneumoniae DNA (PCR) Not Detected (NotDetected) Coronavirus OC43 (PCR) Not Detected (NotDetected) Coronavirus HKU1 (PCR) Not Detected (NotDetected) Coronavirus 229E (PCR) Not Detected (NotDetected) SARS-CoV-2 (PCR) Not Detected (NotDetected) Coronavirus NL63 (PCR) Not Detected (NotDetected) Human Metapneumovir PCR Not Detected (NotDetected) Influenza Type A (PCR) Not Detected (NotDetected) Influenza Type B (PCR) Not Detected (NotDetected) M. pneumoniae (PCR) Not Detected (NotDetected) Parainfluenza 1 (PCR) Not Detected (NotDetected) Parainfluenza 2 (PCR) Not Detected (NotDetected) Parainfluenza 3 (PCR) Not Detected (NotDetected) Parainfluenza 4 (PCR) Not Detected (NotDetected) RSV (PCR) Not Detected (NotDetected) Entero/Rhino (PCR) Not Detected (NotDetected) Administered Medications Magnesium Sulfate/Dextrose (Magnesium Sulfate / D5w) 1 gm in 100 mls @ 50 mls/hr IV Q2H KALE Stop: 10/17/24 18:14 Last Admin: 10/17/24 11:35 Dose: 50 mls/hr Documented By: TAYLOR Potassium Chloride/Sodium Chloride (1/2 Nss + 20meq Kcl 1000ml) 20 meq in 1,000 mls @ 80 mls/hr IV .[id number] KALE Stop: 10/18/24 10:29 Last Admin: 10/17/24 11:49 Dose: 80 mls/hr Documented By: TAYLOR Discontinued Medications Potassium Chloride (K Arun / Wtr) 10 meq in 100 mls @ 100 mls/hr IV ONE ONE Stop: 10/17/24 10:11 Last Infusion: 10/17/24 11:05 Dose: Infused Documented By: Admin: 10/17/24 10:01 Dose: 100 mls/hr Documented By: JEREMIAH Ketorolac Tromethamine (Ketorolac Tromethamine 15 Mg/Ml Vial) 10 mg IV NOW ONE Stop: 10/17/24 07:21 Last Admin: 10/17/24 08:00 Dose: 10 mg Documented By: JEREMIAH Potassium Chloride (Potassium Chloride Crtab 20 Meq Tabcr) 40 meq PO NOW STA Stop: 10/17/24 09:13 Last Admin: 10/17/24 09:55 Dose: 40 meq Documented By: JEREMIAH Potassium Chloride (Potassium Chloride Crtab 20 Meq Tabcr) 40 meq PO NOW STA Stop: 10/17/24 10:17 Last Admin: 10/17/24 11:36 Dose: 40 meq Documented By: TAYLOR Imaging Data Radiologist's Impression: Cervical Spine CT 10/17/24 07:19 CT cervical spine wo con CT DOSE: 595.57 mGy.cm CLINICAL HISTORY: severe neck pain with movement. COMPARISON: None TECHNIQUE: Multiple axial CT images of the cervical spine were obtained without contrast. A dose lowering technique was utilized adhering to the principles of ALARA. Sagittal and coronal reconstructions were performed. FINDINGS: There is severe, multilevel spondylosis and facet arthrosis. There is degenerative anterolisthesis of C2 on C3 measuring approximately 4 mm. The atlantoaxial articulation and the odontoid demonstrate some degenerative change and otherwise is unremarkable. The prevertebral soft tissues are not swollen. C2-3 level demonstrates severe bilateral hypertrophic facet arthrosis and mild bilateral uncovertebral hypertrophy causing mild to moderate left and mild right foraminal stenosis. C3-4 level demonstrates severe right-sided hypertrophic facet arthrosis and uncovertebral hypertrophy right greater than left resulting in moderate right and mild left foraminal stenosis. C4-5 level demonstrates a spondylosis with bilateral foraminal narrowing right greater than left. C5-6 level demonstrates severe bilateral uncovertebral hypertrophy with severe bilateral foraminal stenosis. C6-7 level demonstrates bilateral uncovertebral hypertrophy with moderate to bilateral foraminal stenosis. C7-T1 level is unremarkable. Soft tissue evaluation demonstrates an extremely ectatic aortic arch. This has been described previously on a chest CT dated 09/09/2020 where the ascending aortic measurement was 4.4 cm. Would consider an elective follow-up chest CT for reevaluation of the ascending aortic diameter. IMPRESSION: Severe multilevel facet arthrosis and spondylosis as discussed above. Multilevel foraminal stenosis as described. No significant central canal stenosis. Known thoracic aortic ectasia which has not been evaluated since 2020. Consider elective chest CT follow-up to reexamination ascending aortic diameter. ACT 112: Negative or not required by law. The above report was generated using voice recognition software. It may contain grammatical, syntax or spelling errors. Electronically signed by: Deneen King M.D. 10/17/2024 8:33 AM Chest X-Ray 10/17/24 08:30 XR chest 1V portable CLINICAL HISTORY: hypoxic COMPARISON STUDY: Chest radiograph and chest CT September 09, 2020. FINDINGS: Lung volumes are unchanged. Cardiomegaly and a hiatal hernia are again noted. There is mild interstitial thickening. There is no consolidation. Bibasilar opacities favor atelectasis. 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 IMPRESSION: 1. Cardiomegaly. Mild interstitial thickening which is likely chronic. No radiographic evidence for overt pulmonary edema. 2. No consolidation to suggest pneumonia. 3. Hiatal hernia. ACT 112: Negative or not required by law. Electronically signed by: Gibson Ferris M.D. 10/17/2024 8:48 AM Discharge Plan Visit Data Chief Complaint: Neck Injury/Pain Stated Complaint: DIARRHEA ON/OFF,PAIN IN NECK ED Provider: Wellington Morse Discharge Problem: Hypoxia, Acute hypokalemia, Neck pain, Elevated troponin Discharge Instructions Interventions: ED Discharge Assessment Last Done: 10/17/24 11:38
[2024-10-17] MEDS: KETOROLAC TROMETHAMINE 15 MG/ML VIAL IV ONE (08:00)
[2024-10-17 08:07] LABS: Basophils # (auto) 0.01 K/uL (0.00-0.20); Basophils % (auto) 0.2 %; Hematocrit (blood only) 38.8 % (42.0-52.0); Hemoglobin 13.3 g/dl (14.0-18.0); Immature Granulocytes # (auto) 0.02 K/uL (0.01-0.20); Immature Granulocytes % (auto) 0.3 %; Lymphocytes % (auto) 8.3 %; Mean Corpuscular Hemoglobin 32.1 pg (25.0-34.0); Mean Corpuscular Hgb Conc 34.3 g/dL (32.0-36.0); Mean Corpuscular Volume 93.7 fL (80.0-100.0); Monocytes # (auto) 0.81 K/uL (0.11-0.59); Monocytes % (auto) 13.4 %; Neutrophils # (auto) 4.71 K/uL (1.40-6.50); Neutrophils % (auto) 77.8 %; Platelet Count 188 K/uL (130-400); RDW Coefficient of Variation 13.6 % (11.5-14.5); RDW Standard Deviation 46.4 fL (36.4-46.3); Red Blood Count 4.14 M/uL (4.70-6.10); White Blood Count 6.05 K/ul (4.8-10.8)
--- OUTSIDE RECORDS SUMMARY | 2024-10-17 08:17 | External Medical Summary | Continuity of Care Document ---
Author Name Unknown Organization [facility] [address] Address [address] [place], [place] [id number] Care Team Providers Care Mechanical Service Technician Name Role Phone Ashlie Triana Primary Care P fabi [phone] Encounter [facility] [id number] Date(s): 10/12/24 - 10/12/24 [facility] [address] [facility] [address], [facility] [address] [place], [place] [phone] Encounter Diagnosis Diarrhea, unspecified(Final) - Discharge Disposition: Home or Self Care Attending Physician: MD Borden Jesse Referring Physician: MD Borden Jesse Allergies, Adverse Reactions, Alerts Substance Criticality Severity Reaction Reaction Severity Status cephalosporins rash Activ e penicillins rash Active LamISIL diarrhea Active TEGretol Elevated liver enzymes Active Keflex rash Active Immunizations Given and Recorded Vaccine Date Status Refusal Reason influenza virus vaccine, inactivated 07/18/24 Adelso rded influenza virus vaccine, inactivated 1 07/15/22 Gi chloe influenza virus vaccine, inactivated 07/10/21 Give n influenza virus vaccine, inactivated 07/08/20 Give n influenza virus vaccine, inactivated 07/26/19 Give n influenza virus vaccine, inactivated 07/15/18 Give n influenza virus vaccine, inactivated 07/15/18 Adelso rded influenza virus vaccine, inactivated 07/27/17 Give n influenza virus vaccine, inactivated 07/20/16 Give n influenza virus vaccine, inactivated 07/22/15 Give n influenza virus vaccine, inactivated 07/03/14 Adelso rded zoster vaccine, inactivated 09/28/22 Recorded tetanus/diphtheria/pertuss, acel (Tdap) 2 09/06/19 Recorded tetanus/diphtheria/pertuss, acel (Tdap) 01/27/10 R ecorded pneumococcal 23-valent vaccine 07/15/18 Recorded zoster vaccine live 09/28/13 Recorded pneumococcal 13-valent vaccine 11/10/12 Recorded pneumococcal 13-valent vaccine 11/10/12 Recorded 1Result Comment: Nella Canales MA 2Result Comment: 2021-05-22: Historical information-source unspecified Medications aspirin 81 mg oral delayed release tablet Start: 09/01/17 10:57:00 AM EST, 1 tab, PO, Daily, Disp# 30 tab, Refills: 5, Pharmacy: [facility] Start Date: 09/01/17 Status: Ordered atorvastatin 80 mg oral tablet Start: 02/25/24 10:23:00 AM EDT, 1 tab, PO, Daily, Disp# 90 tab, Refills: 3, Pharmacy: [id number] Start Date: 02/25/24 Status: Ordered Co-Q10 100 mg oral capsule Start: 03/27/19 2:59:00 PM EDT, 1 cap, PO, Daily Start Date: 03/27/19 Status: Ordered Dilantin 100 mg oral capsule, extended release Start: 02/25/24 10:24:00 AM EDT, 1 cap, PO, bid, Disp# 180 cap, Refills: 3, Pharmacy: [facility] Start Date: 02/25/24 Stop Date: 02/19/25 Status: Ordered dutasteride 0.5 mg oral capsule Start: 02/26/23 8:47:00 AM EDT Start Date: 02/26/23 Status: Ordered Eliquis 5 mg oral tablet Start: 02/25/24 11:06:00 AM EDT, 1 tab, PO, bid, Disp# 180 tab, Refills: 3, Pharmacy: [facility] Start Date: 02/25/24 Status: Ordered ezetimibe 10 mg oral tablet TAKE 1 TABLET BY MOUTH EVERY DAY Start Date: 10/10/24 Status: Ordered fluocinonide 0.05% topical cream Start: 02/24/24 11:37:00 AM EDT, 1 appl, topical, bid, Disp# 60 g, Refills: 4, apply to foot and leg for dermatitis, Pharmacy: [facility] Start Date: 02/24/24 Status: Ordered glimepiride 2 mg oral tablet Start: 02/25/24 10:24:00 AM EDT, 1 tab, PO, Daily, Disp# 90 tab, Refills: 3, Pharmacy: [facility] Start Date: 02/25/24 Status: Ordered ketoconazole 2% topical cream Start: 07/15/23 11:12:00 AM EDT, 1 appl, topical, bid, Disp# 60 g, Refills: 2, apply to toes for tinea, Pharmacy: [facility] Start Date: 07/15/23 Status: Ordered losartan 25 mg oral tablet Start: 02/25/24 11:07:00 AM EDT, 1 tab, PO, Daily, Disp# 90 tab, Refills: 3, Pharmacy: [facility] Start Date: 02/25/24 Status: Ordered magnesium oxide 250 mg oral tablet Start: 05/19/22 7:50:00 AM EDT, 1 tab, PO, Daily Start Date: 05/19/22 Status: Ordered Metoprolol Succinate ER 25 mg oral tablet, extended release Start: 02/15/24 8:34:00 AM EDT, 1 tab, PO, bid, Disp# 180 tab, Refills: 3, Pharmacy: [facility] Start Date: 02/15/24 Status: Ordered multivitamin Start: 11/28/13 8:17:00 AM EDT, 1 tab, PO, Daily Start Date: 11/28/13 Status: Ordered nitroglycerin 0.4 mg sublingual tablet Start: 05/19/22 8:15:00 AM EDT, 1 tab, SL, q5min, Disp# 90 tab, Refills: 3, PRN: as needed for chestpain, Pharmacy: [facility] Start Date: 05/19/22 Status: Ordered phenytoin 100 mg oral capsule, extended release Start: 02/25/24 5:21:00 PM EDT, 2 cap, PO, bid, Disp# 120 cap, Refills: 11, TAKE 2 CAPSULES BY MOUTH TWO TIMES DAILY, Pharmacy: [facility] Start Date: 02/25/24 Status: Ordered Probiotic Formula Start: 04/21/16 9:09:00 AM EDT, once daily Start Date: 04/21/16 Status: Ordered tamsulosin 0.4 mg oral capsule Start: 02/26/23 9:28:00 AM EDT, 2 cap, PO, Daily, Disp# 180 cap, Refills: 3, Note to Pharmacy: Changein dosing, Pharmacy: [facility] Start Date: 02/26/23 Status: Ordered Tylenol 325 mg oral tablet Start: 08/01/19 8:21:00 AM EST, 1 tab, PO, q4h, PRN: as needed for pain Start Date: 08/01/19 Status: Ordered Vitamin C Start: 04/21/16 9:09:00 AM EDT, 500mg once daily Start Date: 04/21/16 Status: Ordered Vitamin D3 1000 intl units (25 mcg) oral capsule Start: 05/19/22 7:48:00 AM EDT, 1 cap, PO, Daily Start Date: 05/19/22 Status: Ordered zinc (as gluconate) 50 mg oral tablet Start: 05/19/22 7:50:00 AM EDT Start Date: 05/19/22 Status: Ordered Problem List Condition Confirmation Course Effective Dates Status Health St atus Informant Aortic aneurysm Confirmed Active Arthritis Confirmed Active BPH with urinary obstruction Confirmed Active History of stroke 1 Confirmed Active H/O fall Confirmed Active Hypertension Confirmed Active Irregular heart beat Confirmed Active Nocturia Confirmed Active Pulmonary embolism Confirmed Active Seizure disorder Confirmed Active Thrombotic stroke Confirmed Active 1with eeg found activity for seizure activity Procedures Procedure Date Related Diagnosis Body Site Status Punch biopsy of skin 08/29/19 Comp leted Cardiac catheterisation 1 08/27/17 Completed Echocardiogram 2 08/27/17 Complete d Removal of secondary membran ous cataract (opacified posterior lens capsule and/or anterior hyaloid) with corneo-scleral section, with or without iridectomy (iridocapsulotomy, iridocapsulectomy) 05/09/15 Completed Esophagogastroduodenoscopy 3 02/21/15 Completed Punch biopsy 4 07/12/14 Completed Phacoemulsification 5 Com pleted Tonsillectomy Completed 1impression: [address] segment elevation myocardial infarction. 2 History of prior cerebrovascular accident. 3 Stable thoracic aortic aneurysm 2conclusions 1. Normal LV size, mild concentric LVH 2. LVEF 55-60% inferior/ inferolateral wall motion abnormality. Grade I diastolic dysfunction 3 Normal RV size with boarder line RV function 4. aortic sclerosis mild aortic regurgitation. 5. Mildly dilated ascending aorta (4.3cm) 6 Normal estimated PA RA pressures. 7. No prior studies for comparison 3EGD 4 cm HH, no path done 4right abdomen 5R cataract with posterior chamber lens implant Results Orders for Microbiology Reports Name Date Enteric Pathogen Panel, Stool (ENTERIC P ATHOGEN PANEL) 10/12/24 Microbiology Reports TEST:Enteric Pathogen Panel STATUS:Auth (Verified) BODY SITE: SOURCE:Stool COLLECTED DATE/TIME:10/12/24 10:15 AM Status FINAL 10/13/2024 Social History Social History Type Response Smoking Status Never smoked cigaret daniele Sex Male Sex Representation Male (finding) 1Chewed tobacco but quit 30 years ago. Patient Care team information Care Team Personnel Name: Lucille Pérez DO, Mariana Annette Position: Physician - Family Med Member Role: Primary Care Provider Address: [address] [place] [address] Care Team Related Persons Name: REMI FLORES Name: REMI FLORES I
--- OUTSIDE RECORDS SUMMARY | 2024-10-17 08:17 | External Medical Summary | Continuity of Care Document ---
Author Name Unknown Organization [address] Address [address] [place] [id number] Care Team Providers Care Leather Lacer Name Role Phone Ashlie Triana Primary Care P hysician [phone] [id number] Date[facility]): 10/10/24 - 10/10/[address] [facility] [address] [facility] [address] [place] [address] [phone] Encounter Diagnosis Diarrhea(Discharge Diagnosis) - 10/10/24 Discharge Disposition: Home or Self Care Attending Physician: MD Borden Jesse Referring Physician: MD Borden Jesse Allergies, Adverse Reactions, Alerts Substance Criticality Severity Reaction Reaction Severity Status cephalosporins rash Activ e penicillins rash Active TEGretol Elevated liver enzymes Active Keflex rash Active LamISIL diarrhea Active Immunizations Given and Recorded Vaccine Date [...] Daily, Disp# 30 tab, Refills: 5, Pharmacy: [facility] Start Date: 09/01/17 Status: Ordered atorvastatin 80 mg oral tablet Start: 02/25/24 10:23:00 AM EDT, 1 tab, PO, Daily, Disp# 90 tab, Refills: 3, Pharmacy: [facility] Start Date: 02/25/24 Status: Ordered Co-Q10 100 mg oral capsule Start: 03/27/19 2:59:00 PM EDT, 1 cap, PO, Daily Start Date: 03/27/19 Status: Ordered Dilantin 100 mg oral capsule, extended release Start: 02/25/24 10:24:00 AM EDT, 1 cap, PO, bid, Disp# 180 cap, Refills: 3, Pharmacy: [facility] Start Date: 02/25/24 Stop Date: 02/19/25 Status: Ordered dutasteride 0.5 mg oral capsule Start: 02/26/23 8:47:00 AM EDT Start Date: 02/26/23 Status: Ordered Eliquis 5 mg oral tablet Start: 02/25/24 11:06:00 AM EDT, 1 tab, PO, bid, Disp# 180 tab, Refills: 3, Pharmacy: [facility] Start Date: 02/25/24 Status: Ordered ezetimibe 10 mg oral tablet TAKE 1 TABLET BY MOUTH EVERY DAY Start Date: 10/10/24 Status: Ordered fluocinonide 0.05% topical cream Start: 02/24/24 11:37:00 AM EDT, 1 appl, topical, bid, Disp# 60 g, Refills: 4, apply to foot and leg for dermatitis, Pharmacy: [facility] Start Date: 02/24/24 Status: Ordered glimepiride 2 mg oral tablet Start: 02/25/24 10:24:00 AM EDT, 1 tab, PO, Daily, Disp# 90 tab, Refills: 3, Pharmacy: [facility] Start Date: 02/25/24 Status: Ordered ketoconazole 2% topical cream Start: 07/15/23 11:12:00 AM EDT, 1 appl, topical, bid, Disp# 60 g, Refills: 2, apply to toes for tinea, Pharmacy: [facility] Start Date: 07/15/23 Status: Ordered losartan 25 mg oral tablet Start: 02/25/24 11:07:00 AM EDT, 1 tab, PO, Daily, Disp# 90 tab, Refills: 3, Pharmacy: [facility] Start Date: 02/25/24 Status: Ordered magnesium oxide 250 mg oral tablet Start: 05/19/22 7:50:00 AM EDT, 1 tab, PO, Daily Start Date: 05/19/22 Status: Ordered Metoprolol Succinate ER 25 mg oral tablet, extended release Start: 02/15/24 8:34:00 AM EDT, 1 tab, PO, bid, Disp# 180 tab, Refills: 3, Pharmacy: [facility] Start Date: 02/15/24 Status: Ordered multivitamin Start: 11/28/13 8:17:00 AM EDT, 1 tab, PO, Daily Start Date: 11/28/13 Status: Ordered nitroglycerin 0.4 mg sublingual tablet Start: 05/19/22 8:15:00 AM EDT, 1 tab, SL, q5min, Disp# 90 tab, Refills: 3, PRN: as needed for chestpain, Pharmacy: [facility] Start Date: 05/19/22 Status: Ordered phenytoin 100 mg oral capsule, extended release Start: 02/25/24 5:21:00 PM EDT, 2 cap, PO, bid, Disp# 120 cap, Refills: 11, TAKE 2 CAPSULES BY MOUTH TWO TIMES DAILY, Pharmacy: [facility] Start Date: 02/25/24 Status: Ordered Probiotic Formula Start: 04/21/16 9:09:00 AM EDT, once daily Start Date: 04/21/16 Status: Ordered tamsulosin 0.4 mg oral capsule Start: 02/26/23 9:28:00 AM EDT, 2 cap, PO, Daily, Disp# 180 cap, Refills: 3, Note to Pharmacy: Changein dosing, Pharmacy: [facility] Start Date: 02/26/23 Status: Ordered [...] AM EDT Start Date: 05/19/22 Status: Ordered Mental Status 10/10/24 Barriers to Learning one year None evide nt Mandatory Health Literacy Documentation Yes Health Literacy Communication Barriers N ever Primary Language Czech Problem List Condition Confirmation Course Effective Dates [...] 1with eeg found activity for seizure activity Diagnosis Diagnosis Type Effective Dates Health Status Clini vilma Service Informant Diarrhea Discharge Diagnosis 10/10/24 Non-Specified Procedures Procedure Date Related Diagnosis Body Site [...] 5R cataract with posterior chamber lens implant Vital Signs Most recent to oldest [Reference Range]: 1 Patient Weight 92.8 kg (10/10/24 11:36 AM) Temperature [36.5-37.9 DegC] 36.7 DegC (10/10/24 11:36 AM) Blood Pressure 120/72mmHg (10/10/24 11:36 AM) Cuff Pulse Pressure 48 mmHg (10/10/24 11:36 AM) Social History Social History Type Response Smoking Status Never smoked cigaret daniele Sex Male Sex Representation Male (finding) 1Chewed tobacco but quit 30 years ago. Patient Care team information Care Team Personnel Name: Lucille Pérez DO, Mariana Annette Position: Physician - Family Med Member Role: Primary Care Provider Address: [address] [address] Care Team Related Persons Name: REMI FLORES Name: REMI FLORES I
--- OUTSIDE RECORDS SUMMARY | 2024-10-17 08:17 | External Medical Summary | Continuity of Care Document ---
Author Name Unknown Organization [facility] [address] Address [address] [place], [place] [id number] Care Team Providers Care Rn Document Improvement Specialist Name Role Phone Ashlie Triana Primary Care P fabi [phone] [id number]): 10/11[facility] - 10/11/24 [facility] [address] [facility] [address] [facility] [place], [place] [phone] Encounter Diagnosis Diarrhea, unspecified(Final) - Essential (primary) hypertension(Final) - Discharge Disposition: Home or Self Care Attending Physician: MD Borden Jesse Referring Physician: MD Borden Jesse Allergies, Adverse Reactions, Alerts Substance Criticality Severity Reaction Reaction Severity Status cephalosporins rash Activ e penicillins rash Active Keflex rash Active LamISIL diarrhea Active TEGretol Elevated liver enzymes Active Immunizations Given and Recorded Vaccine Date [...] Daily, Disp# 30 tab, Refills: 5, Pharmacy: [facility] Start Date: 09/01/17 Status: Ordered atorvastatin 80 mg oral tablet Start: 02/25/24 10:23:00 AM EDT, 1 tab, PO, Daily, Disp# 90 tab, Refills: 3, Pharmacy: [facility] Start Date: 02/25/24 Status: Ordered Co-Q10 100 mg oral capsule Start: 03/27/19 2:59:00 PM EDT, 1 cap, PO, Daily Start Date: 03/27/19 Status: Ordered Dilantin 100 mg oral capsule, extended release Start: 02/25/24 10:24:00 AM EDT, 1 cap, PO, bid, Disp# 180 cap, Refills: 3, Pharmacy: [facility] Start Date: 02/25/24 Stop Date: 02/19/25 Status: Ordered dutasteride 0.5 mg oral capsule Start: 02/26/23 8:47:00 AM EDT Start Date: 02/26/23 Status: Ordered Eliquis 5 mg oral tablet Start: 02/25/24 11:06:00 AM EDT, 1 tab, PO, bid, Disp# 180 tab, Refills: 3, Pharmacy: [facility] Start Date: 02/25/24 Status: Ordered ezetimibe 10 mg oral tablet TAKE 1 TABLET BY MOUTH EVERY DAY Start Date: 10/10/24 Status: Ordered fluocinonide 0.05% topical cream Start: 02/24/24 11:37:00 AM EDT, 1 appl, topical, bid, Disp# 60 g, Refills: 4, apply to foot and leg for dermatitis, Pharmacy: [facility] Start Date: 02/24/24 Status: Ordered glimepiride 2 mg oral tablet Start: 02/25/24 10:24:00 AM EDT, 1 tab, PO, Daily, Disp# 90 tab, Refills: 3, Pharmacy: [facility] Start Date: 02/25/24 Status: Ordered ketoconazole 2% topical cream Start: 07/15/23 11:12:00 AM EDT, 1 appl, topical, bid, Disp# 60 g, Refills: 2, apply to toes for tinea, Pharmacy: [facility] Start Date: 07/15/23 Status: Ordered losartan 25 mg oral tablet Start: 02/25/24 11:07:00 AM EDT, 1 tab, PO, Daily, Disp# 90 tab, Refills: 3, Pharmacy: [facility] Start Date: 02/25/24 Status: Ordered magnesium oxide 250 mg oral tablet Start: 05/19/22 7:50:00 AM EDT, 1 tab, PO, Daily Start Date: 05/19/22 Status: Ordered Metoprolol Succinate ER 25 mg oral tablet, extended release Start: 02/15/24 8:34:00 AM EDT, 1 tab, PO, bid, Disp# 180 tab, Refills: 3, Pharmacy: [facility] Start Date: 02/15/24 Status: Ordered multivitamin Start: 11/28/13 8:17:00 AM EDT, 1 tab, PO, Daily Start Date: 11/28/13 Status: Ordered nitroglycerin 0.4 mg sublingual tablet Start: 05/19/22 8:15:00 AM EDT, 1 tab, SL, q5min, Disp# 90 tab, Refills: 3, PRN: as needed for chestpain, Pharmacy: [facility] Start Date: 05/19/22 Status: Ordered phenytoin 100 mg oral capsule, extended release Start: 02/25/24 5:21:00 PM EDT, 2 cap, PO, bid, Disp# 120 cap, Refills: 11, TAKE 2 CAPSULES BY MOUTH TWO TIMES DAILY, Pharmacy: [facility] Start Date: 02/25/24 Status: Ordered Probiotic Formula Start: 04/21/16 9:09:00 AM EDT, once daily Start Date: 04/21/16 Status: Ordered tamsulosin 0.4 mg oral capsule Start: 02/26/23 9:28:00 AM EDT, 2 cap, PO, Daily, Disp# 180 cap, Refills: 3, Note to Pharmacy: Changein dosing, Pharmacy: [facility] Start Date: 02/26/23 Status: Ordered [...] cataract with posterior chamber lens implant Results Laboratory List Name Date C Reactive Protein, Quantitation (CRP QU ANTITATION) 10/11/24 Complete Blood Count w Differential (CBC ,DIFFH) 10/11/24 Comprehensive Metabolic Panel (COMP META B PANEL) 10/11/24 Folic Acid Level (FOLIC ACID) 10/11/24 Iron Profile (IRON PROFILE) 10/11/24 Magnesium Level (MAGNESIUM) 10/11/24 T4, Free (T4, FREE) 10/11/24 Thyroid Stimulating Hormone (TSH) 5 Vitamin B12 Level (VITAMIN B12) 10/11/24 Vitamin D, 25-Hydroxy Level, Total (25-H YDROXY VITAMIN D) 10/11/24 Most recent to oldest [Reference Range]: 1 CReacProt [<0.50 mg/dL] 0.50 mg/dL *HI* (10/11/24 9:53 AM) eGFR CKD-EPI [>60 mL/min/1.73 m2] >90 mL /min/1.73 m2 1 (10/11/24 9:53 AM) Vitamin D, 25-Hydroxy [30-100 ng/mL] 24 ng/mL 2 *LOW* (10/11/24 9:53 AM) Estimated CrCl 100.02 mL/min (10/11/24 10:29 AM) MPV [9.0-12.2 fL] 9.4 fL (10/11/24 9:53 AM) Immature Gran% 0.4 % (10/11/24 9:53 AM) Neut% 56.1 % (10/11/24 9:53 AM) Lymph% 20.5 % (10/11/24 9:53 AM) Sanborn% 21.0 % (10/11/24 9:53 AM) Baso% 0.7 % (10/11/24 9:53 AM) Eos% 1.3 % (10/11/24 9:53 AM) Immat Gran, Abs [0-0.4 K/uL] 0.02 K/uL (10/11/24 9:53 AM) Neut, Abs [2.0-7.7 K/uL] 2.54 K/uL (10/11/24 9:53 AM) Lymph, Abs [1.0-3.4 K/uL] 0.93 K/uL *LOW* (10/11/24 9:53 AM) Sanborn, Abs [0-1.0 K/uL] 0.95 K/uL (10/11/24 9:53 AM) Baso, Abs [0-0.1 K/uL] 0.03 K/uL (10/11/24 9:53 AM) Eos, Abs [0-0.5 K/uL] 0.06 K/uL (10/11/24 9:53 AM) Type of Diff: AUTO *Unknown* (10/11/24 9:53 AM) RDW [11.5-14.2 %] 13.7 % (10/11/24 9:53 AM) Anion Gap [5-14 mmol/L] 4 mmol/L *LOW* (10/11/24 9:53 AM) Alb [3.5-5.0 g/dL] 3.9 g/dL (10/11/24 9:53 AM) Alk Phos [38-126 unit/L] 158 unit/L *HI* (10/11/24 9:53 AM) ALT [<50 unit/L] 31 unit/L (10/11/24 9:53 AM) AST [15-46 unit/L] 31 unit/L (10/11/24 9:53 AM) B12 [211-946 pg/mL] 1209 pg/mL *HI* (10/11/24 9:53 AM) BUN [7-20 mg/dL] 19 mg/dL (10/11/24 9:53 AM) Ca [8.4-10.2 mg/dL] 8.7 mg/dL (10/11/24 9:53 AM) Cl- [96-107 mmol/L] 112 mmol/L *HI* (10/11/24 9:53 AM) HCO3 [22-30 mmol/L] 28 mmol/L (10/11/24 9:53 AM) Cret [0.70-1.30 mg/dL] 0.63 mg/dL *LOW* (10/11/24 9:53 AM) Iron [50-158 ug/dL] 79 ug/dL (10/11/24 9:53 AM) Folate [>7.2 ng/mL] >20.0 ng/mL (10/11/24 9:53 AM) Glu [74-106 mg/dL] 186 mg/dL *HI* (10/11/24 9:53 AM) Hct [39-48 %] 40.8 % (10/11/24 9:53 AM) Hgb [13.0-17.0 g/dL] 13.1 g/dL (10/11/24 9:53 AM) K [3.5-5.1 mmol/L] 3.4 mmol/L *LOW* (10/11/24 9:53 AM) MCH [28-33 pg] 32.3 pg (10/11/24 9:53 AM) MCHC [32-36 g/dL] 32.1 g/dL (10/11/24 9:53 AM) MCV [81-96 fL] 100.7 fL *HI* (10/11/24 9:53 AM) Mg [1.6-2.3 mg/dL] 2.1 mg/dL 3 (10/11/24 9:53 AM) Na [137-145 mmol/L] 144 mmol/L (10/11/24 9:53 AM) Plts [150-350 K/uL] 246 K/uL (10/11/24 9:53 AM) RBC [4.40-5.60 M/uL] 4.05 M/uL *LOW* (10/11/24 9:53 AM) Fe Sat [14-50 %] 34 % (10/11/24 9:53 AM) Free T4 [0.70-1.48 ng/dL] 1.01 ng/dL 4 (10/11/24 9:53 AM) T Bili [0.2-1.3 mg/dL] 0.3 mg/dL (10/11/24 9:53 AM) Total IBC [250-400 ug/dL] 232 ug/dL *LOW* (10/11/24 9:53 AM) Prot [6.3-8.2 g/dL] 7.1 g/dL (10/11/24 9:53 AM) Transferrin [200-360 mg/dL] 197 mg/dL *LOW* (10/11/24 9:53 AM) TSH [0.47-4.68 uIU/mL] 1.39 uIU/mL 5 (10/11/24 9:53 AM) WBC [4.0-10.4 K/uL] 4.53 K/uL (10/11/24 9:53 AM) 1Result Comment: Testing Performed By[facility], [address] [place] [address], [place] [address] 2Result Comment: Deficiency: <20 ng/mL Insufficiency: 21-29 ng/mL Sufficiency: 30-100 ng/mL Potenial Toxicity: >150 ng/mL 3Result Comment: Testing Performed By: Dept of Pathology [facility], [address] [place] [address], [place] [address] 4Result Comment: Testing Performed By: [facility], [address] [place] [address], [place] [address] 5Result Comment: Testing Performed By: [facility], [address] [place] [address], [place] [address] Social History Social History Type Response Smoking Status Never smoked cigaret daniele Sex Male Sex Representation Male (finding) 1Chewed tobacco but quit 30 years ago. Patient Care team information Care Team Personnel Name: Lucille Pérez DO, Mariana Annette Position: Physician - Family Med Member Role: Primary Care Provider Address: [address] [place] [address] [address] [place] [address] [place] Care Team Related Persons Name: REMI FLORES Name: REMI FLORES I
--- NOTE | 2024-10-17 08:35 | CT Scan Report ---
CT cervical spine wo con CT DOSE: 595.57 mGy.cm CLINICAL HISTORY: severe neck pain with movement. COMPARISON: None TECHNIQUE: Multiple axial CT images of the cervical spine were obtained without contrast. A dose low ering technique was utilized adhering to the principles of ALARA. Sagittal and coronal reconstruction s were performed. FINDINGS: There is severe, multilevel spondylosis and facet arthrosis. There is degenerative anteroli sthesis of C2 on C3 measuring approximately 4 mm. The atlantoaxial articulation and the odontoid demo nstrate some degenerative change and otherwise is unremarkable. The prevertebral soft tissues are not swollen. C2-3 level demonstrates severe bilateral hypertrophic facet arthrosis and mild bilateral uncovertebra l hypertrophy causing mild to moderate left and mild right foraminal stenosis. C3-4 level demonstrates severe right-sided hypertrophic facet arthrosis and uncovertebral hypertrophy right greater than left resulting in moderate right and mild left foraminal stenosis. C4-5 level demonstrates a spondylosis with bilateral foraminal narrowing right greater than left. C5-6 level demonstrates severe bilateral uncovertebral hypertrophy with severe bilateral foraminal st enosis. C6-7 level demonstrates bilateral uncovertebral hypertrophy with moderate to bilateral foraminal sten osis. C7-T1 level is unremarkable. Soft tissue evaluation demonstrates an extremely ectatic aortic arch. This has been described previou sly on a chest CT dated 09/09/2020 where the ascending aortic measurement was 4.4 cm. Would consider an elective follow-up chest CT for reevaluation of the ascending aortic diameter. IMPRESSION: Severe multilevel facet arthrosis and spondylosis as discussed above. Multilevel foramina l stenosis as described. No significant central canal stenosis. Known thoracic aortic ectasia which has not been evaluated since 2019. Consider elective chest CT fol low-up to reexamination ascending aortic diameter. ACT 112: Negative or not required by law. The above report was generated using voice recognition software. It may contain grammatical, syntax o r spelling errors. Electronically signed by: Deneen King M.D. 10/17/2024 8:33 AM
[2024-10-17 08:45] LABS: Albumin Globulin Ratio 1.2 (0.9-2); Albumin Level 3.7 gm/dl (3.4-5.0); BUN Creatinine Ratio 15.4 (10-20); Bilirubin,Total 0.4 mg/dl (0.2-1.0); Calcium 8.5 mg/dl (8.6-10.3); Creatinine Clr Calc Pharmacy 98.2 ml/min; Potassium 2.5 mmol/L (3.5-5.1); Total Protein 6.7 gm/dl (6.0-8.3)
--- NOTE | 2024-10-17 08:50 | XRay Report ---
XR chest 1V portable CLINICAL HISTORY: hypoxic COMPARISON STUDY: Chest radiograph and chest CT September 09, 2020. FINDINGS: Lung volumes are unchanged. Cardiomegaly and a hiatal hernia are again noted. There is mild interstitial thickening. There is no consolidation. Bibasilar opacities favor atelectasis. 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 IMPRESSION: 1. Cardiomegaly. Mild interstitial thickening which is likely chronic. No radiographic evidence for o vert pulmonary edema. 2. No consolidation to suggest pneumonia. 3. Hiatal hernia. ACT 112: Negative or not required by law. Electronically signed by: Gibson Ferris M.D. 10/17/2024 8:48 AM
[2024-10-17 09:38] LABS: Troponin I High Sensitivity 30.7 pg/ml (0-20)
[2024-10-17] MEDS: POTASSIUM CHLORIDE CRTAB 20 MEQ TABCR PO STA ×2 (09:55→11:36)
[2024-10-17] MEDS: POTASSIUM CHLORIDE / WTR 10 MEQ/100 ML PLCT IV ONE (10:01)
--- NOTE | 2024-10-17 10:39 | History & Physical Report ---
Date of Service October 17, 2024 Assessment & Plan (1) Cervical paraspinal muscle spasm: (2) Acute hypokalemia: (3) DJD (degenerative joint disease): (4) History of pulmonary embolism: (5) Hypoxia: (6) Diabetes mellitus: (7) Seizure disorder: (8) GERD (gastroesophageal reflux disease): (9) Thoracic aortic aneurysm: (10) History of CVA (cerebrovascular accident): (11) BPH w urinary obs/LUTS: Raven Petersen (Bill) Mikala is a 79-year-old with an extensive past medical history most notable for a posterior inferior myocardial infarction, three previous cerebrovascular accidents, thoracic aortic aneurysm, diabetes mellitus, pulmonary emboli with respiratory hypoxia (on apixaban), and hyperlipidemia was admitted for several days of worsening right posterior neck pain and workup. #Cervical Paraspinal Muscle Spasm (Right Sided) #Cervical Degenerative Joint Disease - 4 bags of Magnesium; Oral magnesium; QAM Mg - Topical Diclofenac BID - Muscular Stretching - CT Cervical Spine: Impression - Severe multilevel facet arthrosis and spondylosis as discussed above. Multilevel foraminal stenosis as described. No significant central canal stenosis - Chest X-ray: Impression - Cardiomegaly, No lobar pneumonia, and Hiatal hernia - Respiratory BioFire: negative #Overflow Diarrhea - Miralax 85 g PO - CBC QAM - C dif screen #Hypokalemia - Oral and one time IV Potassium - BMP QAM #History of Pulmonary Emboli #Hypoxia - Continue home Apixaban - Supplemental oxygen if symptomatic #Diabetes Mellitus - HbA1C ordered - Blood glucose checks + SS insulin #Chronic Conditions - Seizure: Phenytoin - Thoracic AAA/History of CVAs/CT: Aspirin + Atorvastatin + Zetia + Losartan - BPH/Urinary Retention: Finasteride + Tamsulosin DVT PPx: Apixaban Diet: Low Carb Code: DNR/DNI Dispo: Tele History of Present Illness Chief Complaint: Right posterior neck pain Primary Care Provider: DO Nicola StinsonAnn Bach is a 79 year old with an extensive past medical history most notable for a posterior inferior myocardial infarction, three previous cerebrovascular accidents, thoracic aortic aneurysm, diabetes mellitus, pulmonary emboli with respiratory hypoxia (on apixaban), and hyperlipidemia presents the the ED for several days of worsening right posterior neck pain. He stated that the he has a localized, dull pain that is exacerbated by turning his head to the right where the pain become more achy. His neck pain is not associated with loss of vision/hearing, radicular symptoms, loss of sensation, or loss of strength (compared to post CVA baseline) on his right or left-sided body. He also is without chest pain, shortness of breath, or headache. His , Rebecca, and his daughter, Eryn, were present. Rebecca states that she was a nurse and currently takes care of administering Bill's medications for which he is taking everything as prescribed. He also has diarrhea which as lasted 3-4 weeks with ~3 bowel movements of chunks with liquid. He does not have abdominal pain nor does his bowel movements wake him from sleep. Otherwise, no further updates. Allergies Allergy/AdvReac Type Severity Reaction Status Date / Time cephalexin Allergy Intermediate Rash Verified 10/17/24 09:02 Cephalosporins Allergy Intermediate Rash Verified 10/17/24 09:02 carbamazepine Allergy Unknown Elevated Verified 10/17/24 09:02 liver enzymes Penicillins Allergy Unknown Unknown Verified 10/17/24 09:02 Home Medications Medication Instructions Recorded Confirmed Type atorvastatin 80 mg tablet 80 mg PO QAM #30 tabs 06/21/19 10/17/24 History cholecalciferol (vitamin D3) 25 1,000 units PO QPM 06/21/19 10/17/24 History mcg (1,000 unit) tablet coenzyme Q10 100 mg capsule 100 mg PO QAM 06/21/19 10/17/24 History lactobacillus combination no.8 3 3,000 mmu cells PO QPM 06/21/19 10/17/24 History billion cell capsule (Adult Probiotic) nitroglycerin 0.4 mg sublingual 0.4 mg sublingual Q5M PRN chest 06/21/19 10/17/24 History tablet pain phenytoin sodium extended 100 mg 200 mg PO BID 08/22/19 10/17/24 History capsule aspirin 81 mg tablet,delayed 81 mg PO QAM 09/06/19 10/17/24 History release (Roxy Low Dose Aspirin) acetaminophen 650 mg 650 mg PO BID PRN Pain 10/14/21 10/17/24 History tablet,extended release (Tylenol 8 Hour) magnesium 250 mg tablet 250 mg PO QAM 10/14/21 10/17/24 History glimepiride 2 mg tablet 2 mg PO QPM 10/25/23 10/17/24 History apixaban 5 mg tablet 5 mg PO BID #180 tabs 08/01/24 10/17/24 Rx vitamins A,C,R-foft-gfesem 2,148 1 tab PO BID 08/01/24 10/17/24 History mcg-113 mg-45 mg-17.4 mg tablet (PreserVision AREDS) dutasteride 0.5 mg capsule 0.5 mg PO QPM 10/09/24 10/17/24 History (Avodart) ezetimibe 10 mg tablet (Zetia) 10 mg PO QAM 10/09/24 10/17/24 History losartan 25 mg tablet 25 mg PO QAM 10/09/24 10/17/24 History tamsulosin 0.4 mg capsule 0.8 mg PO QPM 10/09/24 10/17/24 History Past Med/Surg History Problem List (Updated 10/17/24 @ 15:17 by William Vora) History of pulmonary embolism (Acute) Cervical paraspinal muscle spasm (Acute) Elevated troponin (Acute) Neck pain (Acute) Acute hypokalemia (Acute) Hypoxia (Acute) Left carpal tunnel syndrome Urinary retention CVA (cerebral vascular accident) Arthritis of right ankle Sensorineural hearing loss (SNHL) of both ears BPH w urinary obs/LUTS Diabetes mellitus Seizure disorder Hypoxia (Acute) Impacted cerumen of both ears Bleeding disorder On Plavix Seizure Prepatellar bursitis of left knee Cellulitis of left knee Left knee pain Arthritis (Acute) CAD (coronary artery disease) (Acute) Constipation (Acute) Cough (Acute) GERD (gastroesophageal reflux disease) (Acute) Indigestion (Acute) ST elevation CT (STEMI) (Acute) Thoracic aortic aneurysm (Acute) Weight disorder (Acute) DJD (degenerative joint disease) History of CVA (cerebrovascular accident) Finger fracture (Acute) Aortic aneurysm Finger laceration (Acute) Medical History Hx of flexible sigmoidoscopy Urinary retention Seizure 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 Hx of gastroesophageal reflux (GERD) Diabetes mellitus CVA (cerebral vascular accident) 1980, sensation loss left side 10/2023 (had one between the first and last stroke, unsure when), still has loss of sensation left side and some weakness Hx of myocardial infarction ~2016 Hx of coronary artery disease BPH w urinary obs/LUTS Arthritis Aortic aneurysm monitoring Pneumonia due to 2019 novel coronavirus hx, 08/2020; no residual effects COVID-19 hx, "a couple times," most recent 04/2024, no residual symptoms from any "bouts" of covid Surgical History History of esophagogastroduodenoscopy (EGD) Hx of bilateral cataract extraction Hx of heart artery stent ~2017, [facility], CT, x1 stent; f/u dr. soni, id cardio History of tonsillectomy and adenoidectomy As a child Family History Mother Hearing loss Hypertension Heart disease Father Heart disease Other No family history of adverse response to anesthesia No family history of bleeding disorder Social History Smoking Status: Never smoker Second Hand Exposure: No; Do You Dip or Chew Tobacco: No (quit years ago); Hx Alcohol Use: No Hx Substance Use: No Preferred Language: Welsh Communication Ability: Effective Blood Bank Attendant Required: No Beliefs That Will Affect Care: None Current Living Situation: Spouse Feels Safe at Home: Yes Assistive Devices: Glasses and Hearing Aid - Bilateral Review of Systems Review of Systems: Per HPI Physical Exam Physical Exam: Constitutional: Lying comfortably in bed. In no apparent distress Cardiovascular: Regular rate and rhythm. No rubs, murmurs, or gallops. S1 and S2 normal. Respiratory: Lungs are clear to auscultation bilaterally without wheeze, crackle, or rhonchi. Conversational without shortness of breath. No respiratory accessory muscle use. Respiratory rate and effort appropriate for situation. Musculoskeletal: Right sided, posterior, inferior neck pain with moderate pressure Results & Data Results & Data Vital Signs (Past 12 Hours) Vital Signs Temp Pulse Pulse Resp BP BP Pulse Ox 10/17/24 10:18 78 10/17/24 09:53 78 16 96 10/17/24 09:53 74 20 152/103 H 93 10/17/24 08:58 93 10/17/24 08:21 72 16 142/91 H 92 10/17/24 07:42 91 10/17/24 07:15 72 16 153/97 H 91 10/17/24 07:04 36.5 C 98 H 18 165/94 H 90 O2 Del Method O2 Flow Rate 10/17/24 10:18 10/17/24 09:53 Nasal Cannula 1 10/17/24 09:53 Nasal Cannula 1 10/17/24 08:58 Nasal Cannula 1 10/17/24 08:21 Room Air 10/17/24 07:42 Room Air 10/17/24 07:15 Room Air 10/17/24 07:04 Room Air Code Status & VTE Plan Code Status DNR/DNI VTE Prophylaxis Plan VTE Prophylaxis will be ordered: Yes Supervising Physician Co-Signing Physician Notes I personally examined the patient and verified all martinez points of history and exam, discussed case, and agree with decision making with Dr Lo and Justin Vora MS4 Neck feeling better by the time I see him. In discussion of his diarrheaongoing for about 3-4 weeks, seems to have been somewhat insidious onset. 3-4 times a day generally small loose stools sometimes medium amounts of loose stools. Not watery or high-volume. Never wakes him from sleep. No fevers chills or sweats. No blood no mucus. Denies shortness of breathnotes at home sometimes he will check a pulse ox and see it get into the low 90s or maybe high 80s, but it improves when he walks aroundhe notes he probably needs to do more. Vitals noted, in general he is awake and alert pleasant no distress. HEENT normocephalic atraumatic mucous membranes moist. Lungs are diminished bibasilar no rales rhonchi or wheezes. Abdomen is soft mildly distended nontender. No guarding rebound or rigidity. Right-sided cervical paraspinals high tone, tender, decreased range of motiongentle direct myofascial done, patient tolerated well. Neck painappears to be muscle spasm. Gentle OMT done. Mag IV given with some improvement. Continue Voltaren gel. Fortunately no ominous signs or symptoms or findings noted. Already improving, anticipate further improvement. "Chronic diarrhea"history and exam far and away most consistent with constipation with overflow diarrhea. MiraLAX 85 g p.o. x 1 now. Explained to patient and who expressed a good understanding. Hypokalemiaseems to be from poor p.o. intake related to his constipationboth he and his have noted his appetite/p.o. intake down from normal. Replace potassium. Follow. Hypoxiaexam and story are quite consistent with atelectasis. Encourage deep breathing. Whenever I took the oxygen off he was 92% on room air. Chronically anticoagulated. Otherwise as above
[2024-10-17 10:55] LABS: Adenovirus PCR Not Detected (NotDetected); Bordetella parapertussis PCR Not Detected (NotDetected); Bordetella pertussis PCR Not Detected (NotDetected); Chlamydia pneumoniae PCR Not Detected (NotDetected); Coronavirus 229E PCR Not Detected (NotDetected); Coronavirus CoV-2 (COVID19)PCR Not Detected (NotDetected); Coronavirus HKU1 PCR Not Detected (NotDetected); Coronavirus NL63 PCR Not Detected (NotDetected); Coronavirus OC43PCR Not Detected (NotDetected); Human Metapneumovirus PCR Not Detected (NotDetected); Influenza A PCR Not Detected (NotDetected); Influenza B PCR Not Detected (NotDetected); Mycoplasma pneumoniae PCR Not Detected (NotDetected); Parainfluenza Virus 1 PCR Not Detected (NotDetected); Parainfluenza Virus 2 PCR Not Detected (NotDetected); Parainfluenza Virus 3 PCR Not Detected (NotDetected); Parainfluenza Virus 4 PCR Not Detected (NotDetected); Respiratory Syncytial VirusPCR Not Detected (NotDetected); Rhinovirus/Enterovirus PCR Not Detected (NotDetected)
[2024-10-17 11:08] LABS: Troponin I High Sensitivity 38.6 pg/ml (0-20)
[2024-10-17] MEDS: MAGNESIUM SULFATE / D5W 1 GM/100 ML BAG IV SCH (11:35)
[2024-10-17] MEDS: SODIUM CHLOR 0.45% + 20MEQ KCL 20 MEQ/1,000 ML BAG IV SCH (11:49)
[2024-10-17] MEDS ORDERED: CARBOHYDRATES FOR HYPOGLYCEMIA PO PRN (12:33)
[2024-10-17] MEDS ORDERED: GLUCOSE 10 TAB/TUBE PO PRN (12:33)
[2024-10-17] MEDS ORDERED: GLUCAGON FOR INJ 1 MG VIAL SQ PRN (12:33)
[2024-10-17] MEDS ORDERED: ONDANSETRON INJ 2 MG/ML 2 ML VIAL IV PRN (12:33)
[2024-10-17] MEDS ORDERED: DEXTROSE 50% 50 ML SYRINGE IV PRN (12:33)
[2024-10-17] MEDS ORDERED: GLUCOSE 40% GEL 15 GM TUBE PO PRN (12:33)
--- NOTE | 2024-10-17 12:55 | Electrocardiogram Report ---
Test Reason : Blood Pressure : */* mmHG Vent. Rate : 77 BPM Atrial Rate : 77 BPM P-R Int : 190 ms QRS Dur : 106 ms QT Int : 402 ms P-R-T Axes : 56 -36 -14 degrees QTcB Int : 454 ms Normal sinus rhythm Left axis deviation Incomplete right bundle branch block Moderate voltage criteria for LVH, may be normal variant ( R in aVL ) Nonspecific T wave abnormality Abnormal ECG When compared with ECG of 21-Aug-2020 19:24, No significant change was found Confirmed by Jay Castelan ([id number]) on 10/17/2024 12:55:42 PM Referred By: REFERRED SELF Confirmed By: Jay Castelan
[2024-10-17] MEDS: INSULIN ASPART PER UNIT CHARGE SC SCH (13:30)
[2024-10-17] MEDS: DICLOFENAC SOD 1% GEL 100 GM TUBE EXT SCH (13:31)
[2024-10-17 16:50] LABS: Anion Gap 6 (3-11); BUN Creatinine Ratio 17.5 (10-20); Blood Urea Nitrogen 11 mg/dl (6-23); Calcium 8.1 mg/dl (8.6-10.3); Carbon Dioxide 27 mmol/L (21-32); Chloride 106 mmol/L (98-107); Creatinine Clr Calc Pharmacy 100.9 ml/min; Glucose 174 mg/dl (70-99(Fasting)); Sodium 139 mmol/L (136-145)
[2024-10-17 16:58] LABS: Troponin I High Sensitivity 37.5 pg/ml (0-20)
--- NOTE | 2024-10-17 18:40 | Billing Data ---
Date of Service October 17, 2024 Coding Level of Care Code 68299 INT INP/OBS CARE
[2024-10-17] MEDS: POTASSIUM CHLORIDE CRTAB 20 MEQ TABCR PO ONE (20:19)
[2024-10-17] MEDS: FINASTERIDE 5 MG TAB PO SCH (20:24)
[2024-10-17] MEDS: PHENYTOIN SODIUM ER 100 MG CAP PO SCH (20:26)
[2024-10-17] MEDS: POLYETHYLENE (MIRALAX) 17 GM PACK PO ONE (20:31)
[2024-10-17] MEDS: APIXABAN 5 MG TABLET PO SCH (20:54)
[2024-10-17] MEDS: CHOLECALCIFEROL 25 MCG (1000 UNITS) TAB PO SCH (20:54)
[2024-10-17] MEDS: TAMSULOSIN HCL 0.4 MG CAP PO SCH (20:54)
[2024-10-18] MEDS: ACETAMINOPHEN 325 MG TAB PO PRN (00:54)
[2024-10-18 06:43] LABS: Hematocrit (blood only) 33.7 % (42.0-52.0); Hemoglobin 11.6 g/dl (14.0-18.0); Mean Corpuscular Hemoglobin 32.3 pg (25.0-34.0); Mean Corpuscular Hgb Conc 34.4 g/dL (32.0-36.0); Mean Corpuscular Volume 93.9 fL (80.0-100.0); Mean Platelet Volume 9.1 fL (9.4-12.4); Platelet Count 181 K/uL (130-400); RDW Coefficient of Variation 13.8 % (11.5-14.5); RDW Standard Deviation 47.1 fL (36.4-46.3); Red Blood Count 3.59 M/uL (4.70-6.10); White Blood Count 5.78 K/ul (4.8-10.8)
[2024-10-18 06:51] LABS: BUN Creatinine Ratio 18.3 (10-20); Calcium 7.7 mg/dl (8.6-10.3); Creatinine Clr Calc Pharmacy 106.4 ml/min; Magnesium 2.3 mg/dl (1.7-2.4); Potassium 3.2 mmol/L (3.5-5.1)
[2024-10-18 07:10] LABS: Estimated Average Glucose 203 mg/dl; Hemoglobin A1C 8.7 % (4.5-5.6)
[2024-10-18] MEDS: ASPIRIN 81 MG ECTAB PO SCH (08:09)
[2024-10-18] MEDS: ATORVASTATIN 40 MG TAB PO SCH (08:09)
[2024-10-18] MEDS: EZETIMIBE 10 MG TAB PO SCH (08:09)
[2024-10-18] MEDS: LOSARTAN POTASSIUM 25 MG TAB PO SCH (08:09)
[2024-10-18] MEDS: MAGNESIUM OXIDE 400 MG TAB PO SCH (08:09)
[2024-10-18] MEDS: CEROVITE ADV FORMULA TAB PO SCH (08:09)
[2024-10-18] MEDS: POTASSIUM CHLORIDE CRTAB 20 MEQ TABCR PO SCH (08:33)
[2024-10-18] MEDS ORDERED: NON-FORMULARY MEDICATION (Coenzyme Q10 100 mg capsule) PO SCH (09:00)
--- NOTE | 2024-10-18 10:44 | Discharge Summary ---
Date of Service October 18, 2024 Admission HPI Per Admitting Provider Nicola GarciaManuela Bach is a 79 year old with an extensive past medical history most notable for a posterior inferior myocardial infarction, three previous cerebrovascular accidents, thoracic aortic aneurysm, diabetes mellitus, pulmonary emboli with respiratory hypoxia (on apixaban), and hyperlipidemia presents the the ED for several days of worsening right posterior neck pain. He stated that the he has a localized, dull pain that is exacerbated by turning his head to the right where the pain become more achy. His neck pain is not associated with loss of vision/hearing, radicular symptoms, loss of sensation, or loss of strength (compared to post CVA baseline) on his right or left-sided body. He also is without chest pain, shortness of breath, or headache. His , Rebecca, and his daughter, Eryn, were present. Rebecca states that she was a nurse and currently takes care of administering Bill's medications for which he is taking everything as prescribed. He also has diarrhea which as lasted 3-4 weeks with ~3 bowel movements of chunks with liquid. He does not have abdominal pain nor does his bowel movements wake him from sleep. Otherwise, no further updates. Admission Exam (Per Admitting) Constitutional Lying comfortably in bed. In no apparent distress Respiratory Lungs are clear to auscultation bilaterally without wheeze, crackle, or rhonchi. Conversational without shortness of breath. No respiratory accessory muscle use. Respiratory rate and effort appropriate for situation. Cardiovascular Regular rate and rhythm. No rubs, murmurs, or gallops. S1 and S2 normal. Musculoskeletal Right sided, posterior, inferior neck pain with moderate pressure Discharge Data Consultations 10/17/24 09:13 ED Decision to Admit Stat Hospital Course (1) Cervical paraspinal muscle spasm: (2) Acute hypokalemia: (3) DJD (degenerative joint disease): (4) History of pulmonary embolism: (5) Hypoxia: (6) Diabetes mellitus: (7) Seizure disorder: (8) GERD (gastroesophageal reflux disease): (9) Thoracic aortic aneurysm: (10) History of CVA (cerebrovascular accident): (11) BPH w urinary obs/LUTS: Plan Nicola Bach (Bill) is a 79-year-old with an extensive past medical history most notable for a posterior inferior myocardial infarction, three previous cerebrovascular accidents, thoracic aortic aneurysm, diabetes mellitus, pulmonary emboli with respiratory hypoxia (on apixaban), and hyperlipidemia was admitted for several days of worsening right posterior neck pain and workup. #Cervical Paraspinal Muscle Spasm (Right Sided) #Cervical Degenerative Joint Disease - 4 bags of Magnesium + Oral magnesium; S/P Mg (WNL) - Topical Diclofenac BID - Continue OTC Topical Diclofenac on discharge - Muscular Stretching - Continue general stretching on discharge - CT Cervical Spine: Impression - Severe multilevel facet arthrosis and spondylosis as discussed above. Multilevel foraminal stenosis as described. No significant central canal stenosis - Chest X-ray: Impression - Cardiomegaly, No lobar pneumonia, and Hiatal hernia - Respiratory BioFire: negative #Overflow Diarrhea - Miralax 85 g PO - Large bowel movement 10/18; feels less abdominal distention; consider when needed on discharge - CBC QAM - C dif screen: Negative #Hypokalemia - Oral and one time IV Potassium; trending upward - continue oral potassium on discharge - BMP QAM #History of Pulmonary Emboli #Hypoxia - Continue home Apixaban - Supplemental oxygen if symptomatic #Diabetes Mellitus - HbA1C 8.7%; follow up out-patient - Blood glucose checks + SS insulin; continue home regimen on discharge #Chronic Conditions - Seizure: Phenytoin - Thoracic AAA/History of CVAs/[place]: Aspirin + Atorvastatin + Zetia + Losartan - BPH/Urinary Retention: Finasteride + Tamsulosin Code: DNR/DNI Dispo: Home Supervising Physician Co-Signing Physician Notes I personally examined the patient and verified all martinez points of history and exam, discussed case, and agree with decision making with Dr Lo and Justin Vora MS4 Feeling better overall. No new complaints. Neck pain feeling better. Had a fairly sizable bowel movement. Updated patient and family to the best of my ability and answered all of their questions to their satisfaction. Feels up to going home. Vitals noted, in general he is awake and alert pleasant no distress. HEENT normocephalic atraumatic mucous membranes moist. Breathing unlabored no accessory muscle use good effort. Skin without rashes pallor or icterus. Neuro without focal deficits Neck pain appears to have been spasm related. Gentle OMT done. Mag IV given with some improvement. Continue Voltaren gel. Fortunately no ominous signs or symptoms or findings noted. improving nicely. Safe/stable for home "Chronic diarrhea"history and exam far and away most consistent with constipation with overflow diarrhea. MiraLAX 85 g p.o. x 1 given with notable improvement. Discussed maintenancethat this is probably more of a chronic constipation process than he was aware of. Daily MiraLAXtitrate up and down depending on bowel movements. Hypokalemiaseems to be from poor p.o. intake related to his constipationboth he and his have noted his appetite/p.o. intake down from normal. Safe for home on p.o. potassiumoutpatient follow-up of labs Hypoxiaexam and story are quite consistent with atelectasis. Encourage deep breathing. I do wonder if some of the atelectasis was caused by his belly distention from his constipation as today it is better Chronically anticoagulated. Otherwise as above safe/stable for home
[2024-10-18 11:35] VITALS: BP 175/107; PULSE 81; RESP 19; TEMP 97.5; O2SAT 94
--- NOTE | 2024-10-18 16:56 | Billing Data ---
Date of Service October 18, 2024 Coding Level of Care Code 21421 IN/OBS DISCH 30 MIN/LESS
== END 2024-10-18 14:16 | disposition home or self-care (01) ==
LOC: 4W 07:00 → ED 07:00 → 4W 11:38

== ENCOUNTER 2024-12-25 22:02 | Inpatient (IN) ==
[2024-12-25 22:38] LABS: Basophils # (auto) 0.02 K/uL (0.00-0.20); Basophils % (auto) 0.3 %; Eosinophils # (auto) 0.19 K/uL (0.00-0.50); Eosinophils % (auto) 2.7 %; Hematocrit (blood only) 36.3 % (42.0-52.0); Hemoglobin 12.2 g/dl (14.0-18.0); Immature Granulocytes # (auto) 0.02 K/uL (0.01-0.20); Immature Granulocytes % (auto) 0.3 %; Lymphocytes # (auto) 0.94 K/uL (1.20-3.40); Lymphocytes % (auto) 13.4 %; Mean Corpuscular Hemoglobin 32.4 pg (25.0-34.0); Mean Corpuscular Hgb Conc 33.6 g/dL (32.0-36.0); Mean Corpuscular Volume 96.3 fL (80.0-100.0); Mean Platelet Volume 8.8 fL (9.4-12.4); Monocytes # (auto) 0.97 K/uL (0.11-0.59); Monocytes % (auto) 13.9 %; Neutrophils # (auto) 4.86 K/uL (1.40-6.50); Neutrophils % (auto) 69.4 %; Platelet Count 255 K/uL (130-400); RDW Coefficient of Variation 14.5 % (11.5-14.5); RDW Standard Deviation 51.1 fL (36.4-46.3); Red Blood Count 3.77 M/uL (4.70-6.10)
[2024-12-25] MEDS: ALBUT/IPRATROP 3MG/0.5MG NEB 3 ML VIAL NEB STA (22:38)
[2024-12-25 22:43] LABS: Base Excess VBG 0.8 mEq/L; HCO3 VBG 24 mmol/L; Oxygen Saturation VBG 88.4 %; PCO2 VBG 34 mmHg (38-50); PO2 VBG 54 mmHg; pH VBG 7.46 (7.36-7.41)
[2024-12-25 22:56] LABS: Alanine Aminotransferase 23 U/L (7-52); Albumin Globulin Ratio 1.1 (0.9-2); Albumin Level 3.6 gm/dl (3.4-5.0); Alkaline Phosphatase 211 U/L (34-104); Anion Gap 9 (3-11); Aspartate Aminotransferase 26 U/L (13-39); BUN Creatinine Ratio 26.9 (10-20); Bilirubin,Total 0.4 mg/dl (0.2-1.0); Blood Urea Nitrogen 21 mg/dl (6-23); Calcium 8.3 mg/dl (8.6-10.3); Carbon Dioxide 26 mmol/L (21-32); Chloride 106 mmol/L (98-107); Globulin 3.2 gm/dl (2.5-4.0); Glucose 206 mg/dl (70-99(Fasting)); Potassium 2.7 mmol/L (3.5-5.1); Sodium 141 mmol/L (136-145); Total Protein 6.8 gm/dl (6.0-8.3)
[2024-12-25 23:03] LABS: Troponin I High Sensitivity 34.1 pg/ml (0-20)
[2024-12-25 23:20] LABS: INR 1.1 (0.9-1.1); Partial Thromboplastin Ratio 1.2; Partial Thromboplastin Time 31 Seconds (21-31); Prothrombin Time 11.4 Seconds (9.0-12.0)
[2024-12-25] MEDS: OPTIRAY 320 125ml IV ONE (23:30)
[2024-12-25 23:38] LABS: Adenovirus PCR Not Detected (NotDetected); Bordetella parapertussis PCR Not Detected (NotDetected); Bordetella pertussis PCR Not Detected (NotDetected); Chlamydia pneumoniae PCR Not Detected (NotDetected); Coronavirus 229E PCR Not Detected (NotDetected); Coronavirus CoV-2 (COVID19)PCR Not Detected (NotDetected); Coronavirus HKU1 PCR Not Detected (NotDetected); Coronavirus NL63 PCR Not Detected (NotDetected); Coronavirus OC43PCR Not Detected (NotDetected); Human Metapneumovirus PCR Not Detected (NotDetected); Influenza A PCR Not Detected (NotDetected); Influenza B PCR Not Detected (NotDetected); Mycoplasma pneumoniae PCR Not Detected (NotDetected); Parainfluenza Virus 1 PCR Not Detected (NotDetected); Parainfluenza Virus 2 PCR Not Detected (NotDetected); Parainfluenza Virus 3 PCR Not Detected (NotDetected); Parainfluenza Virus 4 PCR Not Detected (NotDetected); Respiratory Syncytial VirusPCR Not Detected (NotDetected); Rhinovirus/Enterovirus PCR Not Detected (NotDetected)
[2024-12-25] MEDS: POTASSIUM CHLORIDE / WTR 10 MEQ/100 ML PLCT IV ONE (23:48)
--- NOTE | 2024-12-26 00:33 | CT Scan Report ---
Exam(s): CTA CHEST EXAM: CT Angiography Chest With Intravenous Contrast CLINICAL HISTORY: Reason for exam: hypoxia. TECHNIQUE: Axial computed tomographic angiography images of the chest with intravenous contrast. Automated exposure control was utilized for the study. A dose lowering technique was utilized adhering to the principles of ALARA. MIP reconstructed images were created and reviewed. COMPARISON: No relevant prior studies available. FINDINGS: Exam is limited due to artifact. Pulmonary arteries: No pulmonary embolism is seen. Aorta: There is a 4.3 cm aneurysm noted of the ascending aorta. No evidence of dissection. Lungs: There are bilateral infiltrates.. Pleural space: No significant effusion. No pneumothorax. Heart: The heart is enlarged and contains coronary artery calcifications.. Bones/joints: There are some degenerative changes in the spine.. Soft tissues: Unremarkable. Lymph nodes: There are prominent mediastinal lymph nodes. Additional: There is a small hiatal hernia. IMPRESSION: Limited exam. No pulmonary embolism is seen. There are bilateral infiltrates. There is a 4.3 cm aneurysm noted of the ascending aorta. Electronically signed by: Ector Vaughan MD 12/26/24 00:32 AM
--- NOTE | 2024-12-26 00:59 | Emergency Department Note ---
Impression & Plan Hypoxia, Pneumonia, Elevated brain natriuretic peptide (BNP) level, Acute hypokalemia ED Provider Note NAME: BEBE FLORES AGE: 79 SEX: Male INFORMANT: Patient and ED PROVIDER(S): Patrice June MD CHIEF COMPLAINT: Shortness of breath and hypoxia PLAN: Disposition: Admitted Outpatient prescription management: none Referral: None MEDICAL DECISION MAKING: Patient presented emergency department noting mild shortness of breath complaints. He noted his saturations were low at home. Patient had low O2 saturations here in the emergency department. He responded very well to supplemental oxygen. His ECG did not reveal any evidence of acute ischemia. Patient was given a DuoNeb. On reassessment he was doing well. Chest x-ray does show some vascular congestion and possible infiltrate. Patient does not have a leukocytosis or fever. CT imaging performed. No pulmonary embolism however he does have bilateral infiltrates. Blood cultures ordered. Potassium was low and this was repleted. Patient was ordered IV doxycycline as he has cephalosporin allergies. Consultation was made with Dr. Carroll of the [facility] service. Patient was evaluated in the ER for further management. Care/management discussed with: acquisition marketing manager Level of care consideration(s): After review of the information above and other included data, I feel the patient requires escalation of care to admission Triage Nursing notes: reviewed and agree them. Vital Signs: reviewed and remarkable for hypoxia Additional History obtained from: Family Chronic Medical/Social Conditions affecting care: CAD Prior/ Outside/ External records reviewed: none Differential Diagnosis: Reactive airway disease, pneumonia, pneumothorax, COPD, CHF, infections, cardiac ischemia, pulmonary embolism, musculoskeletal, gastrointestinal, as well as other pathologies. Diagnostics, independently interpreted by me: ECG: Twelve-lead ECG reveals a normal sinus rhythm at 81 bpm. Left axis deviation. Incomplete right bundle branch block. LVH. Nonspecific ST. Cardiac Monitoring: Cardiac monitoring ordered by me: The patient was placed on continuous cardiac monitoring and observed. It revealed a normal sinus rhythm at 77 beats per minute without ectopy or evidence of dysrhythmia. Medical decision rules: none Imaging studies: Chest x-ray reveals pulmonary vascular congestion and infiltrative change of the right side. CT scan of the chest reveals bilateral infiltrates without evidence of pulmonary embolism. HPI: 79 year old Male arrives for evaluation of shortness of breath and hypoxia. This started throughout the day today and is persisting per the family. Patient does not wear oxygen at home. They noted that he seemed somewhat short of breath and O2 saturations were checked. He was in the 70s and 80s at home. Patient does have history of PE but is anticoagulated. He also has a history of CAD. Patient denied any chest pain. He did have recent carpal tunnel surgery but was not under general anesthesia for this. The patient has taken no medication for relieving factors. Current pain is rated as 0/10. No sick contacts. Pt denies LOC, headache, fevers, chills, diaphoresis, visual changes, neck pain, chest pain, nausea, vomiting, abdominal pain, back pain, melena, hematochezia, urinary symptoms, leg swelling, numbness, weakness, lymphadenopathy, rash, or other complaints. PAST MEDICAL HISTORY: See Below, CVA, CAD PAST SURGICAL HISTORY: See Below, SOCIAL HISTORY: See Below, HOME MEDICATIONS: See Below ALLERGIES: See Below VITALS: See Below PHYSICAL EXAMINATION: GENERAL: Awake, alert, nontoxic-appearing, in no distress HENT: Normocephalic, atraumatic. Oropharynx unremarkable. EYES: Normal conjunctiva. Sclera non-icteric. NECK: Inspection normal. Non-tender. Supple. No nuchal rigidity. FROM. No masses. RESPIRATORY: Scattered rhonchi. No wheezes. No rales. Mildly increased respiratory effort. CARDIAC: Normal rate. Normal rhythm. No murmurs. No rubs. Extremities warm and well perfused. Pulses equal. No JVD. GI: Soft, non-distended. No tenderness to palpation. No rebound or guarding. No masses. MUSCULOSKELETAL: Atraumatic. Chest examination reveals no tenderness. The back is kyphotic on inspection without obvious abnormality. There is no CVA tenderness to palpation. No joint edema. LOWER EXTREMITIES: Calves are equal size bilaterally and non-tender. No edema. No discoloration. NEURO: Normal sensorium. No sensory or motor deficits noted. SKIN: No rash or jaundice noted. 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 Diabetes mellitus Seizure disorder Hypoxia (Acute) Impacted cerumen of both ears Bleeding disorder On Plavix Seizure Prepatellar bursitis of left knee Cellulitis of left knee Left knee pain Arthritis (Acute) CAD (coronary artery disease) (Acute) Constipation (Acute) Cough (Acute) GERD (gastroesophageal reflux disease) (Acute) Indigestion (Acute) ST elevation NV (STEMI) (Acute) Thoracic aortic aneurysm (Acute) Weight disorder (Acute) DJD (degenerative joint disease) History of CVA (cerebrovascular accident) Finger fracture (Acute) Aortic aneurysm Finger laceration (Acute) Medical History Diabetes mellitus, type 2 Cervical paraspinal muscle spasm Hx of flexible sigmoidoscopy Urinary retention Seizure disorder Hx of gastroesophageal reflux (GERD) CVA (cerebral vascular accident) Hx of myocardial infarction Hx of coronary artery disease BPH w urinary obs/LUTS Arthritis Aortic aneurysm Surgical History History of esophagogastroduodenoscopy (EGD) Hx of bilateral cataract extraction Hx of heart artery stent History of tonsillectomy and adenoidectomy Family History Mother Hearing loss Hypertension Heart disease Father Heart disease Other No family history of adverse response to anesthesia No family history of bleeding disorder Social History Smoking Status: Never smoker Tobacco Type: Smokeless Tobacco (Dip or Chew) Second Hand Exposure: No; Do You Dip or Chew Tobacco: No ("quit years ago"); Hx Alcohol Use: No Hx Substance Use: No Preferred Language: Nicaraguan Communication Ability: Effective Chiropractic Neurologist Required: No Beliefs That Will Affect Care: None Current Living Situation: Spouse Feels Safe at Home: Yes Assistive Devices: None Allergies Allergies Allergy/AdvReac Type Severity Reaction Status Date / Time cephalexin Allergy Intermediate Rash Verified 12/25/24 23:13 Cephalosporins Allergy Intermediate Rash Verified 12/25/24 23:13 Penicillins Allergy Unknown Unknown Verified 12/25/24 23:13 carbamazepine AdvReac Intermediate Elevated Verified 12/25/24 23:13 liver enzymes Home Meds Home Medications Medication Instructions Recorded Confirmed cholecalciferol (vitamin D3) 25 1,000 units PO QPM 06/21/19 12/25/24 mcg (1,000 unit) tablet coenzyme Q10 100 mg capsule 100 mg PO QAM 06/21/19 12/25/24 nitroglycerin 0.4 mg sublingual 0.4 mg sublingual Q5M PRN chest 06/21/19 12/25/24 tablet pain phenytoin sodium extended 100 mg 200 mg PO BID 08/22/19 12/25/24 capsule aspirin 81 mg tablet,delayed 81 mg PO QAM 09/06/19 12/25/24 release (Roxy Low Dose Aspirin) acetaminophen 650 mg 650 mg PO BID PRN Pain 10/14/21 12/25/24 tablet,extended release (Tylenol 8 Hour) magnesium 250 mg tablet 250 mg PO QAM 10/14/21 12/25/24 glimepiride 2 mg tablet 2 mg PO QPM 10/25/23 12/25/24 vitamins A,C,T-adkz-eqdnbr 2,148 1 tab PO BID 08/01/24 12/25/24 mcg-113 mg-45 mg-17.4 mg tablet (PreserVision AREDS) ezetimibe 10 mg tablet (Zetia) 10 mg PO QAM 10/09/24 12/25/24 losartan 25 mg tablet 25 mg PO QAM 10/09/24 12/25/24 rosuvastatin 40 mg tablet 40 mg PO DAILY 12/13/24 12/25/24 Lactobacillus acidophilus 10 10,000 mmu cells PO DAILY 12/25/24 12/25/24 billion cell capsule (Probiotic) Previous Rx's Medication Instructions Recorded apixaban 5 mg tablet 5 mg PO BID #180 tabs 08/01/24 dutasteride 0.5 mg capsule 0.5 mg PO DAILY #90 caps 12/25/24 (Avodart) tamsulosin 0.4 mg capsule 0.8 mg (2 x 0.4 mg) PO QPM 90 days 12/25/24 #180 caps Results & Data (ED) Vital Signs Vital Signs - 24 hr 12/25/24 22:05 12/25/24 22:25 12/25/24 22:58 Temperature 36.9 C Temperature Source Temporal Artery Scan Pulse Rate 84 83 Pulse Rate from SpO2 Sensor Pulse Rhythm Regular Pulse Strength Normal Respiratory Rate 20 Respiratory Effort / Characteristics Non-Labored Spontaneous Respiratory Depth Normal Respiratory Pattern Regular Blood Pressure 155/95 H Blood Pressure Mean 115 Blood Pressure Position Sitting Pulse Oximetry 79 L 84 L Oxygen Delivery Method Room Air Nasal Cannula Oxymask Oxygen Flow Rate 4 Sepsis Recent Fever Within 48 Hours No Sepsis New/Unexplained Change in Mental Status N/A Sepsis Action Taken by Nursing No Action Required Oxygen Flow Rate - Titration 7 Pulse Oximetry Post Tiitration 93 12/25/24 23:02 12/25/24 23:46 12/26/24 00:00 Temperature Temperature Source Pulse Rate 81 81 78 Pulse Rate from SpO2 Sensor 81 81 78 Pulse Rhythm Pulse Strength Respiratory Rate 24 25 H 16 Respiratory Effort / Characteristics Respiratory Depth Respiratory Pattern Blood Pressure 150/100 H 156/105 H 154/99 H Blood Pressure Mean 124 126 117 Blood Pressure Position Pulse Oximetry 92 94 95 Oxygen Delivery Method Oxymask Oxymask Oxymask Oxygen Flow Rate 7 7 7 Sepsis Recent Fever Within 48 Hours Sepsis New/Unexplained Change in Mental Status Sepsis Action Taken by Nursing Oxygen Flow Rate - Titration Pulse Oximetry Post Tiitration 12/26/24 00:33 Temperature Temperature Source Pulse Rate 77 Pulse Rate from SpO2 Sensor 77 Pulse Rhythm Pulse Strength Respiratory Rate 14 Respiratory Effort / Characteristics Respiratory Depth Respiratory Pattern Blood Pressure 149/104 H Blood Pressure Mean 119 Blood Pressure Position Pulse Oximetry 91 Oxygen Delivery Method Oxymask Oxygen Flow Rate 7 Sepsis Recent Fever Within 48 Hours Sepsis New/Unexplained Change in Mental Status Sepsis Action Taken by Nursing Oxygen Flow Rate - Titration Pulse Oximetry Post Tiitration Laboratory Data 12/25/24 22:18 12/25/24 22:18 Lab Results 12/25/24 12/25/24 12/25/24 Range/Units 22:18 22:27 22:37 WBC 7.00 (4.8-10.8) K/ul RBC 3.77 L (4.70-6.10) M/uL Hgb 12.2 L (14.0-18.0) g/dl Hct 36.3 L (42.0-52.0) % MCV 96.3 (80.0-100.0) fL MCH 32.4 (25.0-34.0) pg MCHC 33.6 (32.0-36.0) g/dL RDW Std Deviation 51.1 H (36.4-46.3) fL RDW Coeff of Luis 14.5 (11.5-14.5) % Plt Count 255 (130-400) K/uL MPV 8.8 L (9.4-12.4) fL Immature Gran % (Auto) 0.3 % Neut % (Auto) 69.4 % Lymph % (Auto) 13.4 % Loup % (Auto) 13.9 % Eos % (Auto) 2.7 % Baso % (Auto) 0.3 % Neut # (Auto) 4.86 (1.40-6.50) K/uL Lymph # (Auto) 0.94 L (1.20-3.40) K/uL Loup # (Auto) 0.97 H (0.11-0.59) K/uL Eos # (Auto) 0.19 (0.00-0.50) K/uL Baso # (Auto) 0.02 (0.00-0.20) K/uL Immature Gran # (Auto) 0.02 (0.01-0.20) K/uL PT 11.4 (9.0-12.0) Seconds INR 1.1 (0.9-1.1) APTT 31 (21-31) Seconds PTT Ratio 1.2 VBG pH 7.46 H (7.36-7.41) VBG pCO2 34 L (38-50) mmHg VBG pO2 54 mmHg VBG HCO3 24 mmol/L VBG O2 Saturation 88.4 % VBG Base Excess 0.8 mEq/L Sodium 141 (136-145) mmol/L Potassium 2.7 L (3.5-5.1) mmol/L Chloride 106 (98-107) mmol/L Carbon Dioxide 26 (21-32) mmol/L Anion Gap 9 (3-11) BUN 21 (6-23) mg/dl Creatinine 0.78 (0.6-1.4) mg/dl Est Cr Clr Drug Dosing Not Reportable eGFR 89.59 BUN/Creatinine Ratio 26.9 H (10-20) Glucose 206 H (70-99(Fasting)) mg/dl Calcium 8.3 L (8.6-10.3) mg/dl Total Bilirubin 0.4 (0.2-1.0) mg/dl AST 26 (13-39) U/L ALT 23 (7-52) U/L Alkaline Phosphatase 211 H (34-104) U/L Troponin I High Sens 34.1 H (0-20) pg/ml B-Natriuretic Peptide 258 H (0-100) pg/ml Total Protein 6.8 (6.0-8.3) gm/dl Albumin 3.6 (3.4-5.0) gm/dl Globulin 3.2 (2.5-4.0) gm/dl Albumin/Globulin Ratio 1.1 (0.9-2) Adenovirus (PCR) Not Detected (NotDetected) B. pertussis DNA (PCR) Not Detected (NotDetected) B.parapertussis DNA PCR Not Detected (NotDetected) C. pneumoniae DNA (PCR) Not Detected (NotDetected) Coronavirus OC43 (PCR) Not Detected (NotDetected) Coronavirus HKU1 (PCR) Not Detected (NotDetected) Coronavirus 229E (PCR) Not Detected (NotDetected) SARS-CoV-2 (PCR) Not Detected (NotDetected) Coronavirus NL63 (PCR) Not Detected (NotDetected) Human Metapneumovir PCR Not Detected (NotDetected) Influenza Type A (PCR) Not Detected (NotDetected) Influenza Type B (PCR) Not Detected (NotDetected) M. pneumoniae (PCR) Not Detected (NotDetected) Parainfluenza 1 (PCR) Not Detected (NotDetected) Parainfluenza 2 (PCR) Not Detected (NotDetected) Parainfluenza 3 (PCR) Not Detected (NotDetected) Parainfluenza 4 (PCR) Not Detected (NotDetected) RSV (PCR) Not Detected (NotDetected) Entero/Rhino (PCR) Not Detected (NotDetected) Administered Medications Discontinued Medications Albuterol (Albut/Ipratrop 3mg/0.5mg Neb 3 Ml Vial) 3 ml NEB NOW STA; Protocol Stop: 12/25/24 22:35 Last Admin: 12/25/24 22:38 Dose: 3 ml Documented By: SHARON Potassium Chloride (K Arun / Wtr) 10 meq in 100 mls @ 100 mls/hr IV ONE ONE Stop: 12/26/24 00:16 Last Admin: 12/25/24 23:48 Dose: 100 mls/hr Documented By: EDDIE Ioversol (Optiray 320 125ml) 125 ml IV ONCE ONE Stop: 12/25/24 23:30 Last Admin: 12/25/24 23:30 Dose: 118 ml Documented By: REJI Imaging Data Radiologist's Impression: Chest CTA 12/25/24 23:17 Exam(s): CTA CHEST EXAM: CT Angiography Chest With Intravenous Contrast CLINICAL HISTORY: Reason for exam: hypoxia. TECHNIQUE: Axial computed tomographic angiography images of the chest with intravenous contrast. Automated exposure control was utilized for the study. A dose lowering technique was utilized adhering to the principles of ALARA. MIP reconstructed images were created and reviewed. COMPARISON: No relevant prior studies available. FINDINGS: Exam is limited due to artifact. Pulmonary arteries: No pulmonary embolism is seen. Aorta: There is a 4.3 cm aneurysm noted of the ascending aorta. No evidence of dissection. Lungs: There are bilateral infiltrates.. Pleural space: No significant effusion. No pneumothorax. Heart: The heart is enlarged and contains coronary artery calcifications.. Bones/joints: There are some degenerative changes in the spine.. Soft tissues: Unremarkable. Lymph nodes: There are prominent mediastinal lymph nodes. Additional: There is a small hiatal hernia. IMPRESSION: Limited exam. No pulmonary embolism is seen. There are bilateral infiltrates. There is a 4.3 cm aneurysm noted of the ascending aorta. Electronically signed by: Ector Vaughan MD 12/26/24 00:32 AM Discharge Plan Visit Data Chief Complaint: Respiratory Problems Stated Complaint: LOW O2 ED Provider: Patrice June Discharge Problem: Hypoxia, Pneumonia, Elevated brain natriuretic peptide (BNP) level, Acute hypokalemia Forms Stand Alone Forms: My [employer] Prescriptions Prescriptions: No Action tamsulosin 0.4 mg capsule 0.8 mg PO QPM 90 Days Qty: 180 3RF dutasteride [Avodart] 0.5 mg capsule 0.5 mg PO DAILY Qty: 90 3RF acetaminophen [Tylenol 8 Hour] 650 mg tablet extended release 650 mg PO BID PRN (Reason: Pain) magnesium 250 mg tablet 250 mg PO QAM coenzyme Q10 100 mg capsule 100 mg PO QAM cholecalciferol (vitamin D3) 1,000 unit (25 mcg) tablet 1,000 units PO QPM nitroglycerin 0.4 mg tablet, sublingual 0.4 mg SL Q5M PRN (Reason: chest pain) phenytoin sodium extended 100 mg capsule 200 mg PO BID glimepiride 2 mg tablet 2 mg PO QPM PreserVision AREDS 2,148 mcg-113 mg-45 mg-17.4mg tablet 1 tab PO BID Rx Instructions: administer with AM and PM meals apixaban 5 mg tablet 5 mg PO BID Qty: 180 3RF aspirin [Roxy Low Dose Aspirin] 81 mg Tablet,Delayed Release (Dr/Ec) 81 mg PO QAM losartan 25 mg tablet 25 mg PO QAM ezetimibe [Zetia] 10 mg tablet 10 mg PO QAM Rx Instructions: PER PT'S SPOUSE "ON HOLD AT PRESENT" rosuvastatin 40 mg Tablet 40 mg PO DAILY Patient Comments: takes at lunch Rx Instructions: PER PT'S SPOUSE "ON HOLD AT PRESENT" Probiotic 10 billion cell Capsule 10,000 mmu cells PO DAILY Referrals Referrals: Ashlie Triana DO [Primary Care Provider] -
[2024-12-26] MEDS: DOXYCYCLINE HYCLATE 100 MG in DEXTROSE 5% MINI-B 100 ML IV STA (01:12)
--- NOTE | 2024-12-26 01:29 | History & Physical Report ---
Date of Service December 26, 2024 Assessment & Plan (1) Acute hypoxic respiratory failure: (2) Dyspnea on exertion: (3) History of pulmonary embolism: (4) CAD (coronary artery disease): (5) Constipation: (6) Thoracic aortic aneurysm: (7) History of CVA (cerebrovascular accident): (8) Hypokalemia: (9) Diabetes mellitus, type 2: (10) BPH w urinary obs/LUTS: (11) Seizure disorder: Plan Patient is an 79-year-old male with past medical history of CAD, CVA, chronic anticoagulation w/ Eliquis, thoracic aortic aneurysm, diabetes type 2, history of PE, hyperlipidemia, seizure disorder, BPH, hypertension, and bilateral sensorineural hearing loss who was admitted due to AHRF. AHRF - Patient with hypoxic episodes at home and on arrival to ED with saturations ranging between 70s and 80s at room air - Saturation improved with Oxymask at 7 lpm but became hypoxic once more when he falls asleep (improves on awakening) - Chest CTA w/o PE, and noting b/l infiltrates and known stable ascending thoracic aortic aneurysm measuring 4.3 cm - DDx includes pneumonia given acute worsening and CT findings, CHF given infiltrates on CT and CAD hx , or result of chronic exposure to irritants (e.g. oat dust) - Procal 0.10; lactate 1.2; no leukocytosis; Blood and Sputum cultures pending - Will manage possible pna with Ceftriaxone and Doxycycline - Will also order TTE to assess for CHF - Holding off of lasix at this time due to hypokalemia; Lasix 20 mg IV ordered for am if potassium levels improved - Solumedrol 40 IV daily - Duonebs - CPAP ordered given desaturation when falling asleep - Admit to PCU Hypokalemia Diarrhea - In previous visits, patient has also been hypokalemic - Magnesium level was 2.2 - S/p 10 mEq IV and 80 mEq PO in ED; continue KCl 40 mEq daily after - Monitor am labs CAD - Continue home meds Hx CVA - Taking Eliquis 5 mg bid due to history of CVA; continue Hx PE - Eliquis as mentioned above DM-2 - Last Hgb a1c from 10/18/24 was 8.7%; f/u as an outpatient - Lantus and SSI Seizure disorder - Continue home meds BPH - Continue home meds Dispo: Admit to PCU VTE ppx: Eliquis Diet: HH, DM-2 IVF: none Code status: DNR/DNI History of Present Illness Chief Complaint: WOLFE Primary Care Provider: Ashlie Pérez DO Patient is an 79-year-old male with past medical history of CAD, CVA, chronic anticoagulation w/ Eliquis, thoracic aortic aneurysm, diabetes type 2, history of PE, hyperlipidemia, seizure disorder, BPH, hypertension, bilateral sensorineural hearing loss, and chronic diarrhea who came to the emergency department due to noted hypoxia at home. Patient states that for the last week he has been gradually getting more dyspneic on exertion, and although he states that he does have a chronic cough, over the course of this past week that has also worsened. Other than the symptoms, patient denies having any associated chest pain, bilateral lower extremity swelling, nausea/vomiting, body aches, changes in appetite, lightheadedness, dizziness, palpitations, tachycardia, syncope, or any other associated symptoms. Earlier this evening, patient was measuring his oxygen saturation with a home pulse ox, which showed a saturation that was in the 70s, after which his told him that they needed to go to the emergency department to be evaluated. On further questioning, patient states that he was up in the form and was exposed to multiple environmental substances, the more marked 1 being oat dust to which she would be exposed to the point that "he looked like he walked out of a coal mine". During this time never used a mask. A few years ago, patient states that he had a bronchoscopy done and he was told that he had "black lungs". Over these past few years, patient has also been sensitive to environmental allergens/irritants and has needed nebulizer therapies at home. ED Course: Given duoneb treatment, doxycycline IV x1, KCl 10 mEq IV x1, given KCl 80 mEq PO x1 Medical History: [Reviewed] Medications: [Reviewed] Surgical History: [Reviewed] Family history: [Reviewed] Allergies: [Reviewed] Social History: [Reviewed] Code Status: DNR/DNI Allergies Allergy/AdvReac Type Severity Reaction Status Date / Time cephalexin Allergy Intermediate Rash Verified 12/25/24 23:13 Cephalosporins Allergy Intermediate Rash Verified 12/25/24 23:13 Penicillins Allergy Unknown Unknown Verified 12/25/24 23:13 carbamazepine AdvReac Intermediate Elevated Verified 12/25/24 23:13 liver enzymes Home Medications Medication Instructions Recorded Confirmed Type cholecalciferol (vitamin D3) 25 1,000 units PO QPM 06/21/19 12/25/24 History mcg (1,000 unit) tablet coenzyme Q10 100 mg capsule 100 mg PO QAM 06/21/19 12/25/24 History nitroglycerin 0.4 mg sublingual 0.4 mg sublingual Q5M PRN chest 06/21/19 12/25/24 History tablet pain phenytoin sodium extended 100 mg 200 mg PO BID 08/22/19 12/25/24 History capsule aspirin 81 mg tablet,delayed 81 mg PO QAM 09/06/19 12/25/24 History release (Roxy Low Dose Aspirin) acetaminophen 650 mg 650 mg PO BID PRN Pain 10/14/21 12/25/24 History tablet,extended release (Tylenol 8 Hour) magnesium 250 mg tablet 250 mg PO QAM 10/14/21 12/25/24 History glimepiride 2 mg tablet 2 mg PO QPM 10/25/23 12/25/24 History apixaban 5 mg tablet 5 mg PO BID #180 tabs 08/01/24 12/25/24 Rx vitamins A,C,C-tzqu-wnaupb 2,148 1 tab PO BID 08/01/24 12/25/24 History mcg-113 mg-45 mg-17.4 mg tablet (PreserVision AREDS) ezetimibe 10 mg tablet (Zetia) 10 mg PO QAM 10/09/24 12/25/24 History losartan 25 mg tablet 25 mg PO QAM 10/09/24 12/25/24 History rosuvastatin 40 mg tablet 40 mg PO DAILY 12/13/24 12/25/24 History Lactobacillus acidophilus 10 10,000 mmu cells PO DAILY 12/25/24 12/25/24 History billion cell capsule (Probiotic) dutasteride 0.5 mg capsule 0.5 mg PO DAILY #90 caps 12/25/24 12/25/24 Rx (Avodart) tamsulosin 0.4 mg capsule 0.8 mg (2 x 0.4 mg) PO QPM 90 days 12/25/24 12/25/24 Rx #180 caps Past Med/Surg History Problem List (Updated 12/26/24 @ 01:45 by Carlie Kim MD) Hypokalemia Dyspnea on exertion Dyspnea Acute hypoxic respiratory failure Acute hypokalemia (Acute) Elevated brain natriuretic peptide (BNP) level (Acute) Pneumonia (Acute) Hypoxia (Acute) Fracture of metatarsal of right foot, closed History of pulmonary embolism (Acute) Elevated troponin (Acute) Neck pain (Acute) Acute hypokalemia (Acute) Hypoxia (Acute) Left carpal tunnel syndrome Urinary retention CVA (cerebral vascular accident) Arthritis of right ankle Sensorineural hearing loss (SNHL) of both ears BPH w urinary obs/LUTS Diabetes mellitus Seizure disorder Hypoxia (Acute) Impacted cerumen of both ears Bleeding disorder On Plavix Seizure Prepatellar bursitis of left knee Cellulitis of left knee Left knee pain Arthritis (Acute) CAD (coronary artery disease) (Acute) Constipation (Acute) Cough (Acute) GERD (gastroesophageal reflux disease) (Acute) Indigestion (Acute) ST elevation IL (STEMI) (Acute) Thoracic aortic aneurysm (Acute) Weight disorder (Acute) DJD (degenerative joint disease) History of CVA (cerebrovascular accident) Finger fracture (Acute) Aortic aneurysm Finger laceration (Acute) Medical History Diabetes mellitus, type 2 Cervical paraspinal muscle spasm Hx of flexible sigmoidoscopy Urinary retention Seizure disorder Hx of gastroesophageal reflux (GERD) CVA (cerebral vascular accident) Hx of myocardial infarction Hx of coronary artery disease BPH w urinary obs/LUTS Arthritis Aortic aneurysm Surgical History History of esophagogastroduodenoscopy (EGD) Hx of bilateral cataract extraction Hx of heart artery stent History of tonsillectomy and adenoidectomy Family History Mother Hearing loss Hypertension Heart disease Father Heart disease Other No family history of adverse response to anesthesia No family history of bleeding disorder Social History Smoking Status: Never smoker Tobacco Type: Smokeless Tobacco (Dip or Chew) Second Hand Exposure: No; Do You Dip or Chew Tobacco: No ("quit years ago"); Hx Alcohol Use: No Hx Substance Use: No Preferred Language: Welsh Communication Ability: Effective Feltmaker Required: No Beliefs That Will Affect Care: None Current Living Situation: Spouse Feels Safe at Home: Yes Assistive Devices: Glasses and Hearing Aid - Right Review of Systems Review of Systems: As per HPI Physical Exam Physical Exam: GENERAL: AAOx3, afebrile, hearing difficulty, NAD HEAD: AT, NC EYES: EOM intact, MOODY CHEST: symmetric chest expansions with respirations CARDIO: RRR, no r/m/g PULMONARY: rhonchi more pronounced in upper lopez and slightly decreased sounds in bilateral bases R>L GI: distended, non tender EXTREMITIES: mild swelling in b/l LE, no calf tenderness Results & Data Results & Data Vital Signs (Past 12 Hours) Vital Signs Temp Pulse Resp BP Pulse Ox O2 Del Method O2 Flow Rate 12/26/24 01:03 74 18 142/89 H 93 Oxymask 7 12/26/24 00:33 77 14 149/104 H 91 Oxymask 7 12/26/24 00:00 78 16 154/99 H 95 Oxymask 7 12/25/24 23:46 81 25 H 156/105 H 94 Oxymask 7 12/25/24 23:02 81 24 150/100 H 92 Oxymask 7 12/25/24 22:58 83 12/25/24 22:25 84 L Nasal Cannula, Oxymask 4 12/25/24 22:05 36.9 C 84 20 155/95 H 79 L Room Air Code Status & VTE Plan VTE Prophylaxis Plan VTE Prophylaxis will be ordered: Yes Supervising Physician Co-Signing Physician Notes I personally saw and examined the patient. I independently reviewed the labs, EKG, imaging, problem list, medication list, past medical history and family history. I verified all martinez points and agree with resident physician Dr Carlie Kim MD with the following exceptions and/or additions: 79 year old male presents to the ER with hypoxia, shortness of breath, generalized weakness and fatigue. No fever or chills. Significantly worsening productive cough. O/E Alert, orientated to person only, HS RRR, no murmurs, no JVD, Chest rhonchi throughout, loudest crackles bibasal, no wheezing, Abdo SNT, trace pedal edema b/l A/P Acute hypoxic respiratory failure / PNA / possible Acute CHF - his CT if concerning for pneumonia despite the lack of fever, WBC or procalcitonin therefore will treat with ceftriaxone (previously tolerated cephalosporins with recent operation and questionable allergy from history) and doxycycline. Biofire PCR is negative. He has no history of reactive airway disease, no wheezing, no clear improvement with duoneb and non-severe pneumonia (not requiring ICU stay) therefore steroids deferred on admission. Will get CRP with AM labs and if > 15 could consider steroids for adjunct to Rx CAP. Less likely he may have some pulmonary edema. Lasix currently limited by hypokalemia but will start in AM if potassium improves with KCl 80 meq PO. Significant desaturation while sleeping, Will use CPAP to help with any HF component and will also help with mucus plugging. SLT consult tomorrow to assess for aspiration. Resident Activity Tracking Resident Involvement: Resident Care Provided Care Provided: Adult Hospital Medicine
[2024-12-26 01:37] LABS: Magnesium 2.2 mg/dl (1.7-2.4)
[2024-12-26 01:45] LABS: Troponin I High Sensitivity 32.2 pg/ml (0-20)
[2024-12-26] MEDS: POTASSIUM CHLORIDE CRTAB 20 MEQ TABCR PO ONE (02:13)
[2024-12-26] MEDS ORDERED: CARBOHYDRATES FOR HYPOGLYCEMIA PO PRN (03:48)
[2024-12-26] MEDS ORDERED: GLUCOSE 40% GEL 15 GM TUBE PO PRN (03:48)
[2024-12-26] MEDS ORDERED: GLUCAGON FOR INJ 1 MG VIAL SQ PRN (03:48)
[2024-12-26] MEDS ORDERED: DEXTROSE 50% 50 ML SYRINGE IV PRN (03:48)
[2024-12-26] MEDS ORDERED: ONDANSETRON INJ 2 MG/ML 2 ML VIAL IV PRN (03:48)
[2024-12-26] MEDS ORDERED: GLUCOSE 10 TAB/TUBE PO PRN (03:48)
[2024-12-26] MEDS: FUROSEMIDE INJ 20 MG/2 ML VIAL IV ONE ×2 (04:45→18:20)
--- NOTE | 2024-12-26 05:12 | Billing Data ---
Date of Service December 26, 2024 Coding Level of Care Code 15549 INT INP/OBS CARE
[2024-12-26] MEDS ORDERED: PHARMACY GLYCEMIC MGMT CONSULT PRN (05:19)
[2024-12-26] MEDS: cefTRIAXone SODIUM 2,000 MG/50 ML BAG IV STA (05:55)
[2024-12-26] MEDS: ALBUT/IPRATROP 3MG/0.5MG NEB 3 ML VIAL NEB SCH (07:00)
[2024-12-26] MEDS: SODIUM CHLOR 7% 4 ML NEB NEB SCH (07:00)
--- NOTE | 2024-12-26 07:04 | XRay Report ---
EXAM: XR chest 1V portable CLINICAL HISTORY: Chest pain, nonspecific TECHNIQUE: An X-ray image of the chest is obtained using an AP projection. COMPARISON: 10/17/2024 XR chest FINDINGS: Pulmonary Parenchyma: Accentuated bronchovascular markings, with increased reticular shadows. No evidence of pleural effusion or pleural thickening. Heart and Mediastinum: The heart size is enlarged. No mediastinal widening or masses. No hilar or mediastinal lymphadenopathy. Bony Thorax: Osteopenia with degenerative changes. Soft Tissues: Soft tissues overlying the chest wall are unremarkable. IMPRESSION: 1. Accentuated bronchovascular markings, with increased reticular shadows. increased. 2. Heart size is enlarged. Electronically signed by Jose Marques 12-26-2024 07:03 AM
[2024-12-26 07:54] LABS: Albumin Globulin Ratio 0.9 (0.9-2); Albumin Level 3.3 gm/dl (3.4-5.0); BUN Creatinine Ratio 25.4 (10-20); Bilirubin,Total 0.4 mg/dl (0.2-1.0); Calcium 8.3 mg/dl (8.6-10.3); Creatinine Clr Calc Pharmacy 99.3 ml/min; Globulin 3.5 gm/dl (2.5-4.0); Potassium 3.6 mmol/L (3.5-5.1); Total Protein 6.8 gm/dl (6.0-8.3)
[2024-12-26] MEDS: INSULIN ASPART PER UNIT CHARGE SC SCH (08:05)
[2024-12-26] MEDS: LANTUS PER UNIT CHARGE SQ SCH ×2 (08:06→20:28)
[2024-12-26] MEDS: PHENYTOIN SODIUM ER 100 MG CAP PO SCH (08:07)
[2024-12-26] MEDS: FINASTERIDE 5 MG TAB PO SCH (08:07)
[2024-12-26] MEDS: EZETIMIBE 10 MG TAB PO SCH (08:08)
[2024-12-26] MEDS: APIXABAN 5 MG TABLET PO SCH (08:08)
[2024-12-26] MEDS: ASPIRIN 81 MG ECTAB PO SCH (08:08)
[2024-12-26] MEDS: FUROSEMIDE 40 MG/4 ML VIAL IV SCH (08:08)
[2024-12-26] MEDS: DOXYCYCLINE HYCLATE 100 MG in DEXTROSE 5% MINI-B 100 ML IV SCH (08:08)
[2024-12-26] MEDS: ROSUVASTATIN CALCIUM 20 MG TAB PO SCH (08:09)
[2024-12-26] MEDS: LOSARTAN POTASSIUM 25 MG TAB PO SCH (08:09)
[2024-12-26] MEDS ORDERED: methylPREDNISolone 40 MG in SYRINGE 0 ML IV SCH (09:00)
[2024-12-26] MEDS ORDERED: methylPREDNISolone 125 MG/2 ML VIAL IV SCH (09:00)
[2024-12-26] MEDS: POTASSIUM CHLORIDE CRTAB 20 MEQ TABCR PO SCH (10:41)
[2024-12-26] MEDS: POLYETHYLENE (MIRALAX) 17 GM PACK PO SCH (10:41)
--- NOTE | 2024-12-26 12:49 | Hospitalist Progress Note ---
Date of Service December 26, 2024 Assessment & Plan (1) Acute hypoxic respiratory failure: (2) Dyspnea on exertion: (3) History of pulmonary embolism: (4) CAD (coronary artery disease): (5) Constipation: (6) Thoracic aortic aneurysm: (7) History of CVA (cerebrovascular accident): (8) Hypokalemia: (9) Diabetes mellitus, type 2: (10) BPH w urinary obs/LUTS: (11) Seizure disorder: Plan Patient is an 79-year-old male with past medical history of CAD, CVA, chronic anticoagulation w/ Eliquis, thoracic aortic aneurysm, diabetes type 2, history of PE, hyperlipidemia, seizure disorder, BPH, hypertension, and bilateral sensorineural hearing loss who was admitted due to AHRF. AHRF - Patient with hypoxic episodes at home and on arrival to ED with saturations ranging between 70s and 80s at room air - Saturation improved with Oxymask at 7 lpm but became hypoxic once more when he falls asleep (improves on awakening) - Chest CTA w/o PE, and noting b/l infiltrates and known stable ascending thoracic aortic aneurysm measuring 4.3 cm - DDx includes pneumonia given acute worsening and CT findings, CHF given infiltrates on CT and CAD hx , or result of chronic exposure to irritants (e.g. oat dust) - Procal 0.10; lactate 1.2; no leukocytosis; Blood and Sputum cultures pending - Will manage possible pna with Ceftriaxone and Doxycycline - Will also order TTE to assess for CHF - Holding off of lasix at this time due to hypokalemia; Lasix 20 mg IV ordered for am if potassium levels improved - Solumedrol 40 IV daily - Duonebs - CPAP ordered given desaturation when falling asleep - Admit to PCU Hypokalemia Diarrhea - In previous visits, patient has also been hypokalemic - Magnesium level was 2.2 - S/p 10 mEq IV and 80 mEq PO in ED; continue KCl 40 mEq daily after - Monitor am labs CAD - Continue home meds Hx CVA - Taking Eliquis 5 mg bid due to history of CVA; continue Hx PE - Eliquis as mentioned above DM-2 - Last Hgb a1c from 10/18/24 was 8.7%; f/u as an outpatient - Lantus and SSI Seizure disorder - Continue home meds BPH - Continue home meds Dispo: Admit to PCU VTE ppx: Eliquis Diet: HH, DM-2 IVF: none Code status: DNR/DNI Admission and Anticipated Discharge Date Admission Date: December 26, 2024 Results & Data Results & Data Vital Signs (Past 12 Hours) Vital Signs Temp Pulse Pulse Resp BP BP Pulse Ox 12/26/24 12:47 82 18 90 12/26/24 11:22 36.6 C 80 18 129/84 90 12/26/24 09:00 12/26/24 08:00 71 12/26/24 08:00 12/26/24 07:20 36.5 C 73 18 156/94 H 94 12/26/24 07:03 76 19 91 12/26/24 03:50 12/26/24 03:50 36.6 C 82 22 168/105 H 93 12/26/24 02:56 36.7 C 12/26/24 02:39 65 22 142/95 H 91 12/26/24 02:03 66 134/88 91 12/26/24 01:39 65 141/94 H 91 12/26/24 01:37 87 L 12/26/24 01:03 74 18 142/89 H 93 O2 Del Method O2 Flow Rate 12/26/24 12:47 Nasal Cannula 9 12/26/24 11:22 Nasal Cannula 8 12/26/24 09:00 High Flow Nasal Cannula 8 12/26/24 08:00 12/26/24 08:00 Nasal Cannula 8 12/26/24 07:20 Nebulizer 12/26/24 07:03 Oxymask 11 12/26/24 03:50 Oxymask 10 12/26/24 03:50 Oxymask 10 12/26/24 02:56 Oxymask 9 12/26/24 02:39 Oxymask 9 12/26/24 02:03 Oxymask 9 12/26/24 01:39 Oxymask 9 12/26/24 01:37 Oxymask 7 12/26/24 01:03 Oxymask 7 Laboratory Results Laboratory Results - last 24 hr 12/25/24 12/25/24 12/25/24 22:18 22:27 22:37 WBC 7.00 RBC 3.77 L Hgb 12.2 L Hct 36.3 L MCV 96.3 MCH 32.4 MCHC 33.6 RDW Std Deviation 51.1 H RDW Coeff of Luis 14.5 Plt Count 255 MPV 8.8 L Immature Gran % (Auto) 0.3 Neut % (Auto) 69.4 Lymph % (Auto) 13.4 [place] % (Auto) 13.9 Eos % (Auto) 2.7 Baso % (Auto) 0.3 Neut # (Auto) 4.86 Lymph # (Auto) 0.94 L [place] # (Auto) 0.97 H Eos # (Auto) 0.19 Baso # (Auto) 0.02 Immature Gran # (Auto) 0.02 PT 11.4 INR 1.1 APTT 31 PTT Ratio 1.2 VBG pH 7.46 H VBG pCO2 34 L VBG pO2 54 VBG HCO3 24 VBG O2 Saturation 88.4 VBG Base Excess 0.8 Sodium 141 Potassium 2.7 L Chloride 106 Carbon Dioxide 26 Anion Gap 9 BUN 21 Creatinine 0.78 Est Cr Clr Drug Dosing Not Reportable eGFR 89.59 BUN/Creatinine Ratio 26.9 H Glucose 206 H POC Glucose Lactate Calcium 8.3 L Magnesium Total Bilirubin 0.4 AST 26 ALT 23 Alkaline Phosphatase 211 H Troponin I High Sens 34.1 H C-Reactive Protein B-Natriuretic Peptide 258 H Total Protein 6.8 Albumin 3.6 Globulin 3.2 Albumin/Globulin Ratio 1.1 Procalcitonin Nasal Screen MRSA (PCR) Adenovirus (PCR) Not Detected B. pertussis DNA (PCR) Not Detected B.parapertussis DNA PCR Not Detected C. pneumoniae DNA (PCR) Not Detected Coronavirus OC43 (PCR) Not Detected Coronavirus HKU1 (PCR) Not Detected Coronavirus 229E (PCR) Not Detected SARS-CoV-2 (PCR) Not Detected Coronavirus NL63 (PCR) Not Detected Human Metapneumovir PCR Not Detected Influenza Type A (PCR) Not Detected Influenza Type B (PCR) Not Detected M. pneumoniae (PCR) Not Detected Parainfluenza 1 (PCR) Not Detected Parainfluenza 2 (PCR) Not Detected Parainfluenza 3 (PCR) Not Detected Parainfluenza 4 (PCR) Not Detected RSV (PCR) Not Detected Entero/Rhino (PCR) Not Detected 12/26/24 12/26/24 12/26/24 00:55 01:07 01:11 WBC RBC Hgb Hct MCV MCH MCHC RDW Std Deviation RDW Coeff of Luis Plt Count MPV Immature Gran % (Auto) Neut % (Auto) Lymph % (Auto) [place] % (Auto) Eos % (Auto) Baso % (Auto) Neut # (Auto) Lymph # (Auto) [place] # (Auto) Eos # (Auto) Baso # (Auto) Immature Gran # (Auto) PT INR APTT PTT Ratio VBG pH VBG pCO2 VBG pO2 VBG HCO3 VBG O2 Saturation VBG Base Excess Sodium Potassium Chloride Carbon Dioxide Anion Gap BUN Creatinine Est Cr Clr Drug Dosing eGFR BUN/Creatinine Ratio Glucose POC Glucose Lactate 1.2 Calcium Magnesium 2.2 Total Bilirubin AST ALT Alkaline Phosphatase Troponin I High Sens 32.2 H C-Reactive Protein B-Natriuretic Peptide Total Protein Albumin Globulin Albumin/Globulin Ratio Procalcitonin Nasal Screen MRSA (PCR) Negative Adenovirus (PCR) B. pertussis DNA (PCR) B.parapertussis DNA PCR C. pneumoniae DNA (PCR) Coronavirus OC43 (PCR) Coronavirus HKU1 (PCR) Coronavirus 229E (PCR) SARS-CoV-2 (PCR) Coronavirus NL63 (PCR) Human Metapneumovir PCR Influenza Type A (PCR) Influenza Type B (PCR) M. pneumoniae (PCR) Parainfluenza 1 (PCR) Parainfluenza 2 (PCR) Parainfluenza 3 (PCR) Parainfluenza 4 (PCR) RSV (PCR) Entero/Rhino (PCR) 12/26/24 12/26/24 12/26/24 01:16 06:53 07:10 WBC RBC Hgb Hct MCV MCH MCHC RDW Std Deviation RDW Coeff of Luis Plt Count MPV Immature Gran % (Auto) Neut % (Auto) Lymph % (Auto) [place] % (Auto) Eos % (Auto) Baso % (Auto) Neut # (Auto) Lymph # (Auto) [place] # (Auto) Eos # (Auto) Baso # (Auto) Immature Gran # (Auto) PT INR APTT PTT Ratio VBG pH VBG pCO2 VBG pO2 VBG HCO3 VBG O2 Saturation VBG Base Excess Sodium 142 Potassium 3.6 D Chloride 107 Carbon Dioxide 29 Anion Gap 6 BUN 16 Creatinine 0.63 Est Cr Clr Drug Dosing 99.3 eGFR 95.56 BUN/Creatinine Ratio 25.4 H Glucose 209 H POC Glucose 214 H Lactate Calcium 8.3 L Magnesium Total Bilirubin 0.4 AST 24 ALT 21 Alkaline Phosphatase 194 H Troponin I High Sens C-Reactive Protein 5.85 H B-Natriuretic Peptide Total Protein 6.8 Albumin 3.3 L Globulin 3.5 Albumin/Globulin Ratio 0.9 Procalcitonin 0.10 Nasal Screen MRSA (PCR) Adenovirus (PCR) B. pertussis DNA (PCR) B.parapertussis DNA PCR C. pneumoniae DNA (PCR) Coronavirus OC43 (PCR) Coronavirus HKU1 (PCR) Coronavirus 229E (PCR) SARS-CoV-2 (PCR) Coronavirus NL63 (PCR) Human Metapneumovir PCR Influenza Type A (PCR) Influenza Type B (PCR) M. pneumoniae (PCR) Parainfluenza 1 (PCR) Parainfluenza 2 (PCR) Parainfluenza 3 (PCR) Parainfluenza 4 (PCR) RSV (PCR) Entero/Rhino (PCR) 12/26/24 11:21 WBC RBC Hgb Hct MCV MCH MCHC RDW Std Deviation RDW Coeff of Luis Plt Count MPV Immature Gran % (Auto) Neut % (Auto) Lymph % (Auto) [place] % (Auto) Eos % (Auto) Baso % (Auto) Neut # (Auto) Lymph # (Auto) [place] # (Auto) Eos # (Auto) Baso # (Auto) Immature Gran # (Auto) PT INR APTT PTT Ratio VBG pH VBG pCO2 VBG pO2 VBG HCO3 VBG O2 Saturation VBG Base Excess Sodium Potassium Chloride Carbon Dioxide Anion Gap BUN Creatinine Est Cr Clr Drug Dosing eGFR BUN/Creatinine Ratio Glucose POC Glucose 176 H Lactate Calcium Magnesium Total Bilirubin AST ALT Alkaline Phosphatase Troponin I High Sens C-Reactive Protein B-Natriuretic Peptide Total Protein Albumin Globulin Albumin/Globulin Ratio Procalcitonin Nasal Screen MRSA (PCR) Adenovirus (PCR) B. pertussis DNA (PCR) B.parapertussis DNA PCR C. pneumoniae DNA (PCR) Coronavirus OC43 (PCR) Coronavirus HKU1 (PCR) Coronavirus 229E (PCR) SARS-CoV-2 (PCR) Coronavirus NL63 (PCR) Human Metapneumovir PCR Influenza Type A (PCR) Influenza Type B (PCR) M. pneumoniae (PCR) Parainfluenza 1 (PCR) Parainfluenza 2 (PCR) Parainfluenza 3 (PCR) Parainfluenza 4 (PCR) RSV (PCR) Entero/Rhino (PCR) Diagnostic Findings Chest X-Ray 12/25/24 22:11 EXAM: XR chest 1V portable CLINICAL HISTORY: Chest pain, nonspecific TECHNIQUE: An X-ray image of the chest is obtained using an AP projection. COMPARISON: 10/17/2024 XR chest FINDINGS: Pulmonary Parenchyma: Accentuated bronchovascular markings, with increased reticular shadows. No evidence of pleural effusion or pleural thickening. Heart and Mediastinum: The heart size is enlarged. No mediastinal widening or masses. No hilar or mediastinal lymphadenopathy. Bony Thorax: Osteopenia with degenerative changes. Soft Tissues: Soft tissues overlying the chest wall are unremarkable. IMPRESSION: 1. Accentuated bronchovascular markings, with increased reticular shadows. increased. 2. Heart size is enlarged. Electronically signed by Jose Marques 12-26-2024 07:03 AM Chest CTA 12/25/24 23:17 Exam(s): CTA CHEST EXAM: CT Angiography Chest With Intravenous Contrast CLINICAL HISTORY: Reason for exam: hypoxia. TECHNIQUE: Axial computed tomographic angiography images of the chest with intravenous contrast. Automated exposure control was utilized for the study. A dose lowering technique was utilized adhering to the principles of ALARA. MIP reconstructed images were created and reviewed. COMPARISON: No relevant prior studies available. FINDINGS: Exam is limited due to artifact. Pulmonary arteries: No pulmonary embolism is seen. Aorta: There is a 4.3 cm aneurysm noted of the ascending aorta. No evidence of dissection. Lungs: There are bilateral infiltrates.. Pleural space: No significant effusion. No pneumothorax. Heart: The heart is enlarged and contains coronary artery calcifications.. Bones/joints: There are some degenerative changes in the spine.. Soft tissues: Unremarkable. Lymph nodes: There are prominent mediastinal lymph nodes. Additional: There is a small hiatal hernia. IMPRESSION: Limited exam. No pulmonary embolism is seen. There are bilateral infiltrates. There is a 4.3 cm aneurysm noted of the ascending aorta. Electronically signed by: Ector Vaughan MD 12/26/24 00:32 AM PG Care Time/CCT Total # of Minutes Spent Total Time Spent with Patient: Total time spent is greater than 50% in coordination of care (as documented) at patient's floor/unit and/or counseling patient: Coding Diagnoses Acute hypoxic respiratory failure J96.01 Dyspnea on exertion R06.09 History of pulmonary embolism Z86.711 CAD (coronary artery disease) I25.10 Constipation K59.00 Thoracic aortic aneurysm I71.2 History of CVA (cerebrovascular accident) Z86.73 Hypokalemia E87.6 Diabetes mellitus, type 2 E11.9 BPH w urinary obs/LUTS N40.1; N13.8 Seizure disorder G40.909
--- NOTE | 2024-12-26 14:07 | Pharmacy Report ---
Pharmacy Glycemic Short Note 2 - Date of Service December 26, 2024 - Glycemic Short BSG Results (Last 24 hours): 12/25/24 12/26/24 12/26/24 22:18 06:53 07:10 Glucose 206 H 209 H POC Glucose 214 H 12/26/24 11:21 Glucose POC Glucose 176 H OUTPATIENT ANTIDIABETIC REGIMEN: * Glimepiride 2 mg PO qPM HbA1c: 8.7% (10/18/24) ASSESSMENT: * WS is an 79 year old male w/ acute hypoxic respiratory failure * Started on empiric IV antibiotics for CAP * IV steroids originally ordered, but never administered * Pharmacy consulted for glycemic management * Will start conservative SC basal/bolus insulin regimen for now PLAN FOR INPATIENT GLYCEMIC CONTROL: * Hold outpatient oral diabetes medications * Basal insulin * Lantus 0-8 units SC BID * Bolus insulin * NovoLog per scale ACHS or Q6hrs while NPO * Goal Range: Low 120 mg/dL - High 150 mg/dL * Correction Factor: 40 mg/dL/unit * Nutritional / Prandial insulin per carb ratio of 1 unit per 15 grams CHO consumed
--- NOTE | 2024-12-26 14:34 | XCELERA ---
[id number]
--- NOTE | 2024-12-26 17:33 | Communication Note ---
Date of Service: December 26, 2024 Patient seen and examined on 12/26/2024 at 12 PM H&P from 12/26/2024 reviewed and appreciated Labs reviewed Radiology reviewed 79-year-old male with past medical history of CAD status post PCI in August 2017, multiple CVA, recurrent PE on aspirin and apixaban, thoracic aortic aneurysm, type 2 diabetes mellitus, hyperlipidemia, seizure disorder, BPH, hyper tension admitted for acute hypoxic respiratory failure with CTA chest showing no PE but noted to have bilateral infiltrates Outpatient jewelry sales associate is Dr. Josr Massey 2D echo pending Continue ceftriaxone plus doxycycline Continue Lasix 40 mg IV daily Potassium replacement I/O monitoring Daily weights Monitor renal function electrolytes Oxygen as needed to keep saturations between 90 to 92%, wean as tolerated
[2024-12-26] MEDS: POTASSIUM CHLORIDE CRTAB 20 MEQ TABCR PO STA (18:20)
[2024-12-26] MEDS: TAMSULOSIN HCL 0.4 MG CAP PO SCH (20:05)
--- NOTE | 2024-12-27 05:51 | Electrocardiogram Report ---
Test Reason : Blood Pressure : */* mmHG Vent. Rate : 81 BPM Atrial Rate : 81 BPM P-R Int : 182 ms QRS Dur : 108 ms QT Int : 396 ms P-R-T Axes : -2 -41 -25 degrees QTcB Int : 460 ms Normal sinus rhythm Left axis deviation Incomplete right bundle branch block Moderate voltage criteria for LVH, may be normal variant ( R in aVL , [employer] product ) Nonspecific T wave abnormality Abnormal ECG When compared with ECG of 17-Oct-2024 11:12, No significant change was found Confirmed by Barrington Bird ([id number] on 12/27/2024 5:51:31 AM Referred By: REFERRED SELF Confirmed By: Barrington Bird
[2024-12-27] MEDS: cefTRIAXone SODIUM 2,000 MG/50 ML BAG IV SCH (06:03)
[2024-12-27 07:35] LABS: Basophils # (auto) 0.04 K/uL (0.00-0.20); Basophils % (auto) 0.5 %; Eosinophils % (auto) 2.7 %; Hematocrit (blood only) 35.5 % (42.0-52.0); Hemoglobin 11.7 g/dl (14.0-18.0); Immature Granulocytes # (auto) 0.03 K/uL (0.01-0.20); Immature Granulocytes % (auto) 0.4 %; Lymphocytes # (auto) 0.59 K/uL (1.20-3.40); Lymphocytes % (auto) 7.9 %; Mean Corpuscular Hemoglobin 31.9 pg (25.0-34.0); Mean Corpuscular Volume 96.7 fL (80.0-100.0); Mean Platelet Volume 8.8 fL (9.4-12.4); Monocytes # (auto) 0.99 K/uL (0.11-0.59); Monocytes % (auto) 13.3 %; Neutrophils # (auto) 5.62 K/uL (1.40-6.50); Neutrophils % (auto) 75.2 %; Platelet Count 238 K/uL (130-400); RDW Coefficient of Variation 14.6 % (11.5-14.5); RDW Standard Deviation 51.6 fL (36.4-46.3); Red Blood Count 3.67 M/uL (4.70-6.10); White Blood Count 7.47 K/ul (4.8-10.8)
[2024-12-27 07:48] LABS: Estimated Average Glucose 194 mg/dl; Hemoglobin A1C 8.4 % (4.5-5.6)
[2024-12-27 07:58] LABS: Albumin Level 3.3 gm/dl (3.4-5.0); Bilirubin,Total 0.4 mg/dl (0.2-1.0); Calcium 8.3 mg/dl (8.6-10.3); Creatinine Clr Calc Pharmacy 88.5 ml/min; Globulin 3.2 gm/dl (2.5-4.0); Magnesium 1.9 mg/dl (1.7-2.4); Potassium 3.2 mmol/L (3.5-5.1); Total Protein 6.5 gm/dl (6.0-8.3)
[2024-12-27] MEDS: LANTUS PER UNIT CHARGE SQ SCH (08:12)
[2024-12-27] MEDS: MAGNESIUM SULFATE / D5W 1 GM/100 ML BAG IV ONE (09:16)
[2024-12-27] MEDS: MAGNESIUM OXIDE 400 MG TAB PO SCH (09:16)
--- NOTE | 2024-12-27 11:09 | Hospitalist Progress Note ---
Date of Service December 27, 2024 Assessment & Plan (1) Acute hypoxic respiratory failure: (2) Dyspnea on exertion: (3) History of pulmonary embolism: (4) CAD (coronary artery disease): (5) Thoracic aortic aneurysm: (6) History of CVA (cerebrovascular accident): (7) Hypokalemia: (8) Diabetes mellitus, type 2: (9) BPH w urinary obs/LUTS: (10) Seizure disorder: Plan 79-year-old male with past medical history of CAD status post PCI in August 2017, multiple CVA, recurrent PE on aspirin and apixaban, thoracic aortic aneurysm, type 2 diabetes mellitus, hyperlipidemia, seizure disorder, BPH, hypertension admitted for acute hypoxic respiratory failure with CTA chest showing no PE but noted to have bilateral infiltrates #Acute hypoxic respiratory failure Likely suspected CHF, less likely pneumonia given lactate of 1.2, Pro-Jose of 0.1, no leukocytosis Blood cultures from admission have been negative at 24 hours Wean oxygen as tolerated Check two-view chest x-ray Continue ceftriaxone plus doxycycline (day 2) in the meantime until chest x-ray obtained and reviewed #Acute diastolic congestive heart failure with preserved ejection fraction of 50% #CAD status post PCI in August 2017 #History of multiple CVA #Thoracic aortic aneurysm #Mild aortic stenosis Outpatient window repairer is Dr. Josr Massey 2D echo shows low normal systolic function with EF of 50 to 55%, hypokinesis of the anterolateral wall, moderate concentric LVH, moderate left atrial dilation, mild aortic stenosis, mild mitral regurgitation, mild pulmonary hypertension and type I diastolic dysfunction Continue Lasix 40 mg IV daily I/O monitoring Daily weights Continue aspirin and statin Continue losartan 25 mg p.o. daily Continue apixaban #Hypokalemia Likely secondary to IV Lasix Potassium replacement Monitor levels #History of recurrent PE Continue apixaban 5 mg p.o. twice daily #Type 2 diabetes mellitus A1c is 8.4 B12 is 862 childbirth educator consult Pharmacy managing glycemic control Suspect patient will need insulin on discharge: Discussed with patient's Naty was a retired nurse and she is willing to administer insulin Nutrition consult #Seizure disorder Continue Dilantin #BPH Patient required Flores catheter in ED due to urinary retention Continue Flores for now since patient is on IV Lasix Continue Flomax CODE STATUS: DNR/DNI DVT prophylaxis: Patient on apixaban Discharge planning based on PT recommendations, likely home with home health in the next 48 to 72 hours based on clinical improvement Care plan discussed with patient, nursing staff and updated at bedside Admission and Anticipated Discharge Date Admission Date: December 26, 2024 Subjective Patient seen and examined H&P reviewed Labs reviewed Radiology reviewed is at bedside Patient lives with at home As per , he is noncompliant with diet especially with his diabetes Patient states his breathing is better, he still requiring 7 to 8 L of oxygen via nasal cannula. He denies any chest pain, shortness of breath, cough, fever, chills, nausea, vomiting or abdominal pain As per , patient has required oxygen in the past after hospitalization and gets weaned off at home Physical Exam Physical Exam: General: No acute distress Psych: Awake and alert, oriented to place and person HEENT: Anicteric sclera, moist oral mucosa CVS: Regular rate and rhythm Lungs: Bilateral air entry, no wheezing noted Abdomen: Soft, nontender, no rebound, no guarding Ext: No lower extremity edema, no calf tenderness Neuro: No focal motor deficits noted Results & Data Results & Data Vital Signs (Past 12 Hours) Vital Signs Temp Pulse Pulse Resp BP Pulse Ox O2 Del Method 12/27/24 10:48 36.7 C 82 18 118/78 96 Nasal Cannula 12/27/24 08:12 Nasal Cannula 12/27/24 07:33 18 93 Nasal Cannula 12/27/24 07:21 76 12/27/24 07:18 36.3 C L 76 18 147/88 H 93 Nasal Cannula 12/27/24 02:23 36.7 C 86 19 137/87 92 High Flow Nasal Cannula 12/27/24 00:02 78 18 98 Nasal Cannula O2 Flow Rate 12/27/24 10:48 8 12/27/24 08:12 9 12/27/24 07:33 8 12/27/24 07:21 12/27/24 07:18 9 12/27/24 02:23 9 12/27/24 00:02 9 Laboratory Results Laboratory Results - last 24 hr 12/26/24 12/26/24 12/26/24 11:21 16:28 19:21 WBC RBC Hgb Hct MCV MCH MCHC RDW Std Deviation RDW Coeff of Lusi Plt Count MPV Immature Gran % (Auto) Neut % (Auto) Lymph % (Auto) Cache % (Auto) Eos % (Auto) Baso % (Auto) Neut # (Auto) Lymph # (Auto) Cache # (Auto) Eos # (Auto) Baso # (Auto) Immature Gran # (Auto) Sodium Potassium Chloride Carbon Dioxide Anion Gap BUN Creatinine Est Cr Clr Drug Dosing eGFR BUN/Creatinine Ratio Glucose POC Glucose 176 H 124 H 175 H Estimat Average Glucose Hemoglobin A1c Calcium Magnesium Total Bilirubin AST ALT Alkaline Phosphatase B-Natriuretic Peptide Total Protein Albumin Globulin Albumin/Globulin Ratio Vitamin B12 12/27/24 12/27/24 12/27/24 07:00 07:16 10:49 WBC 7.47 RBC 3.67 L Hgb 11.7 L Hct 35.5 L MCV 96.7 MCH 31.9 MCHC 33.0 RDW Std Deviation 51.6 H RDW Coeff of Luis 14.6 H Plt Count 238 MPV 8.8 L Immature Gran % (Auto) 0.4 Neut % (Auto) 75.2 Lymph % (Auto) 7.9 Cache % (Auto) 13.3 Eos % (Auto) 2.7 Baso % (Auto) 0.5 Neut # (Auto) 5.62 Lymph # (Auto) 0.59 L Cache # (Auto) 0.99 H Eos # (Auto) 0.20 Baso # (Auto) 0.04 Immature Gran # (Auto) 0.03 Sodium 142 Potassium 3.2 L Chloride 105 Carbon Dioxide 30 Anion Gap 7 BUN 21 Creatinine 0.70 Est Cr Clr Drug Dosing 88.5 eGFR 92.57 BUN/Creatinine Ratio 30.0 H Glucose 166 H POC Glucose 171 H 190 H Estimat Average Glucose 194 Hemoglobin A1c 8.4 H Calcium 8.3 L Magnesium 1.9 Total Bilirubin 0.4 AST 30 ALT 26 Alkaline Phosphatase 190 H B-Natriuretic Peptide 98 Total Protein 6.5 Albumin 3.3 L Globulin 3.2 Albumin/Globulin Ratio 1.0 Vitamin B12 862 Diagnostic Findings Chest X-Ray 12/25/24 22:11 EXAM: XR chest 1V portable CLINICAL HISTORY: Chest pain, nonspecific TECHNIQUE: An X-ray image of the chest is obtained using an AP projection. COMPARISON: 10/17/2024 XR chest FINDINGS: Pulmonary Parenchyma: Accentuated bronchovascular markings, with increased reticular shadows. No evidence of pleural effusion or pleural thickening. Heart and Mediastinum: The heart size is enlarged. No mediastinal widening or masses. No hilar or mediastinal lymphadenopathy. Bony Thorax: Osteopenia with degenerative changes. Soft Tissues: Soft tissues overlying the chest wall are unremarkable. IMPRESSION: 1. Accentuated bronchovascular markings, with increased reticular shadows. increased. 2. Heart size is enlarged. Electronically signed by Jose Marques 12-26-2024 07:03 AM Chest CTA 12/25/24 23:17 Exam(s): CTA CHEST EXAM: CT Angiography Chest With Intravenous Contrast CLINICAL HISTORY: Reason for exam: hypoxia. TECHNIQUE: Axial computed tomographic angiography images of the chest with intravenous contrast. Automated exposure control was utilized for the study. A dose lowering technique was utilized adhering to the principles of ALARA. MIP reconstructed images were created and reviewed. COMPARISON: No relevant prior studies available. FINDINGS: Exam is limited due to artifact. Pulmonary arteries: No pulmonary embolism is seen. Aorta: There is a 4.3 cm aneurysm noted of the ascending aorta. No evidence of dissection. Lungs: There are bilateral infiltrates.. Pleural space: No significant effusion. No pneumothorax. Heart: The heart is enlarged and contains coronary artery calcifications.. Bones/joints: There are some degenerative changes in the spine.. Soft tissues: Unremarkable. Lymph nodes: There are prominent mediastinal lymph nodes. Additional: There is a small hiatal hernia. IMPRESSION: Limited exam. No pulmonary embolism is seen. There are bilateral infiltrates. There is a 4.3 cm aneurysm noted of the ascending aorta. Electronically signed by: Ector Vaughan MD 12/26/24 00:32 AM PG Care Time/CCT Total # of Minutes Spent Total Time Spent with Patient: Total time spent is greater than 50% in coordination of care (as documented) at patient's floor/unit and/or counseling patient: Coding Level of Care Code 57043 SUB INP/OBS CARE 3/50MIN Diagnoses Acute hypoxic respiratory failure J96.01 Dyspnea on exertion R06.09 History of pulmonary embolism Z86.711 CAD (coronary artery disease) I25.10 Thoracic aortic aneurysm I71.2 History of CVA (cerebrovascular accident) Z86.73 Hypokalemia E87.6 Diabetes mellitus, type 2 E11.9 BPH w urinary obs/LUTS N40.1; N13.8 Seizure disorder G40.909
[2024-12-27] MEDS: POTASSIUM CHLORIDE CRTAB 20 MEQ TABCR PO ONE ×2 (11:45→21:23)
--- NOTE | 2024-12-27 12:24 | XRay Report ---
XR chest 2V PA/lateral CLINICAL HISTORY: hypoxic ?chf vs PNA COMPARISON STUDY: 12/25/2024 FINDINGS: Progressive, widespread reticular opacities are present in conjunction with cardiomegaly an d pulmonary vascular congestion. Findings the more suggestive of CHF than pneumonia. Small effusions suspected. Large hiatal hernia noted. 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 IMPRESSION: Findings most consistent with CHF. ACT 112: Negative or not required by law. Electronically signed by: Deneen King M.D. 12/27/2024 12:23 PM
[2024-12-27] MEDS: DOXYCYCLINE HYCLATE 100 MG CAP PO SCH (21:22)
[2024-12-28 07:19] LABS: BUN Creatinine Ratio 40.9 (10-20); Calcium 8.5 mg/dl (8.6-10.3); Creatinine Clr Calc Pharmacy 93.6 ml/min; Magnesium 2.2 mg/dl (1.7-2.4); Potassium 4.3 mmol/L (3.5-5.1)
--- NOTE | 2024-12-28 12:38 | Hospitalist Progress Note ---
Date of Service December 28, 2024 Assessment & Plan (1) Acute hypoxic respiratory failure: (2) Dyspnea on exertion: (3) History of pulmonary embolism: (4) CAD (coronary artery disease): (5) Thoracic aortic aneurysm: (6) History of CVA (cerebrovascular accident): (7) Hypokalemia: (8) Diabetes mellitus, type 2: (9) BPH w urinary obs/LUTS: (10) Seizure disorder: Plan 79-year-old male with past medical history of CAD status post PCI in August 2017, multiple CVA, recurrent PE on aspirin and apixaban, thoracic aortic aneurysm, type 2 diabetes mellitus, hyperlipidemia, seizure disorder, BPH, hypertension admitted for acute hypoxic respiratory failure with CTA chest showing no PE but noted to have bilateral infiltrates #Acute hypoxic respiratory failure Likely suspected CHF, less likely pneumonia given lactate of 1.2, Pro-Jose of 0.1, no leukocytosis Blood cultures from admission have been negative so far Wean oxygen as tolerated 2 view chest x-ray from 12/27/2024 shows CHF and no evidence of pneumonia Patient has completed 3 days of IV ceftriaxone and doxycycline. Will stop antibiotics as patient does not have pneumonia #Acute diastolic congestive heart failure with preserved ejection fraction of 50% #CAD status post PCI in August 2017 #History of multiple CVA #Thoracic aortic aneurysm #Mild aortic stenosis Outpatient shank boner is Dr. Josr Massey 2D echo shows low normal systolic function with EF of 50 to 55%, hypokinesis of the anterolateral wall, moderate concentric LVH, moderate left atrial dilation, mild aortic stenosis, mild mitral regurgitation, mild pulmonary hypertension and type I diastolic dysfunction Increase IV Lasix to 40 mg twice daily Spironolactone 25 mg p.o. x 1 dose now for diuresis I/O monitoring Daily weights Continue aspirin and statin Hold losartan 25 mg p.o. daily for now to avoid hypotension while patient is diuresing Patient would likely benefit from Jardiance on discharge Continue apixaban #Hypokalemia Likely secondary to IV Lasix Potassium replacement Monitor levels #History of recurrent PE Continue apixaban 5 mg p.o. twice daily #Type 2 diabetes mellitus A1c is 8.4 B12 is 862 adult educator consult Pharmacy managing glycemic control Suspect patient will need insulin on discharge: Discussed with patient's Naty was a retired nurse and she is willing to administer insulin Patient will benefit from Jardiance on discharge Discussed insulin and Jardiance with patient and his Nutrition consult #Seizure disorder Continue Dilantin #BPH Patient required Flores catheter in ED due to urinary retention Continue Flores for now since patient is on IV Lasix Continue Flomax CODE STATUS: DNR/DNI DVT prophylaxis: Patient on apixaban Discharge planning based on PT recommendations, likely home with home health in the next 48 to 72 hours based on clinical improvement and decreasing oxygen requirements. Patient may need oxygen for discharge home Care plan discussed with patient, nursing staff and updated at bedside Admission and Anticipated Discharge Date Admission Date: December 26, 2024 Subjective Patient seen and examined at bedside Patient denies any chest pain or shortness of breath but is requiring 8 L of oxygen via high flow nasal cannula with increasing oxygen requirements He denies any nausea, vomiting, diarrhea or abdominal pain Physical Exam Physical Exam: General: No acute distress Psych: Awake and alert, oriented to place and person HEENT: Anicteric sclera, moist oral mucosa CVS: Regular rate and rhythm Lungs: Bilateral air entry, no wheezing noted, bilateral crackles noted Abdomen: Soft, nontender, no rebound, no guarding Ext: No lower extremity edema, no calf tenderness : Indwelling Flores catheter noted Results & Data Results & Data Vital Signs (Past 12 Hours) Vital Signs Temp Pulse Resp BP Pulse Ox Pulse Ox O2 Del Method 12/28/24 12:04 97 12/28/24 11:55 36.5 C 87 18 125/86 93 High Flow Nasal Cannula 12/28/24 08:03 36.6 C 84 20 129/83 92 Nebulizer 12/28/24 08:00 High Flow Nasal Cannula 12/28/24 07:13 84 20 94 Nasal Cannula 12/28/24 03:00 95 12/28/24 02:35 36.7 C 91 H 18 112/76 92 Nasal Cannula, High Flow Nasal Cannula O2 Del Method O2 Flow Rate O2 Flow Rate 12/28/24 12:04 12/28/24 11:55 8 12/28/24 08:03 12/28/24 08:00 8 12/28/24 07:13 6 12/28/24 03:00 High Flow Nasal Cannula 5 12/28/24 02:35 5 Laboratory Results Laboratory Results - last 24 hr 12/27/24 12/27/24 12/28/24 16:29 20:25 05:38 Sodium 139 Potassium 4.3 D Chloride 106 Carbon Dioxide 29 Anion Gap 4 BUN 27 H Creatinine 0.66 Est Cr Clr Drug Dosing 93.6 eGFR 94.23 BUN/Creatinine Ratio 40.9 H Glucose 154 H POC Glucose 95 146 H Calcium 8.5 L Magnesium 2.2 12/28/24 12/28/24 07:31 11:13 Sodium Potassium Chloride Carbon Dioxide Anion Gap BUN Creatinine Est Cr Clr Drug Dosing eGFR BUN/Creatinine Ratio Glucose POC Glucose 166 H 143 H Calcium Magnesium Diagnostic Findings Chest X-Ray 12/27/24 11:10 XR chest 2V PA/lateral CLINICAL HISTORY: hypoxic ?chf vs PNA COMPARISON STUDY: 12/25/2024 FINDINGS: Progressive, widespread reticular opacities are present in conjunction with cardiomegaly and pulmonary vascular congestion. Findings the more suggestive of CHF than pneumonia. Small effusions suspected. Large hiatal hernia noted. 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 IMPRESSION: Findings most consistent with CHF. ACT 112: Negative or not required by law. Electronically signed by: Deneen King M.D. 12/27/2024 12:23 PM PG Care Time/CCT Total # of Minutes Spent Total Time Spent with Patient: Total time spent is greater than 50% in coordination of care (as documented) at patient's floor/unit and/or counseling patient: Coding Level of Care Code 37052 SUB INP/OBS CARE 3/50MIN Diagnoses Acute hypoxic respiratory failure J96.01 Dyspnea on exertion R06.09 History of pulmonary embolism Z86.711 CAD (coronary artery disease) I25.10 Thoracic aortic aneurysm I71.2 History of CVA (cerebrovascular accident) Z86.73 Hypokalemia E87.6 Diabetes mellitus, type 2 E11.9 BPH w urinary obs/LUTS N40.1; N13.8 Seizure disorder G40.909
[2024-12-28] MEDS: SPIRONOLACTONE 25 MG TAB PO ONE (13:39)
[2024-12-28] MEDS: FUROSEMIDE 40 MG/4 ML VIAL IV SCH (17:02)
[2024-12-28] MEDS: POTASSIUM CHLORIDE CRTAB 20 MEQ TABCR PO ONE (21:17)
[2024-12-29] MEDS: MELATONIN 3 MG TAB PO PRN (01:36)
[2024-12-29 06:49] LABS: BUN Creatinine Ratio 40.8 (10-20); Calcium 8.9 mg/dl (8.6-10.3); Creatinine Clr Calc Pharmacy 86.1 ml/min; Magnesium 2.3 mg/dl (1.7-2.4)
[2024-12-29] MEDS: ALBUT/IPRATROP 3MG/0.5MG NEB 3 ML VIAL NEB PRN (07:02)
--- NOTE | 2024-12-29 09:21 | Pharmacy Report ---
Pharmacy Glycemic Short Note 2 - Date of Service December 29, 2024 - Glycemic Short BSG Results (Last 24 hours): 12/28/24 12/28/24 12/28/24 11:13 16:25 20:12 Glucose POC Glucose 143 H 151 H 144 H 12/29/24 12/29/24 05:31 07:25 Glucose 140 H POC Glucose 147 H OUTPATIENT ANTIDIABETIC REGIMEN: * Glimepiride 2 mg PO PM HbA1c: * 8.7% (10/18/24) ASSESSMENT: 12/29: * David received 24 units of insulin yesterday, 16 of which were basal. BSGs were: [phone] mg/dL. * Fasting BSG this AM was 147 mg/dL. No change to diet. Abx have been discontinued. * Carb ratio was loosened yesterday. Postprandials with good control. * No changes necessary to insulin regimen today. 12/26: * ALANA is an 79 year old male w/ acute hypoxic respiratory failure * Started on empiric IV antibiotics for CAP * IV steroids originally ordered, but never administered * Pharmacy consulted for glycemic management * Will start conservative SC basal/bolus insulin regimen for now PLAN FOR INPATIENT GLYCEMIC CONTROL: * Hold outpatient oral diabetes medications * Basal insulin * Lantus 8 units SC BID * Bolus insulin * NovoLog per scale ACHS or Q6hrs while NPO * Goal Range: Low 120 mg/dL - High 150 mg/dL * Correction Factor: 35 mg/dL/unit * Nutritional / Prandial insulin per carb ratio of 1 unit per 14 grams CHO consumed
[2024-12-29] MEDS: POTASSIUM CHLORIDE CRTAB 20 MEQ TABCR PO SCH (10:00)
--- NOTE | 2024-12-29 11:15 | Hospitalist Progress Note ---
Date of Service December 29, 2024 Assessment & Plan (1) Acute hypoxic respiratory failure: (2) Dyspnea on exertion: (3) History of pulmonary embolism: (4) CAD (coronary artery disease): (5) Thoracic aortic aneurysm: (6) History of CVA (cerebrovascular accident): (7) Hypokalemia: (8) Diabetes mellitus, type 2: (9) BPH w urinary obs/LUTS: (10) Seizure disorder: Plan 79-year-old male with past medical history of CAD status post PCI in August 2017, multiple CVA, recurrent PE on aspirin and apixaban, thoracic aortic aneurysm, type 2 diabetes mellitus, hyperlipidemia, seizure disorder, BPH, hypertension admitted for acute hypoxic respiratory failure with CTA chest showing no PE but noted to have bilateral infiltrates #Acute hypoxic respiratory failure Likely suspected CHF, less likely pneumonia given lactate of 1.2, Pro-Jose of 0.1, no leukocytosis Blood cultures from admission have been negative so far Wean oxygen as tolerated 2 view chest x-ray from 12/27/2024 shows CHF and no evidence of pneumonia Patient completed 3 days of IV ceftriaxone and doxycycline and antibiotics were stopped on 12/28/2024 as patient does not have pneumonia #Acute diastolic congestive heart failure with preserved ejection fraction of 50% #CAD status post PCI in August 2017 #History of multiple CVA #Thoracic aortic aneurysm #Mild aortic stenosis Outpatient research & analytics manager is Dr. Josr Massey 2D echo shows low normal systolic function with EF of 50 to 55%, hypokinesis of the anterolateral wall, moderate concentric LVH, moderate left atrial dilation, mild aortic stenosis, mild mitral regurgitation, mild pulmonary hypertension and type I diastolic dysfunction Continue IV Lasix to 40 mg twice daily I/O monitoring Daily weights Continue aspirin and statin Hold losartan 25 mg p.o. daily for now to avoid hypotension while patient is diuresing Patient would likely benefit from Jardiance on discharge Continue apixaban #Hypokalemia Likely secondary to IV Lasix Potassium replacement Monitor levels #History of recurrent PE Continue apixaban 5 mg p.o. 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 2.) OneTouch Test Strips. 3.) OneTouch Delica Lancets 33 gauge. *Medicare requires diagnosis code (E11.9) and frequency of use (3x/day- insulin vs. 1x/day- pills) be indicated on the prescription for coverage #Seizure disorder Continue Dilantin #BPH Patient required Flores catheter in ED due to urinary retention Continue Flores for now since patient is on IV Lasix Continue Flomax CODE STATUS: DNR/DNI DVT prophylaxis: Patient on apixaban Discharge planning home with home health for nursing given new Flores catheter, new to insulin, CHF in the next 48 to 72 hours based on clinical improvement and decreasing oxygen requirements. Patient may need oxygen for discharge home Care plan discussed with patient, nursing staff and updated at bedside Admission and Anticipated Discharge Date Admission Date: December 26, 2024 Subjective Patient seen and examined Naty at bedside Patient denies any chest pain or shortness of breath He is still requiring 5 to 6 L of oxygen via nasal cannula He has diuresed approximately 5 L since admission would like home health with nursing given new Flores catheter, new to insulin Physical Exam Physical Exam: General: No acute distress Psych: Awake and alert, oriented to place and person HEENT: Anicteric sclera, moist oral mucosa CVS: Regular rate and rhythm Lungs: Bilateral air entry, no wheezing noted, bilateral crackles noted Abdomen: Soft, nontender, no rebound, no guarding Ext: No lower extremity edema, no calf tenderness : Indwelling Flores catheter noted Results & Data Results & Data Vital Signs (Past 12 Hours) Vital Signs Temp Pulse Resp BP Pulse Ox O2 Del Method O2 Flow Rate 12/29/24 08:32 91 Nasal Cannula 6 12/29/24 07:59 36.5 C 95 H 18 129/68 Room Air 12/29/24 07:02 79 20 96 Nasal Cannula 6 12/29/24 02:50 36.5 C 86 18 112/75 96 Oxymask 5 Laboratory Results Laboratory Results - last 24 hr 12/28/24 12/28/24 12/28/24 11:13 16:25 20:12 Sodium Potassium Chloride Carbon Dioxide Anion Gap BUN Creatinine Est Cr Clr Drug Dosing eGFR BUN/Creatinine Ratio Glucose POC Glucose 143 H 151 H 144 H Calcium Magnesium 12/29/24 12/29/24 05:31 07:25 Sodium 137 Potassium 5.0 Chloride 102 Carbon Dioxide 28 Anion Gap 7 BUN 29 H Creatinine 0.71 Est Cr Clr Drug Dosing 86.1 eGFR 92.17 BUN/Creatinine Ratio 40.8 H Glucose 140 H POC Glucose 147 H Calcium 8.9 Magnesium 2.3 PG Care Time/CCT Total # of Minutes Spent Total Time Spent with Patient: Total time spent is greater than 50% in coordination of care (as documented) at patient's floor/unit and/or counseling patient: Coding Level of Care Code 70144 SUB INP/OBS CARE 3/50MIN Diagnoses Acute hypoxic respiratory failure J96.01 Dyspnea on exertion R06.09 History of pulmonary embolism Z86.711 CAD (coronary artery disease) I25.10 Thoracic aortic aneurysm I71.2 History of CVA (cerebrovascular accident) Z86.73 Hypokalemia E87.6 Diabetes mellitus, type 2 E11.9 BPH w urinary obs/LUTS N40.1; N13.8 Seizure disorder G40.909
[2024-12-29] MEDS: ACETAMINOPHEN 325 MG TAB PO PRN (21:28)
[2024-12-30 08:26] LABS: Hematocrit (blood only) 41.3 % (42.0-52.0); Hemoglobin 13.7 g/dl (14.0-18.0); Mean Corpuscular Hemoglobin 31.9 pg (25.0-34.0); Mean Corpuscular Hgb Conc 33.2 g/dL (32.0-36.0); Platelet Count 298 K/uL (130-400); RDW Coefficient of Variation 13.8 % (11.5-14.5); RDW Standard Deviation 48.5 fL (36.4-46.3); White Blood Count 8.01 K/ul (4.8-10.8)
[2024-12-30 08:45] LABS: BUN Creatinine Ratio 40.3 (10-20); Calcium 9.2 mg/dl (8.6-10.3); Creatinine Clr Calc Pharmacy 84.9 ml/min; Magnesium 2.6 mg/dl (1.7-2.4)
[2024-12-30] MEDS: LANTUS PER UNIT CHARGE SQ SCH (09:21)
--- NOTE | 2024-12-30 10:45 | Hospitalist Progress Note ---
Date of Service December 30, 2024 Assessment & Plan (1) Acute hypoxic respiratory failure: (2) Dyspnea on exertion: (3) History of pulmonary embolism: (4) CAD (coronary artery disease): (5) Thoracic aortic aneurysm: (6) History of CVA (cerebrovascular accident): (7) Hypokalemia: (8) Diabetes mellitus, type 2: (9) BPH w urinary obs/LUTS: (10) Seizure disorder: Plan 79-year-old male with past medical history of CAD status post PCI in August 2017, multiple CVA, recurrent PE on aspirin and apixaban, thoracic aortic aneurysm, type 2 diabetes mellitus, hyperlipidemia, seizure disorder, BPH, hypertension admitted for acute hypoxic respiratory failure with CTA chest showing no PE but noted to have bilateral infiltrates #Acute hypoxic respiratory failure Likely suspected CHF, less likely pneumonia given lactate of 1.2, Pro-Jose of 0.1, no leukocytosis Blood cultures from admission have been negative so far Wean oxygen as tolerated 2 view chest x-ray from 12/27/2024 shows CHF and no evidence of pneumonia Patient completed 3 days of IV ceftriaxone and doxycycline and antibiotics were stopped on 12/28/2024 as patient does not have pneumonia #Acute diastolic congestive heart failure with preserved ejection fraction of 50% #CAD status post PCI in August 2017 #History of multiple CVA #Thoracic aortic aneurysm #Mild aortic stenosis Outpatient airplane cleaner is Dr. Josr Massey 2D echo shows low normal systolic function with EF of 50 to 55%, hypokinesis of the anterolateral wall, moderate concentric LVH, moderate left atrial dilation, mild aortic stenosis, mild mitral regurgitation, mild pulmonary hypertension and type I diastolic dysfunction Continue IV Lasix to 40 mg twice daily I/O monitoring Daily weights Continue aspirin and statin Hold losartan 25 mg p.o. daily for now to avoid hypotension while patient is diuresing Patient would likely benefit from Jardiance on discharge Continue apixaban Patient is over 6 L negative balance since admission and yet his oxygen requirements are still high. I spoke with cardiology on-call Dr. Jay Castelan: He recommended continuing with IV Lasix diuresis twice daily and to recheck with cardiology tomorrow with updated renal function. #Hypokalemia Likely secondary to IV Lasix Potassium replacement Monitor levels #History of recurrent PE Continue apixaban 5 mg p.o. 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 2.) OneTouch Test Strips. 3.) OneTouch Delica Lancets 33 gauge. *Medicare requires diagnosis code (E11.9) and frequency of use (3x/day- insulin vs. 1x/day- pills) be indicated on the prescription for coverage #Seizure disorder Continue Dilantin #BPH Patient required Flores catheter in ED due to urinary retention Continue Flores for now since patient is on IV Lasix Continue Flomax #Bilateral shoulder osteoarthritis Seen on chest x-ray Tylenol as needed CODE STATUS: DNR/DNI DVT prophylaxis: Patient on apixaban Discharge planning home with home health for nursing given new Flores catheter, new to insulin, CHF in the next 48 to 72 hours based on clinical improvement and decreasing oxygen requirements. Patient may need oxygen for discharge home Care plan discussed with patient, nursing staff and updated at bedside Admission and Anticipated Discharge Date Admission Date: December 26, 2024 Subjective Patient seen and examined at bedside Patient denies any chest pain, shortness of breath As per , she feels he was confused earlier this morning but currently is at his baseline Patient is currently answering questions appropriately He is still requiring 5 to 6 L of oxygen via oxime mask: Apparently respiratory I switched him to OxyMask because he is a mouth breather He reports good appetite, denies any nausea, vomiting or abdominal pain He is agreeable to sitting in a chair and ambulating with nursing staff today Physical Exam Physical Exam: General: No acute distress Psych: Awake and alert, oriented to place and person HEENT: Anicteric sclera, moist oral mucosa CVS: Regular rate and rhythm Lungs: Bilateral air entry, no wheezing noted, bilateral crackles noted Abdomen: Soft, nontender, no rebound, no guarding Ext: No lower extremity edema, no calf tenderness : Indwelling Flores catheter noted Results & Data Results & Data Vital Signs (Past 12 Hours) Vital Signs Temp Pulse Pulse Resp BP Pulse Ox O2 Del Method 12/30/24 07:16 36.5 C 96 H 17 131/91 93 Oxymask 12/30/24 03:01 36.6 C 76 17 122/68 93 Room Air 12/29/24 23:35 36.9 C 88 17 124/83 95 Room Air 12/29/24 22:59 91 H O2 Flow Rate 12/30/24 07:16 5.0 12/30/24 03:01 12/29/24 23:35 12/29/24 22:59 Laboratory Results Laboratory Results - last 24 hr 12/29/24 12/29/24 12/29/24 11:24 16:29 20:15 WBC RBC Hgb Hct MCV MCH MCHC RDW Std Deviation RDW Coeff of Luis Plt Count MPV Sodium Potassium Chloride Carbon Dioxide Anion Gap BUN Creatinine Est Cr Clr Drug Dosing eGFR BUN/Creatinine Ratio Glucose POC Glucose 146 H 112 H 137 H Calcium Magnesium 12/30/24 12/30/24 07:18 07:50 WBC 8.01 RBC 4.30 L Hgb 13.7 L Hct 41.3 L MCV 96.0 MCH 31.9 MCHC 33.2 RDW Std Deviation 48.5 H RDW Coeff of Luis 13.8 Plt Count 298 MPV 9.0 L Sodium 135 L Potassium 5.0 Chloride 100 Carbon Dioxide 28 Anion Gap 7 BUN 29 H Creatinine 0.72 Est Cr Clr Drug Dosing 84.9 eGFR 91.78 BUN/Creatinine Ratio 40.3 H Glucose 168 H POC Glucose 157 H Calcium 9.2 Magnesium 2.6 H PG Care Time/CCT Total # of Minutes Spent Total Time Spent with Patient: Total time spent is greater than 50% in coordination of care (as documented) at patient's floor/unit and/or counseling patient: Coding Level of Care Code 00178 SUB INP/OBS CARE 3/50MIN Diagnoses Acute hypoxic respiratory failure J96.01 Dyspnea on exertion R06.09 History of pulmonary embolism Z86.711 CAD (coronary artery disease) I25.10 Thoracic aortic aneurysm I71.2 History of CVA (cerebrovascular accident) Z86.73 Hypokalemia E87.6 Diabetes mellitus, type 2 E11.9 BPH w urinary obs/LUTS N40.1; N13.8 Seizure disorder G40.909
[2024-12-30] MEDS: ACETAMINOPHEN 500 MG TAB PO PRN (19:58)
[2024-12-31 06:24] LABS: BUN Creatinine Ratio 44.3 (10-20); Calcium 9.1 mg/dl (8.6-10.3); Creatinine Clr Calc Pharmacy 63.7 ml/min; Magnesium 2.5 mg/dl (1.7-2.4); Potassium 4.4 mmol/L (3.5-5.1)
[2024-12-31] MEDS: POTASSIUM CHLORIDE CRTAB 20 MEQ TABCR PO STA (08:33)
[2024-12-31] MEDS: FUROSEMIDE 40 MG/4 ML VIAL IV SCH (08:36)
--- NOTE | 2024-12-31 09:52 | Hospitalist Progress Note ---
Date of Service December 31, 2024 Assessment & Plan (1) Acute hypoxic respiratory failure: (2) Dyspnea on exertion: (3) History of pulmonary embolism: (4) CAD (coronary artery disease): (5) Thoracic aortic aneurysm: (6) History of CVA (cerebrovascular accident): (7) Hypokalemia: (8) Diabetes mellitus, type 2: (9) BPH w urinary obs/LUTS: (10) Seizure disorder: Plan 79-year-old male with past medical history of CAD status post PCI in August 2017, multiple CVA, recurrent PE on aspirin and apixaban, thoracic aortic aneurysm, type 2 diabetes mellitus, hyperlipidemia, seizure disorder, BPH, hypertension admitted for acute hypoxic respiratory failure with CTA chest showing no PE but noted to have bilateral infiltrates #Acute hypoxic respiratory failure Likely suspected CHF, less likely pneumonia given lactate of 1.2, Pro-Jose of 0.1, no leukocytosis Blood cultures from admission have been negative so far Wean oxygen as tolerated 2 view chest x-ray from 12/27/2024 shows CHF and no evidence of pneumonia Patient completed 3 days of IV ceftriaxone and doxycycline and antibiotics were stopped on 12/28/2024 as patient does not have pneumonia Check repeat two-view chest x-ray Patient has a history of oat dust exposure Pulmonology consulted per cardiology recommendations: Await pulmonology consult and recommendations #Acute diastolic congestive heart failure with preserved ejection fraction of 50% #CAD status post PCI in August 2017 #History of multiple CVA #Thoracic aortic aneurysm #Mild aortic stenosis Outpatient wheel installer is Dr. Josr Massey 2D echo shows low normal systolic function with EF of 50 to 55%, hypokinesis of the anterolateral wall, moderate concentric LVH, moderate left atrial dilation, mild aortic stenosis, mild mitral regurgitation, mild pulmonary hypertension and type I diastolic dysfunction I spoke with wheel installer on-call Dr. Castelan: He advised me to continue with IV diuresis and he will let Dr. Massey know about patient's admission Dr. Castelan recommended pulmonology consult to see if patient has any underlying lung disease Check repeat two-view chest x-ray Continue IV Lasix to 40 mg twice daily I/O monitoring Daily weights Continue aspirin and statin Hold losartan 25 mg p.o. daily for now to avoid hypotension while patient is diuresing Patient would likely benefit from Jardiance on discharge Continue apixaban Patient is over 6 L negative balance since admission and yet his oxygen requirements are still high. #Hypokalemia Improved with potassium replacement Monitor levels and replace as needed #History of recurrent PE Continue apixaban 5 mg p.o. 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 2.) OneTouch Test Strips. 3.) OneTouch Delica Lancets 33 gauge. *Medicare requires diagnosis code (E11.9) and frequency of use (3x/day- insulin vs. 1x/day- pills) be indicated on the prescription for coverage #Seizure disorder Continue Dilantin #BPH Patient required Flores catheter in ED due to urinary retention Continue Flores for now since patient is on IV Lasix Continue Flomax #Bilateral shoulder osteoarthritis Seen on chest x-ray Tylenol as needed CODE STATUS: DNR/DNI DVT prophylaxis: Patient on apixaban Discharge planning home with home health for nursing given new Flores catheter, new to insulin, CHF in the next 48 to 72 hours based on clinical improvement, pulmonology recommendations and decreasing oxygen requirements. Patient may need oxygen for discharge home Care plan discussed with patient, nursing staff and updated at bedside Admission and Anticipated Discharge Date Admission Date: December 26, 2024 Subjective Patient seen and examined He denies any chest pain or shortness of breath He is not almost 7 L negative fluid balance He is still requiring 12 to 13 L of high flow oxygen Denies any cough, fever, chills, nausea, vomiting or abdominal pain Physical Exam Physical Exam: General: No acute distress Psych: Awake and alert, oriented to place and person HEENT: Anicteric sclera, moist oral mucosa CVS: Regular rate and rhythm Lungs: Bilateral air entry, no wheezing noted, improving bilateral crackles with improving breath sounds noted Abdomen: Soft, nontender, no rebound, no guarding Ext: No lower extremity edema, no calf tenderness : Indwelling Flores catheter noted Results & Data Results & Data Vital Signs (Past 12 Hours) Vital Signs Temp Pulse Pulse Resp BP Pulse Ox O2 Del Method 12/31/24 08:46 36.7 C 95 H 20 138/89 90 Oxymask 12/31/24 07:50 High Flow Nasal Cannula 12/31/24 07:21 93 H 12/31/24 04:07 36.8 C 90 28 H 117/89 91 High Flow Nasal Cannula 12/30/24 23:55 High Flow Nasal Cannula 12/30/24 22:59 36.6 C 88 24 118/84 91 High Flow Nasal Cannula O2 Flow Rate 12/31/24 08:46 12 12/31/24 07:50 12 12/31/24 07:21 12/31/24 04:07 13 12/30/24 23:55 11 12/30/24 22:59 13 Laboratory Results Laboratory Results - last 24 hr 12/30/24 12/30/24 12/30/24 11:41 16:55 20:15 Sodium Potassium Chloride Carbon Dioxide Anion Gap BUN Creatinine Est Cr Clr Drug Dosing eGFR BUN/Creatinine Ratio Glucose POC Glucose 166 H 167 H 143 H Calcium Magnesium 12/31/24 12/31/24 05:40 07:24 Sodium 137 Potassium 4.4 Chloride 100 Carbon Dioxide 27 Anion Gap 10 BUN 39 H Creatinine 0.88 Est Cr Clr Drug Dosing 63.7 eGFR 86.39 BUN/Creatinine Ratio 44.3 H Glucose 146 H POC Glucose 134 H Calcium 9.1 Magnesium 2.5 H PG Care Time/CCT Total # of Minutes Spent Total Time Spent with Patient: Total time spent is greater than 50% in coordination of care (as documented) at patient's floor/unit and/or counseling patient: Coding Level of Care Code 61757 SUB INP/OBS CARE 3/50MIN Diagnoses Acute hypoxic respiratory failure J96.01 Dyspnea on exertion R06.09 History of pulmonary embolism Z86.711 CAD (coronary artery disease) I25.10 Thoracic aortic aneurysm I71.2 History of CVA (cerebrovascular accident) Z86.73 Hypokalemia E87.6 Diabetes mellitus, type 2 E11.9 BPH w urinary obs/LUTS N40.1; N13.8 Seizure disorder G40.909
--- NOTE | 2024-12-31 11:39 | XRay Report ---
XR chest 2V PA/lateral CLINICAL HISTORY: hypoxic, chf COMPARISON STUDY: 12/27/2024 FINDINGS: Stable moderate hiatal hernia. Stable cardiomegaly with mild pulmonary vascular congestion. There is mild pulmonary interstitial prominence, improved. No lobar consolidation or pleural effusio n. No pneumothorax. IMPRESSION: Mild CHF, improved. ACT 112: Negative or not required by law. Electronically signed by: Geremias Gonzales M.D. 12/31/2024 11:38 AM
--- NOTE | 2024-12-31 23:03 | XRay Report ---
Exam(s): XR CXR 1 VIEW EXAM: XR Chest, 1 View CLINICAL HISTORY: Reason for exam: hypoxia. TECHNIQUE: Frontal view of the chest. COMPARISON: December 25, 2024 FINDINGS: Lungs: Unremarkable. No acute infiltration, atelectasis or mass. Pleural space: Unremarkable. No pneumothorax or pleural fluid. Heart: Unremarkable. No cardiomegaly. Mediastinum: Appearance of a retrocardiac hiatus hernia. Bones/joints: Advanced degenerative arthropathy of the shoulder joints. No acute findings. IMPRESSION: No acute findings in the chest. Electronically signed by: Abdoulaye Marrero MD 12/31/24 23:02 PM
[2025-01-01] MEDS: SODIUM CHLORIDE 0.65% NA SOLN 45 ML (OCEAN) PRN (04:45)
[2025-01-01] MEDS: FUROSEMIDE 40 MG/4 ML VIAL IV SCH (08:35)
[2025-01-01] MEDS: FLUTICASONE PROPIONATE NA SPR 16 GM BTL SCH (08:36)
--- NOTE | 2025-01-01 09:23 | Pharmacy Report ---
Pharmacy Glycemic Short Note 2 - Date of Service January 01, 2025 - Glycemic Short BSG Results (Last 24 hours): 12/31/24 12/31/24 12/31/24 11:22 16:20 20:23 POC Glucose 157 H 124 H 139 H 01/01/25 07:22 POC Glucose 123 H OUTPATIENT ANTIDIABETIC REGIMEN: * Glimepiride 2 mg PO PM HbA1c: * 8.7% (10/18/24) ASSESSMENT: 01/01: * BSGs were relatively stable over the weekend, with only a slight increase to basal insulin needed. Patient received 23 units of insulin yesterday, 18 of which was basal. BSGs were [phone] mg/dL. Fasting this morning is within goal range at 123 mg/dL. * No change in diet order. Continue current regimen 12/29: * David received 24 units of insulin yesterday, 16 of which were basal. BSGs were: [phone] mg/dL. * Fasting BSG this AM was 147 mg/dL. No change to diet. Abx have been discontinued. * Carb ratio was loosened yesterday. Postprandials with good control. * No changes necessary to insulin regimen today. 12/26: * WS is an 79 year old male w/ acute hypoxic respiratory failure * Started on empiric IV antibiotics for CAP * IV steroids originally ordered, but never administered * Pharmacy consulted for glycemic management * Will start conservative SC basal/bolus insulin regimen for now PLAN FOR INPATIENT GLYCEMIC CONTROL: * Hold outpatient oral diabetes medications * Basal insulin * Lantus 9 units SC BID * Bolus insulin * NovoLog per scale ACHS or Q6hrs while NPO * Goal Range: Low 120 mg/dL - High 150 mg/dL * Correction Factor: 35 mg/dL/unit * Nutritional / Prandial insulin per carb ratio of 1 unit per 14 grams CHO consumed
[2025-01-01 09:25] LABS: BUN Creatinine Ratio 42.4 (10-20); Calcium 8.8 mg/dl (8.6-10.3); Creatinine Clr Calc Pharmacy 65.9 ml/min; Magnesium 2.4 mg/dl (1.7-2.4); Potassium 4.5 mmol/L (3.5-5.1)
--- NOTE | 2025-01-01 09:59 | Hospitalist Progress Note ---
Date of Service January 01, 2025 Assessment & Plan (1) Acute hypoxic respiratory failure: (2) Dyspnea on exertion: (3) History of pulmonary embolism: (4) CAD (coronary artery disease): (5) Thoracic aortic aneurysm: (6) History of CVA (cerebrovascular accident): (7) Hypokalemia: (8) Diabetes mellitus, type 2: (9) BPH w urinary obs/LUTS: (10) Seizure disorder: Plan 79-year-old male with past medical history of CAD status post PCI in August 2017, multiple CVA, recurrent PE on aspirin and apixaban, thoracic aortic aneurysm, type 2 diabetes mellitus, hyperlipidemia, seizure disorder, BPH, hypertension admitted for acute hypoxic respiratory failure with CTA chest showing no PE but noted to have bilateral infiltrates #Acute hypoxic respiratory failure Likely suspected CHF, less likely pneumonia given lactate of 1.2, Pro-Jose of 0.1, no leukocytosis Blood cultures from admission have been negative so far Wean oxygen as tolerated 2 view chest x-ray from 12/27/2024 shows CHF and no evidence of pneumonia Patient completed 3 days of IV ceftriaxone and doxycycline and antibiotics were stopped on 12/28/2024 as patient does not have pneumonia Repeat chest x-ray shows improvement in vascular congestion Patient has a history of oat dust exposure Pulmonology consulted per cardiology recommendations: Await pulmonology consult and recommendations (spoke with Dr. Casey who will see patient today) #Acute diastolic congestive heart failure with preserved ejection fraction of 50% #CAD status post PCI in August 2017 #History of multiple CVA #Thoracic aortic aneurysm #Mild aortic stenosis Outpatient ccna is Dr. Josr Massey 2D echo shows low normal systolic function with EF of 50 to 55%, hypokinesis of the anterolateral wall, moderate concentric LVH, moderate left atrial dilation, mild aortic stenosis, mild mitral regurgitation, mild pulmonary hypertension and type I diastolic dysfunction I spoke with ccna on-call Dr. Castelan: He advised me to continue with IV diuresis and he will let Dr. Massey know about patient's admission Dr. Castelan recommended pulmonology consult to see if patient has any underlying lung disease Repeat chest x-ray shows improvement in vascular congestion Change Lasix to 20 mg IV daily given significant amount of diuresis and improvement in chest x-ray, weight is down significantly I/O monitoring Daily weights Continue aspirin and statin Hold losartan 25 mg p.o. daily for now to avoid hypotension while patient is diuresing Patient would likely benefit from Jardiance on discharge Continue apixaban #History of recurrent PE Continue apixaban 5 mg p.o. 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 2.) OneTouch Test Strips. 3.) OneTouch Delica Lancets 33 gauge. *Medicare requires diagnosis code (E11.9) and frequency of use (3x/day- insulin vs. 1x/day- pills) be indicated on the prescription for coverage #Seizure disorder Continue Dilantin #BPH Patient required Flores catheter in ED due to urinary retention Continue Flores for now since patient is on IV Lasix Continue Flomax Trial without catheter prior to discharge once he is off IV Lasix #Bilateral shoulder osteoarthritis Seen on chest x-ray Tylenol as needed CODE STATUS: DNR/DNI DVT prophylaxis: Patient on apixaban Discharge planning home with home health, new to insulin, CHF in the next 48 to 72 hours based on clinical improvement, pulmonology recommendations and decreasing oxygen requirements. Patient may need oxygen for discharge home Care plan discussed with patient, nursing staff and updated at bedside Admission and Anticipated Discharge Date Admission Date: December 26, 2024 Subjective Patient seen and examined Overnight oxygen requirements weaned down to 6 L oxime mask but this morning he still hypoxic. He denies any chest pain or shortness of breath. He denies any cough, fever or chills Chest x-ray from overnight reviewed and shows clearance of fluid but patient's oxygen requirements are still going up Labs and radiology reviewed Weight is down Physical Exam Physical Exam: General: No acute distress Psych: Awake and alert, oriented to place and person HEENT: Anicteric sclera, moist oral mucosa CVS: Regular rate and rhythm Lungs: Bilateral air entry, no wheezing noted Abdomen: Soft, nontender, no rebound, no guarding Ext: No lower extremity edema, no calf tenderness : Indwelling Flores catheter noted Results & Data Results & Data Vital Signs (Past 12 Hours) Vital Signs Temp Pulse Pulse Resp BP Pulse Ox O2 Del Method 01/01/25 09:41 92 H 01/01/25 07:31 Oxymask 01/01/25 07:30 36.5 C 93 H 22 124/90 93 Oxymask 01/01/25 06:25 96 Oxymask 01/01/25 05:38 93 Oxymask 01/01/25 05:00 94 Oxymask 01/01/25 04:36 94 Oxymask 01/01/25 04:13 96 Oxymask 01/01/25 03:34 24 01/01/25 03:33 91 Oxymask 01/01/25 03:07 95 Oxymask 01/01/25 02:13 36.9 C 97 H 30 H 114/87 91 Oxymask 12/31/24 23:46 36.5 C 92 H 19 118/82 96 Oxymask 12/31/24 23:28 93 Oxymask 12/31/24 22:22 Oxymask O2 Flow Rate FiO2 01/01/25 09:41 01/01/25 07:31 6 01/01/25 07:30 6 01/01/25 06:25 5 01/01/25 05:38 6 01/01/25 05:00 7 01/01/25 04:36 8 01/01/25 04:13 9 01/01/25 03:34 01/01/25 03:33 10 01/01/25 03:07 11 01/01/25 02:13 14 12/31/24 23:46 15 12/31/24 23:28 15 12/31/24 22:22 15 Laboratory Results Laboratory Results - last 24 hr 12/31/24 12/31/24 12/31/24 11:22 16:20 20:23 Sodium Potassium Chloride Carbon Dioxide Anion Gap BUN Creatinine Est Cr Clr Drug Dosing eGFR BUN/Creatinine Ratio Glucose POC Glucose 157 H 124 H 139 H Calcium Magnesium 01/01/25 01/01/25 07:22 08:45 Sodium 134 L Potassium 4.5 Chloride 98 Carbon Dioxide 26 Anion Gap 10 BUN 36 H Creatinine 0.85 Est Cr Clr Drug Dosing 65.9 eGFR 87.30 BUN/Creatinine Ratio 42.4 H Glucose 209 H POC Glucose 123 H Calcium 8.8 Magnesium 2.4 Diagnostic Findings Chest X-Ray 12/31/24 11:01 XR chest 2V PA/lateral CLINICAL HISTORY: hypoxic, chf COMPARISON STUDY: 12/27/2024 FINDINGS: Stable moderate hiatal hernia. Stable cardiomegaly with mild pulmonary vascular congestion. There is mild pulmonary interstitial prominence, improved. No lobar consolidation or pleural effusion. No pneumothorax. IMPRESSION: Mild CHF, improved. ACT 112: Negative or not required by law. Electronically signed by: Geremias Gonzales M.D. 12/31/2024 11:38 AM Chest X-Ray 12/31/24 20:42 Exam(s): XR CXR 1 VIEW EXAM: XR Chest, 1 View CLINICAL HISTORY: Reason for exam: hypoxia. TECHNIQUE: Frontal view of the chest. COMPARISON: December 25, 2024 FINDINGS: Lungs: Unremarkable. No acute infiltration, atelectasis or mass. Pleural space: Unremarkable. No pneumothorax or pleural fluid. Heart: Unremarkable. No cardiomegaly. Mediastinum: Appearance of a retrocardiac hiatus hernia. Bones/joints: Advanced degenerative arthropathy of the shoulder joints. No acute findings. IMPRESSION: No acute findings in the chest. Electronically signed by: Abdoulaye Marrero MD 12/31/24 23:02 PM PG Care Time/CCT Total # of Minutes Spent Total Time Spent with Patient: Total time spent is greater than 50% in coordination of care (as documented) at patient's floor/unit and/or counseling patient: Coding Level of Care Code 33760 SUB INP/OBS CARE 3/50MIN Diagnoses Acute hypoxic respiratory failure J96.01 Dyspnea on exertion R06.09 History of pulmonary embolism Z86.711 CAD (coronary artery disease) I25.10 Thoracic aortic aneurysm I71.2 History of CVA (cerebrovascular accident) Z86.73 Hypokalemia E87.6 Diabetes mellitus, type 2 E11.9 BPH w urinary obs/LUTS N40.1; N13.8 Seizure disorder G40.909
--- NOTE | 2025-01-01 14:08 | XRay Report ---
XR chest 1V portable CLINICAL HISTORY: hypoxia COMPARISON STUDY: 12/31/2024 FINDINGS: Stable moderate hiatal hernia. Stable mild cardiomegaly without pulmonary vascular congesti on. Stable stranding opacity at the left lung base. No effusion, consolidation, or pneumothorax other parnell. IMPRESSION: Stable exam. ACT 112: Negative or not required by law. Electronically signed by: Geremias Gonzales M.D. 01/01/2025 2:07 PM
--- NOTE | 2025-01-01 14:40 | Pulmonary Consultation ---
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 Chest CT performed 01/01/2025 revealed diffuse groundglass opacities in an apical to bibasilar distribution. Suspect a cellular NSIP pattern. Patient started on IV methylprednisone 60 mg, 3 times daily Protonix daily for GI prophylaxis. CRP and ESR significantly elevated. Will repeat an ESR and CRP tomorrow. Procalcitonin and BNP recheck are normal. Will start azithromycin for possible atypical infection such as Legionella. Urine Legionella antigen sent as well was pending. Diffuse alveolar hemorrhage seems unlikely given that the hemoglobin is stable and there is no hemoptysis. Pulmonary renal syndrome seems unlikely as well given normal creatinine. Will check a UA to evaluate for active sediment with RBCs and protein. Continue to wean oxygen as able. Patient too unstable for bronchoscopy at this time. Patient and in agreement with this plan. Will continue to follow patient. History of Present Illness Reason for Consultation: "Acute hypoxic resp failure, recommended by cardio" Attending Physician: Raymon Dickinson MD History of Present Illness 79-year-old male with a history of CAD status post PCI in 2016, multiple CVAs, recurrent PE on aspirin and Eliquis, thoracic aortic aneurysm, seizure disorder, BPH and hypertension who presented to the hospital/05/14 he was found to have acute hypoxemic respiratory failure was started on Solu-Medrol and Lasix. He had an echo completed 12/26/2024 which revealed a mildly dilated left ventricle with an LVEF of 50 to 55%.-Kinesis of the inferior lateral wall was seen. Mild aortic stenosis, mild aortic stenosis, mild mitral annular calcifications and RVSP of 44 mmHg was identified. I was contacted by hospital service today as the cardiology team is recommending pulmonary consultation as they did not feel that there was a cardiac etiology for the patient's hypoxemia. Patient completed 3 days of IV ceftriaxone and doxycycline. He had an unremarkable procalcitonin on admission. Chest CTA/04/13 personally reviewed revealed a 4.3 cm aneurysm of the ascending aorta, bilateral lung infiltrates, no pleural effusion. Upon my evaluation, there is diffuse groundglass opacities superimposed on underlying possible emphysematous change and/or bronchiectasis. Patient had a prior chest CT 08/21/2020 which revealed left upper lobe groundglass changes predominantly in the lingula with subpleural reticulations. There was a small left upper lobe cyst. Patient was also seen to have bilateral lower lobe groundglass opacities. Of note, patient was positive for COVID-19 in August 21, 2020. He had a lengthy hospitalization at that time. He fortunately did not require intubation. Patient also had a chest CTA in 2018 which revealed dependent atelectasis and a 10 mm focus of pleural-based nodularity in the right lower lobe. Serial CBCs were reviewed since admission. He has mild anemia which has been stable. He had no significant eosinophilia on his differential. VBG on admission revealed mild respiratory alkalosis. Respiratory viral panel on admission was negative. Repeat chest x-ray today reveals stable findings of a moderate hiatal hernia, pulmonary vascular congestion and stable stranding opacity at the left lung base. Per the EMR, patient has -7.29 L since admission. Allergies Allergy/AdvReac Type Severity Reaction Status Date / Time cephalexin Allergy Intermediate Rash Verified 12/25/24 23:13 Cephalosporins Allergy Intermediate Rash Verified 12/25/24 23:13 Penicillins Allergy Unknown Unknown Verified 12/25/24 23:13 carbamazepine AdvReac Intermediate Elevated Verified 12/25/24 23:13 liver enzymes Home Medications Medication Instructions Recorded Confirmed Type cholecalciferol (vitamin D3) 25 1,000 units PO QPM 06/21/19 12/25/24 History mcg (1,000 unit) tablet coenzyme Q10 100 mg capsule 100 mg PO QAM 06/21/19 12/25/24 History nitroglycerin 0.4 mg sublingual 0.4 mg sublingual Q5M PRN chest 06/21/19 12/25/24 History tablet pain phenytoin sodium extended 100 mg 200 mg PO BID 08/22/19 12/25/24 History capsule aspirin 81 mg tablet,delayed 81 mg PO QAM 09/06/19 12/25/24 History release (Roxy Low Dose Aspirin) acetaminophen 650 mg 650 mg PO BID PRN Pain 10/14/21 12/25/24 History tablet,extended release (Tylenol 8 Hour) magnesium 250 mg tablet 250 mg PO QAM 10/14/21 12/25/24 History glimepiride 2 mg tablet 2 mg PO QPM 10/25/23 12/25/24 History apixaban 5 mg tablet 5 mg PO BID #180 tabs 08/01/24 12/25/24 Rx vitamins A,C,P-fabs-yqimti 2,148 1 tab PO BID 08/01/24 12/25/24 History mcg-113 mg-45 mg-17.4 mg tablet (PreserVision AREDS) ezetimibe 10 mg tablet (Zetia) 10 mg PO QAM 10/09/24 12/25/24 History losartan 25 mg tablet 25 mg PO QAM 10/09/24 12/25/24 History rosuvastatin 40 mg tablet 40 mg PO DAILY 12/13/24 12/25/24 History Lactobacillus acidophilus 10 10,000 mmu cells PO DAILY 12/25/24 12/25/24 History billion cell capsule (Probiotic) dutasteride 0.5 mg capsule 0.5 mg PO DAILY #90 caps 12/25/24 12/25/24 Rx (Avodart) tamsulosin 0.4 mg capsule 0.8 mg (2 x 0.4 mg) PO QPM 90 days 12/25/24 12/25/24 Rx #180 caps Patient History Medical History Diabetes mellitus, type 2 Cervical paraspinal muscle spasm Hx of flexible sigmoidoscopy Urinary retention Seizure disorder Hx of gastroesophageal reflux (GERD) CVA (cerebral vascular accident) Hx of myocardial infarction Hx of coronary artery disease BPH w urinary obs/LUTS Arthritis Aortic aneurysm Surgical History History of esophagogastroduodenoscopy (EGD) Hx of bilateral cataract extraction Hx of heart artery stent History of tonsillectomy and adenoidectomy Family History Mother Hearing loss Hypertension Heart disease Father Heart disease Other No family history of adverse response to anesthesia No family history of bleeding disorder Social History Smoking Status: Never smoker Tobacco Type: Smokeless Tobacco (Dip or Chew) Second Hand Exposure: No; Do You Dip or Chew Tobacco: No ("quit years ago"); Hx Alcohol Use: No Hx Substance Use: No Preferred Language: Citizen Of [place] Communication Ability: Effective Expenditure Requisition Clerk Required: No Beliefs That Will Affect Care: None Current Living Situation: Spouse Feels Safe at Home: Yes Assistive Devices: Walker Review of Systems Review of Systems: All systems reviewed & are unremarkable except as noted in HPI & below Physical Exam Physical Exam: Constitutional: Patient appears to be of their stated age. Patient is in no apparent distress. Patient is well-developed. Eyes: Pupils are equal round and reactive to light. Conjunctivae are normal. Anicteric sclera. Ears nose, mouth and throat: BiPAP mask in place. Neck: Trachea is midline. Visual inspection is normal. Respiratory: Mildly tachypneic. Coarse crackles in the lower lobes bilaterally. Cardiovascular: Regular rate and rhythm. No murmurs. No edema. Gastrointestinal: Normal bowel sounds, soft, nontender and nondistended. No hepatosplenomegaly noted. Musculoskeletal: No cyanosis. Patient is able to move all extremities. Strength is 5 out of 5 in the upper and lower extremities. Skin: No rashes, warm dry and intact. Neurologic: No obvious focal neurological deficits seen. Psychiatric: Alert and oriented x3 with a euthymic affect. Results & Data Results & Data Vital Signs (Past 12 Hours) Vital Signs Temp Pulse Pulse Resp BP Pulse Ox O2 Del Method 01/01/25 13:51 98 H 21 97 01/01/25 13:32 87 L High Flow Nasal Cannula 01/01/25 13:02 100 H 24 88 L High Flow Nasal Cannula 01/01/25 12:00 88 L Oxymask, High Flow Nasal Cannula 01/01/25 11:31 36.6 C 111 H 20 130/100 90 Nasal Cannula 01/01/25 10:28 97 H 20 90 Oxymask 01/01/25 09:41 92 H 01/01/25 07:31 Oxymask 01/01/25 07:30 36.5 C 93 H 22 124/90 93 Oxymask 01/01/25 06:25 96 Oxymask 01/01/25 05:38 93 Oxymask 01/01/25 05:00 94 Oxymask 01/01/25 04:36 94 Oxymask 01/01/25 04:13 96 Oxymask 01/01/25 03:34 24 01/01/25 03:33 91 Oxymask 01/01/25 03:07 95 Oxymask O2 Flow Rate FiO2 01/01/25 13:51 100 01/01/25 13:32 01/01/25 13:02 50 100 01/01/25 12:00 01/01/25 11:31 15 01/01/25 10:28 15 01/01/25 09:41 01/01/25 07:31 6 01/01/25 07:30 6 01/01/25 06:25 5 01/01/25 05:38 6 01/01/25 05:00 7 01/01/25 04:36 8 01/01/25 04:13 9 01/01/25 03:34 01/01/25 03:33 10 01/01/25 03:07 11 PG Care Time/CCT Total # of Minutes Spent Total Time Spent with Patient: Total time spent is greater than 50% in coordination of care (as documented) at patient's floor/unit and/or counseling patient: Coding Level of Care Code 43527 INT INP/OBS CARE 3/75MIN Diagnoses Interstitial lung disease J84.9 Acute hypoxemic respiratory failure J96.[address] scan, chest R93.89
[2025-01-01] MEDS ORDERED: methylPREDNISolone 125 MG/2 ML VIAL IV STA (15:15)
[2025-01-01 15:38] LABS: C Reactive Protein 13.67 mg/dl (0-0.5)
[2025-01-01] MEDS: PANTOprazole 40 MG/10 ML SYR IV SCH (16:51)
[2025-01-01] MEDS: methylPREDNISolone 60 MG in SYRINGE 0 ML IV SCH (16:51)
--- NOTE | 2025-01-01 18:30 | CT Scan Report ---
CT chest without contrast History: Dyspnea Comparison: December 25, 2024 Technique: Helical CT imaging of the chest performed without IV contrast Dose reduction techniques were achieved by using automatic exposure control and/or adjustment of mA and/or kV according to patient size and/or use of iterative reconstruction technique. Findings: Confluent, peribronchovascular distributed interstitial change mixed with groundglass throughout the lung bases, and lingula appear grossly unchanged from the prior on December 25, 2024, noting differences in technique, with the current examination performed during the expiratory phase. No honeycombing. No focal consolidation. No pleural effusion. No pneumothorax. Heart size is normal. There are heavy coronary calcifications. Dilation of the ascending thoracic aorta up to 4.5 cm. The pulmonary artery is normal in size. No significant pericardial effusion. No suspicious lymphadenopathy in the chest. The central airway is clear. Limited visualized upper abdomen. No acute bony abnormalities. Severe degenerative change of the shoulder joints. Impression: Findings of basilar predominant, peribronchovascular distributed interstitial lung disease appears grossly unchanged from the prior on December 25, 2024. This is increased from August 2020. Consider NSIP. Electronically signed by Josr Harrington 01-01-2025 6:29 PM
[2025-01-01] MEDS: AZITHROMYCIN 500 MG/255 ML BAG IV ONE (21:18)
[2025-01-02 06:23] LABS: Hematocrit (blood only) 40.8 % (42.0-52.0); Hemoglobin 13.7 g/dl (14.0-18.0); Mean Corpuscular Hemoglobin 32.1 pg (25.0-34.0); Mean Corpuscular Hgb Conc 33.6 g/dL (32.0-36.0); Mean Corpuscular Volume 95.6 fL (80.0-100.0); Mean Platelet Volume 9.1 fL (9.4-12.4); Platelet Count 345 K/uL (130-400); RDW Coefficient of Variation 12.8 % (11.5-14.5); RDW Standard Deviation 45.3 fL (36.4-46.3); Red Blood Count 4.27 M/uL (4.70-6.10); White Blood Count 6.76 K/ul (4.8-10.8)
[2025-01-02 06:49] LABS: Albumin Globulin Ratio 0.8 (0.9-2); Albumin Level 3.4 gm/dl (3.4-5.0); BUN Creatinine Ratio 45.2 (10-20); Bilirubin,Total 0.5 mg/dl (0.2-1.0); Calcium 9.1 mg/dl (8.6-10.3); Creatinine Clr Calc Pharmacy 66.7 ml/min; Globulin 4.5 gm/dl (2.5-4.0); Magnesium 2.6 mg/dl (1.7-2.4); Potassium 4.4 mmol/L (3.5-5.1); Total Protein 7.9 gm/dl (6.0-8.3)
[2025-01-02] MEDS: AZITHROMYCIN 250 MG in DEXTROSE 5% 250 ML IV SCH (08:03)
[2025-01-02] MEDS: FUROSEMIDE INJ 20 MG/2 ML VIAL IV SCH (08:08)
[2025-01-02] MEDS: LANTUS PER UNIT CHARGE SQ SCH (08:13)
--- NOTE | 2025-01-02 09:40 | Hospitalist Progress Note ---
Date of Service January 02, 2025 Assessment & Plan (1) Acute hypoxic respiratory failure: Plan: Likely suspected CHF, less likely pneumonia given lactate of 1.2, Pro-Jose of 0.1, no leukocytosis Blood cultures from admission have been negative so far Wean oxygen as tolerated 2 view chest x-ray from 12/27/2024 shows CHF and no evidence of pneumonia Patient completed 3 days of IV ceftriaxone and doxycycline and antibiotics were stopped on 12/28/2024 as patient does not have pneumonia Repeat chest x-ray shows improvement in vascular congestion Patient has a history of oat dust exposure Pulmonology consulted per cardiology recommendations: Await pulmonology recommendations (2) Dyspnea on exertion: (3) History of pulmonary embolism: Plan: -on eliquis (4) CAD (coronary artery disease): Plan: Outpatient cyber policy and strategy planner is Dr. Josr Massey 2D echo shows low normal systolic function with EF of 50 to 55%, hypokinesis of the anterolateral wall, moderate concentric LVH, moderate left atrial dilation, mild aortic stenosis, mild mitral regurgitation, mild pulmonary hypertension and type I diastolic dysfunction I spoke with cyber policy and strategy planner on-call Dr. Castelan: He advised me to continue with IV diuresis and he will let Dr. Massey know about patient's admission Dr. Castelan recommended pulmonology consult to see if patient has any underlying lung disease Repeat chest x-ray shows improvement in vascular congestion Change Lasix to 20 mg IV daily given significant amount of diuresis and improvement in chest x-ray, weight is down significantly I/O monitoring Daily weights Continue aspirin and statin Hold losartan 25 mg p.o. daily for now to avoid hypotension while patient is diuresing Patient would likely benefit from Jardiance on discharge Continue apixaban (5) Thoracic aortic aneurysm: (6) History of CVA (cerebrovascular accident): (7) Hypokalemia: (8) Diabetes mellitus, type 2: Plan: A1c is 8.4 B12 is 862 life skills educator met with patient Pharmacy managing glycemic control Patient will need insulin on discharge: Discussed with patient's Naty was a retired nurse and she is willing to administer insulin Patient will benefit from Jardiance on discharge Discussed insulin and Jardiance with patient and his PRESCRIPTIONS NEEDED AT DISCHARGE: 1.) OneTouch Verio Meter. 2.) OneTouch Test Strips. 3.) OneTouch Delica Lancets 33 gauge. *Medicare requires diagnosis code (E11.9) and frequency of use (3x/day- insulin vs. 1x/day- pills) be indicated on the prescription for coverage (9) BPH w urinary obs/LUTS: Plan: Patient required Flores catheter in ED due to urinary retention Continue Flores for now since patient is on IV Lasix Continue Flomax Trial without catheter prior to discharge once he is off IV Lasix (10) Seizure disorder: Plan: Continue Dilantin Plan 79-year-old male with past medical history of CAD status post PCI in August 2017, multiple CVA, recurrent PE on aspirin and apixaban, thoracic aortic aneurysm, type 2 diabetes mellitus, hyperlipidemia, seizure disorder, BPH, hypertension admitted for acute hypoxic respiratory failure with CTA chest showing no PE but noted to have bilateral infiltrates CODE STATUS: DNR/DNI DVT prophylaxis: Patient on apixaban Discharge planning home with home health, new to insulin, CHF in the next 48 to 72 hours based on clinical improvement, pulmonology recommendations and decreasing oxygen requirements. Patient may need oxygen for discharge home Admission and Anticipated Discharge Date Admission Date: December 26, 2024 Subjective No events overnight. Pt resting comfortably in bed, still requiring high keith NC. Review of Systems Review of Systems: CONST: Negative for fever, body aches and chills. HENT: Negative for neck pain/stiffness, headache, congestion, sore throat, swelling. EYES: Negative for discharge/pain or vision changes. RESP: Negative for cough/hemoptysis and shortness of breath. CV: Negative chest pain, difficulty breathing, palpitations. ABD: Negative pain, nausea, vomiting. : Negative increase frequency, dysuria, blood in urine or stool. MUSC: Negative for muscle aches, edema. SKIN: Negative rash, lesions/sores. NEURO: Negative headache, dizziness, weakness. Physical Exam Physical Exam: GENERAL APPEARANCE NAD, activity normal for age, well developed/ well nourished, no cyanosis, pallor, or diaphoresis. EYES lids/conjunctiva normal. EARS/NOSE/THROAT Mucous membranes moist, nares normal, lips/teeth normal uvula midline without oral pharyngeal erythema, exudate or swelling TMs normal bilaterally. No lymphangitis/lymphedema. HEAD/NECK normocephalic atraumatic, no facial trauma, neck is supple. RESPIRATORY respiratory effort normal, speaks in full sentences, no tripod position, no accessory muscle use. Lungs clear to auscultation without rhonchi, wheezes, rales CARDIAC Regular rate and rhythm, no edema. ABDOMINAL Soft, ND/NT. No evidence of fluid wave. No pulsatile masses on exam, rebound tenderness, Hroner sign or pain over Mcburney's point. MUSCLES/EXTREMITIES No abnormal range of motion, no swelling. SKIN Warm, pink and dry. No rashes, dermatoses, petechiae or lesions. NEUROLOGICAL Speech is clear and appropriate. Normal level of consciousness. Gait and coordination are normal. 5/5 strength in all extremities. PSYCH Normal mood and affect. Judgement/competence is appropriate Results & Data Results & Data Vital Signs (Past 12 Hours) Vital Signs Temp Pulse Pulse Resp BP BP Pulse Ox 01/02/25 08:07 79 01/02/25 08:07 01/02/25 07:46 36.8 C 92 H 20 116/87 91 01/02/25 03:53 36.4 C L 78 25 H 120/88 97 01/02/25 03:07 90 19 91 01/01/25 23:00 36.9 C 85 30 H 114/85 97 01/01/25 22:01 92 H O2 Del Method O2 Flow Rate 01/02/25 08:07 01/02/25 08:07 High Flow Nasal Cannula 15 01/02/25 07:46 Nasal Cannula 13 01/02/25 03:53 Nasal Cannula 01/02/25 03:07 Nasal Cannula 13 01/01/25 23:00 Room Air, Nasal Cannula 12 01/01/25 22:01 PG Care Time/CCT Total # of Minutes Spent Total Time Spent with Patient: Total time spent is greater than 50% in coordination of care (as documented) at patient's floor/unit and/or counseling patient: Coding Level of Care Code 92046 SUB INP/OBS CARE 2/35MIN Diagnoses Acute hypoxic respiratory failure J96.01 Dyspnea on exertion R06.09 History of pulmonary embolism Z86.711 CAD (coronary artery disease) I25.10 Thoracic aortic aneurysm I71.2 History of CVA (cerebrovascular accident) Z86.73 Hypokalemia E87.6 Diabetes mellitus, type 2 E11.9 BPH w urinary obs/LUTS N40.1; N13.8 Seizure disorder G40.909
--- NOTE | 2025-01-02 09:44 | Pulmonology Progress Note ---
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 Chest CT performed 01/01/2025 revealed diffuse groundglass opacities in an apical to bibasilar distribution. Suspect a cellular NSIP pattern. Patient started on IV methylprednisone 60 mg, 3 times daily and Protonix daily for GI prophylaxis on 01/01/2025. CRP and ESR significantly elevated. Will repeat an ESR and CRP tomorrow. Procalcitonin and BNP recheck are normal. Continue azithromycin for possible atypical infection such as Legionella. Urine Legionella antigen sent as well was pending. Diffuse alveolar hemorrhage seems unlikely given that the hemoglobin is stable and there is no hemoptysis. Pulmonary renal syndrome seems unlikely as well given normal creatinine. Will check a UA to evaluate for active sediment with RBCs and protein. Continue to wean oxygen as able. Patient too unstable for bronchoscopy at this time. Will continue to follow patient. Admission and Anticipated Discharge Date Admission Date: December 26, 2024 Subjective Patient currently off CPAP support and tolerating high flow oxygen. He feels that his coughing and shortness of breath is improved today. He has more energy today. He is tolerating his breakfast. He has a dry cough, no hemoptysis. Review of Systems Review of Systems: All systems reviewed & are unremarkable except as noted in HPI & below Physical Exam Physical Exam: Constitutional: Patient appears to be of their stated age. Patient is in no apparent distress. Patient is well-developed. Eyes: Pupils are equal round and reactive to light. Conjunctivae are normal. Anicteric sclera. Ears nose, mouth and throat: BiPAP mask in place. Neck: Trachea is midline. Visual inspection is normal. Respiratory: Mildly tachypneic. Coarse crackles in the lower lobes bilaterally. Cardiovascular: Regular rate and rhythm. No murmurs. No edema. Gastrointestinal: Normal bowel sounds, soft, nontender and nondistended. No hepatosplenomegaly noted. Musculoskeletal: No cyanosis. Patient is able to move all extremities. Strength is 5 out of 5 in the upper and lower extremities. Skin: No rashes, warm dry and intact. Neurologic: No obvious focal neurological deficits seen. Psychiatric: Alert and oriented x3 with a euthymic affect. Results & Data Results & Data Vital Signs (Past 12 Hours) Vital Signs Temp Pulse Pulse Resp BP BP Pulse Ox 01/02/25 08:07 79 01/02/25 08:07 01/02/25 07:46 36.8 C 92 H 20 116/87 91 01/02/25 03:53 36.4 C L 78 25 H 120/88 97 01/02/25 03:07 90 19 91 01/01/25 23:00 36.9 C 85 30 H 114/85 97 01/01/25 22:01 92 H O2 Del Method O2 Flow Rate 01/02/25 08:07 01/02/25 08:07 High Flow Nasal Cannula 15 01/02/25 07:46 Nasal Cannula 13 01/02/25 03:53 Nasal Cannula 01/02/25 03:07 Nasal Cannula 13 01/01/25 23:00 Room Air, Nasal Cannula 12 01/01/25 22:01 PG Care Time/CCT Total # of Minutes Spent Total Time Spent with Patient: Total time spent is greater than 50% in coordination of care (as documented) at patient's floor/unit and/or counseling patient: Coding Level of Care Code 46584 SUB INP/OBS CARE 2/35MIN Diagnoses Interstitial lung disease J84.9 Acute hypoxemic respiratory failure J96.[address] scan, chest R93.89
--- NOTE | 2025-01-02 13:52 | Pharmacy Report ---
Pharmacy Glycemic Short Note 2 - Date of Service January 02, 2025 - Glycemic Short BSG Results (Last 24 hours): 01/01/25 01/01/25 01/02/25 16:26 20:48 05:55 Glucose 174 H POC Glucose 155 H 163 H 01/02/25 01/02/25 07:07 11:34 Glucose POC Glucose 154 H 198 H OUTPATIENT ANTIDIABETIC REGIMEN: * Glimepiride 2 mg PO PM HbA1c: * 8.7% (10/18/24) ASSESSMENT: 01/02: * Methylprednisolone 60 mg IV TID started yesterday afternoon. * Post-prandial BSG's since above goal x3 with lunch BSG > 180 mg/dL today. Will tighten Novolog to weight-based moderate stress estimate * AM fasting BSG increased. Will scale Lantus based on BSG. 01/01: * BSGs were relatively stable over the weekend, with only a slight increase to basal insulin needed. Patient received 23 units of insulin yesterday, 18 of which was basal. BSGs were [phone] mg/dL. Fasting this morning is within goal range at 123 mg/dL. * No change in diet order. Continue current regimen 12/29: * David received 24 units of insulin yesterday, 16 of which were basal. BSGs were: 610-650-443-144 mg/dL. * Fasting BSG this AM was 147 mg/dL. No change to diet. Abx have been discontinued. * Carb ratio was loosened yesterday. Postprandials with good control. * No changes necessary to insulin regimen today. 12/26: * WS is an 79 year old male w/ acute hypoxic respiratory failure * Started on empiric IV antibiotics for CAP * IV steroids originally ordered, but never administered * Pharmacy consulted for glycemic management * Will start conservative SC basal/bolus insulin regimen for now PLAN FOR INPATIENT GLYCEMIC CONTROL: * Hold outpatient oral diabetes medication * Basal insulin * Lantus 5-13 units SC BID * Bolus insulin * NovoLog per scale ACHS or Q6hrs while NPO * Goal Range: Low 120 mg/dL - High 150 mg/dL * Correction Factor: 30 mg/dL/unit * Nutritional / Prandial insulin per carb ratio of 1 unit per 11 grams CHO consumed
--- NOTE | 2025-01-02 15:50 | Electrocardiogram Report ---
Test Reason : Blood Pressure : */* mmHG Vent. Rate : 94 BPM Atrial Rate : 94 BPM P-R Int : 188 ms QRS Dur : 98 ms QT Int : 370 ms P-R-T Axes : 5 -51 25 degrees QTcB Int : 462 ms Normal sinus rhythm Incomplete right bundle branch block Left anterior fascicular block Moderate voltage criteria for LVH, may be normal variant Abnormal ECG When compared with ECG of 25-Dec-2024 22:25, Nonspecific T wave abnormality has replaced inverted T waves in Inferior leads Nonspecific T wave abnormality no longer evident in Anterolateral leads Confirmed by Josr Colindres ([id number]) on 01/02/2025 3:49:29 PM Referred By: REFERRED SELF Confirmed By: Josr Colindres
[2025-01-02 23:25] LABS: Appearance Urine Cloudy (Clear); Bacteria Urine Automated None Seen (None Seen); Bilirubin Urine Negative (Negative); Blood Urine 1+ (Negative); Color Urine Yellow; Epithelial Cell Urine Auto 0-2 /hpf (0-2); Glucose Urine UA Negative (Negative); Ketones Urine Negative (Negative); Leukocyte Esterase Urine Negative (Negative); Nitrite Urine Negative (Negative); Protein Urine Trace (Negative); Specific Gravity Urine 1.023 (1.000-1.030); Urobilinogen Urine Negative (Negative); WBC Urine Automated 0-5 /hpf (0-5)
[2025-01-03 06:09] LABS: Hematocrit (blood only) 37.8 % (42.0-52.0); Mean Corpuscular Hemoglobin 32.2 pg (25.0-34.0); Mean Corpuscular Hgb Conc 34.4 g/dL (32.0-36.0); Mean Corpuscular Volume 93.6 fL (80.0-100.0); Mean Platelet Volume 8.9 fL (9.4-12.4); Platelet Count 338 K/uL (130-400); RDW Coefficient of Variation 12.9 % (11.5-14.5); RDW Standard Deviation 44.3 fL (36.4-46.3); Red Blood Count 4.04 M/uL (4.70-6.10); White Blood Count 6.54 K/ul (4.8-10.8)
[2025-01-03 07:34] LABS: Calcium 9.2 mg/dl (8.6-10.3); Potassium 4.4 mmol/L (3.5-5.1)
[2025-01-03 07:40] LABS: BUN Creatinine Ratio 44.4 (10-20); C Reactive Protein 6.98 mg/dl (0-0.5); Creatinine Clr Calc Pharmacy 69.2 ml/min
--- NOTE | 2025-01-03 09:42 | Orthopedic Consultation ---
Date of Service January 03, 2025 Assessment & Plan (1) S/P carpal tunnel release: Incision looks good. Stitches were removed and steri strips applied. No restrictions regarding his hand. He can follow up with Dr. Villa in approximately 1 month. History of Present Illness Reason for Consultation: . Requesting Physician: . Attending Physician: Pedro Soto MD . 79 year old patient admitted for hypoxia/interstitial lung disease, now 2 weeks s/p left carpal tunnel release with Dr. Villa. Hand is doing well. Still some numbness but does feel that surgery has helped. No pain. Allergies Allergy/AdvReac Type Severity Reaction Status Date / Time cephalexin Allergy Intermediate Rash Verified 12/25/24 23:13 Cephalosporins Allergy Intermediate Rash Verified 12/25/24 23:13 Penicillins Allergy Unknown Unknown Verified 12/25/24 23:13 carbamazepine AdvReac Intermediate Elevated Verified 12/25/24 23:13 liver enzymes Home Medications Medication Instructions Recorded Confirmed Type cholecalciferol (vitamin D3) 25 1,000 units PO QPM 06/21/19 12/25/24 History mcg (1,000 unit) tablet coenzyme Q10 100 mg capsule 100 mg PO QAM 06/21/19 12/25/24 History nitroglycerin 0.4 mg sublingual 0.4 mg sublingual Q5M PRN chest 06/21/19 12/25/24 History tablet pain phenytoin sodium extended 100 mg 200 mg PO BID 08/22/19 12/25/24 History capsule aspirin 81 mg tablet,delayed 81 mg PO QAM 09/06/19 12/25/24 History release (Roxy Low Dose Aspirin) acetaminophen 650 mg 650 mg PO BID PRN Pain 10/14/21 12/25/24 History tablet,extended release (Tylenol 8 Hour) magnesium 250 mg tablet 250 mg PO QAM 10/14/21 12/25/24 History glimepiride 2 mg tablet 2 mg PO QPM 10/25/23 12/25/24 History apixaban 5 mg tablet 5 mg PO BID #180 tabs 08/01/24 12/25/24 Rx vitamins A,C,D-sord-rkfehe 2,148 1 tab PO BID 08/01/24 12/25/24 History mcg-113 mg-45 mg-17.4 mg tablet (PreserVision AREDS) ezetimibe 10 mg tablet (Zetia) 10 mg PO QAM 10/09/24 12/25/24 History losartan 25 mg tablet 25 mg PO QAM 10/09/24 12/25/24 History rosuvastatin 40 mg tablet 40 mg PO DAILY 12/13/24 12/25/24 History Lactobacillus acidophilus 10 10,000 mmu cells PO DAILY 12/25/24 12/25/24 History billion cell capsule (Probiotic) dutasteride 0.5 mg capsule 0.5 mg PO DAILY #90 caps 12/25/24 12/25/24 Rx (Avodart) tamsulosin 0.4 mg capsule 0.8 mg (2 x 0.4 mg) PO QPM 90 days 12/25/24 12/25/24 Rx #180 caps Past Med/Surg History Problem List S/P carpal tunnel release Abnormal CT scan, chest Acute hypoxemic respiratory failure Interstitial lung disease Hypokalemia Dyspnea on exertion Dyspnea Acute hypoxic respiratory failure Acute hypokalemia (Acute) Elevated brain natriuretic peptide (BNP) level (Acute) Pneumonia (Acute) Hypoxia (Acute) Fracture of metatarsal of right foot, closed History of pulmonary embolism (Acute) Elevated troponin (Acute) Neck pain (Acute) Acute hypokalemia (Acute) Hypoxia (Acute) Left carpal tunnel syndrome Urinary retention CVA (cerebral vascular accident) Arthritis of right ankle Sensorineural hearing loss (SNHL) of both ears BPH w urinary obs/LUTS Diabetes mellitus Seizure disorder Hypoxia (Acute) Impacted cerumen of both ears Bleeding disorder On Plavix Seizure Prepatellar bursitis of left knee Cellulitis of left knee Left knee pain Arthritis (Acute) CAD (coronary artery disease) (Acute) Constipation (Acute) Cough (Acute) GERD (gastroesophageal reflux disease) (Acute) Indigestion (Acute) ST elevation VT (STEMI) (Acute) Thoracic aortic aneurysm (Acute) Weight disorder (Acute) DJD (degenerative joint disease) History of CVA (cerebrovascular accident) Finger fracture (Acute) Aortic aneurysm Finger laceration (Acute) Medical History Diabetes mellitus, type 2 Cervical paraspinal muscle spasm Hx of flexible sigmoidoscopy Urinary retention Seizure 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 Hx of gastroesophageal reflux (GERD) CVA (cerebral vascular accident) 1980, [facility]had one between the first and last stroke, unsure when), still has loss of sensation left side and some weakness Hx of myocardial infarction ~2017 Hx of coronary artery disease BPH w urinary obs/LUTS Arthritis Aortic aneurysm monitoring Surgical History History of esophagogastroduodenoscopy (EGD) Hx of bilateral cataract extraction Hx of heart artery stent ~2017, [facility] [place], x1 stent; f/u dr. soni, co cardio History of tonsillectomy and adenoidectomy As a child Family History Mother Hearing loss Hypertension Heart disease Father Heart disease Other No family history of adverse response to anesthesia No family history of bleeding disorder Social History Smoking Status: Never smoker Tobacco Type: Smokeless Tobacco (Dip or Chew) Second Hand Exposure: No; Do You Dip or Chew Tobacco: No ("quit years ago"); Hx Alcohol Use: No Hx Substance Use: No Preferred Language: Kiswahili Communication Ability: Effective Manpower Development Manager Required: No Beliefs That Will Affect Care: None Current Living Situation: Spouse Feels Safe at Home: Yes Assistive Devices: Walker Review of Systems All systems reviewed & are unremarkable except as noted in HPI & below. Physical Exam .left hand: incision well approximated, stitches intact. No drainage, no erythema, no signs of infection. Able to flex and extend fingers appropriately Results & Data Results & Data Laboratory Results . Diagnostic Findings . PG Care Time/CCT Total # of Minutes Spent Total Time Spent with Patient: Total time spent is greater than 50% in coordination of care (as documented) at patient's floor/unit and/or counseling patient: Coding Level of Care Code None Diagnoses S/P carpal tunnel release Z98.890
--- NOTE | 2025-01-03 10:48 | Pulmonology Progress Note ---
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 Chest CT performed 01/01/2025 revealed diffuse groundglass opacities in an apical to bibasilar distribution. Suspect a cellular NSIP pattern. Continue IV methylprednisone and transition to p.o. prednisone in the next day or 2. May need to consider PJP prophylaxis if on prednisone for greater than 2 weeks at a dose of greater than 20 mg. CRP and ESR significantly elevated, but downtrending. Procalcitonin and BNP recheck are normal. Continue azithromycin for possible atypical infection such as Legionella. Urine Legionella antigen pending. Diffuse alveolar hemorrhage seems unlikely given that the hemoglobin is stable and there is no hemoptysis. Pulmonary renal syndrome seems unlikely as well given normal creatinine. Urinalysis with trace protein and 1+ blood which is actually improved from 01/02/2025. Nonetheless, will check ILD labs including anti-GBM, Luna 1 antibody and ANCA titers. Will continue to follow patient. Thank you for the consult. Please call with questions. Admission and Anticipated Discharge Date Admission Date: December 26, 2024 Subjective Patient continues to feel less short of breath. Oxygen requirements are improving. Patient is [id number] and at bedside. His appetite is good. Review of Systems Review of Systems: All systems reviewed & are unremarkable except as noted in HPI & below Physical Exam Physical Exam: Constitutional: Patient appears to be of their stated age. Patient is in no apparent distress. Patient is well-developed. Eyes: Pupils are equal round and reactive to light. Conjunctivae are normal. Anicteric sclera. Ears nose, mouth and throat: Mallampati 2. No perioral cyanosis. Neck: Trachea is midline. Visual inspection is normal. Respiratory: Tachypnea improved. Coarse crackles in the lower lobes bilaterally. Cardiovascular: Regular rate and rhythm. No murmurs. No edema. Gastrointestinal: Normal bowel sounds, soft, nontender and nondistended. No hepatosplenomegaly noted. Musculoskeletal: No cyanosis. Patient is able to move all extremities. Strength is 5 out of 5 in the upper and lower extremities. Skin: No rashes, warm dry and intact. Neurologic: No obvious focal neurological deficits seen. Psychiatric: Alert and oriented x3 with a euthymic affect. Results & Data Results & Data Vital Signs (Past 12 Hours) Vital Signs Temp Pulse Resp BP Pulse Ox O2 Del Method O2 Flow Rate 01/03/25 07:30 77 18 120/86 96 High Flow Nasal Cannula 9 01/03/25 03:46 36.6 C 74 27 H 130/92 95 Nasal Cannula 15 01/02/25 23:15 36.8 C 76 16 130/92 100 Nasal Cannula 13 PG Care Time/CCT Total # of Minutes Spent Total Time Spent with Patient: Total time spent is greater than 50% in coordination of care (as documented) at patient's floor/unit and/or counseling patient: Coding Level of Care Code 54987 SUB INP/OBS CARE 2/35MIN Diagnoses Interstitial lung disease J84.9 Acute hypoxemic respiratory failure J96.[address] scan, chest R93.89
--- NOTE | 2025-01-03 11:24 | Pharmacy Report ---
Pharmacy Glycemic Short Note 2 - Date of Service January 03, 2025 - Glycemic Short BSG Results (Last 24 hours): 01/02/25 01/02/25 01/02/25 11:34 16:30 19:52 Glucose POC Glucose 198 H 207 H 243 H 01/03/25 01/03/25 01/03/25 05:49 07:28 11:05 Glucose 143 H POC Glucose 136 H 283 H OUTPATIENT ANTIDIABETIC REGIMEN: * Glimepiride 2 mg PO PM HbA1c: * 8.7% (10/18/24) ASSESSMENT: 01/04: * Steroids continue at original dose and frequency. * BSGs yesterday were [phone] mg/dL yesterday with 22 units lantus, 19 units NovoLog. Fasting BSG this morning was within range at 136 mg/dL. Will continue current lantus scale * Post prandial BSGs increased throughout the day yesterday and thus Novolog scale was tightened this morning. Today's lunch BSG still elevated but only ~2.5 hours between BSG and morning NovoLog, so this may be someone falsely high. Will tighten CR a slightly more and ass trend tomorrow. Patient also notably in-taking more carbs which may be contributing. 01/02: * Methylprednisolone 60 mg IV TID started yesterday afternoon. * Post-prandial BSG's since above goal x3 with lunch BSG > 180 mg/dL today. Will tighten Novolog to weight-based moderate stress estimate * AM fasting BSG increased. Will scale Lantus based on BSG. 01/01: * BSGs were relatively stable over the weekend, with only a slight increase to basal insulin needed. Patient received 23 units of insulin yesterday, 18 of which was basal. BSGs were [phone] mg/dL. Fasting this morning is within goal range at 123 mg/dL. * No change in diet order. Continue current regimen 12/29: * David received 24 units of insulin yesterday, 16 of which were basal. BSGs were: 408-446-209-144 mg/dL. * Fasting BSG this AM was 147 mg/dL. No change to diet. Abx have been discontinued. * Carb ratio was loosened yesterday. Postprandials with good control. * No changes necessary to insulin regimen today. 12/26: * WS is an 79 year old male w/ acute hypoxic respiratory failure * Started on empiric IV antibiotics for CAP * IV steroids originally ordered, but never administered * Pharmacy consulted for glycemic management * Will start conservative SC basal/bolus insulin regimen for now PLAN FOR INPATIENT GLYCEMIC CONTROL: * Hold outpatient oral diabetes medication * Basal insulin * Lantus 5-13 units SC BID * Bolus insulin * NovoLog per scale ACHS or Q6hrs while NPO * Goal Range: Low 120 mg/dL - High 150 mg/dL * Correction Factor: 25 mg/dL/unit * Nutritional / Prandial insulin per carb ratio of 1 unit per 8 grams CHO consumed
--- NOTE | 2025-01-03 12:21 | Hospitalist Progress Note ---
Date of Service January 03, 2025 Assessment & Plan (1) Acute hypoxic respiratory failure: Plan: Likely suspected CHF, less likely pneumonia given lactate of 1.2, Pro-Jose of 0.1, no leukocytosis Blood cultures from admission have been negative so far Wean oxygen as tolerated 2 view chest x-ray from 12/27/2024 shows CHF and no evidence of pneumonia Patient completed 3 days of IV ceftriaxone and doxycycline and antibiotics were stopped on 12/28/2024 as patient does not have pneumonia Repeat chest x-ray shows improvement in vascular congestion Patient has a history of oat dust exposure Pulmonology consulted per cardiology recommendations: Nonspecific Interstitial Pneumonitis Solu-medrol started Patient requiring less 02 today, down to 9NLC (2) Dyspnea on exertion: (3) History of pulmonary embolism: Plan: -on eliquis (4) CAD (coronary artery disease): Plan: Outpatient certified pedorthotist is Dr. Josr Massey 2D echo shows low normal systolic function with EF of 50 to 55%, hypokinesis of the anterolateral wall, moderate concentric LVH, moderate left atrial dilation, mild aortic stenosis, mild mitral regurgitation, mild pulmonary hypertension and type I diastolic dysfunction I spoke with certified pedorthotist on-call Dr. Castelan: He advised me to continue with IV diuresis and he will let Dr. Massey know about patient's admission Dr. Castelan recommended pulmonology consult to see if patient has any underlying lung disease Repeat chest x-ray shows improvement in vascular congestion Change Lasix to 20 mg IV daily given significant amount of diuresis and improvement in chest x-ray, weight is down significantly I/O monitoring Daily weights Continue aspirin and statin Hold losartan 25 mg p.o. daily for now to avoid hypotension while patient is diuresing Patient would likely benefit from Jardiance on discharge Continue apixaban (5) Thoracic aortic aneurysm: (6) History of CVA (cerebrovascular accident): (7) Hypokalemia: (8) Diabetes mellitus, type 2: Plan: A1c is 8.4 B12 is 862 electrical installer met with patient Pharmacy managing glycemic control Patient will need insulin on discharge: Discussed with patient's Naty was a retired nurse and she is willing to administer insulin Patient will benefit from Jardiance on discharge Discussed insulin and Jardiance with patient and his (9) BPH w urinary obs/LUTS: Plan: Patient required Flores catheter in ED due to urinary retention Continue Flores for now since patient is on IV Lasix Continue Flomax Trial without catheter prior to discharge once he is off IV Lasix (10) Seizure disorder: Plan: Continue Dilantin Plan 79-year-old male with past medical history of CAD status post PCI in August 2017, multiple CVA, recurrent PE on aspirin and apixaban, thoracic aortic aneurysm, type 2 diabetes mellitus, hyperlipidemia, seizure disorder, BPH, hypertension admitted for acute hypoxic respiratory failure with CTA chest showing no PE but noted to have bilateral infiltrates CODE STATUS: DNR/DNI DVT prophylaxis: Patient on apixaban Discharge planning home with home health, new to insulin, CHF in the next 48 to 72 hours based on clinical improvement, pulmonology recommendations and decreasing oxygen requirements. Patient may need oxygen for discharge home Admission and Anticipated Discharge Date Admission Date: December 26, 2024 Subjective No events overnight. Pt resting comfortably in bed, less 02 required today on 9LNC Review of Systems Review of Systems: CONST: Negative for fever, body aches and chills. HENT: Negative for neck pain/stiffness, headache, congestion, sore throat, s welling. EYES: Negative for discharge/pain or vision changes. RESP: Negative for cough/hemoptysis and shortness of breath. CV: Negative chest pain, difficulty breathing, palpitations. ABD: Negative pain, nausea, vomiting. : Negative increase frequency, dysuria, blood in urine or stool. MUSC: Negative for muscle aches, edema. SKIN: Negative rash, lesions/sores. NEURO: Negative headache, dizziness, weakness. Physical Exam Physical Exam: GENERAL APPEARANCE NAD, activity normal for age, well developed/ well nourished, no cyanosis, pallor, or diaphoresis. EYES lids/conjunctiva normal. EARS/NOSE/THROAT Mucous membranes moist, nares normal, lips/teeth normal uvula midline without oral pharyngeal erythema, exudate or swelling TMs normal bilaterally. No lymphangitis/lymphedema. HEAD/NECK normocephalic atraumatic, no facial trauma, neck is supple. RESPIRATORY respiratory effort normal, speaks in full sentences, no tripod position, no accessory muscle use. Lungs clear to auscultation without rhonchi, wheezes, rales CARDIAC Regular rate and rhythm, no edema. ABDOMINAL Soft, ND/NT. No evidence of fluid wave. No pulsatile masses on exam, rebound tenderness, Horner sign or pain over Mcburney's point. MUSCLES/EXTREMITIES No abnormal range of motion, no swelling. SKIN Warm, pink and dry. No rashes, dermatoses, petechiae or lesions. NEUROLOGICAL Speech is clear and appropriate. Normal level of consciousness. Gait and coordination are normal. 5/5 strength in all extremities. PSYCH Normal mood and affect. Judgement/competence is appropriate Results & Data Results & Data Vital Signs (Past 12 Hours) Vital Signs Temp Pulse Pulse Resp BP Pulse Ox O2 Del Method 01/03/25 11:31 79 01/03/25 07:30 77 18 120/86 96 High Flow Nasal Cannula 01/03/25 03:46 36.6 C 74 27 H 130/92 95 Nasal Cannula O2 Flow Rate 01/03/25 11:31 01/03/25 07:30 9 01/03/25 03:46 15 PG Care Time/CCT Total # of Minutes Spent Total Time Spent with Patient: Total time spent is greater than 50% in coordination of care (as documented) at patient's floor/unit and/or counseling patient: Coding Level of Care Code 90072 SUB INP/OBS CARE 2/35MIN Diagnoses Acute hypoxic respiratory failure J96.01 Dyspnea on exertion R06.09 History of pulmonary embolism Z86.711 CAD (coronary artery disease) I25.10 Thoracic aortic aneurysm I71.2 History of CVA (cerebrovascular accident) Z86.73 Hypokalemia E87.6 Diabetes mellitus, type 2 E11.9 BPH w urinary obs/LUTS N40.1; N13.8 Seizure disorder G40.909
[2025-01-04 06:35] LABS: Hematocrit (blood only) 38.4 % (42.0-52.0); Hemoglobin 12.8 g/dl (14.0-18.0); Mean Corpuscular Hemoglobin 31.9 pg (25.0-34.0); Mean Corpuscular Hgb Conc 33.3 g/dL (32.0-36.0); Mean Corpuscular Volume 95.8 fL (80.0-100.0); Platelet Count 368 K/uL (130-400); RDW Coefficient of Variation 12.3 % (11.5-14.5); RDW Standard Deviation 43.6 fL (36.4-46.3); Red Blood Count 4.01 M/uL (4.70-6.10); White Blood Count 7.25 K/ul (4.8-10.8)
[2025-01-04 07:24] LABS: Calcium 8.9 mg/dl (8.6-10.3); Potassium 4.1 mmol/L (3.5-5.1)
[2025-01-04 07:30] LABS: BUN Creatinine Ratio 49.3 (10-20); Creatinine Clr Calc Pharmacy 76.8 ml/min
--- NOTE | 2025-01-04 09:41 | Hospitalist Progress Note ---
Date of Service January 04, 2025 Assessment & Plan (1) Acute hypoxic respiratory failure: Plan: Likely suspected CHF, less likely pneumonia given lactate of 1.2, Pro-Jose of 0.1, no leukocytosis Blood cultures from admission have been negative so far Wean oxygen as tolerated 2 view chest x-ray from 12/27/2024 shows CHF and no evidence of pneumonia Patient completed 3 days of IV ceftriaxone and doxycycline and antibiotics were stopped on 12/28/2024 as patient does not have pneumonia Repeat chest x-ray shows improvement in vascular congestion Patient has a history of oat dust exposure Pulmonology consulted per cardiology recommendations: Nonspecific Interstitial Pneumonitis Solu-medrol started Patient requiring less 02 today, down to 6NLC (2) Dyspnea on exertion: (3) History of pulmonary embolism: Plan: -on eliquis (4) CAD (coronary artery disease): Plan: Outpatient community coordinator is Dr. Josr Massey 2D echo shows low normal systolic function with EF of 50 to 55%, hypokinesis of the anterolateral wall, moderate concentric LVH, moderate left atrial dilation, mild aortic stenosis, mild mitral regurgitation, mild pulmonary hypertension and type I diastolic dysfunction I spoke with community coordinator on-call Dr. Castelan: He advised me to continue with IV diuresis and he will let Dr. Massey know about patient's admission Dr. Castelan recommended pulmonology consult to see if patient has any underlying lung disease Repeat chest x-ray shows improvement in vascular congestion Change Lasix to 20 mg IV daily given significant amount of diuresis and improvement in chest x-ray, weight is down significantly I/O monitoring Daily weights Continue aspirin and statin Hold losartan 25 mg p.o. daily for now to avoid hypotension while patient is diuresing Patient would likely benefit from Jardiance on discharge Continue apixaban (5) Thoracic aortic aneurysm: (6) History of CVA (cerebrovascular accident): (7) Hypokalemia: (8) Diabetes mellitus, type 2: Plan: A1c is 8.4 B12 is 862 life skills educator met with patient Pharmacy managing glycemic control Patient will need insulin on discharge: Discussed with patient's Naty was a retired nurse and she is willing to administer insulin Patient will benefit from Jardiance on discharge Discussed insulin and Jardiance with patient and his (9) BPH w urinary obs/LUTS: Plan: Patient required Flores catheter in ED due to urinary retention Continue Flores for now since patient is on IV Lasix Continue Flomax Trial without catheter prior to discharge once he is off IV Lasix (10) Seizure disorder: Plan: Continue Dilantin Plan 79-year-old male with past medical history of CAD status post PCI in August 2017, multiple CVA, recurrent PE on aspirin and apixaban, thoracic aortic aneurysm, type 2 diabetes mellitus, hyperlipidemia, seizure disorder, BPH, hypertension admitted for acute hypoxic respiratory failure with CTA chest showing no PE but noted to have bilateral infiltrates CODE STATUS: DNR/DNI DVT prophylaxis: Patient on apixaban Discharge planning home with home health, new to insulin, CHF in the next 48 to 72 hours based on clinical improvement, pulmonology recommendations and decreasing oxygen requirements. Patient may need oxygen for discharge home Admission and Anticipated Discharge Date Admission Date: December 26, 2024 Subjective No events overnight. Pt resting comfortably in bed, less 02 required today on 6LNC Review of Systems Review of Systems: CONST: Negative for fever, body aches and chills. HENT: Negative for neck pain/stiffness, headache, congestion, sore throat, s welling. EYES: Negative for discharge/pain or vision changes. RESP: Negative for cough/hemoptysis and shortness of breath. CV: Negative chest pain, difficulty breathing, palpitations. ABD: Negative pain, nausea, vomiting. : Negative increase frequency, dysuria, blood in urine or stool. MUSC: Negative for muscle aches, edema. SKIN: Negative rash, lesions/sores. NEURO: Negative headache, dizziness, weakness. Physical Exam Physical Exam: GENERAL APPEARANCE NAD, activity normal for age, well developed/ well nourished, no cyanosis, pallor, or diaphoresis. EYES lids/conjunctiva normal. EARS/NOSE/THROAT Mucous membranes moist, nares normal, lips/teeth normal uvula midline without oral pharyngeal erythema, exudate or swelling TMs normal bilaterally. No lymphangitis/lymphedema. HEAD/NECK normocephalic atraumatic, no facial trauma, neck is supple. RESPIRATORY respiratory effort normal, speaks in full sentences, no tripod position, no accessory muscle use. Lungs clear to auscultation without rhonchi, wheezes, rales CARDIAC Regular rate and rhythm, no edema. ABDOMINAL Soft, ND/NT. No evidence of fluid wave. No pulsatile masses on exam, rebound tenderness, Horner sign or pain over Mcburney's point. MUSCLES/EXTREMITIES No abnormal range of motion, no swelling. SKIN Warm, pink and dry. No rashes, dermatoses, petechiae or lesions. NEUROLOGICAL Speech is clear and appropriate. Normal level of consciousness. Gait and coordination are normal. 5/5 strength in all extremities. PSYCH Normal mood and affect. Judgement/competence is appropriate Results & Data Results & Data Vital Signs (Past 12 Hours) Vital Signs Temp Pulse Pulse Resp BP Pulse Ox O2 Del Method 01/04/25 09:14 73 01/04/25 08:36 18 119/84 94 High Flow Nasal Cannula 01/04/25 03:25 36.5 C 70 18 120/78 95 Nasal Cannula 01/04/25 00:00 72 01/04/25 00:00 High Flow Nasal Cannula 01/03/25 23:06 36.5 C 75 20 110/70 96 Nasal Cannula O2 Flow Rate 01/04/25 09:14 01/04/25 08:36 6 01/04/25 03:25 01/04/25 00:00 01/04/25 00:00 01/03/25 23:06 PG Care Time/CCT Total # of Minutes Spent Total Time Spent with Patient: Total time spent is greater than 50% in coordination of care (as documented) at patient's floor/unit and/or counseling patient: Coding Level of Care Code 97109 SUB INP/OBS CARE 2/35MIN Diagnoses Acute hypoxic respiratory failure J96.01 Dyspnea on exertion R06.09 History of pulmonary embolism Z86.711 CAD (coronary artery disease) I25.10 Thoracic aortic aneurysm I71.2 History of CVA (cerebrovascular accident) Z86.73 Hypokalemia E87.6 Diabetes mellitus, type 2 E11.9 BPH w urinary obs/LUTS N40.1; N13.8 Seizure disorder G40.909
--- NOTE | 2025-01-04 13:52 | Pharmacy Report ---
Pharmacy Glycemic Short Note 2 - Date of Service January 04, 2025 - Glycemic Short BSG Results (Last 24 hours): 01/03/25 01/03/25 01/04/25 16:25 20:24 06:20 Glucose 155 H POC Glucose 271 H 393 H* 01/04/25 01/04/25 07:11 11:21 Glucose POC Glucose 153 H 200 H OUTPATIENT ANTIDIABETIC REGIMEN: * Glimepiride 2 mg PO PM HbA1c: * 8.7% (10/18/24) ASSESSMENT: 01/05: * BSGs [phone]/dL the last 24h. Received 40 units of bolus insulin and 22 units of basal yesterday. * Continues on methylprednisolone 60mg IV TID and tolerating diet. * Novolog tightened further today given elevated prandial BSGs yesterday. Continue same basal scale for now. 01/04: * Steroids continue at original dose and frequency. * BSGs yesterday were [phone] mg/dL yesterday with 22 units lantus, 19 units NovoLog. Fasting BSG this morning was within range at 136 mg/dL. Will continue current lantus scale * Post prandial BSGs increased throughout the day yesterday and thus Novolog scale was tightened this morning. Today's lunch BSG still elevated but only ~2.5 hours between BSG and morning NovoLog, so this may be someone falsely high. Will tighten CR a slightly more and ass trend tomorrow. Patient also notably in-taking more carbs which may be contributing. 01/02: * Methylprednisolone 60 mg IV TID started yesterday afternoon. * Post-prandial BSG's since above goal x3 with lunch BSG > 180 mg/dL today. Will tighten Novolog to weight-based moderate stress estimate * AM fasting BSG increased. Will scale Lantus based on BSG. 01/01: * BSGs were relatively stable over the weekend, with only a slight increase to basal insulin needed. Patient received 23 units of insulin yesterday, 18 of which was basal. BSGs were [phone] mg/dL. Fasting this morning is within goal range at 123 mg/dL. * No change in diet order. Continue current regimen 12/29: * David received 24 units of insulin yesterday, 16 of which were basal. BSGs were: [phone] mg/dL. * Fasting BSG this AM was 147 mg/dL. No change to diet. Abx have been discontinued. * Carb ratio was loosened yesterday. Postprandials with good control. * No changes necessary to insulin regimen today. 12/26: * WS is an 79 year old male w/ acute hypoxic respiratory failure * Started on empiric IV antibiotics for CAP * IV steroids originally ordered, but never administered * Pharmacy consulted for glycemic management * Will start conservative SC basal/bolus insulin regimen for now PLAN FOR INPATIENT GLYCEMIC CONTROL: * Hold outpatient oral diabetes medication * Basal insulin * Lantus 5-13 units SC BID based upon BSG * Bolus insulin * NovoLog per scale ACHS or Q6hrs while NPO * Goal Range: Low 110 mg/dL - High 140 mg/dL * Correction Factor: 20 mg/dL/unit * Nutritional / Prandial insulin per carb ratio of 1 unit per 7 grams CHO consumed
--- NOTE | 2025-01-04 15:06 | Pulmonology Progress Note ---
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 Chest CT performed 01/01/2025 revealed diffuse groundglass opacities in an apical to bibasilar distribution. Suspect a cellular NSIP pattern. Will check ESR and CRP tomorrow and if this continues to trend down, will transition to p.o. prednisone. May need to consider PJP prophylaxis if on prednisone for greater than 2 weeks at a dose of greater than 20 mg. Urine Legionella antigen negative. Will discontinue azithromycin. Diffuse alveolar hemorrhage seems unlikely given that the hemoglobin is stable and there is no hemoptysis. Pulmonary renal syndrome seems unlikely as well given normal creatinine. Uri nalysis with trace protein and 1+ blood which is actually improved from 01/02/2025. ILD labs including anti-GBM, Luna 1 antibody and ANCA titers pending. 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 Patient appears euvolemic at this time. Can spot dose Lasix as needed depending on daily weights and physical exam. Check BNP tomorrow. Discussed with bedside nursing and patient's . Will continue to follow patient. Thank you for the consult. Please call with questions. Admission and Anticipated Discharge Date Admission Date: December 26, 2024 Subjective Patient sitting up in a chair today. Oxygen requirements continue to improve. No chest pain. No hemoptysis. Occasional cough. Review of Systems Review of Systems: All systems reviewed & are unremarkable except as noted in HPI & below Physical Exam Physical Exam: Constitutional: Patient appears to be of their stated age. Patient is in no apparent distress. Patient is well-developed. Eyes: Pupils are equal round and reactive to light. Conjunctivae are normal. Anicteric sclera. Ears nose, mouth and throat: Mallampati 2. No perioral cyanosis. Neck: Trachea is midline. Visual inspection is normal. Respiratory: Tachypnea improved. Coarse crackles in the lower lobes bilaterally. Cardiovascular: Regular rate and rhythm. No murmurs. No edema. Gastrointestinal: Normal bowel sounds, soft, nontender and nondistended. No hepatosplenomegaly noted. Musculoskeletal: No cyanosis. Patient is able to move all extremities. Strength is 5 out of 5 in the upper and lower extremities. Skin: No rashes, warm dry and intact. Neurologic: No obvious focal neurological deficits seen. Psychiatric: Alert and oriented x3 with a euthymic affect. Results & Data Results & Data Vital Signs (Past 12 Hours) Vital Signs Temp Pulse Pulse Resp BP Pulse Ox O2 Del Method 01/04/25 11:53 38.1 C H 88 18 98/66 L 91 Nasal Cannula 01/04/25 09:52 Nasal Cannula 01/04/25 09:14 73 01/04/25 08:36 18 119/84 94 High Flow Nasal Cannula 01/04/25 03:25 36.5 C 70 18 120/78 95 Nasal Cannula O2 Flow Rate 01/04/25 11:53 4 01/04/25 09:52 4 01/04/25 09:14 01/04/25 08:36 6 01/04/25 03:25 PG Care Time/CCT Total # of Minutes Spent Total Time Spent with Patient: Total time spent is greater than 50% in coordination of care (as documented) at patient's floor/unit and/or counseling patient: Coding Level of Care Code 65854 SUB INP/OBS CARE 3/50MIN Diagnoses Interstitial lung disease J84.9 Acute hypoxemic respiratory failure J96.[address] scan, chest R93.89 Mild pulmonary hypertension I27.20
[2025-01-05 07:32] LABS: Hematocrit (blood only) 39.7 % (42.0-52.0); Hemoglobin 13.3 g/dl (14.0-18.0); Mean Corpuscular Hemoglobin 31.9 pg (25.0-34.0); Mean Corpuscular Hgb Conc 33.5 g/dL (32.0-36.0); Mean Corpuscular Volume 95.2 fL (80.0-100.0); Platelet Count 394 K/uL (130-400); RDW Coefficient of Variation 12.9 % (11.5-14.5); RDW Standard Deviation 45.3 fL (36.4-46.3); Red Blood Count 4.17 M/uL (4.70-6.10); White Blood Count 7.09 K/ul (4.8-10.8)
[2025-01-05 07:55] LABS: BUN Creatinine Ratio 43.2 (10-20); C Reactive Protein 1.96 mg/dl (0-0.5); Calcium 9.1 mg/dl (8.6-10.3); Creatinine Clr Calc Pharmacy 75.7 ml/min; Potassium 4.1 mmol/L (3.5-5.1)
[2025-01-05] MEDS: PANTOprazole 40 MG TAB PO SCH (08:26)
--- NOTE | 2025-01-05 09:14 | Hospitalist Progress Note ---
Date of Service January 05, 2025 Assessment & Plan (1) Acute hypoxic respiratory failure: Plan: Likely suspected CHF, less likely pneumonia given lactate of 1.2, Pro-Jose of 0.1, no leukocytosis Blood cultures from admission have been negative so far Wean oxygen as tolerated 2 view chest x-ray from 12/27/2024 shows CHF and no evidence of pneumonia Patient completed 3 days of IV ceftriaxone and doxycycline and antibiotics were stopped on 12/28/2024 as patient does not have pneumonia Repeat chest x-ray shows improvement in vascular congestion Patient has a history of oat dust exposure Pulmonology consulted per cardiology recommendations: Nonspecific Interstitial Pneumonitis Solu-medrol to be changed to prednisone as per pulm Patient requiring less 02 today, down to 4NLC (2) Dyspnea on exertion: (3) History of pulmonary embolism: Plan: -on eliquis (4) CAD (coronary artery disease): Plan: Outpatient plate maker zinc is Dr. Josr Massey 2D echo shows low normal systolic function with EF of 50 to 55%, hypokinesis of the anterolateral wall, moderate concentric LVH, moderate left atrial dilation, mild aortic stenosis, mild mitral regurgitation, mild pulmonary hypertension and type I diastolic dysfunction I spoke with plate maker zinc on-call Dr. Castelan: He advised me to continue with IV diuresis and he will let Dr. Massey know about patient's admission Dr. Castelan recommended pulmonology consult to see if patient has any underlying lung disease Repeat chest x-ray shows improvement in vascular congestion Change Lasix to 20 mg IV daily given significant amount of diuresis and improvement in chest x-ray, weight is down significantly I/O monitoring Daily weights Continue aspirin and statin Hold losartan 25 mg p.o. daily for now to avoid hypotension while patient is diuresing Patient would likely benefit from Jardiance on discharge Continue apixaban (5) Thoracic aortic aneurysm: (6) History of CVA (cerebrovascular accident): (7) Hypokalemia: (8) Diabetes mellitus, type 2: Plan: A1c is 8.4 B12 is 862 construction sales manager met with patient Pharmacy managing glycemic control Patient will benefit from Jardiance on discharge Discussed insulin and Jardiance with patient and his (9) BPH w urinary obs/LUTS: Plan: Patient required Flores catheter in ED due to urinary retention Continue Flores for now since patient is on IV Lasix Continue Flomax Trial without catheter prior to discharge once he is off IV Lasix (10) Seizure disorder: Plan: Continue Dilantin Plan 79-year-old male with past medical history of CAD status post PCI in August 2017, multiple CVA, recurrent PE on aspirin and apixaban, thoracic aortic aneurysm, type 2 diabetes mellitus, hyperlipidemia, seizure disorder, BPH, hypertension admitted for acute hypoxic respiratory failure with CTA chest showing no PE but noted to have bilateral infiltrates CODE STATUS: DNR/DNI DVT prophylaxis: Patient on apixaban Discharge planning home with home health, new to insulin, CHF in the next 48 to 72 hours based on clinical improvement, pulmonology recommendations and decreasing oxygen requirements. Patient may need oxygen for discharge home Admission and Anticipated Discharge Date Admission Date: December 26, 2024 Subjective Pt resting comfortably in chair. Has been walking down the [place] without too much difficulty. Been able to use 4LNC at rest. Review of Systems Review of Systems: CONST: Negative for fever, body aches and chills. HENT: Negative for neck pain/stiffness, headache, congestion, sore throat, swelling. EYES: Negative for discharge/pain or vision changes. RESP: Negative for cough/hemoptysis and shortness of breath. CV: Negative chest pain, difficulty breathing, palpitations. ABD: Negative pain, nausea, vomiting. : Negative increase frequency, dysuria, blood in urine or stool. MUSC: Negative for muscle aches, edema. SKIN: Negative rash, lesions/sores. NEURO: Negative headache, dizziness, weakness. Physical Exam Physical Exam: GENERAL APPEARANCE NAD, activity normal for age, well developed/ well nourished, no cyanosis, pallor, or diaphoresis. EYES lids/conjunctiva normal. EARS/NOSE/THROAT Mucous membranes moist, nares normal, lips/teeth normal uvula midline without oral pharyngeal erythema, exudate or swelling TMs normal bilaterally. No lymphangitis/lymphedema. HEAD/NECK normocephalic atraumatic, no facial trauma, neck is supple. RESPIRATORY respiratory effort normal, speaks in full sentences, no tripod position, no accessory muscle use. Lungs clear to auscultation without rhonchi, wheezes, rales CARDIAC Regular rate and rhythm, no edema. ABDOMINAL Soft, ND/NT. No evidence of fluid wave. No pulsatile masses on exam, rebound tenderness, Horner sign or pain over Mcburney's point. MUSCLES/EXTREMITIES No abnormal range of motion, no swelling. SKIN Warm, pink and dry. No rashes, dermatoses, petechiae or lesions. NEUROLOGICAL Speech is clear and appropriate. Normal level of consciousness. Gait and coordination are normal. 5/5 strength in all extremities. PSYCH Normal mood and affect. Judgement/competence is appropriate Results & Data Results & Data Vital Signs (Past 12 Hours) Vital Signs Temp Pulse Pulse Resp BP Pulse Ox O2 Del Method 01/05/25 09:00 81 01/05/25 04:23 36.5 C 72 16 110/75 92 Nasal Cannula 01/04/25 23:27 36.3 C L 66 16 113/73 98 Nasal Cannula 01/04/25 22:00 71 O2 Flow Rate 01/05/25 09:00 01/05/25 04:23 4 01/04/25 23:27 4 01/04/25 22:00 PG Care Time/CCT Total # of Minutes Spent Total Time Spent with Patient: Total time spent is greater than 50% in coordination of care (as documented) at patient's floor/unit and/or counseling patient: Coding Level of Care Code 12603 SUB INP/OBS CARE 2/35MIN Diagnoses Acute hypoxic respiratory failure J96.01 Dyspnea on exertion R06.09 History of pulmonary embolism Z86.711 CAD (coronary artery disease) I25.10 Thoracic aortic aneurysm I71.2 History of CVA (cerebrovascular accident) Z86.73 Hypokalemia E87.6 Diabetes mellitus, type 2 E11.9 BPH w urinary obs/LUTS N40.1; N13.8 Seizure disorder G40.909
--- NOTE | 2025-01-05 10:47 | XRay Report ---
XR chest 1V portable CLINICAL HISTORY: worsening hypoxia COMPARISON STUDY: 01/01/2025 FINDINGS: Stable mild cardiomegaly without pulmonary vascular congestion. Inspiration is shallow. The re is mildly increased stranding opacity at the left lung base. No other consolidation or pleural eff usion. No pneumothorax. IMPRESSION: Atelectasis versus early pneumonia left lung base. ACT 112: Negative or not required by law. Electronically signed by: Geremias Gonzales M.D. 01/05/2025 10:46 AM
--- NOTE | 2025-01-05 13:48 | Pharmacy Report ---
Pharmacy Glycemic Short Note 2 - Date of Service January 05, 2025 - Glycemic Short BSG Results (Last 24 hours): 01/04/25 01/04/25 01/05/25 16:20 20:31 07:15 Glucose 157 H POC Glucose 164 H 285 H 01/05/25 01/05/25 07:17 11:14 Glucose POC Glucose 154 H 203 H OUTPATIENT ANTIDIABETIC REGIMEN: * Glimepiride 2 mg PO PM HbA1c: * 8.7% (10/18/24) ASSESSMENT: 01/05: * BSGs 485-233-932-203mg/dl. Received 26 units of basal and 25 units of bolus insulin yesterday. * Continues on methylprednisolone 60mg IV TID and tolerating diet. * Lantus scale adjusted slightly to 5//15 units BID depending on BSG and Novolog tightened further to 15/. Will need loosened once steroids weaned. 01/04: * BSGs 139-451-476-200mg/dL the last 24h. Received 40 units of bolus insulin and 22 units of basal yesterday. * Continues on methylprednisolone 60mg IV TID and tolerating diet. * Novolog tightened further today given elevated prandial BSGs yesterday. Continue same basal scale for now. 01/03: * Steroids continue at original dose and frequency. * BSGs yesterday were 469-250-294-243 mg/dL yesterday with 22 units lantus, 19 units NovoLog. Fasting BSG this morning was within range at 136 mg/dL. Will continue current lantus scale * Post prandial BSGs increased throughout the day yesterday and thus Novolog scale was tightened this morning. Today's lunch BSG still elevated but only ~2.5 hours between BSG and morning NovoLog, so this may be someone falsely high. Will tighten CR a slightly more and ass trend tomorrow. Patient also notably in-taking more carbs which may be contributing. 01/02: * Methylprednisolone 60 mg IV TID started yesterday afternoon. * Post-prandial BSG's since above goal x3 with lunch BSG > 180 mg/dL today. Will tighten Novolog to weight-based moderate stress estimate * AM fasting BSG increased. Will scale Lantus based on BSG. 01/01: * BSGs were relatively stable over the weekend, with only a slight increase to basal insulin needed. Patient received 23 units of insulin yesterday, 18 of which was basal. BSGs were [phone] mg/dL. Fasting this morning is within goal range at 123 mg/dL. * No change in diet order. Continue current regimen 12/29: * David received 24 units of insulin yesterday, 16 of which were basal. BSGs were: 466-412-572-144 mg/dL. * Fasting BSG this AM was 147 mg/dL. No change to diet. Abx have been discontinued. * Carb ratio was loosened yesterday. Postprandials with good control. * No changes necessary to insulin regimen today. 12/26: * WS is an 79 year old male w/ acute hypoxic respiratory failure * Started on empiric IV antibiotics for CAP * IV steroids originally ordered, but never administered * Pharmacy consulted for glycemic management * Will start conservative SC basal/bolus insulin regimen for now PLAN FOR INPATIENT GLYCEMIC CONTROL: * Hold outpatient oral diabetes medication * Basal insulin * Lantus //15 units SC BID based upon BSG * Bolus insulin * NovoLog per scale ACHS or Q6hrs while NPO * Goal Range: Low 110 mg/dL - High 140 mg/dL * Correction Factor: 15 mg/dL/unit * Nutritional / Prandial insulin per carb ratio of 1 unit per 6 grams CHO consumed
--- NOTE | 2025-01-05 17:28 | Pulmonology Progress Note ---
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 Chest CT performed 01/01/2025 revealed diffuse groundglass opacities in an apical to bibasilar distribution. Suspect a cellular NSIP pattern. CRP and ESR are trending down. ESR remains very elevated. Will transition to prednisone 60 mg daily. May need to consider PJP prophylaxis if on prednisone for greater than 2 weeks at a dose of greater than 20 mg. Urine Legionella antigen negative. Diffuse alveolar hemorrhage seems unlikely given that the hemoglobin is stable and there is no hemoptysis. Pulmonary renal syndrome seems unlikely as well given normal creatinine. Urinalysis with trace protein and 1+ blood which is actually improved from 01/02/2025. ILD labs including anti-GBM, Luna 1 antibody and ANCA titers pending. 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 Patient appears euvolemic at this time. Can spot dose Lasix as needed depending on daily weights and physical exam. BNP normalized. Will continue to follow patient. Thank you for the consult. Please call with questions. Admission and Anticipated Discharge Date Admission Date: December 26, 2024 Subjective Patient continues to show improvement with decreasing oxygen requirements and improving appetite. He denies any dyspnea at rest. No fevers, chills or night sweats. No chest pain. Review of Systems Review of Systems: All systems reviewed & are unremarkable except as noted in HPI & below Physical Exam Physical Exam: Constitutional: Patient appears to be of their stated age. Patient is in no apparent distress. Patient is well-developed. Eyes: Pupils are equal round and reactive to light. Conjunctivae are normal. Anicteric sclera. Ears nose, mouth and throat: Mallampati 2. No perioral cyanosis. Neck: Trachea is midline. Visual inspection is normal. Respiratory: Tachypnea improved. Coarse crackles in the lower lobes bilaterally. Cardiovascular: Regular rate and rhythm. No murmurs. No edema. Gastrointestinal: Normal bowel sounds, soft, nontender and nondistended. No hepatosplenomegaly noted. Musculoskeletal: No cyanosis. Patient is able to move all extremities. Strength is 5 out of 5 in the upper and lower extremities. Skin: No rashes, warm dry and intact. Neurologic: No obvious focal neurological deficits seen. Psychiatric: Alert and oriented x3 with a euthymic affect. Results & Data Results & Data Vital Signs (Past 12 Hours) Vital Signs Temp Pulse Pulse Resp BP BP Pulse Ox 01/05/25 15:26 36.4 C L 77 17 106/78 96 01/05/25 11:53 36.7 C 87 18 111/74 90 01/05/25 11:26 01/05/25 09:12 95 H 17 123/73 91 01/05/25 09:00 81 O2 Del Method O2 Flow Rate 01/05/25 15:26 High Flow Nasal Cannula 6 01/05/25 11:53 High Flow Nasal Cannula 12 01/05/25 11:26 Nasal Cannula 12 01/05/25 09:12 High Flow Nasal Cannula 10 01/05/25 09:00 PG Care Time/CCT Total # of Minutes Spent Total Time Spent with Patient: Total time spent is greater than 50% in coordination of care (as documented) at patient's floor/unit and/or counseling patient: Coding Level of Care Code 53161 SUB INP/OBS CARE 2/35MIN Diagnoses Interstitial lung disease J84.9 Acute hypoxemic respiratory failure J96.[address] scan, chest R93.89 Mild pulmonary hypertension I27.20
[2025-01-06 07:26] LABS: Hematocrit (blood only) 39.8 % (42.0-52.0); Mean Corpuscular Hemoglobin 31.3 pg (25.0-34.0); Mean Corpuscular Hgb Conc 32.7 g/dL (32.0-36.0); Mean Corpuscular Volume 95.7 fL (80.0-100.0); Mean Platelet Volume 9.1 fL (9.4-12.4); Platelet Count 374 K/uL (130-400); RDW Standard Deviation 45.6 fL (36.4-46.3); Red Blood Count 4.16 M/uL (4.70-6.10); White Blood Count 8.42 K/ul (4.8-10.8)
[2025-01-06 07:30] LABS: BUN Creatinine Ratio 41.1 (10-20); Calcium 8.8 mg/dl (8.6-10.3); Creatinine Clr Calc Pharmacy 62.2 ml/min; Potassium 3.8 mmol/L (3.5-5.1)
[2025-01-06] MEDS: predniSONE 20 MG TAB PO SCH (08:22)
[2025-01-06] MEDS: INSULIN HUMAN NPH SC SCH (08:50)
--- NOTE | 2025-01-06 09:47 | Hospitalist Progress Note ---
Date of Service January 06, 2025 Assessment & Plan (1) Acute hypoxic respiratory failure: Plan: Likely suspected CHF, less likely pneumonia given lactate of 1.2, Pro-Jose of 0.1, no leukocytosis Blood cultures from admission have been negative so far Wean oxygen as tolerated 2 view chest x-ray from 12/27/2024 shows CHF and no evidence of pneumonia Patient completed 3 days of IV ceftriaxone and doxycycline and antibiotics were stopped on 12/28/2024 as patient does not have pneumonia Repeat chest x-ray shows improvement in vascular congestion Patient has a history of oat dust exposure Pulmonology consulted per cardiology recommendations: Nonspecific Interstitial Pneumonitis Solu-medrol changed to prednisone as per pulm Patient requiring less 02 today, down to 4-5LNC (2) Dyspnea on exertion: (3) History of pulmonary embolism: Plan: -on eliquis (4) CAD (coronary artery disease): Plan: Outpatient impact retail service merchandiser is Dr. Josr Massey 2D echo shows low normal systolic function with EF of 50 to 55%, hypokinesis of the anterolateral wall, moderate concentric LVH, moderate left atrial dilation, mild aortic stenosis, mild mitral regurgitation, mild pulmonary hypertension and type I diastolic dysfunction I spoke with impact retail service merchandiser on-call Dr. Castelan: He advised me to continue with IV diuresis and he will let Dr. Massey know about patient's admission Dr. Castelan recommended pulmonology consult to see if patient has any underlying lung disease Repeat chest x-ray shows improvement in vascular congestion Change Lasix to 20 mg IV daily given significant amount of diuresis and improvement in chest x-ray, weight is down significantly I/O monitoring Daily weights Continue aspirin and statin Hold losartan 25 mg p.o. daily for now to avoid hypotension while patient is diuresing Patient would likely benefit from Jardiance on discharge Continue apixaban (5) Thoracic aortic aneurysm: (6) History of CVA (cerebrovascular accident): (7) Hypokalemia: (8) Diabetes mellitus, type 2: Plan: A1c is 8.4 B12 is 862 economic developer met with patient Pharmacy managing glycemic control Patient will benefit from Jardiance on discharge Discussed insulin and Jardiance with patient and his (9) BPH w urinary obs/LUTS: Plan: Patient required Flores catheter in ED due to urinary retention Continue Flores for now since patient is on IV Lasix Continue Flomax Trial without catheter prior to discharge once he is off IV Lasix (10) Seizure disorder: Plan: Continue Dilantin Plan 79-year-old male with past medical history of CAD status post PCI in August 2017, multiple CVA, recurrent PE on aspirin and apixaban, thoracic aortic aneurysm, type 2 diabetes mellitus, hyperlipidemia, seizure disorder, BPH, hypertension admitted for acute hypoxic respiratory failure with CTA chest showing no PE but noted to have bilateral infiltrates CODE STATUS: DNR/DNI DVT prophylaxis: Patient on apixaban Discharge planning home with home health, the next 48 to 72 hours based on clinical improvement, pulmonology recommendations and decreasing oxygen requirements. Patient will likely need oxygen for discharge home Admission and Anticipated Discharge Date Admission Date: December 26, 2024 Subjective No events overnight. Pt resting comfortably in bed. Review of Systems Review of Systems: CONST: Negative for fever, body aches and chills. HENT: Negative for neck pain/stiffness, headache, congestion, sore throat, swell ing. EYES: Negative for discharge/pain or vision changes. RESP: Negative for cough/hemoptysis and shortness of breath. CV: Negative chest pain, difficulty breathing, palpitations. ABD: Negative pain, nausea, vomiting. : Negative increase frequency, dysuria, blood in urine or stool. MUSC: Negative for muscle aches, edema. SKIN: Negative rash, lesions/sores. NEURO: Negative headache, dizziness, weakness. Physical Exam Physical Exam: GENERAL APPEARANCE NAD, activity normal for age, well developed/ well nourished, no cyanosis, pallor, or diaphoresis. EYES lids/conjunctiva normal. EARS/NOSE/THROAT Mucous membranes moist, nares normal, lips/teeth normal uvula midline without oral pharyngeal erythema, exudate or swelling TMs normal bilaterally. No lymphangitis/lymphedema. HEAD/NECK normocephalic atraumatic, no facial trauma, neck is supple. RESPIRATORY respiratory effort normal, speaks in full sentences, no tripod position, no accessory muscle use. Lungs clear to auscultation without rhonchi, wheezes, rales CARDIAC Regular rate and rhythm, no edema. ABDOMINAL Soft, ND/NT. No evidence of fluid wave. No pulsatile masses on exam, rebound tenderness, Horner sign or pain over Mcburney's point. MUSCLES/EXTREMITIES No abnormal range of motion, no swelling. SKIN Warm, pink and dry. No rashes, dermatoses, petechiae or lesions. NEUROLOGICAL Speech is clear and appropriate. Normal level of consciousness. Gait and coordination are normal. 5/5 strength in all extremities. PSYCH Normal mood and affect. Judgement/competence is appropriate Results & Data Results & Data Vital Signs (Past 12 Hours) Vital Signs Temp Pulse Pulse Resp BP BP Pulse Ox 01/06/25 07:34 36.4 C L 76 18 128/86 93 01/06/25 07:22 73 01/06/25 04:00 36.5 C 73 19 128/82 97 01/06/25 00:00 78 18 123/82 90 O2 Del Method O2 Flow Rate 01/06/25 07:34 Nasal Cannula 5 01/06/25 07:22 01/06/25 04:00 High Flow Nasal Cannula 7 01/06/25 00:00 High Flow Nasal Cannula 9 PG Care Time/CCT Total # of Minutes Spent Total Time Spent with Patient: Total time spent is greater than 50% in coordination of care (as documented) at patient's floor/unit and/or counseling patient: Coding Level of Care Code 54316 SUB INP/OBS CARE 2/35MIN Diagnoses Acute hypoxic respiratory failure J96.01 Dyspnea on exertion R06.09 History of pulmonary embolism Z86.711 CAD (coronary artery disease) I25.10 Thoracic aortic aneurysm I71.2 History of CVA (cerebrovascular accident) Z86.73 Hypokalemia E87.6 Diabetes mellitus, type 2 E11.9 BPH w urinary obs/LUTS N40.1; N13.8 Seizure disorder G40.909
--- NOTE | 2025-01-06 13:29 | Pulmonology Progress Note ---
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 Chest CT performed 01/01/2025 revealed diffuse groundglass opacities in an apical to bibasilar distribution. Suspect a cellular NSIP pattern. CRP and ESR are trending down. ESR remains very elevated. Continue prednisone 60 mg daily. May need to consider PJP prophylaxis if on prednisone for greater than 2 weeks at a dose of greater than 20 mg. Urine Legionella antigen negative. Diffuse alveolar hemorrhage seems unlikely given that the hemoglobin is stable and there is no hemoptysis. Pulmonary renal syndrome seems unlikely as well given normal creatinine. Urinalysis with trace protein and 1+ blood which is actually improved from 01/02/2025. ILD labs including anti-GBM, Luna 1 antibody and ANCA titers pending. 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 Patient appears euvolemic at this time. Can spot dose Lasix as needed depending on daily weights and physical exam. Recheck BMP normal. Chest x-ray from today personally reviewed with no significant changes compared to prior. Mild interstitial prominence bilaterally. Blunting of the right costophrenic angle. Will continue to follow patient. Thank you for the consult. Please call with questions. Admission and Anticipated Discharge Date Admission Date: December 26, 2024 Subjective Patient is a exam. He continues to require about 8 to 9 L of oxygen today. He denies any dyspnea. He is sitting up in a chair. His is at bedside. He denies any cough or chest pain. Review of Systems Review of Systems: All systems reviewed & are unremarkable except as noted in HPI & below Physical Exam Physical Exam: Constitutional: Patient appears to be of their stated age. Patient is in no apparent distress. Patient is well-developed. Eyes: Pupils are equal round and reactive to light. Conjunctivae are normal. Anicteric sclera. Ears nose, mouth and throat: Mallampati 2. No perioral cyanosis. Neck: Trachea is midline. Visual inspection is normal. Respiratory: Tachypnea improved. Coarse crackles in the lower lobes bilaterally. Cardiovascular: Regular rate and rhythm. No murmurs. No edema. Gastrointestinal: Normal bowel sounds, soft, nontender and nondistended. No hepatosplenomegaly noted. Musculoskeletal: No cyanosis. Patient is able to move all extremities. Strength is 5 out of 5 in the upper and lower extremities. Skin: No rashes, warm dry and intact. Neurologic: No obvious focal neurological deficits seen. Psychiatric: Alert and oriented x3 with a euthymic affect. Results & Data Results & Data Vital Signs (Past 12 Hours) Vital Signs Temp Pulse Pulse Resp BP BP Pulse Ox 01/06/25 11:00 36.6 C 90 18 121/70 90 01/06/25 07:34 36.4 C L 76 18 128/86 93 01/06/25 07:22 73 01/06/25 04:00 36.5 C 73 19 128/82 97 O2 Del Method O2 Flow Rate 01/06/25 11:00 Nasal Cannula 2 01/06/25 07:34 Nasal Cannula 5 01/06/25 07:22 01/06/25 04:00 High Flow Nasal Cannula 7 PG Care Time/CCT Total # of Minutes Spent Total Time Spent with Patient: Total time spent is greater than 50% in coordination of care (as documented) at patient's floor/unit and/or counseling patient: Coding Level of Care Code 33141 SUB INP/OBS CARE 2/35MIN Diagnoses Interstitial lung disease J84.9 Acute hypoxemic respiratory failure J96.[address] scan, chest R93.89 Mild pulmonary hypertension I27.20
--- NOTE | 2025-01-06 13:33 | XRay Report ---
Clinical History: Hypoxia Technique: A frontal view of the chest was obtained Comparison is made to the prior examination dated 01/01/2025 Findings: There are no confluent pulmonary infiltrates. The heart size is at the upper limit of normal. No pleural effusion or pneumothorax is seen. There is suspected mild pulmonary vascular congestion No fracture is noted. There is bilateral glenohumeral osteoarthritis Impression: Suspected mild pulmonary vascular congestion ACT 112: Positive. There are findings on this exam that require communication between the performing entity and the patient following Patient Test Result Information Act ([place] ACT 112) guidelines. Electronically signed by John Rogers 01-06-2025 13:32 PM
[2025-01-06] MEDS: PHENYTOIN SODIUM ER 30 MG CAP PO SCH (20:40)
[2025-01-06] MEDS: COUGH DROP (SUGAR FREE) LOZ 24 LOZ/1 BOX BUCCAL PRN (20:47)
[2025-01-07] MEDS: PHENYTOIN SODIUM ER 100 MG CAP PO SCH (07:36)
--- NOTE | 2025-01-07 10:54 | Hospitalist Progress Note ---
Date of Service January 07, 2025 Assessment & Plan (1) Acute hypoxic respiratory failure: Plan: Likely suspected CHF, less likely pneumonia given lactate of 1.2, Pro-Jose of 0.1, no leukocytosis Blood cultures from admission have been negative so far Wean oxygen as tolerated 2 view chest x-ray from 12/27/2024 shows CHF and no evidence of pneumonia Patient completed 3 days of IV ceftriaxone and doxycycline and antibiotics were stopped on 12/28/2024 as patient does not have pneumonia Repeat chest x-ray shows improvement in vascular congestion Patient has a history of oat dust exposure Pulmonology consulted per cardiology recommendations: Nonspecific Interstitial Pneumonitis Solu-medrol changed to prednisone as per pulm Patient requiring less 02 today, down to 4-6LNC (2) Dyspnea on exertion: (3) History of pulmonary embolism: Plan: -on eliquis (4) CAD (coronary artery disease): Plan: Outpatient assistant manager of operations is Dr. Josr Massey 2D echo shows low normal systolic function with EF of 50 to 55%, hypokinesis of the anterolateral wall, moderate concentric LVH, moderate left atrial dilation, mild aortic stenosis, mild mitral regurgitation, mild pulmonary hypertension and type I diastolic dysfunction I spoke with assistant manager of operations on-call Dr. Castelan: He advised me to continue with IV diuresis and he will let Dr. Massey know about patient's admission Dr. Castelan recommended pulmonology consult to see if patient has any underlying lung disease Repeat chest x-ray shows improvement in vascular congestion Change Lasix to 20 mg IV daily given significant amount of diuresis and improvement in chest x-ray, weight is down significantly I/O monitoring Daily weights Continue aspirin and statin Hold losartan 25 mg p.o. daily for now to avoid hypotension while patient is diuresing Patient would likely benefit from Jardiance on discharge Continue apixaban (5) Thoracic aortic aneurysm: (6) History of CVA (cerebrovascular accident): (7) Hypokalemia: (8) Diabetes mellitus, type 2: Plan: A1c is 8.4 B12 is 862 informatics educator met with patient Pharmacy managing glycemic control Patient will benefit from Jardiance on discharge (9) BPH w urinary obs/LUTS: Plan: Patient required Flores catheter in ED due to urinary retention Continue Flores for now since patient is on IV Lasix Continue Flomax Trial without catheter prior to discharge once he is off IV Lasix Flores d/c'd (10) Seizure disorder: Plan: Continue Dilantin Plan 79-year-old male with past medical history of CAD status post PCI in August 2017, multiple CVA, recurrent PE on aspirin and apixaban, thoracic aortic aneurysm, type 2 diabetes mellitus, hyperlipidemia, seizure disorder, BPH, hypertension admitted for acute hypoxic respiratory failure with CTA chest showing no PE but noted to have bilateral infiltrates CODE STATUS: DNR/DNI DVT prophylaxis: Patient on apixaban Discharge planning home with home health, the next 24- 48 hours based on clinical improvement, pulmonology recommendations and decreasing oxygen require ments. Patient will likely need oxygen for discharge home. Admission and Anticipated Discharge Date Admission Date: December 26, 2024 Subjective Pt has been doing well walking around, requiring 6LNC. Review of Systems Review of Systems: CONST: Negative for fever, body aches and chills. HENT: Negative for neck pain/stiffness, headache, congestion, sore throat, swelling. EYES: Negative for discharge/pain or vision changes. RESP: Negative for cough/hemoptysis and shortness of breath. CV: Negative chest pain, difficulty breathing, palpitations. ABD: Negative pain, nausea, vomiting. : Negative increase frequency, dysuria, blood in urine or stool. MUSC: Negative for muscle aches, edema. SKIN: Negative rash, lesions/sores. NEURO: Negative headache, dizziness, weakness. Physical Exam Physical Exam: GENERAL APPEARANCE NAD, activity normal for age, well developed/ well nourished, no cyanosis, pallor, or diaphoresis. EYES lids/conjunctiva normal. EARS/NOSE/THROAT Mucous membranes moist, nares normal, lips/teeth normal uvula midline without oral pharyngeal erythema, exudate or swelling TMs normal bilaterally. No lymphangitis/lymphedema. HEAD/NECK normocephalic atraumatic, no facial trauma, neck is supple. RESPIRATORY respiratory effort normal, speaks in full sentences, no tripod position, no accessory muscle use. Lungs clear to auscultation without rhonchi, wheezes, rales CARDIAC Regular rate and rhythm, no edema. ABDOMINAL Soft, ND/NT. No evidence of fluid wave. No pulsatile masses on exam, rebound tenderness, Horner sign or pain over Mcburney's point. MUSCLES/EXTREMITIES No abnormal range of motion, no swelling. SKIN Warm, pink and dry. No rashes, dermatoses, petechiae or lesions. NEUROLOGICAL Speech is clear and appropriate. Normal level of consciousness. Gait and coordination are normal. 5/5 strength in all extremities. PSYCH Normal mood and affect. Judgement/competence is appropriate Results & Data Results & Data Vital Signs (Past 12 Hours) Vital Signs Temp Pulse Pulse Resp BP BP Pulse Ox 01/07/25 10:38 36.5 C 89 18 103/67 92 01/07/25 09:11 01/07/25 07:49 36.6 C 89 18 125/84 94 01/07/25 07:10 79 01/07/25 05:29 74 01/07/25 04:00 36.6 C 75 19 121/80 95 01/07/25 00:00 36.5 C 78 20 127/85 96 O2 Del Method O2 Flow Rate 01/07/25 10:38 Nasal Cannula 6 01/07/25 09:11 High Flow Nasal Cannula 6 01/07/25 07:49 Nasal Cannula 6 01/07/25 07:10 01/07/25 05:29 01/07/25 04:00 High Flow Nasal Cannula 8 01/07/25 00:00 High Flow Nasal Cannula 8 PG Care Time/CCT Total # of Minutes Spent Total Time Spent with Patient: Total time spent is greater than 50% in coordination of care (as documented) at patient's floor/unit and/or counseling patient: Coding Level of Care Code 12352 SUB INP/OBS CARE 2/35MIN Diagnoses Acute hypoxic respiratory failure J96.01 Dyspnea on exertion R06.09 History of pulmonary embolism Z86.711 CAD (coronary artery disease) I25.10 Thoracic aortic aneurysm I71.2 History of CVA (cerebrovascular accident) Z86.73 Hypokalemia E87.6 Diabetes mellitus, type 2 E11.9 BPH w urinary obs/LUTS N40.1; N13.8 Seizure disorder G40.909
--- NOTE | 2025-01-07 14:27 | Pulmonology Progress Note ---
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 Chest CT performed 01/01/2025 revealed diffuse groundglass opacities in an apical to bibasilar distribution. Suspect a cellular NSIP pattern. CRP and ESR are trending down. ESR remains very elevated. Continue prednisone 60 mg daily. Taper prednisone by 10 mg every 2 weeks. Will start PJP prophylaxis with Bactrim double strength every Wednesday, Wednesday while patient on prednisone therapy at a dose of greater than 20 mg daily. Diffuse alveolar hemorrhage seems unlikely given that the hemoglobin is stable and there is no hemoptysis. Pulmonary renal syndrome seems unlikely as well given normal creatinine. Urinalysis with trace protein and 1+ blood which is actually improved from 01/02/2025. ILD labs including anti-GBM, Luna 1 antibody and ANCA titers pending. 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 Patient appears euvolemic at this time. Can spot dose Lasix as needed depending on daily weights and physical exam. Recheck BNP normal. Patient should be stable for discharge tomorrow. Will follow-up with him in the pulmonary clinic. Patient and in agreement. 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 Pulmonary will sign off at this time. Please call with questions. Admission and Anticipated Discharge Date Admission Date: December 26, 2024 Subjective Symptoms remain stable compared to last 2 days. No worsening cough or shortness of breath. Patient was able to walk several laps around the floor today on supplemental oxygen with 8 L. He denied any significant dyspnea with walking. Review of Systems Review of Systems: All systems reviewed & are unremarkable except as noted in HPI & below Physical Exam Physical Exam: Constitutional: Patient appears to be of their stated age. Patient is in no apparent distress. Patient is well-developed. Eyes: Pupils are equal round and reactive to light. Conjunctivae are normal. Anicteric sclera. Ears nose, mouth and throat: Mallampati 2. No perioral cyanosis. Neck: Trachea is midline. Visual inspection is normal. Respiratory: Tachypnea improved. Coarse crackles in the lower lobes bilaterally. Cardiovascular: Regular rate and rhythm. No murmurs. No edema. Gastrointestinal: Normal bowel sounds, soft, nontender and nondistended. No hepatosplenomegaly noted. Musculoskeletal: No cyanosis. Patient is able to move all extremities. Strength is 5 out of 5 in the upper and lower extremities. Skin: No rashes, warm dry and intact. Neurologic: No obvious focal neurological deficits seen. Psychiatric: Alert and oriented x3 with a euthymic affect. Results & Data Results & Data Vital Signs (Past 12 Hours) Vital Signs Temp Pulse Pulse Resp BP BP Pulse Ox 01/07/25 10:38 36.5 C 89 18 103/67 92 01/07/25 09:11 01/07/25 07:49 36.6 C 89 18 125/84 94 01/07/25 07:10 79 01/07/25 05:29 74 01/07/25 04:00 36.6 C 75 19 121/80 95 O2 Del Method O2 Flow Rate 01/07/25 10:38 Nasal Cannula 6 01/07/25 09:11 High Flow Nasal Cannula 6 01/07/25 07:49 Nasal Cannula 6 01/07/25 07:10 01/07/25 05:29 01/07/25 04:00 High Flow Nasal Cannula 8 PG Care Time/CCT Total # of Minutes Spent Total Time Spent with Patient: Total time spent is greater than 50% in coordination of care (as documented) at patient's floor/unit and/or counseling patient: Coding Level of Care Code 07715 SUB INP/OBS CARE 2/35MIN Diagnoses Interstitial lung disease J84.9 Acute hypoxemic respiratory failure J96.[address] scan, chest R93.89 Mild pulmonary hypertension I27.20
[2025-01-08 06:42] LABS: Hematocrit (blood only) 35.8 % (42.0-52.0); Hemoglobin 12.1 g/dl (14.0-18.0); Mean Corpuscular Hemoglobin 32.2 pg (25.0-34.0); Mean Corpuscular Hgb Conc 33.8 g/dL (32.0-36.0); Mean Corpuscular Volume 95.2 fL (80.0-100.0); Mean Platelet Volume 9.2 fL (9.4-12.4); Platelet Count 351 K/uL (130-400); RDW Coefficient of Variation 13.1 % (11.5-14.5); RDW Standard Deviation 46.1 fL (36.4-46.3); Red Blood Count 3.76 M/uL (4.70-6.10)
[2025-01-08 06:56] LABS: Calcium 8.3 mg/dl (8.6-10.3); Creatinine Clr Calc Pharmacy 80.9 ml/min; Potassium 3.4 mmol/L (3.5-5.1)
[2025-01-08] MEDS: SULFAMETHOXAZOLE/TRIMETHOPRIM DS 800/160MG TAB PO SCH (09:17)
[2025-01-08] MEDS: POTASSIUM CHLORIDE CRTAB 20 MEQ TABCR PO STA (13:17)
--- NOTE | 2025-01-08 14:08 | Pharmacy Report ---
Pharmacy Glycemic Short Note 2 - Date of Service January 08, 2025 - Glycemic Short BSG Results (Last 24 hours): 01/07/25 01/07/25 01/08/25 16:22 20:44 06:02 Glucose 159 H POC Glucose 181 H 163 H 01/08/25 01/08/25 07:25 11:03 Glucose POC Glucose 152 H 140 H OUTPATIENT ANTIDIABETIC REGIMEN: * Glimepiride 2 mg PO PM HbA1c: * 8.7% (10/18/24) ASSESSMENT: 01/08: * BSGs largely within goal the last 24h: 375-666-778-163-152mg/dL. Received 25 units of basal and 31 units of bolus insulin yesterday. * Tolerating diet, methylprednisolone converted to prednisone 60mg PO daily on 01/06. * Basal changed from Lantus to NPH over the weekend for improved prandial BSG coverage with once daily prednisone. Continue NPH (~0.3unit/kg) once daily with prednisone. Novolog loosened as well with steroid taper - continue for now. 01/05: * BSGs [phone]/dl. Received 26 units of basal and 25 units of bolus insulin yesterday. * Continues on methylprednisolone 60mg IV TID and tolerating diet. * Lantus scale adjusted slightly to 5/10/15 units BID depending on BSG and Novolog tightened further to 15/6. Will need loosened once steroids weaned. 01/04: * BSGs 430-442-770-200mg/dL the last 24h. Received 40 units of bolus insulin and 22 units of basal yesterday. * Continues on methylprednisolone 60mg IV TID and tolerating diet. * Novolog tightened further today given elevated prandial BSGs yesterday. Continue same basal scale for now. 01/03: * Steroids continue at original dose and frequency. * BSGs yesterday were [phone] mg/dL yesterday with 22 units lantus, 19 units NovoLog. Fasting BSG this morning was within range at 136 mg/dL. Will continue current lantus scale * Post prandial BSGs increased throughout the day yesterday and thus Novolog scale was tightened this morning. Today's lunch BSG still elevated but only ~2.5 hours between BSG and morning NovoLog, so this may be someone falsely high. Will tighten CR a slightly more and ass trend tomorrow. Patient also notably in-taking more carbs which may be contributing. 01/02: * Methylprednisolone 60 mg IV TID started yesterday afternoon. * Post-prandial BSG's since above goal x3 with lunch BSG > 180 mg/dL today. Will tighten Novolog to weight-based moderate stress estimate * AM fasting BSG increased. Will scale Lantus based on BSG. 01/01: * BSGs were relatively stable over the weekend, with only a slight increase to basal insulin needed. Patient received 23 units of insulin yesterday, 18 of which was basal. BSGs were [phone] mg/dL. Fasting this morning is within goal range at 123 mg/dL. * No change in diet order. Continue current regimen 12/29: * David received 24 units of insulin yesterday, 16 of which were basal. BSGs were: 521-297-410-144 mg/dL. * Fasting BSG this AM was 147 mg/dL. No change to diet. Abx have been discontinued. * Carb ratio was loosened yesterday. Postprandials with good control. * No changes necessary to insulin regimen today. 12/26: * WS is an 79 year old male w/ acute hypoxic respiratory failure * Started on empiric IV antibiotics for CAP * IV steroids originally ordered, but never administered * Pharmacy consulted for glycemic management * Will start conservative SC basal/bolus insulin regimen for now PLAN FOR INPATIENT GLYCEMIC CONTROL: * Hold outpatient oral diabetes medication * Basal insulin * NPH 25 units SQ daily with prednisone * Bolus insulin * NovoLog per scale ACHS or Q6hrs while NPO * Goal Range: Low 110 mg/dL - High 140 mg/dL * Correction Factor: 20 mg/dL/unit * Nutritional / Prandial insulin per carb ratio of 1 unit per 7 grams CHO consumed
--- NOTE | 2025-01-08 14:26 | XRay Report ---
XR chest 2V PA/lateral HISTORY: 79 years-old Male hypoxia COMPARISON: 01/06/2025 TECHNIQUE: AP and lateral views of the chest FINDINGS: Cardiac silhouette is enlarged. Pulmonary vascular congestion. Interstitial coarsening with blunting of the costophrenic angles. Moderate sized hiatal hernia. Unchanged blunting of the costophrenic angl es without large pleural effusion. No pneumothorax. Numerous loose bodies project over the right vinh ohumeral joint. Degenerative changes of the shoulders and spine. IMPRESSION: 1. Cardiomegaly with pulmonary vascular congestion. 2. Chronic interstitial lung disease with probable mild bibasilar atelectasis. 3. Hiatal hernia. ACT 112: Negative or not required by law. The above report was generated using voice recognition software. It may contain grammatical, syntax o r spelling errors. Electronically signed by: Artie Preciado M.D. 01/08/2025 2:25 PM
[2025-01-08] MEDS: FUROSEMIDE 40 MG/4 ML VIAL IV ONE (15:13)
--- NOTE | 2025-01-08 22:34 | Hospitalist Progress Note ---
Date of Service January 08, 2025 Assessment & Plan (1) Acute hypoxic respiratory failure: Plan: Likely suspected CHF, less likely pneumonia given lactate of 1.2, Pro-Jose of 0.1, no leukocytosis Blood cultures from admission have been negative so far Wean oxygen as tolerated 2 view chest x-ray from 12/27/2024 shows CHF and no evidence of pneumonia Patient completed 3 days of IV ceftriaxone and doxycycline and antibiotics were stopped on 12/28/2024 as patient does not have pneumonia Repeat chest x-ray shows improvement in vascular congestion Patient has a history of oat dust exposure Pulmonology consulted per cardiology recommendations: Nonspecific Interstitial Pneumonitis Solu-medrol changed to prednisone as per pulm Patient failed 2 step. He required 10 liters on ambulation. WIll continue to diurese Discharged cancelled. Reviewed chest x ray still showing sings of vascular congestion. (2) Dyspnea on exertion: (3) History of pulmonary embolism: Plan: -on eliquis (4) CAD (coronary artery disease): Plan: Outpatient machine fastener is Dr. Josr Massey 2D echo shows low normal systolic function with EF of 50 to 55%, hypokinesis of the anterolateral wall, moderate concentric LVH, moderate left atrial dilation, mild aortic stenosis, mild mitral regurgitation, mild pulmonary hypertension and type I diastolic dysfunction I spoke with machine fastener on-call Dr. Castelan: He advised me to continue with IV diuresis and he will let Dr. Massey know about patient's admission Dr. Castelan recommended pulmonology consult to see if patient has any underlying lung disease Repeat chest x-ray shows improvement in vascular congestion Change Lasix to 20 mg IV daily given significant amount of diuresis and improvement in chest x-ray, weight is down significantly I/O monitoring Daily weights Continue aspirin and statin Hold losartan 25 mg p.o. daily for now to avoid hypotension while patient is diuresing Patient would likely benefit from Jardiance on discharge Continue apixaban (5) Thoracic aortic aneurysm: (6) History of CVA (cerebrovascular accident): (7) Hypokalemia: (8) Diabetes mellitus, type 2: Plan: A1c is 8.4 B12 is 862 extension educator met with patient Pharmacy managing glycemic control Patient will benefit from Jardiance on discharge (9) BPH w urinary obs/LUTS: Plan: Patient required Flores catheter in ED due to urinary retention Continue Flores for now since patient is on IV Lasix Continue Flomax Trial without catheter prior to discharge once he is off IV Lasix Flores d/c'd (10) Seizure disorder: Plan: Continue Dilantin Plan 79-year-old male with past medical history of CAD status post PCI in August 2017, multiple CVA, recurrent PE on aspirin and apixaban, thoracic aortic aneurysm, type 2 diabetes mellitus, hyperlipidemia, seizure disorder, BPH, hypertension admitted for acute hypoxic respiratory failure with CTA chest showing no PE but noted to have bilateral infiltrates CODE STATUS: DNR/DNI DVT prophylaxis: Patient on apixaban Admission and Anticipated Discharge Date Admission Date: December 26, 2024 Subjective Patient reports no new symptoms. Physical Exam Physical Exam: GENERAL APPEARANCE NAD, activity normal for age, well developed/ well nourished, no cyanosis, pallor, or diaphoresis. HEAD/NECK normocephalic atraumatic, no facial trauma, neck is supple. RESPIRATORY respiratory effort normal, speaks in full sentences, rales in lower extremities CARDIAC Regular rate and rhythm, no edema. ABDOMINAL Soft, ND/NT. MUSCLES/EXTREMITIES No abnormal range of motion, no swelling. SKIN Warm, pink and dry. No rashes, dermatoses, petechiae or lesions. NEUROLOGICAL Speech is clear and appropriate. Normal level of consciousness. Gait and coordination are normal. 5/5 strength in all extremities. PSYCH Normal mood and affect. Judgement/competence is appropriate Results & Data Results & Data Vital Signs (Past 12 Hours) Vital Signs Temp Pulse Pulse Pulse Pulse Pulse Pulse 01/08/25 20:18 36.4 C L 01/08/25 17:12 90 01/08/25 16:08 36.7 C 01/08/25 13:40 92 H 90 94 H 99 H 100 H 01/08/25 11:05 36.7 C Pulse Pulse Pulse Pulse Resp Resp Resp 01/08/25 20:18 83 18 01/08/25 17:12 01/08/25 16:08 102 H 21 01/08/25 13:40 120 H 94 H 86 18 17 01/08/25 11:05 79 19 Resp Resp Resp Resp Resp Resp BP 01/08/25 20:18 119/80 01/08/25 17:12 01/08/25 16:08 123/76 01/08/25 13:40 18 19 24 19 18 17 01/08/25 11:05 115/79 Pulse Ox Pulse Ox Pulse Ox Pulse Ox Pulse Ox Pulse Ox Pulse Ox 01/08/25 20:18 92 01/08/25 17:12 01/08/25 16:08 88 L 01/08/25 13:40 86 L 87 L 89 L 85 L 87 L 91 01/08/25 11:05 92 Pulse Ox Pulse Ox O2 Del Method O2 Flow Rate O2 Flow Rate O2 Flow Rate O2 Flow Rate 01/08/25 20:18 Nasal Cannula 9 01/08/25 17:12 01/08/25 16:08 High Flow Nasal Cannula 6.0 01/08/25 13:40 85 L 86 L 5 6 7 01/08/25 11:05 Nasal Cannula 4.0 O2 Flow Rate O2 Flow Rate O2 Flow Rate O2 Flow Rate O2 Flow Rate 01/08/25 20:18 01/08/25 17:12 01/08/25 16:08 01/08/25 13:40 8 9 10 7 4 01/08/25 11:05 PG Care Time/CCT Total # of Minutes Spent Total Time Spent with Patient: Total time spent is greater than 50% in coordination of care (as documented) at patient's floor/unit and/or counseling patient: Coding Level of Care Code 86605 SUB INP/OBS CARE 3/50MIN Diagnoses Acute hypoxic respiratory failure J96.01 Dyspnea on exertion R06.09 History of pulmonary embolism Z86.711 CAD (coronary artery disease) I25.10 Thoracic aortic aneurysm I71.2 History of CVA (cerebrovascular accident) Z86.73 Hypokalemia E87.6 Diabetes mellitus, type 2 E11.9 BPH w urinary obs/LUTS N40.1; N13.8 Seizure disorder G40.909
[2025-01-09 07:17] VITALS: TEMP 98.1
[2025-01-09 08:02] LABS: Hematocrit (blood only) 39.5 % (42.0-52.0); Hemoglobin 13.3 g/dl (14.0-18.0); Mean Corpuscular Hgb Conc 33.7 g/dL (32.0-36.0); Mean Corpuscular Volume 95.2 fL (80.0-100.0); Mean Platelet Volume 8.9 fL (9.4-12.4); Platelet Count 360 K/uL (130-400); RDW Coefficient of Variation 13.2 % (11.5-14.5); RDW Standard Deviation 46.6 fL (36.4-46.3); Red Blood Count 4.15 M/uL (4.70-6.10); White Blood Count 8.05 K/ul (4.8-10.8)
[2025-01-09 08:17] LABS: Calcium 8.7 mg/dl (8.6-10.3); Creatinine Clr Calc Pharmacy 57.8 ml/min; Potassium 4.1 mmol/L (3.5-5.1)
[2025-01-09 15:44] VITALS: BP 118/76; PULSE 82
[2025-01-09 18:06] VITALS: RESP 20; O2SAT 92
--- NOTE | 2025-01-10 08:07 | Discharge Summary ---
Discharge Summary Date of Service January 09, 2025 Principal Dx & Hospital Course #1 = Principal Diagnosis (1) Acute hypoxic respiratory failure: Likely suspected CHF, less likely pneumonia given lactate of 1.2, Pro-Jose of 0.1, no leukocytosis Blood cultures from admission have been negative so far Wean oxygen as tolerated 2 view chest x-ray from 12/27/2024 shows CHF and no evidence of pneumonia Patient completed 3 days of IV ceftriaxone and doxycycline and antibiotics were stopped on 12/28/2024 as patient does not have pneumonia Repeat chest x-ray shows improvement in vascular congestion Patient has a history of oat dust exposure Pulmonology consulted per cardiology recommendations: Nonspecific Interstitial Pneumonitis Solu-medrol changed to prednisone as per pulm Will discharge on prednisone taper 60 mg daily, taper by 10 every 2 weeks. Script given for 4 weeks will need refill. Patient failed 2 step. He required 10 liters on ambulation. Patient did not respond completely to diuretics. asked for patient to be discharged on home hospice. Will discharge on diuretics, potassium replacement, steroid taper, jardiance, bactrim for PJP prophylaxis. (2) Dyspnea on exertion: (3) History of pulmonary embolism: -on eliquis (4) CAD (coronary artery disease): Outpatient revenue liaison is Dr. Josr Massey 2D echo shows low normal systolic function with EF of 50 to 55%, hypokinesis of the anterolateral wall, moderate concentric LVH, moderate left atrial dilation, mild aortic stenosis, mild mitral regurgitation, mild pulmonary hypertension and type I diastolic dysfunction I spoke with revenue liaison on-call Dr. Castelan: He advised me to continue with IV diuresis and he will let Dr. Massey know about patient's admission Dr. Castelan recommended pulmonology consult to see if patient has any underlying lung disease I/O monitoring Daily weights Continue aspirin and statin Patient would likely benefit from Jardiance on discharge Continue apixaban (5) Thoracic aortic aneurysm: (6) History of CVA (cerebrovascular accident): (7) Hypokalemia: (8) Diabetes mellitus, type 2: A1c is 8.4 B12 is 862 nurses educator met with patient Pharmacy managing glycemic control Patient will benefit from Jardiance on discharge (9) BPH w urinary obs/LUTS: Patient required Flores catheter in ED due to urinary retention Continue Flores for now since patient is on IV Lasix Continue Flomax Trial without catheter prior to discharge once he is off IV Lasix Flores d/c'd (10) Seizure disorder: Continue Dilantin Plan 79-year-old male with past medical history of CAD status post PCI in August 2017, multiple CVA, recurrent PE on aspirin and apixaban, thoracic aortic aneurysm, type 2 diabetes mellitus, hyperlipidemia, seizure disorder, BPH, hypertension admitted for acute hypoxic respiratory failure with CTA chest showing no PE but noted to have bilateral infiltrates Admission HPI Per Admitting Provider Patient is an 79-year-old male with past medical history of CAD, CVA, chronic anticoagulation w/ Eliquis, thoracic aortic aneurysm, diabetes type 2, history of PE, hyperlipidemia, seizure disorder, BPH, hypertension, bilateral sensorineural hearing loss, and chronic diarrhea who came to the emergency department due to noted hypoxia at home. Patient states that for the last week he has been gradually getting more dyspneic on exertion, and although he states that he does have a chronic cough, over the course of this past week that has also worsened. Other than the symptoms, patient denies having any associated chest pain, bilateral lower extremity swelling, nausea/vomiting, body aches, changes in appetite, lightheadedness, dizziness, palpitations, tachycardia, syncope, or any other associated symptoms. Earlier this evening, patient was measuring his oxygen saturation with a home pulse ox, which showed a saturation that was in the 70s, after which his told him that they needed to go to the emergency department to be evaluated. On further questioning, patient states that he was up in the form and was exposed to multiple environmental substances, the more marked 1 being oat dust to which she would be exposed to the point that "he looked like he walked out of a coal mine". During this time never used a mask. A few years ago, patient states that he had a bronchoscopy done and he w as told that he had "black lungs". Over these past few years, patient has also been sensitive to environmental allergens/irritants and has needed nebulizer therapies at home. ED Course: Given duoneb treatment, doxycycline IV x1, KCl 10 mEq IV x1, given KCl 80 mEq PO x1 Medical History: [Reviewed] Medications: [Reviewed] Surgical History: [Reviewed] Family history: [Reviewed] Allergies: [Reviewed] Social History: [Reviewed] Code Status: DNR/DNI Discharge Exam GENERAL APPEARANCE NAD, activity normal for age, well developed/ well nourished, no cyanosis, pallor, or diaphoresis. HEAD/NECK normocephalic atraumatic, no facial trauma, neck is supple. RESPIRATORY respiratory effort normal, speaks in full sentences, rales in lower extremities CARDIAC Regular rate and rhythm, no edema. ABDOMINAL Soft, ND/NT. MUSCLES/EXTREMITIES No abnormal range of motion, no swelling. SKIN Warm, pink and dry. No rashes, dermatoses, petechiae or lesions. NEUROLOGICAL Speech is clear and appropriate. Normal level of consciousness. Gait and coordination are normal. 5/5 strength in all extremities. PSYCH Normal mood and affect. Judgement/competence is appropriate Discharge Plan Discharge Items Patient Disposition: Hospice - Home Reason For Visit: WOLFE Discharge Diagnosis: Dyspnea Activity: Resume your previous activity Non-emergency contact: Primary Care Provider Call non-emergency contact if: you have any medication questions Follow-up/Referrals: Ashlie Triana DO [Primary Care Provider] - Diet: Carb Consistent or DM2 and Heart Healthy Addtl Attending Provider Instructions: DIscharged on home hospice. May followup with Pulmonary and PCP if needed. Will need steroid taper order Pending Studies at Discharge: No Stand-Alone Forms: My [facility] [place], Smoking Cessation Medications and DC Order Prescriptions: New prednisone 10 mg tablet 10 mg PO DIRECTED Qty: 154 0RF Rx Instructions: see taper instructions Take 6 tablets once a day for 2 weeks, then 5 tablets for 2 weeks; fluticasone propionate 50 mcg/actuation [place],Suspension 1 spray NA BID Qty: 16 0RF furosemide [Lasix] 40 mg tablet 40 mg PO DAILY Qty: 30 0RF potassium chloride 10 mEq tablet extended release 10 meq PO DAILY Qty: 30 0RF sulfamethoxazole-trimethoprim [Bactrim DS] 800-160 mg Tablet 1 tab PO MoWeFr@0900 Qty: 15 0RF morphine concentrate 100 mg/5 mL (20 mg/mL) solution 5 mg PO Q6H PRN (Reason: pain) Qty: 15 0RF Jardiance 10 mg tablet 10 mg PO DAILY Qty: 30 0RF lorazepam [Ativan] 0.5 mg tablet 0.5 mg PO Q4H PRN (Reason: anxiety/restlessness) Qty: 14 0RF (DME) blood-glucose meter Misc See Rx Instructions .Route Qty: 1 0RF Rx Instructions: [facility] (DME) OneTouch Verio test strips Strip See Rx Instructions .Route Qty: 100 0RF Rx Instructions: [facility] (DME) lancets [OneTouch Delica Plus Lancet] 33 gauge misc See Rx Instructions .Route Qty: 100 0RF Rx Instructions: [facility] Continued tamsulosin 0.4 mg capsule 0.8 mg PO QPM 90 Days Qty: 180 3RF dutasteride [Avodart] 0.5 mg capsule 0.5 mg PO DAILY Qty: 90 3RF acetaminophen [Tylenol 8 Hour] 650 mg tablet extended release 650 mg PO BID PRN (Reason: Pain) magnesium 250 mg tablet 250 mg PO QAM coenzyme Q10 100 mg capsule 100 mg PO QAM cholecalciferol (vitamin D3) 1,000 unit (25 mcg) tablet 1,000 units PO QPM nitroglycerin 0.4 mg tablet, sublingual 0.4 mg SL Q5M PRN (Reason: chest pain) phenytoin sodium extended 100 mg capsule 200 mg PO BID glimepiride 2 mg tablet 2 mg PO QPM PreserVision AREDS 2,148 mcg-113 mg-45 mg-17.4mg tablet 1 tab PO BID Rx Instructions: administer with AM and PM meals apixaban 5 mg tablet 5 mg PO BID Qty: 180 3RF aspirin [Roxy Low Dose Aspirin] 81 mg Tablet,Delayed Release (Dr/Ec) 81 mg PO QAM losartan 25 mg tablet 25 mg PO QAM ezetimibe [Zetia] 10 mg tablet 10 mg PO QAM Rx Instructions: PER PT'S SPOUSE "ON HOLD AT PRESENT" rosuvastatin 40 mg Tablet 40 mg PO DAILY Patient Comments: takes at lunch Rx Instructions: PER PT'S SPOUSE "ON HOLD AT PRESENT" Probiotic 10 billion cell Capsule 10,000 mmu cells PO DAILY Discharge Orders: Discharge Order (Routine); Ordered 01/09/25 Ordered By: Joshua Gomez/Other Patient Handouts: Managing Type 2 Diabetes Admission Data Admit Date/Time: 12/26/24 01:26 Attending Provider: Joshua Huddleston Admit Provider: Froilan Carroll Primary Care Provider: Ashlie Triana Other Providers: Carlie Kim; [facility]; Froilan Carroll; Dmitry Prather; Lawrence Casey Other Interventions: Discharge Summary Assessment (RN) Last Done: 01/09/25 14:49 Hospital Stay Data Consultations 12/26/24 00:45 ED Decision to Admit Stat 12/31/24 11:05 Consult Pulmonology Routine 01/01/25 13:28 Consult Pulmonology Routine Diagnostic Imagining Performed 12/25/24 23:17 CT angio chest PE protocol Stat 01/01/25 15:15 CT chest diagnostic wo con Urgent Pending Results Patient Have Any Pending Studies at Discharge: No Discharge Instructions Given to Patient (Per Discharging Provider) DIscharged on home hospice. May followup with Pulmonary and PCP if needed. Will need steroid taper order Total Time Total Time Spent Total Time Spent (In Minutes): 35 Coding Level of Care Code 44349 INP/OBS DISCH >30 MIN Diagnoses Acute hypoxic respiratory failure J96.01 Dyspnea on exertion R06.09 History of pulmonary embolism Z86.711 CAD (coronary artery disease) I25.10 Thoracic aortic aneurysm I71.2 History of CVA (cerebrovascular accident) Z86.73 Hypokalemia E87.6 Diabetes mellitus, type 2 E11.9 BPH w urinary obs/LUTS N40.1; N13.8 Seizure disorder G40.909
== END 2025-01-09 18:00 | disposition hospice, home (50) | DRG 291 ==
LOC: SUATTDRO → ED 22:02 → 2S 12-26 01:26 → SUATTDRO 12-26 01:26 → 2S 12-26 02:56 → 2E 12-30 12:17
DX: Z66 Do not resuscitate; Z98.890 Other specified postprocedural states; G40.909 Epilepsy, unspecified, not intractable, without status epilepticus; M19.012 Primary osteoarthritis, left shoulder; Z51.5 Encounter for palliative care; Z79.84 Long term (current) use of oral hypoglycemic drugs; I71.20 Thoracic aortic aneurysm, without rupture, unspecified; Z79.01 Long term (current) use of anticoagulants; Z88.0 Allergy status to penicillin; Z86.711 Personal history of pulmonary embolism; I50.31 Acute diastolic (congestive) heart failure; I25.10 Atherosclerotic heart disease of native coronary artery without angina pectoris; J96.01 Acute respiratory failure with hypoxia; R33.9 Retention of urine, unspecified; M19.011 Primary osteoarthritis, right shoulder; N40.1 Benign prostatic hyperplasia with lower urinary tract symptoms; Z86.73 Personal history of transient ischemic attack (TIA), and cerebral infarction without residual deficits; E87.6 Hypokalemia; J84.9 Interstitial pulmonary disease, unspecified; Z79.82 Long term (current) use of aspirin; I11.0 Hypertensive heart disease with heart failure; E11.9 Type 2 diabetes mellitus without complications; Z88.1 Allergy status to other antibiotic agents; I35.0 Nonrheumatic aortic (valve) stenosis